=== PATIENT | female | born 1935 | race Caucasian/White ===

== ENCOUNTER 2017-02-16 06:58 | Emergency (ER) | payer MEDICARE, BC ==
--- NOTE | 2017-02-16 07:08 | EDM.PDOC ---
ED HPI GENERAL MEDICAL PROBLEM - General Chief Complaint: Lower Extremity Injury/Pain Stated Complaint: RIGHT KNEE PAIN Time Seen by Provider: 02/16/17 06:59 Source of Information: Reports: Patient - History of Present Illness INITIAL COMMENTS - FREE TEXT/NARRATIVE: History of present illness: []Patient has a knee replacement on her right knee and started having increasing pain and redness and swelling 3 days ago. She states she has chills but denies any fevers or recent trauma to the knee. Patient did have a wound infection after the knee replacement and has been going to wound care at [facility]. Review of systems: As per history of present illness and below otherwise all systems reviewed and negative. Past medical history: As per history of present illness and as reviewed below otherwise noncontributory. Surgical history: As per history of present illness and as reviewed below otherwise noncontributory. Social history: No reported history of drug or alcohol abuse. Family history: As per history of present illness and as reviewed below otherwise noncontributory. Physical exam: General: Well developed, well nourished in NAD HEENT: Atraumatic, normocephalic, pupils reactive, negative for conjunctival pallor or scleral icterus, mucous membranes moist, throat clear, neck supple, nontender, trachea midline. Lungs: Clear to auscultation, breath sounds equal bilaterally, chest nontender. Heart: S1S2, regular, negative for clicks, rubs, or JVD. Abdomen: Soft, nondistended, nontender. Negative for masses or hepatosplenomegaly. Negative for costovertebral tenderness. Pelvis: Stable nontender. Genitourinary: Deferred. Rectal: Deferred. Extremities: Atraumatic, right lateral knee with erythema, warmth and tenderness to palpation there is no wound drainage from chronic wound on the lower medial knee, no effusion, no distal edema negative for cords or calf pain. Neurovascular unremarkable. Neuro: Awake, alert, oriented. Cranial nerves II through XII unremarkable. Cerebellum unremarkable. Motor and sensory unremarkable throughout. Exam nonfocal. Diagnostics: []X-ray negative, CBC with elevated white count with a shift Therapeutics: []Pain meds and IV antibiotics started Impression: []Cellulitis over a prosthetic knee Plan: []I consulted Dr. Stallings who sent her PA for evaluation. Follow-up with orthopedics, Levaquin daily for 10 days, Toradol and Zofran for pain and nausea as needed. Definitive disposition and diagnosis as appropriate pending reevaluation and review of above. Right Knee Pain Score (Numeric/FACES): 10 - Related Data Allergies Allergy/AdvReac Type Severity Reaction Status Date / Time codeine Allergy Vomiting Verified 03/29/16 13:55 latex Allergy Rash Verified 03/31/16 11:51 morphine Allergy Difficulty Verified 03/29/16 13:55 Breathing oxycodone HCl [From Percocet] Allergy Vomiting Verified 03/29/16 13:55 Penicillins Allergy Anaphylactic Verified 03/29/16 13:55 Shock Sulfa (Sulfonamide Allergy Anaphylactic Verified 03/29/16 13:55 Antibiotics) Shock all pain meds Allergy Nausea Uncoded 02/16/17 07:03 Home Meds: Home Meds amLODIPine Besylate [Amlodipine Besylate] 10 mg PO DAILY 07/28/14 [History] Omeprazole Magnesium [Prilosec Otc] 20 mg PO ACBRK 08/01/14 [History] Promethazine [Phenergan] 25 mg PO Q6H PRN #30 tablet 08/04/14 [Rx] Denosumab [Prolia] 1 dose IM ASDIRECTED 02/28/16 [History] Levothyroxine [Synthroid] 1 tab PO DAILY 02/28/16 [History] Ketorolac [Toradol] 10 mg PO Q6H PRN #20 tablet 02/16/17 [Rx] Levofloxacin [Levaquin] 750 mg PO DAILY #9 tablet 02/16/17 [Rx] Ondansetron HCl [Zofran] 4 mg PO Q8HR PRN #16 tablet 02/16/17 [Rx] Past Medical History - Past Health History Medical/Surgical History: Denies Medical/Surgical History HEENT History: Reports: Cataract Other HEENT History: has upper denture and lower partial Cardiovascular History: Reports: None Respiratory History: Reports: None Gastrointestinal History: Reports: GERD, Irritable Bowel Syndrome, Other (See Below) Other Gastrointestinal History: IBS-Diarrhea Genitourinary History: Reports: Other (See Below) Other Genitourinary History: overactive bladder [employer]ORY [employer]ER History: Reports: Musculoskeletal History: Reports: Arthritis Neurological History: Reports: Other (See Below) Other Neuro History: hx of motion sickness Psychiatric History: Reports: None Endocrine/Metabolic History: Reports: Hypothyroidism Hematologic History: Reports: None Immunologic History: Reports: Other (See Below) Other Immunologic History: CREST syndrome Oncologic (Cancer) History: Reports: None Dermatologic History: Reports: None, Other (See Below) Other Dermatologic History: Raynaud's Syndrome - Past Surgical History HEENT Surgical History: Reports: Cataract Surgery Female Surgical History: Reports: Hysterectomy, Other (See Below) Musculoskeletal Surgical History: Reports: Knee Replacement, ORIF, Shoulder Surgery, Other (See Below) Social & Family History - Family History Family Medical History: Noncontributory HEENT: Reports: Cataract Respiratory: Reports: COPD Musculoskeletal: Reports: Arthritis Psychiatric: Reports: Depression Endocrine/Metabolic: Reports: Diabetes, type II - Tobacco Use Smoking Status *Q: Former Smoker Years of Tobacco use: 10 Used Tobacco, but Quit: No Second Hand Smoke Exposure: No - Alcohol Use Days Per Week of Alcohol Use: 0 Number of Drinks Per Day: 0 Total Drinks Per Week: 0 - Recreational Drug Use Recreational Drug Use: No Drug Use in Last 12 Months: No Review of Systems - Review of Systems Review Of Systems: See Below (See history of present illness) ED EXAM, GENERAL - Physical Exam Exam: See Below (See history of present illness) Course - Vital Signs Last Recorded V/S: Last Vital Signs Temp 37.1 C 02/16/17 07:03 Pulse 88 02/16/17 10:30 Resp 16 02/16/17 10:30 BP 122/54 L 02/16/17 10:30 Pulse Ox 90 L 02/16/17 10:30 - Orders/Labs/Meds Orders: Active Orders 24 hr Category Date Time Status CULTURE BLOOD [BC] Stat Lab 02/16/17 07:25 Received CULTURE BLOOD [BC] Stat Lab 02/16/17 07:39 Received Sodium Chloride 0.9% [Saline Flush] Med 02/16/17 07:14 Active 10 ml FLUSH ASDIRECTED PRN Sodium Chloride 0.9% [Saline Flush] Med 02/16/17 07:14 Active 2.5 ml FLUSH ASDIRECTED PRN Blood Culture x2 Reflex Set [OM.PC] Stat Oth 02/16/17 07:13 Ordered Saline Lock Insert [OM.PC] Stat Oth 02/16/17 07:14 Ordered Medication Orders Sodium Chloride (Saline Flush) 10 ml FLUSH ASDIRECTED PRN PRN Reason: Keep Vein Open Sodium Chloride (Saline Flush) 2.5 ml FLUSH ASDIRECTED PRN PRN Reason: Keep Vein Open Labs: Laboratory Tests 02/16/17 02/16/17 02/16/17 Range/Units 07:25 07:25 07:25 WBC 11.54 H (4.0-11.0) K/uL RBC 4.03 L (4.30-5.90) M/uL Hgb 11.5 L (12.0-16.0) g/dL Hct 36.6 (36.0-46.0) % MCV 90.8 (80.0-98.0) fL MCH 28.5 (27.0-32.0) pg MCHC 31.4 (31.0-37.0) g/dL RDW Std Deviation 50.3 (28.0-62.0) fl RDW Coeff of Kari 15 (11.0-15.0) % Plt Count 189 (150-400) K/uL MPV 10.80 (7.40-12.00) fL Neut % (Auto) 83.2 H (48.0-80.0) % Lymph % (Auto) 9.3 L (16.0-40.0) % [place] % (Auto) 7.0 (0.0-15.0) % Eos % (Auto) 0.3 (0.0-7.0) % Baso % (Auto) 0.2 (0.0-1.5) % Neut # (Auto) 9.6 H (1.4-5.7) K/uL Lymph # (Auto) 1.1 (0.6-2.4) K/uL [place] # (Auto) 0.8 (0.0-0.8) K/uL Eos # (Auto) 0.0 (0.0-0.7) K/uL Baso # (Auto) 0.0 (0.0-0.1) K/uL Nucleated RBC % 0.0 /100WBC Nucleated RBCs # 0 K/uL ESR 44 H (0-29) mm/hr Sodium 140 (136-146) mmol/L Potassium 3.7 (3.5-5.1) mmol/L Chloride 111 H (98-110) mmol/L Carbon Dioxide 23 (21-31) mmol/L BUN 13 (6.0-23.0) mg/dL Creatinine 0.8 (0.6-1.5) mg/dL Est Cr Clr Drug Dosing 44.36 mL/min Estimated GFR (MDRD) > 60.0 ml/min Glucose 101 (60-110) mg/dL Calcium 8.5 L (8.8-10.8) mg/dL Total Bilirubin 0.5 (0.1-1.5) mg/dL AST 13 (5-40) IU/L ALT 8 (8-54) IU/L Alkaline Phosphatase 84 (40-150) C-Reactive Protein (0.0-0.5) mg/dL Total Protein 7.1 (6.0-8.0) g/dL Albumin 3.6 (3.4-4.8) g/dL Globulin 3.5 (2.0-3.5) g/dL Albumin/Globulin Ratio 1.0 L (1.3-2.8) 02/16/17 Range/Units 07:25 WBC (4.0-11.0) K/uL RBC (4.30-5.90) M/uL Hgb (12.0-16.0) g/dL Hct (36.0-46.0) % MCV (80.0-98.0) fL MCH (27.0-32.0) pg MCHC (31.0-37.0) g/dL RDW Std Deviation (28.0-62.0) fl RDW Coeff of Kari (11.0-15.0) % Plt Count (150-400) K/uL MPV (7.40-12.00) fL Neut % (Auto) (48.0-80.0) % Lymph % (Auto) (16.0-40.0) % [place] % (Auto) (0.0-15.0) % Eos % (Auto) (0.0-7.0) % Baso % (Auto) (0.0-1.5) % Neut # (Auto) (1.4-5.7) K/uL Lymph # (Auto) (0.6-2.4) K/uL [place] # (Auto) (0.0-0.8) K/uL Eos # (Auto) (0.0-0.7) K/uL Baso # (Auto) (0.0-0.1) K/uL Nucleated RBC % /100WBC Nucleated RBCs # K/uL ESR (0-29) mm/hr Sodium (136-146) mmol/L Potassium (3.5-5.1) mmol/L Chloride (98-110) mmol/L Carbon Dioxide (21-31) mmol/L BUN (6.0-23.0) mg/dL Creatinine (0.6-1.5) mg/dL Est Cr Clr Drug Dosing mL/min Estimated GFR (MDRD) ml/min Glucose (60-110) mg/dL Calcium (8.8-10.8) mg/dL Total Bilirubin (0.1-1.5) mg/dL AST (5-40) IU/L ALT (8-54) IU/L Alkaline Phosphatase (40-150) C-Reactive Protein 18.89 H (0.0-0.5) mg/dL Total Protein (6.0-8.0) g/dL Albumin (3.4-4.8) g/dL Globulin (2.0-3.5) g/dL Albumin/Globulin Ratio (1.3-2.8) Meds: Medications Generic Name Dose Route Start Last Admin Trade Name Freq PRN Reason Stop Dose Admin Sodium Chloride 10 ml 02/16/17 07:14 Saline Flush FLUSH ASDIRECTED PRN Keep Vein Open Sodium Chloride 2.5 ml 02/16/17 07:14 Saline Flush FLUSH ASDIRECTED PRN Keep Vein Open Discontinued Medications Generic Name Dose Route Start Last Admin Trade Name Freq PRN Reason Stop Dose Admin Levofloxacin/Dextrose 750 mg/ 150 mls @ 100 mls/hr 02/16/17 10:02 02/16/17 10 :36 Premix IV 02/16/17 11:31 100 mls/hr ONETIME ONE Administration Ketorolac Tromethamine 15 mg 02/16/17 08:02 02/16/17 08:09 Toradol IVPUSH 02/16/17 08:03 15 mg ONETIME ONE Administration Ondansetron HCl 4 mg 02/16/17 08:03 02/16/17 08:09 Zofran IVPUSH 02/16/17 08:04 4 mg ONETIME ONE Administration Departure - Departure Time of Disposition: 12:10 Disposition: Home, Self-Care 01 Condition: Good Clinical Impression: Cellulitis of knee, right - Discharge Information Prescriptions: Ondansetron HCl [Zofran] 4 mg PO Q8HR PRN #16 tablet PRN Reason: Nausea Ketorolac [Toradol] 10 mg PO Q6H PRN #20 tablet PRN Reason: Pain Levofloxacin [Levaquin] 750 mg PO DAILY #9 tablet Instructions: Cellulitis, Adult, [id number] Referrals: PCP,None [Primary Care Provider] - Forms: ED Department Discharge Additional Instructions: The following information is given to patients seen in the emergency department who are being discharged to home. This information is to outline your options for follow-up care. We provide all patients seen in our emergency department with a follow-up referral. The need for follow-up, as well as the timing and circumstances, are variable depending upon the specifics of your emergency department visit. If you don't have a primary care physician on staff, we will provide you with a referral. We always advise you to contact your personal physician following an emergency department visit to inform them of the circumstance of the visit and for follow-up with them and/or the need for any referrals to a consulting specialist. The emergency department will also refer you to a specialist when appropriate. This referral assures that you have the opportunity for follow-up care with a specialist. All of these measure are taken in an effort to provide you with optimal care, which includes your follow-up. Under all circumstances we always encourage you to contact your private physician who remains a resource for coordinating your care. When calling for follow-up care, please make the office aware that this follow-up is from your recent emergency room visit. If for any reason you are refused follow-up, please contact the [facility] Emergency Department at and asked to speak to the emergency department charge nurse. Levaquin daily for 10 days, tramadol and Zofran for pain and nausea Follow-up with Dr. Haylie LIMA [facility] [address], [address] [place] [address] - My Orders Last 24 Hours: My Active Orders 02/16/17 07:13 Blood Culture x2 Reflex Set [OM.PC] Stat 02/16/17 07:14 Sodium Chloride 0.9% [Saline Flush] 10 ml FLUSH ASDIRECTED PRN Sodium Chloride 0.9% [Saline Flush] 2.5 ml FLUSH ASDIRECTED PRN Saline Lock Insert [OM.PC] Stat 02/16/17 07:25 CULTURE BLOOD [BC] Stat 02/16/17 07:39 CULTURE BLOOD [BC] Stat - Assessment/Plan Last 24 Hours: My Active Orders 02/16/17 07:13 Blood Culture x2 Reflex Set [OM.PC] Stat 02/16/17 07:14 Sodium Chloride 0.9% [Saline Flush] 10 ml FLUSH ASDIRECTED PRN Sodium Chloride 0.9% [Saline Flush] 2.5 ml FLUSH ASDIRECTED PRN Saline Lock Insert [OM.PC] Stat 02/16/17 07:25 CULTURE BLOOD [BC] Stat 02/16/17 07:39 CULTURE BLOOD [BC] Stat
[2017-02-16] MEDS ORDERED: Sodium Chloride 0.9% 10 ML Syringe FLUSH PRN (07:14)
[2017-02-16] MEDS ORDERED: Sodium Chloride 0.9% 2.5 ML Syringe FLUSH PRN (07:14)
[2017-02-16 07:58] LABS: CHLORIDE,CL 111 mmol/L (98-110); SODIUM,NA 140 mmol/L (136-146)
[2017-02-16] MEDS ORDERED: Ketorolac 30 MG/ML SDV IVPUSH ONE (08:02)
[2017-02-16] MEDS ORDERED: Ondansetron 4 MG/2 ML SDV IVPUSH ONE (08:03)
--- NOTE | 2017-02-16 08:59 | CR ---
EXAMINATION: Right knee HISTORY: Pain COMPARISON: CT dated 04/01/2016 TECHNIQUE: 3 views FINDINGS: There is no acute osseous abnormality, dislocation, or fracture identified. Right revision arthroplasty hardware noted in stable position and alignment. Postoperative soft tissue changes not ed within the right knee without evidence of a joint effusion. Bone mineralization is otherwise norm al. IMPRESSION: Right total knee hardware without an acute osseous abnormality.
--- NOTE | 2017-02-16 09:41 | PCM.CONS ---
<Apolinar Boyd - Last Filed: 02/16/17 10:08> H&P History of Present Illness - General Date of Service: 02/16/17 Source of Information: Patient, Family History Limitations: Reports: No Limitations - History of Present Illness Onset of Symptoms: Reports: Gradual Duration of Symptoms: Reports: Day(s): (4) Location: Reports: Lower Extremity, Right Quality: Reports: Sharp, Stabbing, Throbbing Improves with: Reports: Medication (Toradol) Worsens with: Reports: Movement Associated Symptoms: Reports: No Other Symptoms. Denies: Fever/Chills Right Knee Pain Score (Numeric/FACES): 10 - Related Data Allergies/Adverse Reactions: Allergies Allergy/AdvReac Type Severity Reaction Status Date / Time codeine Allergy Vomiting Verified 03/29/16 13:55 latex Allergy Rash Verified 03/31/16 11:51 morphine Allergy Difficulty Verified 03/29/16 13:55 Breathing oxycodone HCl [From Percocet] Allergy Vomiting Verified 03/29/16 13:55 Penicillins Allergy Anaphylactic Verified 03/29/16 13:55 Shock Sulfa (Sulfonamide Allergy Anaphylactic Verified 03/29/16 13:55 Antibiotics) Shock all pain meds Allergy Nausea Uncoded 02/16/17 07:03 Home Medications: Home Meds amLODIPine Besylate [Amlodipine Besylate] 10 mg PO DAILY 07/28/14 [History] Omeprazole Magnesium [Prilosec Otc] 20 mg PO ACBRK 08/01/14 [History] Promethazine [Phenergan] 25 mg PO Q6H PRN #30 tablet 08/04/14 [Rx] Denosumab [Prolia] 1 dose IM ASDIRECTED 02/28/16 [History] Levothyroxine [Synthroid] 1 tab PO DAILY 02/28/16 [History] Ketorolac [Toradol] 10 mg PO Q6H PRN #20 tablet 02/16/17 [Rx] Levofloxacin [Levaquin] 750 mg PO DAILY #9 tablet 02/16/17 [Rx] Ondansetron HCl [Zofran] 4 mg PO Q8HR PRN #16 tablet 02/16/17 [Rx] Past Medical History - Past Health History Medical/Surgical History: Denies Medical/Surgical History HEENT History: Reports: Cataract Other HEENT History: has upper denture and lower partial Cardiovascular History: Reports: None Respiratory History: Reports: None Gastrointestinal History: Reports: GERD, Irritable Bowel Syndrome, Other (See Below) Other Gastrointestinal History: IBS-Diarrhea Genitourinary History: Reports: Other (See Below) Other Genitourinary History: overactive bladder 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: Musculoskeletal History: Reports: Arthritis Neurological History: Reports: Other (See Below) Other Neuro History: hx of motion sickness Psychiatric History: Reports: None Endocrine/Metabolic History: Reports: Hypothyroidism Hematologic History: Reports: None Immunologic History: Reports: Other (See Below) Other Immunologic History: CREST syndrome Oncologic (Cancer) History: Reports: None Dermatologic History: Reports: None, Other (See Below) Other Dermatologic History: Raynaud's Syndrome - Infectious Disease History Infectious Disease History: Reports: Chicken Pox, Measles, Shingles - Past Surgical History HEENT Surgical History: Reports: Cataract Surgery Female Surgical History: Reports: Hysterectomy, Other (See Below) Musculoskeletal Surgical History: Reports: Knee Replacement, ORIF, Shoulder Surgery, Other (See Below) Social & Family History - Family History Family Medical History: Noncontributory HEENT: Reports: Cataract Respiratory: Reports: COPD Musculoskeletal: Reports: Arthritis Psychiatric: Reports: Depression Endocrine/Metabolic: Reports: Diabetes, type II - Tobacco Use Smoking Status *Q: Former Smoker Years of Tobacco use: 10 Used Tobacco, but Quit: No Second Hand Smoke Exposure: No - Caffeine Use Caffeine Use: Reports: Coffee, Soda - Alcohol Use Days Per Week of Alcohol Use: 0 Number of Drinks Per Day: 0 Total Drinks Per Week: 0 - Recreational Drug Use Recreational Drug Use: No Drug Use in Last 12 Months: No H&P Review of Systems - Review of Systems: Review Of Systems: See Below General: Denies: Fever, Chills, Malaise, Weakness, Fatigue HEENT: Reports: No Symptoms Pulmonary: Reports: No Symptoms Cardiovascular: Reports: No Symptoms Gastrointestinal: Reports: No Symptoms Genitourinary: Reports: No Symptoms Musculoskeletal: Reports: Leg Pain, Joint Pain, Joint Swelling Skin: Reports: Erythema (Medial aspect of right knee.) Psychiatric: Reports: No Symptoms Neurological: Reports: No Symptoms Hematologic/Lymphatic: Reports: No Symptoms Immunologic: Reports: No Symptoms Exam - Exam Exam: See Below - Vital Signs Vital Signs: Last Vital Signs Temp 37.1 C 02/16/17 07:03 Pulse 110 H 02/16/17 07:03 Resp 18 02/16/17 07:03 BP 158/76 H 02/16/17 07:03 Pulse Ox 97 02/16/17 07:03 Weight: 50.349 kg - Exam General: Alert, Oriented HEENT: Conjunctiva Clear, Hearing Intact, Pupils Equal, Pupils Reactive Neck: Trachea Midline Lungs: Normal Respiratory Effort Extremities: Normal Pulses, Other (Exam of right knee reveals no obvious deformities. Midline incision is clean, dry and well healed. There is an area approximately 3cm in diamater on the inferior medial aspect of the knee. This appears to be healing. It is dry, no drainage. There is erythema surrounding this. Joint is warm with palpation. Pain with palpation of lateral joint line. ROM 0-90 degrees. Stable with varus and valgus stress. EHL, gastroc, anterior tibialis strength 5/5. ). No: Calf Tenderness Skin: Warm, Dry, Intact Neuro Extensive - Mental Status: Alert, Oriented x3, Normal Mood/Affect, Memory Intact Neuro Extensive - Motor, Sensory, Reflexes: CN II-XII Intact - Patient Data Lab Results Last 24 hrs: Laboratory Results - last 24 hr 02/16/17 02/16/17 Range/Units 07:25 07:25 WBC 11.54 H (4.0-11.0) K/uL RBC 4.03 L (4.30-5.90) M/uL Hgb 11.5 L (12.0-16.0) g/dL Hct 36.6 (36.0-46.0) % MCV 90.8 (80.0-98.0) fL MCH 28.5 (27.0-32.0) pg MCHC 31.4 (31.0-37.0) g/dL RDW Std Deviation 50.3 (28.0-62.0) fl RDW Coeff of Kari 15 (11.0-15.0) % Plt Count 189 (150-400) K/uL MPV 10.80 (7.40-12.00) fL Neut % (Auto) 83.2 H (48.0-80.0) % Lymph % (Auto) 9.3 L (16.0-40.0) % [place] % (Auto) 7.0 (0.0-15.0) % Eos % (Auto) 0.3 (0.0-7.0) % Baso % (Auto) 0.2 (0.0-1.5) % Neut # (Auto) 9.6 H (1.4-5.7) K/uL Lymph # (Auto) 1.1 (0.6-2.4) K/uL [place] # (Auto) 0.8 (0.0-0.8) K/uL Eos # (Auto) 0.0 (0.0-0.7) K/uL Baso # (Auto) 0.0 (0.0-0.1) K/uL Nucleated RBC % 0.0 /100WBC Nucleated RBCs # 0 K/uL Sodium 140 (136-146) mmol/L Potassium 3.7 (3.5-5.1) mmol/L Chloride 111 H (98-110) mmol/L Carbon Dioxide 23 (21-31) mmol/L BUN 13 (6.0-23.0) mg/dL Creatinine 0.8 (0.6-1.5) mg/dL Est Cr Clr Drug Dosing 44.36 mL/min Estimated GFR (MDRD) > 60.0 ml/min Glucose 101 (60-110) mg/dL Calcium 8.5 L (8.8-10.8) mg/dL Total Bilirubin 0.5 (0.1-1.5) mg/dL AST 13 (5-40) IU/L ALT 8 (8-54) IU/L Alkaline Phosphatase 84 (40-150) Total Protein 7.1 (6.0-8.0) g/dL Albumin 3.6 (3.4-4.8) g/dL Globulin 3.5 (2.0-3.5) g/dL Albumin/Globulin Ratio 1.0 L (1.3-2.8) Result Diagrams: 02/16/17 07:25 02/16/17 07:25 Consult PN Assessment/Plan Procedures: Procedures BLOOD CULTURE FOR BACTERIA (03/29/16) BLOOD TYPING SEROLOGIC ABO (07/31/14) BLOOD TYPING SEROLOGIC RH(D) (07/31/14) C-REACTIVE PROTEIN (03/31/16) COMPATIBILITY TEST ANTIGLOB (07/31/14) COMPATIBILITY TEST INCUBATE (07/31/14) COMPATIBILITY TEST SPIN (07/31/14) COMPLETE CBC AUTOMATED (11/30/15) COMPLETE CBC W/AUTO DIFF WBC (03/31/16) COMPREHEN METABOLIC PANEL (03/29/16) CT LOWER EXTREMITY W/DYE (10/29/16) CT LOWER EXTREMITY W/O DYE (05/16/14) CULTR BACTERIA EXCEPT BLOOD (03/29/16) CULTURE OTHR SPECIMN AEROBIC (03/29/16) OMID MUSC/FASCIA 20 SQ CM/< (02/29/16) OMID SUBQ TISSUE 20 SQ CM/< (11/30/15) DECALCIFY TISSUE (07/31/14) ELECTROCARDIOGRAM TRACING (11/30/15) EMERGENCY DEPT VISIT (03/29/16) EXTREMITY STUDY (04/02/16) FLUOROSCOPE EXAMINATION (06/23/14) GAIT TRAINING THERAPY (10/27/14) HEMATOCRIT (07/31/14) HEMOGLOBIN (07/31/14) HOT OR COLD PACKS THERAPY (10/27/14) LEG SURGERY PROCEDURE (07/31/14) METABOLIC PANEL TOTAL CA (11/30/15) MRI JNT OF LWR EXTRE W/O DYE (06/24/14) OFFICE/OUTPATIENT VISIT EST (03/31/16) OFFICE/OUTPATIENT VISIT EST (10/31/14) PT EVALUATION (09/01/14) RBC ANTIBODY SCREEN (07/31/14) RBC SED RATE AUTOMATED (03/31/16) REMOVAL OF SUPPORT IMPLANT (06/23/14) ROUTINE VENIPUNCTURE (03/31/16) SMEAR GRAM STAIN (02/29/16) THER/PROPH/DIAG INJ IV PUSH (03/29/16) THER/PROPH/DIAG INJ SC/IM (03/29/16) THERAPEUTIC EXERCISES (10/27/14) TISSUE EXAM BY PATHOLOGIST (07/31/14) TOTAL KNEE ARTHROPLASTY (07/31/14) TX/PRO/DX INJ NEW DRUG ADDON (03/29/16) URINALYSIS AUTO W/SCOPE (07/31/14) URINE BACTERIA CULTURE (07/31/14) VASOPNEUMATIC DEVICE THERAPY (09/28/14) X-RAY EXAM KNEE 4 OR MORE (02/28/16) X-RAY EXAM OF ANKLE (06/22/14) X-RAY EXAM OF FOOT (11/07/13) X-RAY EXAM OF KNEE 1 OR 2 (03/31/16) X-RAY EXAM OF KNEE 3 (06/26/15) X-RAY EXAM OF LOWER LEG (03/29/16) Problem List Initiated/Reviewed/Updated: Yes Plan: ESR and CRP ordered. D/C home on Levaquin 750 mg for 10 days and Toradol 10 mg for 5 days. Activity as tolerated. May use walker if needed. Followup in the clinic on 02/19 1:30 pm with Apolinar Boyd PA-C. Questions or concerns prior to followup, call the ortho clinic [phone]. <Jessica Stallings R - Last Filed: 02/16/17 12:18> H&P History of Present Illness - History of Present Illness Initial Comments - Free Text/Narative: Pt has h/o TKA ~1.5 years ago. Postoperative course complicated by persistent wound along medial aspect of knee. She has been followed by wound nurse at [facility] for this. Denies new injury. Denies fever/chills. Noted increased pain over past few days. Pain improved with Toradol. She has h/o CREST syndrome. Exam - Vital Signs Vital Signs: Last Vital Signs Temp 98.7 F 02/16/17 07:03 Pulse 88 02/16/17 10:30 Resp 16 02/16/17 10:30 BP 122/54 L 02/16/17 10:30 Pulse Ox 90 L 02/16/17 10:30 - Patient Data Lab Results Last 24 hrs: Laboratory Results - last 24 hr 02/16/17 02/16/17 02/16/17 Range/Units 07:25 07:25 07:25 WBC 11.54 H (4.0-11.0) K/uL RBC 4.03 L (4.30-5.90) M/uL Hgb 11.5 L (12.0-16.0) g/dL Hct 36.6 (36.0-46.0) % MCV 90.8 (80.0-98.0) fL MCH 28.5 (27.0-32.0) pg MCHC 31.4 (31.0-37.0) g/dL RDW Std Deviation 50.3 (28.0-62.0) fl RDW Coeff of Kari 15 (11.0-15.0) % Plt Count 189 (150-400) K/uL MPV 10.80 (7.40-12.00) fL Neut % (Auto) 83.2 H (48.0-80.0) % Lymph % (Auto) 9.3 L (16.0-40.0) % [place] % (Auto) 7.0 (0.0-15.0) % Eos % (Auto) 0.3 (0.0-7.0) % Baso % (Auto) 0.2 (0.0-1.5) % Neut # (Auto) 9.6 H (1.4-5.7) K/uL Lymph # (Auto) 1.1 (0.6-2.4) K/uL [place] # (Auto) 0.8 (0.0-0.8) K/uL Eos # (Auto) 0.0 (0.0-0.7) K/uL Baso # (Auto) 0.0 (0.0-0.1) K/uL Nucleated RBC % 0.0 /100WBC Nucleated RBCs # 0 K/uL ESR 44 H (0-29) mm/hr Sodium 140 (136-146) mmol/L Potassium 3.7 (3.5-5.1) mmol/L Chloride 111 H (98-110) mmol/L Carbon Dioxide 23 (21-31) mmol/L BUN 13 (6.0-23.0) mg/dL Creatinine 0.8 (0.6-1.5) mg/dL Est Cr Clr Drug Dosing 44.36 mL/min Estimated GFR (MDRD) > 60.0 ml/min Glucose 101 (60-110) mg/dL Calcium 8.5 L (8.8-10.8) mg/dL Total Bilirubin 0.5 (0.1-1.5) mg/dL AST 13 (5-40) IU/L ALT 8 (8-54) IU/L Alkaline Phosphatase 84 (40-150) C-Reactive Protein (0.0-0.5) mg/dL Total Protein 7.1 (6.0-8.0) g/dL Albumin 3.6 (3.4-4.8) g/dL Globulin 3.5 (2.0-3.5) g/dL Albumin/Globulin Ratio 1.0 L (1.3-2.8) 02/16/17 Range/Units 07:25 WBC (4.0-11.0) K/uL RBC (4.30-5.90) M/uL Hgb (12.0-16.0) g/dL Hct (36.0-46.0) % MCV (80.0-98.0) fL MCH (27.0-32.0) pg MCHC (31.0-37.0) g/dL RDW Std Deviation (28.0-62.0) fl RDW Coeff of Kari (11.0-15.0) % Plt Count (150-400) K/uL MPV (7.40-12.00) fL Neut % (Auto) (48.0-80.0) % Lymph % (Auto) (16.0-40.0) % [place] % (Auto) (0.0-15.0) % Eos % (Auto) (0.0-7.0) % Baso % (Auto) (0.0-1.5) % Neut # (Auto) (1.4-5.7) K/uL Lymph # (Auto) (0.6-2.4) K/uL [place]ble # (Auto) (0.0-0.8) K/uL Eos # (Auto) (0.0-0.7) K/uL Baso # (Auto) (0.0-0.1) K/uL Nucleated RBC % /100WBC Nucleated RBCs # K/uL ESR (0-29) mm/hr Sodium (136-146) mmol/L Potassium (3.5-5.1) mmol/L Chloride (98-110) mmol/L Carbon Dioxide (21-31) mmol/L BUN (6.0-23.0) mg/dL Creatinine (0.6-1.5) mg/dL Est Cr Clr Drug Dosing mL/min Estimated GFR (MDRD) ml/min Glucose (60-110) mg/dL Calcium (8.8-10.8) mg/dL Total Bilirubin (0.1-1.5) mg/dL AST (5-40) IU/L ALT (8-54) IU/L Alkaline Phosphatase (40-150) C-Reactive Protein 18.89 H (0.0-0.5) mg/dL Total Protein (6.0-8.0) g/dL Albumin (3.4-4.8) g/dL Globulin (2.0-3.5) g/dL Albumin/Globulin Ratio (1.3-2.8) Result Diagrams: 02/16/17 07:25 02/16/17 07:25 Consult PN Assessment/Plan Procedures: Procedures BLOOD CULTURE FOR BACTERIA (03/29/16) BLOOD TYPING SEROLOGIC ABO (07/31/14) BLOOD TYPING SEROLOGIC RH(D) (07/31/14) C-REACTIVE PROTEIN (03/31/16) COMPATIBILITY TEST ANTIGLOB (07/31/14) COMPATIBILITY TEST INCUBATE (07/31/14) COMPATIBILITY TEST SPIN (07/31/14) COMPLETE CBC AUTOMATED (11/30/15) COMPLETE CBC W/AUTO DIFF WBC (03/31/16) COMPREHEN METABOLIC PANEL (03/29/16) CT LOWER EXTREMITY W/DYE (10/29/16) CT LOWER EXTREMITY W/O DYE (05/16/14) CULTR BACTERIA EXCEPT BLOOD (03/29/16) CULTURE OTHR SPECIMN AEROBIC (03/29/16) OMID MUSC/FASCIA 20 SQ CM/< (02/29/16) OMID SUBQ TISSUE 20 SQ CM/< (11/30/15) DECALCIFY TISSUE (07/31/14) ELECTROCARDIOGRAM TRACING (11/30/15) EMERGENCY DEPT VISIT (03/29/16) EXTREMITY STUDY (04/02/16) FLUOROSCOPE EXAMINATION (06/23/14) GAIT TRAINING THERAPY (10/27/14) HEMATOCRIT (07/31/14) HEMOGLOBIN (07/31/14) HOT OR COLD PACKS THERAPY (10/27/14) LEG SURGERY PROCEDURE (07/31/14) METABOLIC PANEL TOTAL CA (11/30/15) MRI JNT OF LWR EXTRE W/O DYE (06/24/14) OFFICE/OUTPATIENT VISIT EST (03/31/16) OFFICE/OUTPATIENT VISIT EST (10/31/14) PT EVALUATION (09/01/14) RBC ANTIBODY SCREEN (07/31/14) RBC SED RATE AUTOMATED (03/31/16) REMOVAL OF SUPPORT IMPLANT (06/23/14) ROUTINE VENIPUNCTURE (03/31/16) SMEAR GRAM STAIN (02/29/16) THER/PROPH/DIAG INJ IV PUSH (03/29/16) THER/PROPH/DIAG INJ SC/IM (03/29/16) THERAPEUTIC EXERCISES (10/27/14) TISSUE EXAM BY PATHOLOGIST (07/31/14) TOTAL KNEE ARTHROPLASTY (07/31/14) TX/PRO/DX INJ NEW DRUG ADDON (03/29/16) URINALYSIS AUTO W/SCOPE (07/31/14) URINE BACTERIA CULTURE (07/31/14) VASOPNEUMATIC DEVICE THERAPY (09/28/14) X-RAY EXAM KNEE 4 OR MORE (02/28/16) X-RAY EXAM OF ANKLE (06/22/14) X-RAY EXAM OF FOOT (11/07/13) X-RAY EXAM OF KNEE 1 OR 2 (03/31/16) X-RAY EXAM OF KNEE 3 (06/26/15) X-RAY EXAM OF LOWER LEG (03/29/16)
[2017-02-16] MEDS ORDERED: Levofloxacin/Dextrose 5%-Water 750 MG in Premix Bag 1 BAG IV ONE (10:02)
[2017-02-16 12:58] VITALS: BP 146/74
== END 2017-02-16 12:10 | disposition home or self-care (01) ==
LOC: MW.ED 06:58
DX: L03.115 Cellulitis of right lower limb (principal); K21.9 Gastro-esophageal reflux disease without esophagitis; E03.9 Hypothyroidism, unspecified; Z98.49 Cataract extraction status, unspecified eye; Z90.710 Acquired absence of both cervix and uterus; Z96.659 Presence of unspecified artificial knee joint; Z87.891 Personal history of nicotine dependence; Z88.5 Allergy status to narcotic agent; Z88.6 Allergy status to analgesic agent; Z88.0 Allergy status to penicillin; Z88.2 Allergy status to sulfonamides; Z91.040 Latex allergy status; Z79.899 Other long term (current) drug therapy
CPT/HCPCS: 36415; 73562; 80053; 85025; 85652; 86140; 87040; 96365; 96375; 99284; J1885; J1956; J2405

== ENCOUNTER 2017-02-19 14:22 | Observation (INO) | payer MEDICARE, BC ==
[2017-02-19] MEDS ORDERED: Promethazine 25 MG/ML SDV IM PRN (14:38)
[2017-02-19] MEDS ORDERED: Ketorolac 15 MG/ML SDV IVPUSH SCH (14:45)
[2017-02-19] MEDS ORDERED: DAPTOmycin 500 MG Vial IVPUSH SCH (15:00)
[2017-02-19] MEDS: Lactated Ringers 1,000 ML IV SCH (15:43)
[2017-02-19] MEDS: SODIUM CHLORIDE 0.9% IV SCH (16:25)
[2017-02-19] MEDS: DAPTOMYCIN IV SCH (16:25)
[2017-02-19] MEDS: Ondansetron 4 MG/2 ML SDV IV PRN (16:25)
[2017-02-19] MEDS: Ketorolac 15 MG/ML SDV IVPUSH SCH ×2 (16:25→22:32)
--- NOTE | 2017-02-19 17:21 | PCM.SN ---
- Free Text/Narrative Note: Full H&P from clinic note available in paper chart--was faxed to floor earlier. Patient is s/p R TKA in the past. She had a persistent medial wound that was treated with I&D approximately one year ago. No involvement of the knee joint was noted. The wound eventually healed. On Thursday she noted increase pain, swelling, and drainage. Presented to the ER on Thursday. Was evaluated that day and started on Levaquin. Has noticed an improvement in her pain and swelling but has noticed persistent drainage. Evaluated in clinic. Due to proximity to the knee joint, I recommended admission and IV abx. Exam of LLE shows TKA incision to be well healed. Small area of erythema and fluctuance along the medial joint line. Serous drainage expressed from wound. ROM 0-95 degrees with minimal pain. Stable to varus/valgus stressing. Patella tracks centrally. NVI. XR reviewed from ER show good position of the TKA prosthesis without evidence of loosening. Ass: L knee soft tissue infection 1. knee immobilizer 2. WBAT RLE 3. Cubicin 4. ESR/CRP elevated, WBC normal--continue to monitor 5. BC x 2 6. consider aspiration if pain/swelling persists
[2017-02-19] MEDS ORDERED: Temazepam 15 MG Cap PO PRN (22:11)
[2017-02-20] MEDS: Lactated Ringers 1,000 ML IV SCH (01:47)
[2017-02-20] MEDS: Ketorolac 15 MG/ML SDV IVPUSH SCH ×4 (05:05→23:40)
--- NOTE | 2017-02-20 08:31 | PCM.SN ---
[id number] Agree with above note. Patient states she feels better. Labs improved. BC pending. Exam of RLE shows less erythema and swelling. Minimal joint effusion. ~1cm pustule medially. TTP directly over the pustule. With palpation around the pustule, copious amounts of cloudy fluid expressed. Unable to palpate any fluctuance or induration. Unsure of site of drainage. No calf TTP. AT/EHL/ gastroc 5/5. Sensation intact. DP 2+. Recommended that we formally explore the wound. Verbal consent obtained from the patient. Area around wound cleansed with Chloroprep solution. Small sterile hemostat was used to probe wound. Move drainage noted. Sterile Qtip used to probe wound. No tunneling noted. Patient tolerated well. Wet 2x2 placed into wound and dry dressing applied over. 1. continue wet-dry dressings bid 2. continue Cubicin 3. recheck labs in am 4. await BC results 5. discontinue immobilizaer 6. possible discharge home tomorrow on Zyvox vs continued Cubicin <Gema Arreola R - Last Filed: 02/20/17 13:02> - Free Text/Narrative Note: patient resting comfortably in bed reports good nights sleep with sleeping pill minimal pain has been wearing immobilizer - difficult to ambulate with reports overall feeling better since admission vss, afeb (tmax 99.1) knee immobilizer in place gauze dressing with moderate serous drainage ROM at knee deferred WBC 10.44 (13.36 on 02/19) ESR 73 (74 on 02/19) CRP 27.31 (31.42 on 02/19) blood cultures pending s/p L TKA, L knee soft tissue infection continue Cubicin IV today activity as tolerated will consider d/ch to home today
[2017-02-20] MEDS: Acetaminophen 500 MG Tab PO PRN ×2 (09:22→21:23)
[2017-02-20] MEDS ORDERED: Sodium Chloride 0.9% 10 ML Syringe FLUSH PRN (10:51)
[2017-02-20] MEDS ORDERED: Sodium Chloride 0.9% 2.5 ML Syringe FLUSH PRN (10:51)
[2017-02-20] MEDS ORDERED: HYDROmorphone 2 MG/ML Syringe IVPUSH PRN (10:52)
[2017-02-20] MEDS ORDERED: DENOSUMAB IM SCH (11:30)
[2017-02-20] MEDS: Levothyroxine 88 MCG Tab PO SCH (12:30)
[2017-02-20] MEDS: amLODIPine 5 MG Tab PO SCH (12:30)
[2017-02-20] MEDS: Ondansetron 4 MG/2 ML SDV IV PRN (12:53)
--- NOTE | 2017-02-20 14:23 | CT ---
EXAM DATE: 02/19/17 PATIENT'S AGE: 81 Patient: PADMA LIZ Facility: [place], [place] Site . Site : [id number] Study: CT Knee Right [id number]/21/[id number] 1:12:44 PM Ordering Physician: Haylie Lopez Final Report: Indication: Draining wound. History of knee prosthesis. Comparison: [address] Technique: Noncontrast images centered on the right knee prosthesis. Axial, coronal and sagittal 2D reformats. Findings: Moderately large somewhat complex appearing knee joint effusion. Prominent artifact from the prosthesis. No periarticular fluid collection of significance appreciated. Femoral stem of the prosthesis extends above the field of view. No loosening of the femoral prosthesis or fracture of the visualized femur. Tibial implant shows no subsidence, osteolysis or fracture. The fibula is intact. Patellar resurfacing is unchanged in appearance. Impression: Slight increase from comparison small to moderate knee joint effusion. No extra- articular abscess. No CT findings for osteomyelitis although sensitivity is low. No CT evidence for complication associated with total knee arthroplasty. Please note that all CT scans at this facility use dose modulation, iterative reconstruction, and/or weight-based dosing when appropriate to reduce radiation dose to as low as reasonably achievable. Dictated by Meng Leonardo MD @ Feb 20 2017 1:40PM (Electronic Signature) Report Signed by Proxy. AFTAB
[2017-02-20] MEDS: SODIUM CHLORIDE 0.9% IV SCH (16:02)
[2017-02-20] MEDS: DAPTOMYCIN IV SCH (16:02)
[2017-02-21] MEDS: Ketorolac 15 MG/ML SDV IVPUSH SCH ×2 (04:48→11:30)
[2017-02-21] MEDS: Levothyroxine 88 MCG Tab PO SCH (06:48)
[2017-02-21 08:45] VITALS: BP 127/58
[2017-02-21] MEDS: amLODIPine 5 MG Tab PO SCH (09:34)
[2017-02-21] MEDS: Acetaminophen 500 MG Tab PO PRN (09:35)
--- NOTE | 2017-02-21 10:22 | PCM.PN ---
- General Info Date of Service: 02/21/17 Functional Status: Reports: Pain Controlled - Review of Systems General: Reports: No Symptoms HEENT: Reports: No Symptoms Pulmonary: Reports: No Symptoms Cardiovascular: Reports: No Symptoms Gastrointestinal: Reports: No Symptoms Genitourinary: Reports: No Symptoms Systems Review Comment:: Patient states she is feeling much better. No c/o pain in knee. Denies fever/ chills. CT showed no abscess formation with mild joint effusion. - Patient Data Vitals - most recent: Last Vital Signs Temp 97.5 F 02/21/17 08:00 Pulse 84 02/21/17 08:00 Resp 22 H 02/21/17 08:00 BP 127/58 L 02/21/17 09:34 Pulse Ox 95 02/21/17 08:00 Weight - most recent: 116.3 kg I&O - last 24 hours: Intake & Output 02/20/17 02/21/17 02/21/17 22:59 06:59 14:59 Intake Total 630 400 Output Total 450 800 Balance 180 -400 Lab Results last 24 hrs: Laboratory Results - last 24 hr 02/21/17 02/21/17 Range/Units 06:30 06:30 WBC 9.41 (4.0-11.0) K/uL RBC 3.40 L (4.30-5.90) M/uL Hgb 9.5 L (12.0-16.0) g/dL Hct 30.4 L (36.0-46.0) % MCV 89.4 (80.0-98.0) fL MCH 27.9 (27.0-32.0) pg MCHC 31.3 (31.0-37.0) g/dL RDW Std Deviation 49.1 (28.0-62.0) fl RDW Coeff of Kari 15 (11.0-15.0) % Plt Count 229 (150-400) K/uL MPV 10.10 (7.40-12.00) fL Neut % (Auto) 73.6 (48.0-80.0) % Lymph % (Auto) 15.8 L (16.0-40.0) % [place] % (Auto) 8.3 (0.0-15.0) % Eos % (Auto) 2.0 (0.0-7.0) % Baso % (Auto) 0.3 (0.0-1.5) % Neut # (Auto) 6.9 H (1.4-5.7) K/uL Lymph # (Auto) 1.5 (0.6-2.4) K/uL [place] # (Auto) 0.8 (0.0-0.8) K/uL Eos # (Auto) 0.2 (0.0-0.7) K/uL Baso # (Auto) 0.0 (0.0-0.1) K/uL Nucleated RBC % 0.0 /100WBC Nucleated RBCs # 0 K/uL ESR 98 H (0-29) mm/hr C-Reactive Protein 21.70 H (0.0-0.5) mg/dL Chan Results last 24 hrs: Microbiology 02/19/17 18:00 Aerobic Blood Culture - Preliminary Blood - Venous - Lab Draw NO GROWTH AFTER 1 DAY Anaerobic Blood Culture - Preliminary NO GROWTH AFTER 1 DAY 02/19/17 17:48 Aerobic Blood Culture - Preliminary Blood - Venous NO GROWTH AFTER 1 DAY Anaerobic Blood Culture - Preliminary NO GROWTH AFTER 1 DAY Med Orders - Current: Current Medications Acetaminophen (Tylenol Extra Strength) 1,000 mg PO Q6H PRN PRN Reason: Pain Last Admin: 02/21/17 09:35 Dose: 1,000 mg Amlodipine Besylate (Norvasc) 10 mg PO DAILY [facility] Last Admin: 02/21/17 09:34 Dose: 10 mg Hydromorphone HCl (Dilaudid) 0.5 - 1 mg IVPUSH Q3H PRN PRN Reason: Pain Last Admin: 02/20/17 11:01 Dose: 1 mg Daptomycin 200 mg/ Sodium (Chloride) 10 mls @ 300 mls/hr IV Q24H [facility] Last Admin: 02/20/17 16:02 Dose: 300 mls/hr Ketorolac Tromethamine (Toradol) 15 mg IVPUSH Q6H [facility] Stop: 02/24/17 14:36 Last Admin: 02/21/17 04:48 Dose: 15 mg Levothyroxine Sodium (Synthroid) 88 mcg PO DAILY@0730 [facility] Last Admin: 02/21/17 06:48 Dose: 88 mcg Non-Formulary Medication (Denosumab [Prolia]) 1 dose IM ASDIRECTED [facility] Ondansetron HCl (Zofran) 4 mg IV Q6HR PRN PRN Reason: NAUSEA/VOMITING Last Admin: 02/20/17 12:53 Dose: 4 mg Promethazine HCl (Phenergan) 12.5 mg IM Q6H PRN PRN Reason: Nausea Sodium Chloride (Saline Flush) 10 ml FLUSH ASDIRECTED PRN PRN Reason: Keep Vein Open Sodium Chloride (Saline Flush) 2.5 ml FLUSH ASDIRECTED PRN PRN Reason: Keep Vein Open Temazepam (Restoril) 15 mg PO BEDTIME PRN PRN Reason: Insomnia Last Admin: 02/19/17 22:33 Dose: 15 mg Discontinued Medications Daptomycin (Cubicin) 200 mg IVPUSH DAILY [facility] Lactated Ringer's (Ringers, Lactated) 1,000 mls @ 100 mls/hr IV ASDIRECTED ANNA Last Admin: 02/20/17 01:47 Dose: 100 mls/hr Ketorolac Tromethamine (Toradol) 15 mg IVPUSH Q6H [facility] Stop: 02/24/17 14:36 - Exam General: alert, oriented Physical Findings Comments:: Exam of RLE shows wound over medial aspect of knee. Much less drainage on dressing than previous dressing changes. No surrounding erythema, induration. ROM 0-100 degrees without pain. TTP over wound, but also improved. No calf TTP. AT/EHL/gastroc 5/5. Sensation intact. DP 2+. - Problem List Review Problem List Initiated/Reviewed/Updated: Yes - My Orders Last 24 Hours: My Active Orders 02/20/17 10:51 Sodium Chloride 0.9% [Saline Flush] 10 ml FLUSH ASDIRECTED PRN Sodium Chloride 0.9% [Saline Flush] 2.5 ml FLUSH ASDIRECTED PRN Convert IV to Saline Lock [OM.PC] Routine 02/20/17 10:52 HYDROmorphone [Dilaudid] 0.5 - 1 mg IVPUSH Q3H PRN 02/20/17 11:30 Dressing Change [Wound Care] [RC] Q12H Denosumab [Prolia] 1 dose IM ASDIRECTED Levothyroxine [Synthroid] 88 mcg PO DAILY@0730 amLODIPine [Norvasc] 10 mg PO DAILY - Plan Plan:: 1. cubicin today 2. d/c home after Cubicin 3. dressing change-wet to dry prior to discharge. Patient instructed to change dressing tomorrow. She has wound nurse visit on Thursday. 4. no immobilizer 5. ROM and WBAT RLE 6. Zyvox 600mg po bid x 10 days--prescription called to [facility] 7. Tramadol prn for pain control 8. f/u with me Thursday 11am 9. advised to call if symptoms increase prior to f/u appointment
[2017-02-21] MEDS ORDERED: traMADol 50 MG Tab PO PRN (10:27)
[2017-02-21] MEDS: SODIUM CHLORIDE 0.9% IV SCH (15:15)
[2017-02-21] MEDS: DAPTOMYCIN IV SCH (15:15)
== END 2017-02-21 14:15 | disposition home or self-care (01) ==
LOC: MW.MS 14:22
PROVIDERS: ADMIT Orthopaedic Surgery; ATTEND Orthopaedic Surgery
DX: T81.4XXA Infection following a procedure, initial encounter (principal); Z96.652 Presence of left artificial knee joint; Z79.82 Long term (current) use of aspirin; Z79.899 Other long term (current) drug therapy; Z88.5 Allergy status to narcotic agent; Z88.2 Allergy status to sulfonamides; Z88.8 Allergy status to other drugs, medicaments and biological substances; M17.11 Unilateral primary osteoarthritis, right knee; Z96.651 Presence of right artificial knee joint; M79.89 Other specified soft tissue disorders; Z98.890 Other specified postprocedural states
CPT/HCPCS: 36415; 73562; 73700; 80048; 85025; 85652; 86140; 87040; 96361; 96374; 96375; 96376; A9270; G0378; G0379; J0878; J1170; J1885; J2405; J7120

== ENCOUNTER 2017-03-30 16:51 | Inpatient (IN) | payer MEDICARE, BC ==
[2017-03-30] MEDS ORDERED: traMADol 50 MG Tab PO PRN (17:43)
[2017-03-30] MEDS ORDERED: Ondansetron 4 MG/2 ML SDV IV PRN (17:43)
[2017-03-30] MEDS ORDERED: Denosumab 60 MG/1 ML Syringe SUBCUT SCH (17:45)
--- NOTE | 2017-03-30 17:58 | PCM.HP ---
<Apolinar Boyd - Last Filed: 03/30/17 17:53> H&P History of Present Illness - General Date of Service: 03/30/17 Admit Problem/Dx: Admission Diagnosis/Problem Admission Diagnosis/Problem Wound of skin Source of Information: Patient History Limitations: Reports: No Limitations - History of Present Illness Onset of Symptoms: Reports: Gradual Duration of Symptoms: Reports: Day(s): (5 Days.), Getting Worse Location: Reports: Lower Extremity, Right Worsens with: Reports: Other (Wrose with activity.) Associated Symptoms: Reports: No Other Symptoms - Related Data Allergies/Adverse Reactions: Allergies Allergy/AdvReac Type Severity Reaction Status Date / Time codeine Allergy Vomiting Verified 03/29/16 13:55 latex Allergy Rash Verified 03/31/16 11:51 morphine Allergy Difficulty Verified 03/29/16 13:55 Breathing oxycodone HCl [From Percocet] Allergy Vomiting Verified 03/29/16 13:55 Penicillins Allergy Anaphylactic Verified 03/29/16 13:55 Shock Sulfa (Sulfonamide Allergy Anaphylactic Verified 03/29/16 13:55 Antibiotics) Shock all pain meds Allergy Nausea Uncoded 02/16/17 07:03 Home Medications: Home Meds amLODIPine Besylate [Amlodipine Besylate] 10 mg PO DAILY 07/28/14 [History] Omeprazole Magnesium [Prilosec Otc] 20 mg PO ACBRK 08/01/14 [History] Promethazine [Phenergan] 25 mg PO Q6H PRN #30 tablet 08/04/14 [Rx] Denosumab [Prolia] 60 mg IM Q180D 02/28/16 [History] Levothyroxine [Synthroid] 88 mcg PO ACBREAKFAST 02/28/16 [History] Ondansetron HCl [Zofran] 4 mg PO Q8HR PRN #16 tablet 02/16/17 [Rx] traMADol [Ultram] 100 mg PO Q6H PRN #80 tablet 02/21/17 [Rx] Past Medical History - Past Health History Medical/Surgical History: Denies Medical/Surgical History HEENT History: Reports: Cataract Other HEENT History: has upper denture and lower partial Cardiovascular History: Reports: None Respiratory History: Reports: None Gastrointestinal History: Reports: GERD, Irritable Bowel Syndrome, Other (See Below) Other Gastrointestinal History: IBS-Diarrhea Genitourinary History: Reports: Other (See Below) Other Genitourinary History: overactive bladder [employer]PER[employer] History: Reports: Musculoskeletal History: Reports: Arthritis Neurological History: Reports: Other (See Below) Other Neuro History: hx of motion sickness Psychiatric History: Reports: None Endocrine/Metabolic History: Reports: Hypothyroidism Hematologic History: Reports: None Immunologic History: Reports: Other (See Below) Other Immunologic History: CREST syndrome Oncologic (Cancer) History: Reports: None Dermatologic History: Reports: None, Other (See Below) Other Dermatologic History: Raynaud's Syndrome - Infectious Disease History Infectious Disease History: Reports: Chicken Pox, Measles, MRSA, Mumps, Rubella , Shingles - Past Surgical History Head Surgeries/Procedures: Reports: None HEENT Surgical History: Reports: Cataract Surgery Female Surgical History: Reports: Hysterectomy Musculoskeletal Surgical History: Reports: Knee Replacement, ORIF, Shoulder Surgery, Other (See Below) Social & Family History - Family History Family Medical History: Noncontributory HEENT: Reports: Cataract Respiratory: Reports: COPD Musculoskeletal: Reports: Arthritis Psychiatric: Reports: Depression Endocrine/Metabolic: Reports: Diabetes, type II - Tobacco Use Smoking Status *Q: Never Smoker Years of Tobacco use: 10 Used Tobacco, but Quit: No Second Hand Smoke Exposure: No - Caffeine Use Caffeine Use: Reports: Coffee - Alcohol Use Days Per Week of Alcohol Use: 0 Number of Drinks Per Day: 0 Total Drinks Per Week: 0 - Recreational Drug Use Recreational Drug Use: No Drug Use in Last 12 Months: No H&P Review of Systems - Review of Systems: Review Of Systems: See Below General: Reports: No Symptoms Pulmonary: Reports: No Symptoms Cardiovascular: Reports: No Symptoms Gastrointestinal: Reports: No Symptoms Genitourinary: Reports: No Symptoms Musculoskeletal: Reports: Leg Pain, Joint Pain, Joint Swelling Skin: Reports: Other (Medial wound on right knee. Draining.) Psychiatric: Reports: No Symptoms Neurological: Reports: No Symptoms Exam - Exam Exam: See Below - Vital Signs Weight: 116.3 kg - Exam General: Alert, Oriented HEENT: Conjunctiva Clear, Hearing Intact, Mucosa Moist & [place] Neck: Trachea Midline Lungs: Normal Respiratory Effort Cardiovascular: Regular Rate GI/Abdominal Exam: Soft, Non-Tender (Right knee ROM- lacking 15 degrees of full extension to 90 degrees flexion. Knee is warm with palpation. Erythema on lateral aspect of knee.) Neurological: Cranial Nerves Intact Neuro Extensive - Mental Status: Alert, Oriented x3, Normal Mood/Affect Psychiatric: Alert, Normal Affect, Normal Mood *Q Meaningful Use (ADM) - VTE *Q VTE Criteria *Q: - Stroke *Q Stroke Criteria *Q: - AMI *Q AMI Criteria *Q: Problem List Initiated/Reviewed/Updated: Yes Orders Last 24hrs: Active Orders 24 hr Category Date Time Status Patient Status [ADT] Routine ADT 03/30/17 17:35 Active Activity as Tolerated [RC] .Routine Care 03/30/17 17:41 Active Antiembolic Devices [RC] PER UNIT ROUTINE Care 03/30/17 17:42 Active Dressing Change [Wound Care] [RC] ASDIRECTED Care 03/30/17 17:41 Active Neurovascular Check [RC] Q2HR Care 03/30/17 17:42 Active RT Incentive Spirometry [RC] ASDIRECTED Care 03/30/17 17:41 Active Vital Signs [RC] Q4H Care 03/30/17 17:41 Active Regular Diet [DIET] Diet 03/30/17 Breakfast Active Acetaminophen [Tylenol Extra Strength] Med 03/30/17 17:43 Active 1,000 mg PO Q6H PRN DAPTOmycin [Cubicin] 500 mg Med 03/30/17 17:45 Active Sodium Chloride 0.9% [Normal Saline] 10 ml IVPUSH Q24H Denosumab [Prolia] Med 03/30/17 17:45 Active 60 mg SUBCUT ASDIRECTED Ketorolac [Toradol] Med 03/30/17 17:45 Active 30 mg IVPUSH Q6H Levothyroxine [Synthroid] Med 03/31/17 07:30 Active 88 mcg PO ACBREAKFAST Linezolid [Zyvox] Med 03/30/17 18:00 Active 600 mg PO Q12H Omeprazole Med 03/31/17 07:30 Active 20 mg PO ACBRK Ondansetron [Zofran] Med 03/30/17 17:43 Active 4 mg IV Q6HR PRN Promethazine [Phenergan] Med 03/30/17 17:43 Active 25 mg PO Q6H PRN amLODIPine [Norvasc] Med 03/31/17 09:00 Active 10 mg PO DAILY traMADol [Ultram] Med 03/30/17 17:43 Active 100 mg PO Q6H PRN Antiembolic Hose [OM.PC] Routine Oth 03/30/17 17:42 Ordered Ice Therapy [OM.PC] Routine Oth 03/30/17 17:41 Ordered Medication Orders Acetaminophen (Tylenol Extra Strength) 1,000 mg PO Q6H PRN PRN Reason: Pain Amlodipine Besylate (Norvasc) 10 mg PO DAILY [facility] Denosumab (Prolia) 60 mg SUBCUT ASDIRECTED [facility] Daptomycin 500 mg/ Sodium (Chloride) 10 mls @ 200 mls/hr IVPUSH Q24H [facility] Ketorolac Tromethamine (Toradol) 30 mg IVPUSH Q6H [facility] Levothyroxine Sodium (Synthroid) 88 mcg PO ACBREAKFAST [facility] Linezolid (Zyvox) 600 mg PO Q12H [facility] Omeprazole (Omeprazole) 20 mg PO ACBRK [facility] Ondansetron HCl (Zofran) 4 mg IV Q6HR PRN PRN Reason: NAUSEA/VOMITING Promethazine HCl (Phenergan) 25 mg PO Q6H PRN PRN Reason: Nausea/Vomiting Tramadol HCl (Ultram) 100 mg PO Q6H PRN PRN Reason: Pain Assessment/Plan Comment:: Admit for IV Cubicin 500mg daily. <Jessica Stallings R - Last Filed: 03/31/17 10:57> H&P History of Present Illness - General Admit Problem/Dx: Admission Diagnosis/Problem Admission Diagnosis/Problem Wound of skin Exam - Vital Signs Vital Signs: Last Vital Signs Temp 96.8 F 03/31/17 08:34 Pulse 68 03/31/17 08:34 Resp 20 03/31/17 08:34 BP 110/53 L 03/31/17 09:10 Pulse Ox 93 L 03/31/17 08:34 *Q Meaningful Use (ADM) - VTE *Q VTE Criteria *Q: - Stroke *Q Stroke Criteria *Q: - AMI *Q AMI Criteria *Q: Orders Last 24hrs: Active Orders 24 hr Category Date Time Status Patient Status [ADT] Routine ADT 03/30/17 17:35 Active Activity as Tolerated [RC] .Routine Care 03/30/17 17:41 Active Antiembolic Devices [RC] PER UNIT ROUTINE Care 03/30/17 17:42 Active Dressing Change [Wound Care] [RC] Q12H Care 03/30/17 17:41 Active Neurovascular Check [RC] Q2HR Care 03/30/17 17:42 Active RT Incentive Spirometry [RC] ASDIRECTED Care 03/30/17 17:41 Active Vital Signs [RC] Q4H Care 03/30/17 17:41 Active Acetaminophen [Tylenol Extra Strength] Med 03/30/17 17:43 Active 1,000 mg PO Q6H PRN DAPTOmycin [Cubicin] 500 mg Med 03/30/17 17:45 Active Sodium Chloride 0.9% [Normal Saline] 10 ml IVPUSH Q24H Ketorolac [Toradol] Med 03/31/17 12:00 Active 15 mg IVPUSH Q6H Levothyroxine [Synthroid] Med 03/31/17 07:30 Active 88 mcg PO ACBREAKFAST Omeprazole Med 03/31/17 07:30 Active 20 mg PO ACBRK Ondansetron [Zofran] Med 03/30/17 17:43 Active 4 mg IV Q6HR PRN Promethazine [Phenergan] Med 03/30/17 17:43 Active 25 mg PO Q6H PRN amLODIPine [Norvasc] Med 03/31/17 09:00 Active 10 mg PO DAILY traMADol [Ultram] Med 03/30/17 17:43 Active 100 mg PO Q6H PRN Antiembolic Hose [OM.PC] Routine Oth 03/30/17 17:42 Ordered Ice Therapy [OM.PC] Routine Oth 03/30/17 17:41 Ordered Medication Orders Acetaminophen (Tylenol Extra Strength) 1,000 mg PO Q6H PRN PRN Reason: Pain Last Admin: 03/31/17 07:23 Dose: 1,000 mg Admin: 03/30/17 21:15 Dose: 1,000 mg Amlodipine Besylate (Norvasc) 10 mg PO DAILY [facility] Last Admin: 03/31/17 09:10 Dose: 10 mg Daptomycin 500 mg/ Sodium (Chloride) 10 mls @ 200 mls/hr IVPUSH Q24H [facility] Last Admin: 03/30/17 18:25 Dose: 200 mls/hr Ketorolac Tromethamine (Toradol) 15 mg IVPUSH Q6H [facility] Levothyroxine Sodium (Synthroid) 88 mcg PO ACBREAKFAST ANNA Last Admin: 03/31/17 06:44 Dose: 88 mcg Omeprazole (Omeprazole) 20 mg PO ACBRK ANNA Last Admin: 03/31/17 06:44 Dose: 20 mg Ondansetron HCl (Zofran) 4 mg IV Q6HR PRN PRN Reason: NAUSEA/VOMITING Last Admin: 03/31/17 09:13 Dose: 4 mg Promethazine HCl (Phenergan) 25 mg PO Q6H PRN PRN Reason: Nausea/Vomiting Tramadol HCl (Ultram) 100 mg PO Q6H PRN PRN Reason: Pain Assessment/Plan Comment:: Late addendum: Patient was seen and examined at 1800 on March 30, 2017. The patient was resting comfortably in her bed. She was noted to have a fever of 101. Exam of the right knee shows no obvious effusion. The incision site is clean and well-healed. The medial wound is present. There is cloudy fluid that is expressed from the wound. There is surrounding erythema. Her motion is 0-90. She has no calf tenderness. AT/EHL/gastroc 5/5. Sensation grossly intact. DP/ PT pulses 2+. At this time I discussed treatment options with the patient. I am unsure why she continues to have a draining wound. She had completely healed the wound on her last visit and her inflammatory labs had returned returned to normal. There does not appear to be any sign of involvement of the left knee joint. She responded well to the Cubicin on her last visit. I would like to start her on this and see how she does. If she fails to improve, we may need to consider a formal irrigation and debridement. We will continue to follow the patient closely in the hospital. She agrees with the plan.
[2017-03-30] MEDS: Ketorolac 30 MG/ML SDV IVPUSH SCH (18:15)
[2017-03-30] MEDS: DAPTOmycin 500 MG in Sodium Chloride 0.9% 10 ML IVPUSH SCH (18:25)
[2017-03-30] MEDS: Linezolid 600 MG Tab PO SCH (18:34)
[2017-03-30] MEDS: Acetaminophen 500 MG Tab PO PRN (21:15)
[2017-03-31] MEDS: Ketorolac 30 MG/ML SDV IVPUSH SCH ×2 (00:30→05:44)
[2017-03-31] MEDS: Linezolid 600 MG Tab PO SCH (05:43)
[2017-03-31] MEDS: Levothyroxine 88 MCG Tab PO SCH (06:44)
[2017-03-31] MEDS: Omeprazole 20 MG Cap.CR PO SCH (06:44)
[2017-03-31] MEDS: Acetaminophen 500 MG Tab PO PRN ×3 (07:23→20:59)
--- NOTE | 2017-03-31 08:22 | PCM.PN ---
- General Info Date of Service: 03/31/17 Admission Dx/Problem (Free Text): Painful R total knee Functional Status: Reports: Pain Controlled, Tolerating Diet, Ambulating, Urinating - Review of Systems General: Reports: No Symptoms HEENT: Reports: No Symptoms Pulmonary: Reports: No Symptoms Cardiovascular: Reports: No Symptoms Gastrointestinal: Reports: No Symptoms Musculoskeletal: Reports: Leg Pain, Joint Pain, Joint Swelling Skin: Reports: Other (Right knee medial wound, draining.) Neurological: Reports: No Symptoms - Patient Data Vitals - Most Recent: Last Vital Signs Temp 36.4 C 03/31/17 05:00 Pulse 70 03/31/17 05:00 Resp 20 03/31/17 05:00 BP 104/46 L 03/31/17 05:00 Pulse Ox 92 L 03/31/17 05:00 Weight - Most Recent: 49.487 kg I&O - Last 24 Hours: Intake & Output 03/30/17 03/31/17 03/31/17 22:59 06:59 14:59 Intake Total 150 Output Total 650 Balance -500 Med Orders - Current: Current Medications Acetaminophen (Tylenol Extra Strength) 1,000 mg PO Q6H PRN PRN Reason: Pain Last Admin: 03/31/17 07:23 Dose: 1,000 mg Amlodipine Besylate (Norvasc) 10 mg PO DAILY [facility] Denosumab (Prolia) 60 mg SUBCUT ASDIRECTED [facility] Daptomycin 500 mg/ Sodium (Chloride) 10 mls @ 200 mls/hr IVPUSH Q24H [facility] Last Admin: 03/30/17 18:25 Dose: 200 mls/hr Ketorolac Tromethamine (Toradol) 30 mg IVPUSH Q6H [facility] Last Admin: 03/31/17 05:44 Dose: 30 mg Levothyroxine Sodium (Synthroid) 88 mcg PO ACBREAKFAST [facility] Last Admin: 03/31/17 06:44 Dose: 88 mcg Linezolid (Zyvox) 600 mg PO Q12H [facility] Last Admin: 03/31/17 05:43 Dose: 600 mg Omeprazole (Omeprazole) 20 mg PO ACBRK [facility] Last Admin: 03/31/17 06:44 Dose: 20 mg Ondansetron HCl (Zofran) 4 mg IV Q6HR PRN PRN Reason: NAUSEA/VOMITING Promethazine HCl (Phenergan) 25 mg PO Q6H PRN PRN Reason: Nausea/Vomiting Tramadol HCl (Ultram) 100 mg PO Q6H PRN PRN Reason: Pain - Exam General: Alert, Oriented HEENT: Pupils Reactive Neck: Trachea Midline Lungs: Normal Respiratory Effort Cardiovascular: Regular Rate Extremities: Other (Dressing clean, dry and in place. Right knee ROM- lacking 10 of extension, 90 flexion. Anterior tibialis, extensor hallucis longus and gastrocnemius strength +5/5 bilaterally. Sensation intact. Dorsalis pedis and posterior tibial pulses +2 bilaterally. ) Wound/Incisions: Dressing Dry and Intact Neurological: No New Focal Deficit Psy/Mental Status: Alert, Normal Affect, Normal Mood - Problem List Review Problem List Initiated/Reviewed/Updated: Yes - My Orders Last 24 Hours: My Active Orders 03/30/17 17:41 Activity as Tolerated [RC] .Routine Dressing Change [Wound Care] [RC] Q12H RT Incentive Spirometry [RC] ASDIRECTED Vital Signs [RC] Q4H Ice Therapy [OM.PC] Routine 03/30/17 17:42 Antiembolic Devices [RC] PER UNIT ROUTINE Neurovascular Check [RC] Q2HR Antiembolic Hose [OM.PC] Routine 03/30/17 17:43 Acetaminophen [Tylenol Extra Strength] 1,000 mg PO Q6H PRN Ondansetron [Zofran] 4 mg IV Q6HR PRN Promethazine [Phenergan] 25 mg PO Q6H PRN traMADol [Ultram] 100 mg PO Q6H PRN 03/30/17 17:45 DAPTOmycin [Cubicin] 500 mg Sodium Chloride 0.9% [Normal Saline] 10 ml IVPUSH Q24H Denosumab [Prolia] 60 mg SUBCUT ASDIRECTED Ketorolac [Toradol] 30 mg IVPUSH Q6H 03/30/17 18:00 Linezolid [Zyvox] 600 mg PO Q12H 03/31/17 07:30 Levothyroxine [Synthroid] 88 mcg PO ACBREAKFAST Omeprazole 20 mg PO ACBRK 03/31/17 09:00 amLODIPine [Norvasc] 10 mg PO DAILY - Assessment Assessment:: Patient up in bed this AM. States she is feeling better. Pain controlled. Tolerating diet. Ambulating. - Plan Plan:: Continue Cubicin 500mg daily. Continue pain management. Encourage ambulation.
[2017-03-31] MEDS: amLODIPine 5 MG Tab PO SCH (09:10)
[2017-03-31] MEDS ORDERED: Ketorolac 15 MG/ML SDV IVPUSH SCH (12:00)
[2017-03-31] MEDS: Promethazine 25 MG Tab PO PRN (13:27)
--- NOTE | 2017-03-31 14:42 | PCM.SN ---
- Free Text/Narrative Note: Patient seen and examined. Agree with [facility] PAC note. Patient states that her knee pain is markedly better today. She has been ambulating to the bathroom. She has no other complaints. Exam of the knee shows no significant swelling. No joint effusion is noted. Motion is 0-95 without pain. There is some cloudy serous drainage present on the dressing, however this is markedly less than yesterday. She has mild tenderness over the open wound site. There are no other areas of tenderness or swelling. AT/EHL/gastroc 5/5. Sensation grossly intact. DP/PT pulses 2+. At this time will plan on continuing IV antibiotics. We are awaiting blood cultures. Will plan on performing repeat CBC, ESR, and CRP tomorrow. Further treatment options will be discussed following that. Patient and family agree with the plan.
[2017-03-31] MEDS: DAPTOmycin 500 MG in Sodium Chloride 0.9% 10 ML IVPUSH SCH (17:18)
[2017-04-01] MEDS: Acetaminophen 500 MG Tab PO PRN ×4 (03:41→21:37)
[2017-04-01] MEDS: Omeprazole 20 MG Cap.CR PO SCH (06:30)
[2017-04-01] MEDS: Levothyroxine 88 MCG Tab PO SCH (06:30)
--- NOTE | 2017-04-01 08:06 | PCM.PN ---
- General Info Date of Service: 04/01/17 Functional Status: Reports: Pain Controlled, Tolerating Diet, Ambulating, Urinating - Review of Systems General: Reports: No Symptoms HEENT: Reports: No Symptoms Pulmonary: Reports: No Symptoms Cardiovascular: Reports: No Symptoms Gastrointestinal: Reports: No Symptoms Musculoskeletal: Reports: Leg Pain, Joint Pain, Joint Swelling Neurological: Reports: No Symptoms Psychiatric: Reports: No Symptoms - Patient Data Vitals - Most Recent: Last Vital Signs Temp 37.2 C 04/01/17 04:00 Pulse 96 04/01/17 04:00 Resp 14 04/01/17 04:00 BP 120/55 L 04/01/17 04:00 Pulse Ox 97 04/01/17 04:00 Weight - Most Recent: 49.487 kg I&O - Last 24 Hours: Intake & Output 03/31/17 04/01/17 04/01/17 22:59 06:59 14:59 Intake Total 350 700 Output Total 700 875 Balance -350 -175 Lab Results Last 24 Hours: Laboratory Results - last 24 hr 04/01/17 Range/Units 07:25 WBC 11.83 H (4.0-11.0) K/uL RBC 3.52 L (4.30-5.90) M/uL Hgb 9.8 L (12.0-16.0) g/dL Hct 31.6 L (36.0-46.0) % MCV 89.8 (80.0-98.0) fL MCH 27.8 (27.0-32.0) pg MCHC 31.0 (31.0-37.0) g/dL RDW Std Deviation 49.5 (28.0-62.0) fl RDW Coeff of Kari 15 (11.0-15.0) % Plt Count 475 H (150-400) K/uL MPV 9.70 (7.40-12.00) fL Neut % (Auto) 74.6 (48.0-80.0) % Lymph % (Auto) 14.1 L (16.0-40.0) % [place] % (Auto) 6.9 (0.0-15.0) % Eos % (Auto) 4.1 (0.0-7.0) % Baso % (Auto) 0.3 (0.0-1.5) % Neut # (Auto) 8.8 H (1.4-5.7) K/uL Lymph # (Auto) 1.7 (0.6-2.4) K/uL [place] # (Auto) 0.8 (0.0-0.8) K/uL Eos # (Auto) 0.5 (0.0-0.7) K/uL Baso # (Auto) 0.0 (0.0-0.1) K/uL Nucleated RBC % 0.0 /100WBC Nucleated RBCs # 0 K/uL ESR 83 H (0-29) mm/hr Med Orders - Current: Current Medications Acetaminophen (Tylenol Extra Strength) 1,000 mg PO Q6H PRN PRN Reason: Pain Last Admin: 04/01/17 03:41 Dose: 1,000 mg Amlodipine Besylate (Norvasc) 10 mg PO DAILY [facility] Last Admin: 03/31/17 09:10 Dose: 10 mg Daptomycin 500 mg/ Sodium (Chloride) 10 mls @ 200 mls/hr IVPUSH Q24H [facility] Last Admin: 03/31/17 17:18 Dose: 200 mls/hr Levothyroxine Sodium (Synthroid) 88 mcg PO ACBREAKFAST [facility] Last Admin: 04/01/17 06:30 Dose: 88 mcg Omeprazole (Omeprazole) 20 mg PO ACBRK [facility] Last Admin: 04/01/17 06:30 Dose: 20 mg Ondansetron HCl (Zofran) 4 mg IV Q6HR PRN PRN Reason: NAUSEA/VOMITING Last Admin: 03/31/17 09:13 Dose: 4 mg Promethazine HCl (Phenergan) 25 mg PO Q6H PRN PRN Reason: Nausea/Vomiting Last Admin: 03/31/17 13:27 Dose: 12.5 mg Tramadol HCl (Ultram) 100 mg PO Q6H PRN PRN Reason: Pain Discontinued Medications Ketorolac Tromethamine (Toradol) 30 mg IVPUSH Q6H [facility] Last Admin: 03/31/17 05:44 Dose: 30 mg Ketorolac Tromethamine (Toradol) 15 mg IVPUSH Q6H [facility] Last Admin: 03/31/17 12:08 Dose: 15 mg Linezolid (Zyvox) 600 mg PO Q12H [facility] Last Admin: 03/31/17 05:43 Dose: 600 mg - Exam General: Alert, Oriented HEENT: Pupils Equal, Pupils Reactive Neck: Trachea Midline Lungs: Normal Respiratory Effort Cardiovascular: Regular Rate Extremities: Other (Right knee: Again noted cloudy serous drainage present on the dressing. Eryhtema over lateral aspect of the knee is resolved. Warmth with palpation also resolved. Swelling improved. She is not tender with palpation. Painless ROM 0-95 degrees. AT/EHL/gastroc 5/5. Sensation intact. DP/PT pulses + 2 bilaterally.) - Problem List Review Problem List Initiated/Reviewed/Updated: Yes - My Orders Last 24 Hours: My Active Orders 03/31/17 07:30 Levothyroxine [Synthroid] 88 mcg PO ACBREAKFAST Omeprazole 20 mg PO ACBRK 03/31/17 09:00 amLODIPine [Norvasc] 10 mg PO DAILY 04/01/17 07:25 C-REACTIVE PROTEIN [CHEM] Routine - Assessment Assessment:: Patient up to chair this AM. States she is feeling better. Pain controlled. Tolerating diet. Ambulating. - Plan Plan:: Inflammatory labs repeated this AM. White count is trending down. CRP and ESR again elevated. Continue IV antibiotics and pain medication. Encourage ambulation.
[2017-04-01] MEDS: amLODIPine 5 MG Tab PO SCH (09:42)
[2017-04-01] MEDS: Promethazine 25 MG Tab PO PRN ×2 (14:36→21:33)
[2017-04-01] MEDS: DAPTOmycin 500 MG in Sodium Chloride 0.9% 10 ML IVPUSH SCH (17:13)
--- NOTE | 2017-04-01 17:54 | PCM.SN ---
- Free Text/Narrative Note: Patients inflammatory labs elevated. Patient still with some pain in knee although feels it is improving. Drainage persists. VSS, afeb Exam of R knee shows persistent medial wound. Cloudy drainage persists. ROM 0- 90 degrees. Minimal erythema, much improved. No calf TTP. AT/EHL/gastroc 5/5. Sensation intact. DP 2+. ASS: R medial knee wound Plan: 1. Due to increased inflammatory labs recommend R knee aspiration. Risks of procedure d/w patient, she agrees to proceed. Informed consent was obtained. Using sterile technique, ~7ml of purulent fluid aspirated. Patient tolerated procedure well. 2. Synovial studies show findings c/w R KNEE PERIPROSTHETIC INFECTION. Most likely chronic due to persistent medial knee wound. 3. Discussed case with Dr. Raoul Forrest at [facility] in [place]. I feel should would be better served at a higher level of care due to availability of infectious disease, rehab, etc. He will see the patient for definitive surgery. If she remains stable, we will plan to send as outpatient. 4. Discussed plan with Trish. She would like to discuss with her family. 5. Would plan to continue Cubicin in the interim to suppress infection. 6. Await final cultures--blood and synovial fluid.
[2017-04-02] MEDS: Acetaminophen 500 MG Tab PO PRN ×2 (03:43→11:47)
[2017-04-02] MEDS: Omeprazole 20 MG Cap.CR PO SCH (06:30)
[2017-04-02] MEDS: Levothyroxine 88 MCG Tab PO SCH (06:30)
[2017-04-02] MEDS: Promethazine 25 MG Tab PO PRN ×2 (06:35→14:07)
--- NOTE | 2017-04-02 08:05 | PCM.PN ---
- General Info Date of Service: 04/02/17 Functional Status: Reports: Pain Controlled, Tolerating Diet, Ambulating, Urinating - Review of Systems General: Reports: No Symptoms HEENT: Reports: No Symptoms Pulmonary: Reports: No Symptoms Cardiovascular: Reports: No Symptoms Gastrointestinal: Reports: No Symptoms Musculoskeletal: Reports: Leg Pain, Joint Pain, Joint Swelling Neurological: Reports: No Symptoms - Patient Data Vitals - Most Recent: Last Vital Signs Temp 36.8 C 04/02/17 04:00 Pulse 90 04/02/17 04:00 Resp 14 04/02/17 04:00 BP 110/52 L 04/02/17 04:00 Pulse Ox 94 L 04/02/17 04:00 Weight - Most Recent: 49.487 kg I&O - Last 24 Hours: Intake & Output 04/01/17 04/02/17 04/02/17 22:59 06:59 14:59 Intake Total 860 760 Output Total 400 1050 Balance 460 -290 Lab Results Last 24 Hours: Laboratory Results - last 24 hr 04/01/17 04/01/17 04/01/17 Range/Units 07:25 07:25 11:00 WBC (4.0-11.0) K/uL RBC (4.30-5.90) M/uL Hgb (12.0-16.0) g/dL Hct (36.0-46.0) % MCV (80.0-98.0) fL MCH (27.0-32.0) pg MCHC (31.0-37.0) g/dL RDW Std Deviation (28.0-62.0) fl RDW Coeff of Kari (11.0-15.0) % Plt Count (150-400) K/uL MPV (7.40-12.00) fL Neut % (Auto) (48.0-80.0) % Lymph % (Auto) (16.0-40.0) % Grand % (Auto) (0.0-15.0) % Eos % (Auto) (0.0-7.0) % Baso % (Auto) (0.0-1.5) % Neut # (Auto) (1.4-5.7) K/uL Lymph # (Auto) (0.6-2.4) K/uL Grand # (Auto) (0.0-0.8) K/uL Eos # (Auto) (0.0-0.7) K/uL Baso # (Auto) (0.0-0.1) K/uL Nucleated RBC % /100WBC Nucleated RBCs # K/uL ESR 83 H (0-29) mm/hr C-Reactive Protein 34.50 H (0.0-0.5) mg/dL Fluid Type SYN Fluid Color RED Fluid Appearance CLOUDY Fluid WBC 126.39 K/uL Fluid RBC 0.26 M/uL Fluid Mononuclear Cell 3.5 % Fl Polymorphonucl Cell 96.5 % Fluid Crystals NONE SEEN 04/02/17 Range/Units 06:14 WBC 9.83 (4.0-11.0) K/uL RBC 3.32 L (4.30-5.90) M/uL Hgb 9.2 L (12.0-16.0) g/dL Hct 29.4 L (36.0-46.0) % MCV 88.6 (80.0-98.0) fL MCH 27.7 (27.0-32.0) pg MCHC 31.3 (31.0-37.0) g/dL RDW Std Deviation 48.5 (28.0-62.0) fl RDW Coeff of Kari 15 (11.0-15.0) % Plt Count 452 H (150-400) K/uL MPV 9.40 (7.40-12.00) fL Neut % (Auto) 75.1 (48.0-80.0) % Lymph % (Auto) 14.1 L (16.0-40.0) % Grand % (Auto) 6.9 (0.0-15.0) % Eos % (Auto) 3.5 (0.0-7.0) % Baso % (Auto) 0.4 (0.0-1.5) % Neut # (Auto) 7.4 H (1.4-5.7) K/uL Lymph # (Auto) 1.4 (0.6-2.4) K/uL Grand # (Auto) 0.7 (0.0-0.8) K/uL Eos # (Auto) 0.3 (0.0-0.7) K/uL Baso # (Auto) 0.0 (0.0-0.1) K/uL Nucleated RBC % 0.0 /100WBC Nucleated RBCs # 0 K/uL ESR (0-29) mm/hr C-Reactive Protein (0.0-0.5) mg/dL Fluid Type Fluid Color Fluid Appearance Fluid WBC K/uL Fluid RBC M/uL Fluid Mononuclear Cell % Fl Polymorphonucl Cell % Fluid Crystals Chan Results Last 24 Hours: Microbiology 04/01/17 11:00 Gram Stain - Final Joint / Synovial Fluid - Knee, Right Med Orders - Current: Current Medications Acetaminophen (Tylenol Extra Strength) 1,000 mg PO Q6H PRN PRN Reason: Pain Last Admin: 04/02/17 03:43 Dose: 1,000 mg Amlodipine Besylate (Norvasc) 10 mg PO DAILY [facility] Last Admin: 04/01/17 09:42 Dose: 10 mg Daptomycin 500 mg/ Sodium (Chloride) 10 mls @ 200 mls/hr IVPUSH Q24H [facility] Last Admin: 04/01/17 17:13 Dose: 200 mls/hr Levothyroxine Sodium (Synthroid) 88 mcg PO ACBREAKFAST [facility] Last Admin: 04/02/17 06:30 Dose: 88 mcg Omeprazole (Omeprazole) 20 mg PO ACBRK [facility] Last Admin: 04/02/17 06:30 Dose: 20 mg Ondansetron HCl (Zofran) 4 mg IV Q6HR PRN PRN Reason: NAUSEA/VOMITING Last Admin: 03/31/17 09:13 Dose: 4 mg Promethazine HCl (Phenergan) 25 mg PO Q6H PRN PRN Reason: Nausea/Vomiting Last Admin: 04/02/17 06:35 Dose: 12.5 mg Tramadol HCl (Ultram) 100 mg PO Q6H PRN PRN Reason: Pain Discontinued Medications Ketorolac Tromethamine (Toradol) 30 mg IVPUSH Q6H [facility] Last Admin: 03/31/17 05:44 Dose: 30 mg Ketorolac Tromethamine (Toradol) 15 mg IVPUSH Q6H [facility] Last Admin: 03/31/17 12:08 Dose: 15 mg Linezolid (Zyvox) 600 mg PO Q12H [facility] Last Admin: 03/31/17 05:43 Dose: 600 mg - Exam General: Alert, Oriented HEENT: Pupils Equal, Pupils Reactive Neck: Trachea Midline Lungs: Normal Respiratory Effort Cardiovascular: Regular Rate Extremities: Other (Right knee: Again noted cloudy serous drainage present on the dressing. Painless ROM 0-95 degrees. AT/EHL/gastroc 12/05. Sensation intact. DP/PT pulses +2 bilaterally.) - Problem List Review Problem List Initiated/Reviewed/Updated: Yes - My Orders Last 24 Hours: My Active Orders 04/01/17 11:00 CULTURE BODY FLUID + SMEAR [RM] Stat - Assessment Assessment:: Patient up to chair this AM. Pain controlled. Tolerating diet. Ambulating. - Plan Plan:: WBC repeated today- 9.83. R knee synovial studies did show infection-- Dr. Stallings did discuss plan with patient yesterday. Continue Cubicin 500 mg IV daily. Continue pain management and dressing changes.
[2017-04-02] MEDS: amLODIPine 5 MG Tab PO SCH (09:24)
--- NOTE | 2017-04-02 15:32 | PCM.SN ---
- Free Text/Narrative Note: Discharge summary Dressing change prior to discharge. See discharge plan for complete list of discharge medications and instructions. Dictation #: [id number]
[2017-04-02 16:39] VITALS: BP 115/56
--- NOTE | 2017-04-02 17:14 | PCM.SN ---
- Free Text/Narrative Note: Patient is an 81-year-old female who has a long history of right knee difficulties. Her pain began in January 2014 without a specific injury. It progressed to the point where she was unable to bear weight. 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 She is followed by a rn rehab for this. X-rays taken at that time along with a CAT scan showed a depression fracture of the right lateral tibial plateau along with an insufficiency fracture through the posterior aspect of the lateral femoral condyle. We treated this initially with nonweightbearing. She subsequently underwent a right total knee arthroplasty on July 31, 2014. Due to her bony deformity, we did proceed with an LCCK implant. She progressed well with physical therapy following the procedure. On November 28, 2015 she presented to clinic with pain and induration along the medial aspect of her knee. This was not associated with the previous incision. She failed to respond to conservative treatment and on November 30, 2015 she underwent irrigation and debridement of the wound. At the time of surgery cultures were obtained which were positive for MSSA. The wound tunneled medially. There was no intrusion into the knee joint. She had a long course postoperatively that required wound therapy and VAC placement. Eventually the wound fully healed. On February 19, 2017, she developed an open area along the medial aspect of the knee again. We did treat this with a course of IV Cubicin which did decrease the pain and swelling in her knee. She also underwent a CT scan of the knee which did not show any collection of fluid or other abnormality. She continued with wound therapy. On her appointment on March 16, 2017 the wound had completely healed and there was no further drainage. Unfortunately, she noticed increased swelling and drainage from the right knee on March 29, 2017. She developed increased inflammatory laboratory studies and was hospitalized. She was started on Cubicin. An aspirate of her knee performed on April 01, 2017 showed a white count of 126,000. No crystals were noted. The Gram stain was positive for moderate gram-positive cocci in clusters. Final culture is currently pending. Blood cultures were negative 2 days. Her white count has normalized. A PICC line was placed today. Will plan on continuing the Cubicin. We did contact the orthopedic department at [facility] in [place], [place]. copies of her x-rays will be FedEx to them. Copies of her notes and final culture results will be sent as well. The family has requested that she be referred to [place] as they do have family in that area. The orthopedic department has said that they will contact the patient once they have received all of the information. I did discuss the plan with both the patient and her daughter. They are in agreement with this. If she develops increased drainage or begins having more pain over the weekend, she is advised to return to the hospital.
[2017-04-02] MEDS: DAPTOmycin 500 MG in Sodium Chloride 0.9% 10 ML IVPUSH SCH (17:33)
--- NOTE | 2017-04-03 06:49 | DISCH ---
DATE OF DISCHARGE: 04/02/2017 PRIMARY CARE PHYSICIAN: Jessica Stallings MD ADMITTING DIAGNOSES: 1. Infection of total joint prosthesis. 2. Wound infection after surgery. OTHER MEDICAL DIAGNOSES: 1. CREST syndrome. 2. Hypothyroidism. DISCHARGE DIAGNOSES: 1. Infection of total joint prosthesis. 2. Wound infection after surgery. 3. CREST syndrome. 4. Hypothyroidism. BRIEF HISTORY: Trish Reina is an 81-year-old female, who underwent a total knee arthroplasty in July of 2014. She has had persistent drainage from the medial aspect of her wound since November of 2016. She did undergo irrigation and debridement of this in November of 2015. At that time wound culture was + MSSA. Her wound eventually healed and she did well until recently. She was healing well until approximately 2 weeks ago when she experienced persistent drainage. She was examined in the clinic on March 30. She was then admitted for IV antibiotics. OPERATION: None. HOSPITAL COURSE: Pain was controlled via p.o. pain medications. She did receive 500 mg of Cubicin IV daily. Upon discharge, her vital signs were stable, she was afebrile. Her WBC was WNL. Blood cultures remained negative. Wound culture was positive for MSSA. DISCHARGE MEDICATIONS: 1. Cubicin IV 500 mg. She will receive this at [facility]. DISCHARGE INSTRUCTIONS: She will follow up in the clinic as scheduled. For a complete medication reconciliation and discharge instructions, please refer to the patient's EHR. If the patient has questions or concerns prior to followup, she has been advised to call the clinic. KALEY LOZADA /[id number] AFTAB
--- NOTE | 2017-04-03 09:18 | CR ---
EXAMINATION: Fluoro and ultrasound guided left-sided PICC line placement. HISTORY: Long-term antibiotics. TECHNIQUE/FINDINGS: After written informed consent was obtained from the patient using ultrasound an d Fluoro guidance under aseptic conditions utilizing 1% lidocaine as local anesthesia left basilic ve in was accessed and a dual lumen 5 Hungarian PICC catheter was deployed with its tip in the distal super ior vena cava. The catheter flushes and withdraws blood well. The catheter is flushed with the dilut ed heparin. The catheter secured well. IMPRESSION: Successful Fluoro and ultrasound guided PICC line placement.
== END 2017-04-02 17:55 | disposition home or self-care (01) | DRG 546 ==
LOC: MW.MS 16:51
PROVIDERS: ADMIT Orthopaedic Surgery; ATTEND Orthopaedic Surgery
PROC: 0S9C3ZX Drainage of Right Knee Joint, Percutaneous Approach, Diagnostic (ICD-10-PCS; 2017-04-01)
PROC: 02HV33Z Insertion of Infusion Device into Superior Vena Cava, Percutaneous Approach (ICD-10-PCS; principal; 2017-04-02)
DX: M34.1 CR(E)ST syndrome (principal); T81.4XXA Infection following a procedure, initial encounter; E03.9 Hypothyroidism, unspecified; Z91.040 Latex allergy status; Z88.0 Allergy status to penicillin; Z88.8 Allergy status to other drugs, medicaments and biological substances; Z79.899 Other long term (current) drug therapy
CPT/HCPCS: 36415; 36569; 76937; 76937-26; 77001; 77001-26; 85025; 85652; 86140; 87070; 87077; 87186; 87205; 89050; 89060; A9270-GY; J0878; J1885; J2405

== ENCOUNTER 2017-04-03 12:01 | Inpatient (IN) | payer MEDICARE, BC ==
[2017-04-03] MEDS ORDERED: Ketorolac 30 MG/ML SDV IVPUSH ONE (12:42)
[2017-04-03] MEDS ORDERED: Ondansetron 4 MG/2 ML SDV IVPUSH ONE (12:42)
[2017-04-03] MEDS ORDERED: Sodium Chloride 0.9% 1,000 ML IV SCH (12:45)
[2017-04-03] MEDS ORDERED: HYDROmorphone 1 MG/ML Syringe IV ONE ×2 (12:45→13:58)
--- NOTE | 2017-04-03 12:50 | EDM.PDOC ---
ED HPI GENERAL MEDICAL PROBLEM - General Chief Complaint: General Stated Complaint: INFECTED KNEE Time Seen by Provider: 04/03/17 12:42 Source of Information: Reports: Patient - History of Present Illness INITIAL COMMENTS - FREE TEXT/NARRATIVE: HISTORY AND PHYSICAL: History of present illness: Patient is an 89-year-old female that's brought to the emergency room with complaints of muscle aches and body pain. He was recently admitted to the hospital for a right septic knee and was treated with IV antibiotics and knee tap and drainage of excess fluid. Patient was discharged a day ago and kept on Cubicin through her PICC line. Since being discharged she has had increased body aches and pains. Reports that she's had thick purulent drainage from the right knee. Concerned that she is unable to move the right leg or bear weight as it causes too much pain. History of a total right knee replacement approximately 2 years ago. States she plans on following up in [place] for removal and replacement of hardware. Review of systems: As per history of present illness and below otherwise all systems reviewed and negative. Past medical history: As per history of present illness and as reviewed below otherwise noncontributory. Surgical history: As per history of present illness and as reviewed below otherwise noncontributory. Social history: No reported history of drug or alcohol abuse. Family history: As per history of present illness and as reviewed below otherwise noncontributory. Physical exam: Gen.: Nontoxic appearing 81-year-old female, able to speak in full sentences without shortness of breath, alert and oriented 3. HEENT: Atraumatic, normocephalic, pupils reactive, negative for conjunctival pallor or scleral icterus, mucous membranes moist, throat clear, neck supple, nontender, trachea midline. Lungs: Clear to auscultation, breath sounds equal bilaterally, chest nontender. Heart: S1S2, regular, negative for clicks, rubs, or JVD. Abdomen: Soft, nondistended, nontender. Negative for masses or hepatosplenomegaly. Negative for costovertebral tenderness. Pelvis: Stable nontender. Genitourinary: Deferred. Rectal: Deferred. Skin: Open drainage site to right medial knee, just draining copious amounts of green purulent drainage. Skin is warm to touch. No erythema noted Extremities: Atraumatic, negative for cords or calf pain. Neurovascular unremarkable. Neuro: Awake, alert, oriented. Cranial nerves II through XII unremarkable. Cerebellum unremarkable. Motor and sensory unremarkable throughout. Exam nonfocal. 1245- Dr. Jessica Stallings was consulted Diagnostics: CBC, CMP, lactic, ESR, CRP, chest x-ray, right knee x-ray Therapeutics: IV fluid, Toradol, Zofran, Dilaudid as needed Impression: 1. Septic arthritis Definitive disposition and diagnosis as appropriate pending reevaluation and review of above. Right Knee Pain Score (Numeric/FACES): 10 - Related Data Allergies Allergy/AdvReac Type Severity Reaction Status Date / Time codeine Allergy Vomiting Verified 04/03/17 12:10 latex Allergy Rash Verified 04/03/17 12:10 morphine Allergy Difficulty Verified 04/03/17 12:10 Breathing oxycodone HCl [From Percocet] Allergy Vomiting Verified 04/03/17 12:10 Penicillins Allergy Anaphylactic Verified 04/03/17 12:10 Shock Sulfa (Sulfonamide Allergy Anaphylactic Verified 04/03/17 12:10 Antibiotics) Shock all pain meds Allergy Nausea Uncoded 02/16/17 07:03 Home Meds: Home Meds amLODIPine Besylate [Amlodipine Besylate] 10 mg PO DAILY 07/28/14 [History] Omeprazole Magnesium [Prilosec Otc] 20 mg PO ACBRK 08/01/14 [History] Promethazine [Phenergan] 25 mg PO Q6H PRN #30 tablet 08/04/14 [Rx] Denosumab [Prolia] 60 mg IM Q180D 02/28/16 [History] Levothyroxine [Synthroid] 88 mcg PO ACBREAKFAST 02/28/16 [History] Ondansetron HCl [Zofran] 4 mg PO Q8HR PRN #16 tablet 02/16/17 [Rx] traMADol [Ultram] 100 mg PO Q6H PRN #80 tablet 02/21/17 [Rx] Acetaminophen [Tylenol Extra Strength] 1,000 mg PO Q6H PRN tablet 04/02/17 [Rx] Past Medical History - Past Health History Medical/Surgical History: Denies Medical/Surgical History HEENT History: Reports: Cataract Other HEENT History: has upper denture and lower partial Cardiovascular History: Reports: None Respiratory History: Reports: None Gastrointestinal History: Reports: GERD, Irritable Bowel Syndrome, Other (See Below) Other Gastrointestinal History: IBS-Diarrhea Genitourinary History: Reports: Other (See Below) Other Genitourinary History: overactive bladder 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: Musculoskeletal History: Reports: Arthritis Neurological History: Reports: Other (See Below) Other Neuro History: hx of motion sickness Psychiatric History: Reports: None Endocrine/Metabolic History: Reports: Hypothyroidism Hematologic History: Reports: None Immunologic History: Reports: Other (See Below) Other Immunologic History: CREST syndrome Oncologic (Cancer) History: Reports: None Dermatologic History: Reports: None, Other (See Below) Other Dermatologic History: Raynaud's Syndrome - Infectious Disease History Infectious Disease History: Reports: Chicken Pox, Measles, Mumps, Shingles - Past Surgical History Head Surgeries/Procedures: Reports: None HEENT Surgical History: Reports: Cataract Surgery Female Surgical History: Reports: Hysterectomy Musculoskeletal Surgical History: Reports: Knee Replacement, ORIF, Shoulder Surgery Social & Family History - Family History Family Medical History: Noncontributory HEENT: Reports: Cataract Respiratory: Reports: COPD Musculoskeletal: Reports: Arthritis Psychiatric: Reports: Depression Endocrine/Metabolic: Reports: Diabetes, type II - Tobacco Use Smoking Status *Q: Never Smoker Years of Tobacco use: 10 Used Tobacco, but Quit: No Second Hand Smoke Exposure: No - Caffeine Use Caffeine Use: Reports: Coffee - Alcohol Use Days Per Week of Alcohol Use: 0 Number of Drinks Per Day: 0 Total Drinks Per Week: 0 - Recreational Drug Use Recreational Drug Use: No Drug Use in Last 12 Months: No ED ROS GENERAL - Review of Systems Review Of Systems: ROS reveals no pertinent complaints other than HPI. ED EXAM, GENERAL - Physical Exam Exam: See Below (See dictation) Course - Vital Signs Last Recorded V/S: Last Vital Signs Temp 37.2 C 04/03/17 20:00 Pulse 99 04/03/17 20:00 Resp 18 04/03/17 20:00 BP 128/86 04/03/17 20:00 Pulse Ox 91 L 04/03/17 20:00 - Orders/Labs/Meds Orders: Active Orders 24 hr Category Date Time Status Admission Status [Patient Status] [ADT] Stat ADT 04/03/17 14:44 Active Activity as Tolerated [RC] .Routine Care 04/03/17 15:11 Active Dressing Change [Wound Care] [RC] BID Care 04/03/17 15:11 Active Intake and Output [RC] ASDIRECTED Care 04/03/17 15:10 Active May Shower [RC] ASDIRECTED Care 04/03/17 15:11 Active Neurovascular Check [RC] Q8HR Care 04/03/17 15:10 Active Notify Provider Vital Signs [RC] ASDIRECTED Care 04/03/17 15:11 Active Vital Signs [RC] Q4H Care 04/03/17 15:10 Active Consult to Physician [CONS] Routine Cons 04/03/17 15:10 Active Regular Diet [DIET] Diet 04/03/17 Dinner Active COMPREHENSIVE METABOLIC PN,CMP [CHEM] AM Lab 04/04/17 05:11 Ordered COMPREHENSIVE METABOLIC PN,CMP [CHEM] AM Lab 04/05/17 05:11 Ordered COMPREHENSIVE METABOLIC PN,CMP [CHEM] AM Lab 04/06/17 05:11 Ordered CULTURE BLOOD [BC] Stat Lab 04/03/17 13:00 Received CULTURE BLOOD [BC] Stat Lab 04/03/17 13:36 Results HEPATITIS PANEL, ACUTE [REF] Stat Lab 04/03/17 14:48 Ordered HYDROmorphone [Dilaudid] Med 04/03/17 15:14 Active 0.5 - 1 mg IVPUSH Q3H PRN Ketorolac [Toradol] Med 04/03/17 15:14 Active 15 mg IVPUSH Q6H PRN Lactated Ringers [Ringers, Lactated] 1,000 ml Med 04/03/17 15:15 Active IV ASDIRECTED Ondansetron [Zofran] Med 04/03/17 15:14 Active 4 mg IV Q8HR PRN Scopolamine [Transderm-Scop] Med 04/03/17 15:15 Active 1.5 mg TRDERM Q72H Sodium Chloride 0.9% [Normal Saline] 1,000 ml Med 04/03/17 12:45 Active IV ASDIRECTED Blood Culture x2 Reflex Set [OM.PC] Stat Oth 04/03/17 12:45 Ordered Sequential Compression Device [OM.PC] Routine Oth 04/03/17 15:10 Ordered Medication Orders Amlodipine Besylate (Norvasc) 10 mg PO DAILY ANNA Enoxaparin Sodium (Lovenox) 30 mg SUBCUT Q24H ANNA Last Admin: 04/03/17 15:58 Dose: 30 mg Hydromorphone HCl (Dilaudid) 0.5 - 1 mg IVPUSH Q3H PRN PRN Reason: Pain Last Admin: 04/03/17 18:47 Dose: 1 mg Sodium Chloride (Normal Saline) 1,000 mls @ 999 mls/hr IV ASDIRECTED [facility] Last Admin: 04/03/17 13:03 Dose: 999 mls/hr Lactated Ringer's (Ringers, Lactated) 1,000 mls @ 125 mls/hr IV ASDIRECTED [facility] Last Admin: 04/03/17 15:59 Dose: 125 mls/hr Daptomycin 500 mg/ Sodium (Chloride) 10 mls @ 300 mls/hr IV Q24H [facility] Last Admin: 04/03/17 16:14 Dose: 300 mls/hr Ketorolac Tromethamine (Toradol) 15 mg IVPUSH Q6H PRN PRN Reason: Pain Last Admin: 04/03/17 17:14 Dose: 15 mg Levothyroxine Sodium (Synthroid) 88 mcg PO ACBREAKFAST ANNA Omeprazole (Omeprazole) 20 mg PO ACBRK ANNA Ondansetron HCl (Zofran) 4 mg IV Q8HR PRN PRN Reason: NAUSEA/VOMITING Promethazine HCl (Phenergan) 25 mg PO Q6H PRN PRN Reason: Nausea/Vomiting Last Admin: 04/03/17 20:28 Dose: 25 mg Scopolamine (Transderm-Scop) 1.5 mg TRDERM Q72H [facility] Stop: 04/06/17 15:16 Last Admin: 04/03/17 15:58 Dose: 1.5 mg Tramadol HCl (Ultram) 100 mg PO Q6H PRN PRN Reason: Breakthrough Pain Last Admin: 04/03/17 16:13 Dose: 100 mg Labs: Laboratory Tests 04/03/17 04/03/17 04/03/17 Range/Units 13:00 13:00 13:00 WBC 12.20 H (4.0-11.0) K/uL RBC 3.52 L (4.30-5.90) M/uL Hgb 9.8 L (12.0-16.0) g/dL Hct 30.9 L (36.0-46.0) % MCV 87.8 (80.0-98.0) fL MCH 27.8 (27.0-32.0) pg MCHC 31.7 (31.0-37.0) g/dL RDW Std Deviation 47.7 (28.0-62.0) fl RDW Coeff of Kari 15 (11.0-15.0) % Plt Count 492 H (150-400) K/uL MPV 9.70 (7.40-12.00) fL Neut % (Auto) 84.7 H (48.0-80.0) % Lymph % (Auto) 9.3 L (16.0-40.0) % [place] % (Auto) 5.3 (0.0-15.0) % Eos % (Auto) 0.5 (0.0-7.0) % Baso % (Auto) 0.2 (0.0-1.5) % Neut # (Auto) 10.3 H (1.4-5.7) K/uL Lymph # (Auto) 1.1 (0.6-2.4) K/uL [place] # (Auto) 0.7 (0.0-0.8) K/uL Eos # (Auto) 0.1 (0.0-0.7) K/uL Baso # (Auto) 0.0 (0.0-0.1) K/uL Nucleated RBC % 0.0 /100WBC Nucleated RBCs # 0 K/uL ESR 78 H (0-29) mm/hr INR (0.86-1.11) Lactate 1.0 (0.20-2.00) mmol/L Sodium 138 (136-146) mmol/L Potassium 3.9 (3.5-5.1) mmol/L Chloride 102 (98-110) mmol/L Carbon Dioxide 23 (21-31) mmol/L BUN 15 (6.0-23.0) mg/dL Creatinine 0.7 (0.6-1.5) mg/dL Est Cr Clr Drug Dosing 43.81 mL/min Estimated GFR (MDRD) > 60.0 ml/min Glucose 95 (60-110) mg/dL Calcium 9.1 (8.8-10.8) mg/dL Iron (50-170) ug/dL Total Bilirubin 0.2 (0.1-1.5) mg/dL AST 312 H (5-40) IU/L ALT 115 H (8-54) IU/L Alkaline Phosphatase 115 (40-150) C-Reactive Protein 22.05 H (0.0-0.5) mg/dL Total Protein 6.7 (6.0-8.0) g/dL Albumin 3.1 L (3.4-4.8) g/dL Globulin 3.6 H (2.0-3.5) g/dL Albumin/Globulin Ratio 0.9 L (1.3-2.8) Amylase (10-90) U/L Lipase (7-80) U/L Acetaminophen ug/mL 04/03/17 04/03/17 04/03/17 Range/Units 13:00 13:00 13:00 WBC (4.0-11.0) K/uL RBC (4.30-5.90) M/uL Hgb (12.0-16.0) g/dL Hct (36.0-46.0) % MCV (80.0-98.0) fL MCH (27.0-32.0) pg MCHC (31.0-37.0) g/dL RDW Std Deviation (28.0-62.0) fl RDW Coeff of Kari (11.0-15.0) % Plt Count (150-400) K/uL MPV (7.40-12.00) fL Neut % (Auto) (48.0-80.0) % Lymph % (Auto) (16.0-40.0) % [place] % (Auto) (0.0-15.0) % Eos % (Auto) (0.0-7.0) % Baso % (Auto) (0.0-1.5) % Neut # (Auto) (1.4-5.7) K/uL Lymph # (Auto) (0.6-2.4) K/uL [place] # (Auto) (0.0-0.8) K/uL Eos # (Auto) (0.0-0.7) K/uL Baso # (Auto) (0.0-0.1) K/uL Nucleated RBC % /100WBC Nucleated RBCs # K/uL ESR (0-29) mm/hr INR 1.08 (0.86-1.11) Lactate (0.20-2.00) mmol/L Sodium (136-146) mmol/L Potassium (3.5-5.1) mmol/L Chloride (98-110) mmol/L Carbon Dioxide (21-31) mmol/L BUN (6.0-23.0) mg/dL Creatinine (0.6-1.5) mg/dL Est Cr Clr Drug Dosing mL/min Estimated GFR (MDRD) ml/min Glucose (60-110) mg/dL Calcium (8.8-10.8) mg/dL Iron 18 L (50-170) ug/dL Total Bilirubin (0.1-1.5) mg/dL AST (5-40) IU/L ALT (8-54) IU/L Alkaline Phosphatase (40-150) C-Reactive Protein (0.0-0.5) mg/dL Total Protein (6.0-8.0) g/dL Albumin (3.4-4.8) g/dL Globulin (2.0-3.5) g/dL Albumin/Globulin Ratio (1.3-2.8) Amylase (10-90) U/L Lipase (7-80) U/L Acetaminophen 3.6 ug/mL 04/03/17 Range/Units 13:00 WBC (4.0-11.0) K/uL RBC (4.30-5.90) M/uL Hgb (12.0-16.0) g/dL Hct (36.0-46.0) % MCV (80.0-98.0) fL MCH (27.0-32.0) pg MCHC (31.0-37.0) g/dL RDW Std Deviation (28.0-62.0) fl RDW Coeff of Kari (11.0-15.0) % Plt Count (150-400) K/uL MPV (7.40-12.00) fL Neut % (Auto) (48.0-80.0) % Lymph % (Auto) (16.0-40.0) % [place] % (Auto) (0.0-15.0) % Eos % (Auto) (0.0-7.0) % Baso % (Auto) (0.0-1.5) % Neut # (Auto) (1.4-5.7) K/uL Lymph # (Auto) (0.6-2.4) K/uL [place] # (Auto) (0.0-0.8) K/uL Eos # (Auto) (0.0-0.7) K/uL Baso # (Auto) (0.0-0.1) K/uL Nucleated RBC % /100WBC Nucleated RBCs # K/uL ESR (0-29) mm/hr INR (0.86-1.11) Lactate (0.20-2.00) mmol/L Sodium (136-146) mmol/L Potassium (3.5-5.1) mmol/L Chloride (98-110) mmol/L Carbon Dioxide (21-31) mmol/L BUN (6.0-23.0) mg/dL Creatinine (0.6-1.5) mg/dL Est Cr Clr Drug Dosing mL/min Estimated GFR (MDRD) ml/min Glucose (60-110) mg/dL Calcium (8.8-10.8) mg/dL Iron (50-170) ug/dL Total Bilirubin (0.1-1.5) mg/dL AST (5-40) IU/L ALT (8-54) IU/L Alkaline Phosphatase (40-150) C-Reactive Protein (0.0-0.5) mg/dL Total Protein (6.0-8.0) g/dL Albumin (3.4-4.8) g/dL Globulin (2.0-3.5) g/dL Albumin/Globulin Ratio (1.3-2.8) Amylase 26 (10-90) U/L Lipase 22 (7-80) U/L Acetaminophen ug/mL Meds: Medications Generic Name Dose Route Start Last Admin Trade Name Freq PRN Reason Stop Dose Admin Amlodipine Besylate 10 mg 04/04/17 09:00 Norvasc PO DAILY ANNA Enoxaparin Sodium 30 mg 04/03/17 15:30 04/03/17 15:58 Lovenox SUBCUT 30 mg Q24H ANNA Administration Hydromorphone HCl 0.5 - 1 mg 04/03/17 15:14 04/03/17 18:47 Dilaudid IVPUSH 1 mg Q3H PRN Administration Pain Sodium Chloride 1,000 mls @ 999 mls/hr 04/03/17 12:45 04/03/17 13:03 Normal Saline IV 999 mls/hr ASDIRECTED ANNA Administration Lactated Ringer's 1,000 mls @ 125 mls/hr 04/03/17 15:15 04/03/17 15:59 Ringers, Lactated IV 125 mls/hr ASDIRECTED ANNA Administration Daptomycin 500 mg/ Sodium 10 mls @ 300 mls/hr 04/03/17 17:00 04/03/17 16:14 Chloride IV 300 mls/hr Q24H ANNA Administration Ketorolac Tromethamine 15 mg 04/03/17 15:14 04/03/17 17:14 Toradol IVPUSH 15 mg Q6H PRN Administration Pain Levothyroxine Sodium 88 mcg 04/04/17 07:30 Synthroid PO ACBREAKFAST ANNA Omeprazole 20 mg 04/04/17 07:30 Omeprazole PO ACBRK ANNA Ondansetron HCl 4 mg 04/03/17 15:14 Zofran IV Q8HR PRN NAUSEA/VOMITING Promethazine HCl 25 mg 04/03/17 15:16 04/03/17 20:28 Phenergan PO 25 mg Q6H PRN Administration Nausea/Vomiting Scopolamine 1.5 mg 04/03/17 15:15 04/03/17 15:58 Transderm-Scop TRDERM 04/06/17 15:16 1.5 mg Q72H ANNA Administration Tramadol HCl 100 mg 04/03/17 15:23 04/03/17 16:13 Ultram PO 100 mg Q6H PRN Administration Breakthrough Pain Discontinued Medications Generic Name Dose Route Start Last Admin Trade Name Freq PRN Reason Stop Dose Admin Daptomycin 500 mg 04/03/17 17:00 Cubicin IVPUSH Q24H ANNA Hydromorphone HCl 0.5 mg 04/03/17 12:45 04/03/17 13:27 Dilaudid IV 04/03/17 12:46 0.5 mg ONETIME ONE Administration Hydromorphone HCl 0.5 mg 04/03/17 13:58 04/03/17 14:07 Dilaudid IV 04/03/17 13:59 0.5 mg ONETIME ONE Administration Ketorolac Tromethamine 30 mg 04/03/17 12:42 04/03/17 13:03 Toradol IVPUSH 04/03/17 12:43 30 mg ONETIME ONE Administration Ondansetron HCl 4 mg 04/03/17 12:42 04/03/17 13:03 Zofran IVPUSH 04/03/17 12:43 4 mg ONETIME ONE Administration Departure - Departure Time of Disposition: 22:01 Disposition: Admitted As Inpatient 67 Condition: Good Clinical Impression: Septic arthritis - Discharge Information - My Orders Last 24 Hours: My Active Orders 04/03/17 12:45 Sodium Chloride 0.9% [Normal Saline] 1,000 ml IV ASDIRECTED Blood Culture x2 Reflex Set [OM.PC] Stat 04/03/17 13:00 CULTURE BLOOD [BC] Stat 04/03/17 13:36 CULTURE BLOOD [BC] Stat - Assessment/Plan Last 24 Hours: My Active Orders 04/03/17 12:45 Sodium Chloride 0.9% [Normal Saline] 1,000 ml IV ASDIRECTED Blood Culture x2 Reflex Set [OM.PC] Stat 04/03/17 13:00 CULTURE BLOOD [BC] Stat 04/03/17 13:36 CULTURE BLOOD [BC] Stat
[2017-04-03 14:02] LABS: CHLORIDE,CL 102 mmol/L (98-110); SODIUM,NA 138 mmol/L (136-146)
--- NOTE | 2017-04-03 14:25 | CR ---
EXAMINATION: Portable chest radiograph. HISTORY: Septic knee. FINDINGS: The trachea is midline. The cardiomediastinal silhouette is within normal limits. No pulmonary infilt rates, effusions or pneumothorax. There is a left-sided PICC line with tip in good position in the SV C. Degenerative changes noted within the right shoulder. IMPRESSION: No acute cardiopulmonary process.
--- NOTE | 2017-04-03 14:29 | CR ---
EXAMINATION: Right knee HISTORY: Septic knee COMPARISON: 03/30/2017 TECHNIQUE: 2 views FINDINGS: Total knee revision hardware changes are demonstrated. There is likely a trace suprapatella r joint effusion with induration of Hoffa's fat pad. No fracture or acute osseous abnormality demonst rated. Bone mineralization otherwise appears normal. IMPRESSION: 1. Small suprapatellar joint effusion and total knee replacement hardware without acute osseous findi ng.
--- NOTE | 2017-04-03 14:46 | PCM.HP ---
H&P History of Present Illness - General Date of Service: 04/03/17 Source of Information: Patient, Family, Old Records History Limitations: Reports: No Limitations - History of Present Illness Initial Comments - Free Text/Narative: Patient is an 81-year-old female who has a long history of right knee difficulties. Her pain began in January 2014 without a specific injury. It progressed to the point where she was unable to bear weight. 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 She is followed by a document examiner for this. X-rays taken at that time along with a CAT scan showed a depression fracture of the right lateral tibial plateau along with an insufficiency fracture through the posterior aspect of the lateral femoral condyle. We treated this initially with nonweightbearing. She subsequently underwent a right total knee arthroplasty on July 31, 2014. Due to her bony deformity, we did proceed with an LCCK implant. She progressed well with physical therapy following the procedure. On November 28, 2015 she presented to clinic with pain and induration along the medial aspect of her knee. This was not associated with the previous incision. She failed to respond to conservative treatment and on November 30, 2015 she underwent irrigation and debridement of the wound. At the time of surgery cultures were obtained which were positive for MSSA. The wound tunneled medially. There was no intrusion into the knee joint. She had a long course postoperatively that required wound therapy and VAC placement. Eventually the wound fully healed. On February 19, 2017, she developed an open area along the medial aspect of the knee again. We did treat this with a course of IV Cubicin which did decrease the pain and swelling in her knee. She also underwent a CT scan of the knee which did not show any collection of fluid or other abnormality. She continued with wound therapy. On her appointment on March 16, 2017 the wound had completely healed and there was no further drainage. Unfortunately, she noticed increased swelling and drainage from the right knee on March 29, 2017. She developed increased inflammatory laboratory studies and was hospitalized. She was started on Cubicin. An aspirate of her knee performed on April 01, 2017 showed a white count of 126,000. No crystals were noted. The Gram stain was positive for moderate gram-positive cocci in clusters. Final culture +MSSA. Blood cultures were negative 2 days. Her white count had normalized. A PICC line was placed. We did contact the orthopedic department at [facility] in [place], [place]. copies of her x-rays will be FedEx to them. Copies of her notes and final culture results will be sent as well. The family has requested that she be referred to [place] for definitive treatment of the knee as they do have family in that area. The orthopedic department has said that they will contact the patient once they have received all of the information. Patient was discharged home yesterday after placement of a PICC line. Received Cubicin last evening. She was feeling quite good yesterday and wBC count had normalized. Over night and this am she began aching all over. [place] tired and was having trouble ambulating. I spoke with patient via telephone and recommended she go to the ER. In the ER, she had an extensive work up including labs, XR, and blood cultures. Vitals were stable. WBC elevated at 12. ESR and CRP elevated but trending down. she has been taking Tylenol scheduled for pain. She has an intolerance to most medications and takes phenergan regularly. Has not been able to drink much or eat since she was discharged last evening. Quality: Reports: Dull Severity: Moderate Improves with: Reports: Rest Worsens with: Reports: Movement Associated Symptoms: Reports: Loss of Appetite, Nausea/Vomiting, Weakness. Denies: Chest Pain, Cough, Fever/Chills, Headaches, Shortness of Breath, Syncope Right Knee Pain Score (Numeric/FACES): 10 - Related Data Allergies/Adverse Reactions: Allergies Allergy/AdvReac Type Severity Reaction Status Date / Time codeine Allergy Vomiting Verified 04/03/17 12:10 latex Allergy Rash Verified 04/03/17 12:10 morphine Allergy Difficulty Verified 04/03/17 12:10 Breathing oxycodone HCl [From Percocet] Allergy Vomiting Verified 04/03/17 12:10 Penicillins Allergy Anaphylactic Verified 04/03/17 12:10 Shock Sulfa (Sulfonamide Allergy Anaphylactic Verified 04/03/17 12:10 Antibiotics) Shock all pain meds Allergy Nausea Uncoded 02/16/17 07:03 Home Medications: Home Meds amLODIPine Besylate [Amlodipine Besylate] 10 mg PO DAILY 07/28/14 [History] Omeprazole Magnesium [Prilosec Otc] 20 mg PO ACBRK 08/01/14 [History] Promethazine [Phenergan] 25 mg PO Q6H PRN #30 tablet 08/04/14 [Rx] Denosumab [Prolia] 60 mg IM Q180D 02/28/16 [History] Levothyroxine [Synthroid] 88 mcg PO ACBREAKFAST 02/28/16 [History] Ondansetron HCl [Zofran] 4 mg PO Q8HR PRN #16 tablet 02/16/17 [Rx] traMADol [Ultram] 100 mg PO Q6H PRN #80 tablet 02/21/17 [Rx] Acetaminophen [Tylenol Extra Strength] 1,000 mg PO Q6H PRN tablet 04/02/17 [Rx] Past Medical History - Past Health History Medical/Surgical History: Denies Medical/Surgical History HEENT History: Reports: Cataract Other HEENT History: has upper denture and lower partial Cardiovascular History: Reports: None Respiratory History: Reports: None Gastrointestinal History: Reports: GERD, Irritable Bowel Syndrome, Other (See Below) Other Gastrointestinal History: IBS-Diarrhea Genitourinary History: Reports: Other (See Below) Other Genitourinary History: overactive bladder MEDICATION TECH History: Reports: Musculoskeletal History: Reports: Arthritis Neurological History: Reports: Other (See Below) Other Neuro History: hx of motion sickness Psychiatric History: Reports: None Endocrine/Metabolic History: Reports: Hypothyroidism Hematologic History: Reports: None Immunologic History: Reports: Other (See Below) Other Immunologic History: CREST syndrome Oncologic (Cancer) History: Reports: None Dermatologic History: Reports: None, Other (See Below) Other Dermatologic History: Raynaud's Syndrome - Infectious Disease History Infectious Disease History: Reports: Chicken Pox, Measles, Mumps, Shingles - Past Surgical History Head Surgeries/Procedures: Reports: None HEENT Surgical History: Reports: Cataract Surgery Female Surgical History: Reports: Hysterectomy Musculoskeletal Surgical History: Reports: Knee Replacement, ORIF, Shoulder Surgery Social & Family History - Family History Family Medical History: Noncontributory HEENT: Reports: Cataract Respiratory: Reports: COPD Musculoskeletal: Reports: Arthritis Psychiatric: Reports: Depression Endocrine/Metabolic: Reports: Diabetes, type II - Tobacco Use Smoking Status *Q: Never Smoker Years of Tobacco use: 10 Used Tobacco, but Quit: No Second Hand Smoke Exposure: No - Caffeine Use Caffeine Use: Reports: Coffee - Alcohol Use Days Per Week of Alcohol Use: 0 Number of Drinks Per Day: 0 Total Drinks Per Week: 0 - Recreational Drug Use Recreational Drug Use: No Drug Use in Last 12 Months: No H&P Review of Systems - Review of Systems: Review Of Systems: See Below General: Reports: Fatigue, Decreased Appetite. Denies: Fever, Chills HEENT: Reports: No Symptoms Pulmonary: Reports: No Symptoms. Denies: Shortness of Breath, Cough Cardiovascular: Reports: No Symptoms. Denies: Chest Pain, Palpitations Gastrointestinal: Reports: No Symptoms. Denies: Abdominal Pain Genitourinary: Reports: No Symptoms Musculoskeletal: Reports: Joint Pain Skin: Reports: Wound Psychiatric: Reports: No Symptoms Neurological: Reports: Weakness. Denies: Confusion, Headache Hematologic/Lymphatic: Reports: No Symptoms Immunologic: Reports: No Symptoms Exam - Exam Exam: See Below - Vital Signs Vital Signs: Last Vital Signs Temp 97.5 F 04/03/17 12:05 Pulse 97 04/03/17 12:50 Resp 16 04/03/17 12:50 BP 152/85 H 04/03/17 12:50 Pulse Ox 94 L 04/03/17 12:50 Weight: 43.3 kg - Exam General: Alert, Oriented, 4 HEENT: Conjunctiva Clear, Hearing Intact, Nares Patent Neck: Supple, Trachea Midline, 2 Lungs: Normal Respiratory Effort Cardiovascular: Regular Rhythm GI/Abdominal Exam: Soft, Non-Tender (Female) Exam: Deferred Rectal (Female) Exam: Deferred Psychiatric: Alert, Normal Affect, Normal Mood Physical Exam Comments:: exam of RLE shows well healed anterior incision. Medial wound persists with cloudy drainage. No surrounding erythema or induration. ROM 0-90 degrees. No calf TTP. AT/EHL/gastroc 5/5. Sensation intact. DP 2+. - Patient Data Lab Results Last 24 hrs: Laboratory Results - last 24 hr 04/03/17 04/03/17 04/03/17 Range/Units 13:00 13:00 13:00 WBC 12.20 H (4.0-11.0) K/uL RBC 3.52 L (4.30-5.90) M/uL Hgb 9.8 L (12.0-16.0) g/dL Hct 30.9 L (36.0-46.0) % MCV 87.8 (80.0-98.0) fL MCH 27.8 (27.0-32.0) pg MCHC 31.7 (31.0-37.0) g/dL RDW Std Deviation 47.7 (28.0-62.0) fl RDW Coeff of Kari 15 (11.0-15.0) % Plt Count 492 H (150-400) K/uL MPV 9.70 (7.40-12.00) fL Neut % (Auto) 84.7 H (48.0-80.0) % Lymph % (Auto) 9.3 L (16.0-40.0) % [place] % (Auto) 5.3 (0.0-15.0) % Eos % (Auto) 0.5 (0.0-7.0) % Baso % (Auto) 0.2 (0.0-1.5) % Neut # (Auto) 10.3 H (1.4-5.7) K/uL Lymph # (Auto) 1.1 (0.6-2.4) K/uL [place] # (Auto) 0.7 (0.0-0.8) K/uL Eos # (Auto) 0.1 (0.0-0.7) K/uL Baso # (Auto) 0.0 (0.0-0.1) K/uL Nucleated RBC % 0.0 /100WBC Nucleated RBCs # 0 K/uL ESR 78 H (0-29) mm/hr Lactate 1.0 (0.20-2.00) mmol/L Sodium 138 (136-146) mmol/L Potassium 3.9 (3.5-5.1) mmol/L Chloride 102 (98-110) mmol/L Carbon Dioxide 23 (21-31) mmol/L BUN 15 (6.0-23.0) mg/dL Creatinine 0.7 (0.6-1.5) mg/dL Est Cr Clr Drug Dosing 43.81 mL/min Estimated GFR (MDRD) > 60.0 ml/min Glucose 95 (60-110) mg/dL Calcium 9.1 (8.8-10.8) mg/dL Total Bilirubin 0.2 (0.1-1.5) mg/dL AST 312 H (5-40) IU/L ALT 115 H (8-54) IU/L Alkaline Phosphatase 115 (40-150) C-Reactive Protein 22.05 H (0.0-0.5) mg/dL Total Protein 6.7 (6.0-8.0) g/dL Albumin 3.1 L (3.4-4.8) g/dL Globulin 3.6 H (2.0-3.5) g/dL Albumin/Globulin Ratio 0.9 L (1.3-2.8) Result Diagrams: 04/03/17 13:00 04/03/17 13:00 Chan Results Last 24 hrs: XR R knee shows prosthesis in good position. No acute abnormality. Microbiology 04/03/17 13:36 Anaerobic Blood Culture - Final Blood - Venous - Lab Draw *Q Meaningful Use (ADM) - VTE *Q VTE Criteria *Q: - Stroke *Q Stroke Criteria *Q: - AMI *Q AMI Criteria *Q: - Problem List (1) Infection of total joint prosthesis SNOMED Code(s): 004923209 ICD Code: T84.50XA - INFECT/INFLM REACTION DUE TO UNSP INT JOINT PROSTH, INIT Status: Acute Current Visit: No Qualifiers: Encounter type: subsequent encounter Qualified Code(s): T84.50XD - Infection and inflammatory reaction due to unspecified internal joint prosthesis , subsequent encounter Problem List Initiated/Reviewed/Updated: Yes Orders Last 24hrs: Active Orders 24 hr Category Date Time Status Echo 2D wo Cont [US] Stat Exams 04/03/17 14:36 Ordered ACETAMINOPHEN [CHEM] Stat Lab 04/03/17 14:32 Ordered CULTURE BLOOD [BC] Stat Lab 04/03/17 13:00 Received CULTURE BLOOD [BC] Stat Lab 04/03/17 13:36 Results INR,PT,PROTHROMBIN TIME [COAG] Stat Lab 04/03/17 14:35 Ordered Sodium Chloride 0.9% [Normal Saline] 1,000 ml Med 04/03/17 12:45 Active IV ASDIRECTED Blood Culture x2 Reflex Set [OM.PC] Stat Oth 04/03/17 12:45 Ordered Medication Orders Sodium Chloride (Normal Saline) 1,000 mls @ 999 mls/hr IV ASDIRECTED ANNA Last Admin: 04/03/17 13:03 Dose: 999 mls/hr Assessment/Plan Comment:: 1. Admit for continued observation and IV abx 2. BC ordered in ER--await results 3. watch labs--WBC, ALT/AST 4. hospitalist consult for assistance with medical management 5. dressing change R knee twice daily and prn
[2017-04-03] MEDS ORDERED: Ondansetron 4 MG/2 ML SDV IV PRN (15:14)
[2017-04-03] MEDS ORDERED: Scopolamine 1.5 MG Transdermal Patch TRDERM SCH (15:15)
--- NOTE | 2017-04-03 15:38 | US ---
EXAMINATION: Right upper quadrant ultrasound HISTORY: Elevated liver function tests COMPARISON: None TECHNIQUE: Grayscale, color Doppler, and spectral Doppler images obtained. FINDINGS: The visualized pancreas appears grossly normal. The liver is normal in contour and echotext ure without a focal hepatic mass. The gallbladder wall thickness is normal. No pericholecystic fluid or shadowing gallstone. Common audelia e duct measures 9 mm without a definite filling defect. Right kidney measures 10.1 cm [id number] wi thout evidence of hydronephrosis. Small renal cortical cysts noted. Sonographic Cervantes sign is negati ve. IMPRESSION: Grossly unremarkable right upper quadrant ultrasound.
[2017-04-03] MEDS: Enoxaparin 30 MG/0.3 ML Syringe SUBCUT SCH (15:58)
[2017-04-03] MEDS: Lactated Ringers 1,000 ML IV SCH (15:59)
--- NOTE | 2017-04-03 16:12 | PCM.HP ---
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 She is being treated with daptomycin. She takes 6 grams ot tylenol a day for pain. She reports unable to tolerated narcotics or NSAIDs due to nausea. She presents to the ED today with complaint of nausea, vomiting and generalized weakness. She denies any fevers or chills. She denies any blood in her stool. Right Knee Pain Score (Numeric/FACES): 10 - Related Data Allergies/Adverse Reactions: Allergies Allergy/AdvReac Type Severity Reaction Status Date / Time codeine Allergy Vomiting Verified 04/03/17 12:10 latex Allergy Rash Verified 04/03/17 12:10 morphine Allergy Difficulty Verified 04/03/17 12:10 Breathing oxycodone HCl [From Percocet] Allergy Vomiting Verified 04/03/17 12:10 Penicillins Allergy Anaphylactic Verified 04/03/17 12:10 Shock Sulfa (Sulfonamide Allergy Anaphylactic Verified 04/03/17 12:10 Antibiotics) Shock all pain meds Allergy Nausea Uncoded 02/16/17 07:03 Home Medications: Home Meds amLODIPine Besylate [Amlodipine Besylate] 10 mg PO DAILY 07/28/14 [History] Omeprazole Magnesium [Prilosec Otc] 20 mg PO ACBRK 08/01/14 [History] Promethazine [Phenergan] 25 mg PO Q6H PRN #30 tablet 08/04/14 [Rx] Denosumab [Prolia] 60 mg IM Q180D 02/28/16 [History] Levothyroxine [Synthroid] 88 mcg PO ACBREAKFAST 02/28/16 [History] Ondansetron HCl [Zofran] 4 mg PO Q8HR PRN #16 tablet 02/16/17 [Rx] traMADol [Ultram] 100 mg PO Q6H PRN #80 tablet 02/21/17 [Rx] Acetaminophen [Tylenol Extra Strength] 1,000 mg PO Q6H PRN tablet 04/02/17 [Rx] traMADol [Ultram] 100 mg PO Q6H PRN #80 tablet 04/05/17 [Rx] Past Medical History - Past Health History Medical/Surgical History: Denies Medical/Surgical History HEENT History: Reports: Cataract Other HEENT History: has upper denture and lower partial Cardiovascular History: Reports: None Respiratory History: Reports: None Gastrointestinal History: Reports: GERD, Irritable Bowel Syndrome, Other (See Below) Other Gastrointestinal History: IBS-Diarrhea Genitourinary History: Reports: Other (See Below) Other Genitourinary History: overactive bladder 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: Musculoskeletal History: Reports: Arthritis Neurological History: Reports: Other (See Below) Other Neuro History: hx of motion sickness Psychiatric History: Reports: None Endocrine/Metabolic History: Reports: Hypothyroidism Hematologic History: Reports: None Immunologic History: Reports: Other (See Below) Other Immunologic History: CREST syndrome Oncologic (Cancer) History: Reports: None Dermatologic History: Reports: None, Other (See Below) Other Dermatologic History: Raynaud's Syndrome - Infectious Disease History Infectious Disease History: Reports: Chicken Pox, Measles, Mumps, Shingles - Past Surgical History Head Surgeries/Procedures: Reports: None HEENT Surgical History: Reports: Cataract Surgery Female Surgical History: Reports: Hysterectomy Musculoskeletal Surgical History: Reports: Knee Replacement, ORIF, Shoulder Surgery Social & Family History - Family History Family Medical History: Noncontributory HEENT: Reports: Cataract Respiratory: Reports: COPD Musculoskeletal: Reports: Arthritis Psychiatric: Reports: Depression Endocrine/Metabolic: Reports: Diabetes, type II - Tobacco Use Smoking Status *Q: Never Smoker Years of Tobacco use: 10 Used Tobacco, but Quit: No Second Hand Smoke Exposure: No - Caffeine Use Caffeine Use: Reports: Coffee - Alcohol Use Days Per Week of Alcohol Use: 0 Number of Drinks Per Day: 0 Total Drinks Per Week: 0 - Recreational Drug Use Recreational Drug Use: No Drug Use in Last 12 Months: No H&P Review of Systems - Review of Systems: Review Of Systems: ROS reveals no pertinent complaints other than HPI. Exam - Exam Exam: See Below - Vital Signs Vital Signs: Last Vital Signs Temp 36.4 C 04/03/17 12:05 Pulse 100 04/03/17 14:57 Resp 16 04/03/17 14:57 BP 132/72 04/03/17 14:57 Pulse Ox 93 L 04/03/17 14:57 Weight: 43.3 kg - Exam General: Alert, Oriented, 4 Neck: Supple, Trachea Midline, 2 Lungs: Clear to Auscultation, Normal Respiratory Effort Cardiovascular: Regular Rate, Regular Rhythm Extremities: Normal Inspection, Non-Tender, No Pedal Edema Skin: Warm, Dry, Intact Neuro Extensive - Mental Status: Normal Cognition - Patient Data Lab Results Last 24 hrs: Laboratory Results - last 24 hr 04/03/17 04/03/17 04/03/17 Range/Units 13:00 13:00 13:00 WBC 12.20 H (4.0-11.0) K/uL RBC 3.52 L (4.30-5.90) M/uL Hgb 9.8 L (12.0-16.0) g/dL Hct 30.9 L (36.0-46.0) % MCV 87.8 (80.0-98.0) fL MCH 27.8 (27.0-32.0) pg MCHC 31.7 (31.0-37.0) g/dL RDW Std Deviation 47.7 (28.0-62.0) fl RDW Coeff of Kari 15 (11.0-15.0) % Plt Count 492 H (150-400) K/uL MPV 9.70 (7.40-12.00) fL Neut % (Auto) 84.7 H (48.0-80.0) % Lymph % (Auto) 9.3 L (16.0-40.0) % [place] % (Auto) 5.3 (0.0-15.0) % Eos % (Auto) 0.5 (0.0-7.0) % Baso % (Auto) 0.2 (0.0-1.5) % Neut # (Auto) 10.3 H (1.4-5.7) K/uL Lymph # (Auto) 1.1 (0.6-2.4) K/uL [place] # (Auto) 0.7 (0.0-0.8) K/uL Eos # (Auto) 0.1 (0.0-0.7) K/uL Baso # (Auto) 0.0 (0.0-0.1) K/uL Nucleated RBC % 0.0 /100WBC Nucleated RBCs # 0 K/uL ESR 78 H (0-29) mm/hr INR (0.86-1.11) Lactate 1.0 (0.20-2.00) mmol/L Sodium 138 (136-146) mmol/L Potassium 3.9 (3.5-5.1) mmol/L Chloride 102 (98-110) mmol/L Carbon Dioxide 23 (21-31) mmol/L BUN 15 (6.0-23.0) mg/dL Creatinine 0.7 (0.6-1.5) mg/dL Est Cr Clr Drug Dosing 43.81 mL/min Estimated GFR (MDRD) > 60.0 ml/min Glucose 95 (60-110) mg/dL Calcium 9.1 (8.8-10.8) mg/dL Iron (50-170) ug/dL Total Bilirubin 0.2 (0.1-1.5) mg/dL AST 312 H (5-40) IU/L ALT 115 H (8-54) IU/L Alkaline Phosphatase 115 (40-150) C-Reactive Protein 22.05 H (0.0-0.5) mg/dL Total Protein 6.7 (6.0-8.0) g/dL Albumin 3.1 L (3.4-4.8) g/dL Globulin 3.6 H (2.0-3.5) g/dL Albumin/Globulin Ratio 0.9 L (1.3-2.8) Amylase (10-90) U/L Lipase (7-80) U/L Acetaminophen ug/mL 04/03/17 04/03/17 04/03/17 Range/Units 13:00 13:00 13:00 WBC (4.0-11.0) K/uL RBC (4.30-5.90) M/uL Hgb (12.0-16.0) g/dL Hct (36.0-46.0) % MCV (80.0-98.0) fL MCH (27.0-32.0) pg MCHC (31.0-37.0) g/dL RDW Std Deviation (28.0-62.0) fl RDW Coeff of Kari (11.0-15.0) % Plt Count (150-400) K/uL MPV (7.40-12.00) fL Neut % (Auto) (48.0-80.0) % Lymph % (Auto) (16.0-40.0) % [place] % (Auto) (0.0-15.0) % Eos % (Auto) (0.0-7.0) % Baso % (Auto) (0.0-1.5) % Neut # (Auto) (1.4-5.7) K/uL Lymph # (Auto) (0.6-2.4) K/uL [place] # (Auto) (0.0-0.8) K/uL Eos # (Auto) (0.0-0.7) K/uL Baso # (Auto) (0.0-0.1) K/uL Nucleated RBC % /100WBC Nucleated RBCs # K/uL ESR (0-29) mm/hr INR 1.08 (0.86-1.11) Lactate (0.20-2.00) mmol/L Sodium (136-146) mmol/L Potassium (3.5-5.1) mmol/L Chloride (98-110) mmol/L Carbon Dioxide (21-31) mmol/L BUN (6.0-23.0) mg/dL Creatinine (0.6-1.5) mg/dL Est Cr Clr Drug Dosing mL/min Estimated GFR (MDRD) ml/min Glucose (60-110) mg/dL Calcium (8.8-10.8) mg/dL Iron 18 L (50-170) ug/dL Total Bilirubin (0.1-1.5) mg/dL AST (5-40) IU/L ALT (8-54) IU/L Alkaline Phosphatase (40-150) C-Reactive Protein (0.0-0.5) mg/dL Total Protein (6.0-8.0) g/dL Albumin (3.4-4.8) g/dL Globulin (2.0-3.5) g/dL Albumin/Globulin Ratio (1.3-2.8) Amylase (10-90) U/L Lipase (7-80) U/L Acetaminophen 3.6 ug/mL 04/03/17 Range/Units 13:00 WBC (4.0-11.0) K/uL RBC (4.30-5.90) M/uL Hgb (12.0-16.0) g/dL Hct (36.0-46.0) % MCV (80.0-98.0) fL MCH (27.0-32.0) pg MCHC (31.0-37.0) g/dL RDW Std Deviation (28.0-62.0) fl RDW Coeff of Kari (11.0-15.0) % Plt Count (150-400) K/uL MPV (7.40-12.00) fL Neut % (Auto) (48.0-80.0) % Lymph % (Auto) (16.0-40.0) % [place] % (Auto) (0.0-15.0) % Eos % (Auto) (0.0-7.0) % Baso % (Auto) (0.0-1.5) % Neut # (Auto) (1.4-5.7) K/uL Lymph # (Auto) (0.6-2.4) K/uL [place] # (Auto) (0.0-0.8) K/uL Eos # (Auto) (0.0-0.7) K/uL Baso # (Auto) (0.0-0.1) K/uL Nucleated RBC % /100WBC Nucleated RBCs # K/uL ESR (0-29) mm/hr INR (0.86-1.11) Lactate (0.20-2.00) mmol/L Sodium (136-146) mmol/L Potassium (3.5-5.1) mmol/L Chloride (98-110) mmol/L Carbon Dioxide (21-31) mmol/L BUN (6.0-23.0) mg/dL Creatinine (0.6-1.5) mg/dL Est Cr Clr Drug Dosing mL/min Estimated GFR (MDRD) ml/min Glucose (60-110) mg/dL Calcium (8.8-10.8) mg/dL Iron (50-170) ug/dL Total Bilirubin (0.1-1.5) mg/dL AST (5-40) IU/L ALT (8-54) IU/L Alkaline Phosphatase (40-150) C-Reactive Protein (0.0-0.5) mg/dL Total Protein (6.0-8.0) g/dL Albumin (3.4-4.8) g/dL Globulin (2.0-3.5) g/dL Albumin/Globulin Ratio (1.3-2.8) Amylase 26 (10-90) U/L Lipase 22 (7-80) U/L Acetaminophen ug/mL Result Diagrams: 04/05/17 05:24 04/05/17 05:24 Chan Results Last 24 hrs: Microbiology 04/03/17 13:36 Anaerobic Blood Culture - Final Blood - Venous - Lab Draw *Q Meaningful Use (ADM) - VTE *Q VTE Criteria *Q: - Stroke *Q Stroke Criteria *Q: - AMI *Q AMI Criteria *Q: Problem List Initiated/Reviewed/Updated: Yes Orders Last 24hrs: Active Orders 24 hr Category Date Time Status Admission Status [Patient Status] [ADT] Stat ADT 04/03/17 14:44 Active Activity as Tolerated [RC] .Routine Care 04/03/17 15:11 Active Antiembolic Devices [RC] PER UNIT ROUTINE Care 04/03/17 15:15 Active Dressing Change [Wound Care] [RC] ASDIRECTED Care 04/03/17 15:11 Active Intake and Output [RC] ASDIRECTED Care 04/03/17 15:10 Active May Shower [RC] ASDIRECTED Care 04/03/17 15:11 Active Neurovascular Check [RC] Q8HR Care 04/03/17 15:10 Active Notify Provider Consults [RC] ASDIRECTED Care 04/03/17 15:15 Active Notify Provider Vital Signs [RC] ASDIRECTED Care 04/03/17 15:11 Active Vital Signs [RC] Q8HR Care 04/03/17 15:10 Active Consult to Physician [CONS] Routine Cons 04/03/17 15:10 Active Regular Diet [DIET] Diet 04/03/17 Dinner Active COMPREHENSIVE METABOLIC PN,CMP [CHEM] AM Lab 04/04/17 05:11 Ordered COMPREHENSIVE METABOLIC PN,CMP [CHEM] AM Lab 04/05/17 05:11 Ordered COMPREHENSIVE METABOLIC PN,CMP [CHEM] AM Lab 04/06/17 05:11 Ordered CULTURE BLOOD [BC] Stat Lab 04/03/17 13:00 Received CULTURE BLOOD [BC] Stat Lab 04/03/17 13:36 Results HEPATITIS PANEL, ACUTE [REF] Stat Lab 04/03/17 14:48 Ordered DAPTOmycin [Cubicin] 500 mg Med 04/03/17 17:00 Active Sodium Chloride 0.9% [Normal Saline] 10 ml IV Q24H Enoxaparin [Lovenox] Med 04/03/17 15:30 Active 30 mg SUBCUT Q24H HYDROmorphone [Dilaudid] Med 04/03/17 15:14 Active 0.5 - 1 mg IVPUSH Q3H PRN Ketorolac [Toradol] Med 04/03/17 15:14 Active 15 mg IVPUSH Q6H PRN Lactated Ringers [Ringers, Lactated] 1,000 ml Med 04/03/17 15:15 Active IV ASDIRECTED Levothyroxine [Synthroid] Med 04/04/17 07:30 Active 88 mcg PO ACBREAKFAST Omeprazole Med 04/04/17 07:30 Active 20 mg PO ACBRK Ondansetron [Zofran] Med 04/03/17 15:14 Active 4 mg IV Q8HR PRN Promethazine [Phenergan] Med 04/03/17 15:16 Active 25 mg PO Q6H PRN Scopolamine [Transderm-Scop] Med 04/03/17 15:15 Active 1.5 mg TRDERM Q72H Sodium Chloride 0.9% [Normal Saline] 1,000 ml Med 04/03/17 12:45 Active IV ASDIRECTED amLODIPine [Norvasc] Med 04/04/17 09:00 Active 10 mg PO DAILY traMADol [Ultram] Med 04/03/17 15:23 Active 100 mg PO Q6H PRN Blood Culture x2 Reflex Set [OM.PC] Stat Oth 04/03/17 12:45 Ordered Sequential Compression Device [OM.PC] Routine Oth 04/03/17 15:10 Ordered Medication Orders Amlodipine Besylate (Norvasc) 10 mg PO DAILY [facility] Enoxaparin Sodium (Lovenox) 30 mg SUBCUT Q24H [facility] Last Admin: 04/03/17 15:58 Dose: 30 mg Hydromorphone HCl (Dilaudid) 0.5 - 1 mg IVPUSH Q3H PRN PRN Reason: Pain Sodium Chloride (Normal Saline) 1,000 mls @ 999 mls/hr IV ASDIRECTED ANAN Last Admin: 04/03/17 13:03 Dose: 999 mls/hr Lactated Ringer's (Ringers, Lactated) 1,000 mls @ 125 mls/hr IV ASDIRECTED [facility] Last Admin: 04/03/17 15:59 Dose: 125 mls/hr Daptomycin 500 mg/ Sodium (Chloride) 10 mls @ 300 mls/hr IV Q24H ANNA Ketorolac Tromethamine (Toradol) 15 mg IVPUSH Q6H PRN PRN Reason: Pain Levothyroxine Sodium (Synthroid) 88 mcg PO ACBREAKFAST ANNA Omeprazole (Omeprazole) 20 mg PO ACBRK ANNA Ondansetron HCl (Zofran) 4 mg IV Q8HR PRN PRN Reason: NAUSEA/VOMITING Promethazine HCl (Phenergan) 25 mg PO Q6H PRN PRN Reason: Nausea/Vomiting Scopolamine (Transderm-Scop) 1.5 mg TRDERM Q72H [facility] Stop: 04/06/17 15:16 Last Admin: 04/03/17 15:58 Dose: 1.5 mg Tramadol HCl (Ultram) 100 mg PO Q6H PRN PRN Reason: Breakthrough Pain Assessment/Plan Comment:: 81 yo female with joint prosthesis infection. Patient is being treat with daptomycin Elevated LFTs: would stop Tylenol. no evidence of acute Tylenol poisoning. INR normal, no encephalopathy. Acute viral hepatitis panel ordered, liver ultrasound pending, will continue to trend hepatic enzymes.
[2017-04-03] MEDS: traMADol 50 MG Tab PO PRN ×2 (16:13→23:36)
[2017-04-03] MEDS ORDERED: DAPTOmycin 500 MG in Sodium Chloride 0.9% 10 ML IV SCH (17:00)
[2017-04-03] MEDS ORDERED: DAPTOmycin 500 MG Vial IVPUSH SCH (17:00)
[2017-04-03] MEDS: Ketorolac 15 MG/ML SDV IVPUSH PRN (17:14)
[2017-04-03] MEDS: HYDROmorphone 2 MG/ML Syringe IVPUSH PRN ×2 (18:47→22:27)
[2017-04-03] MEDS: Promethazine 25 MG Tab PO PRN (20:28)
[2017-04-04] MEDS: Lactated Ringers 1,000 ML IV SCH (00:16)
[2017-04-04] MEDS: HYDROmorphone 2 MG/ML Syringe IVPUSH PRN ×4 (01:45→19:21)
[2017-04-04] MEDS: Ketorolac 15 MG/ML SDV IVPUSH PRN ×3 (04:10→17:09)
[2017-04-04 05:24] LABS: CHLORIDE,CL 101 mmol/L (98-110); SODIUM,NA 136 mmol/L (136-146)
[2017-04-04] MEDS: Promethazine 25 MG Tab PO PRN ×2 (05:57→22:32)
[2017-04-04] MEDS: Levothyroxine 88 MCG Tab PO SCH (06:50)
[2017-04-04] MEDS: Omeprazole 20 MG Cap.CR PO SCH (06:50)
[2017-04-04] MEDS: amLODIPine 5 MG Tab PO SCH (08:17)
[2017-04-04] MEDS: traMADol 50 MG Tab PO PRN ×3 (08:32→22:29)
--- NOTE | 2017-04-04 09:30 | PCM.PN ---
- General Info Date of Service: 04/04/17 Functional Status: Reports: Pain Controlled - Review of Systems General: Reports: No Symptoms HEENT: Reports: No Symptoms Pulmonary: Reports: No Symptoms Cardiovascular: Reports: No Symptoms Gastrointestinal: Reports: No Symptoms Genitourinary: Reports: No Symptoms Musculoskeletal: Reports: Other (c/o achiness in all muscles in body) Skin: Reports: No Symptoms Neurological: Reports: No Symptoms Psychiatric: Reports: No Symptoms Systems Review Comment:: Patient states she is feeling a little better today. She noted that her symptoms began again last night after receiving Cubicin. She is somewhat sleepy now, but recently received Phenergan. Feels the scopalomine patch is not helping. Has been OOB. Eating and drinking appropriately. - Patient Data Vitals - Most Recent: Last Vital Signs Temp 97.6 F 04/04/17 08:00 Pulse 99 04/04/17 08:00 Resp 16 04/04/17 08:00 BP 127/84 04/04/17 08:17 Pulse Ox 92 L 04/04/17 08:00 Weight - Most Recent: 50.5 kg I&O - Last 24 Hours: Intake & Output 04/03/17 04/04/17 04/04/17 22:59 06:59 14:59 Intake Total 1550 Output Total 1333 Balance 217 Lab Results Last 24 Hours: Laboratory Results - last 24 hr 04/04/17 Range/Units 04:45 Sodium 136 (136-146) mmol/L Potassium 3.9 (3.5-5.1) mmol/L Chloride 101 (98-110) mmol/L Carbon Dioxide 25 (21-31) mmol/L BUN 9 (6.0-23.0) mg/dL Creatinine 0.6 (0.6-1.5) mg/dL Est Cr Clr Drug Dosing 59.15 mL/min Estimated GFR (MDRD) > 60.0 ml/min Glucose 94 (60-110) mg/dL Calcium 8.6 L (8.8-10.8) mg/dL Total Bilirubin 0.2 (0.1-1.5) mg/dL AST 443 H (5-40) IU/L ALT 175 H (8-54) IU/L Alkaline Phosphatase 107 (40-150) Total Protein 6.1 (6.0-8.0) g/dL Albumin 2.8 L (3.4-4.8) g/dL Globulin 3.3 (2.0-3.5) g/dL Albumin/Globulin Ratio 0.9 L (1.3-2.8) Med Orders - Current: Current Medications Amlodipine Besylate (Norvasc) 10 mg PO DAILY [facility] Last Admin: 04/04/17 08:17 Dose: 10 mg Enoxaparin Sodium (Lovenox) 30 mg SUBCUT Q24H [facility] Last Admin: 04/03/17 15:58 Dose: 30 mg Hydromorphone HCl (Dilaudid) 0.5 - 1 mg IVPUSH Q3H PRN PRN Reason: Pain Last Admin: 04/04/17 05:53 Dose: 1 mg Sodium Chloride (Normal Saline) 1,000 mls @ 999 mls/hr IV ASDIRECTED [facility] Last Admin: 04/03/17 13:03 Dose: 999 mls/hr Lactated Ringer's (Ringers, Lactated) 1,000 mls @ 125 mls/hr IV ASDIRECTED [facility] Last Admin: 04/04/17 00:16 Dose: 125 mls/hr Daptomycin 500 mg/ Sodium (Chloride) 10 mls @ 300 mls/hr IV Q24H [facility] Last Admin: 04/03/17 16:14 Dose: 300 mls/hr Ketorolac Tromethamine (Toradol) 15 mg IVPUSH Q6H PRN PRN Reason: Pain Last Admin: 04/04/17 04:10 Dose: 15 mg Levothyroxine Sodium (Synthroid) 88 mcg PO ACBREAKFAST [facility] Last Admin: 04/04/17 06:50 Dose: 88 mcg Omeprazole (Omeprazole) 20 mg PO ACBRK [facility] Last Admin: 04/04/17 06:50 Dose: 20 mg Ondansetron HCl (Zofran) 4 mg IV Q8HR PRN PRN Reason: NAUSEA/VOMITING Promethazine HCl (Phenergan) 25 mg PO Q6H PRN PRN Reason: Nausea/Vomiting Last Admin: 04/04/17 05:57 Dose: 25 mg Scopolamine (Transderm-Scop) 1.5 mg TRDERM Q72H [facility] Stop: 04/06/17 15:16 Last Admin: 04/03/17 15:58 Dose: 1.5 mg Tramadol HCl (Ultram) 100 mg PO Q6H PRN PRN Reason: Breakthrough Pain Last Admin: 04/04/17 08:32 Dose: 100 mg Discontinued Medications Daptomycin (Cubicin) 500 mg IVPUSH Q24H ANNA Hydromorphone HCl (Dilaudid) 0.5 mg IV ONETIME ONE Stop: 04/03/17 12:46 Last Admin: 04/03/17 13:27 Dose: 0.5 mg Hydromorphone HCl (Dilaudid) 0.5 mg IV ONETIME ONE Stop: 04/03/17 13:59 Last Admin: 04/03/17 14:07 Dose: 0.5 mg Ketorolac Tromethamine (Toradol) 30 mg IVPUSH ONETIME ONE Stop: 04/03/17 12:43 Last Admin: 04/03/17 13:03 Dose: 30 mg Ondansetron HCl (Zofran) 4 mg IVPUSH ONETIME ONE Stop: 04/03/17 12:43 Last Admin: 04/03/17 13:03 Dose: 4 mg - Exam General: Alert, Oriented Neurological: No New Focal Deficit Psy/Mental Status: Alert, Normal Affect, Normal Mood Physical Findings Comments:: Exam of RLE show no significant joint effusion. Medial wound persists. No surrounding erythema/induration. ROM 0-90 degrees without pain. No calf TTP. AT/ EHL/gastroc 5/5. Sensation intact. DP 2+. - Problem List & Annotations (1) Infection of total joint prosthesis SNOMED Code(s): 915778566 Code(s): T84.50XA - INFECT/INFLM REACTION DUE TO UNSP INT JOINT PROSTH, INIT Status: Acute Current Visit: No Qualifiers: Encounter type: subsequent encounter Qualified Code(s): T84.50XD - Infection and inflammatory reaction due to unspecified internal joint prosthesis , subsequent encounter - Problem List Review Problem List Initiated/Reviewed/Updated: Yes - My Orders Last 24 Hours: My Active Orders 04/03/17 15:16 Promethazine [Phenergan] 25 mg PO Q6H PRN 04/03/17 15:23 traMADol [Ultram] 100 mg PO Q6H PRN 04/03/17 15:30 Enoxaparin [Lovenox] 30 mg SUBCUT Q24H 04/03/17 17:00 DAPTOmycin [Cubicin] 500 mg Sodium Chloride 0.9% [Normal Saline] 10 ml IV Q24H 04/04/17 05:04 CBC WITH AUTO DIFF [HEME] Routine 04/04/17 07:30 Levothyroxine [Synthroid] 88 mcg PO ACBREAKFAST Omeprazole 20 mg PO ACBRK 04/04/17 09:00 amLODIPine [Norvasc] 10 mg PO DAILY - Assessment Assessment:: Ass: R periprosthetic TKA infection - Plan Plan:: 1. Elevated LFT's--increased today, hospitalist following 2. wound culture +MSSA--will try different antibiotic as patient is not tolerating Cubicin well 3. await CBC results 4. will need definitive procedure at outlying facility. Have not heard back from [place], may not hear until Thursday. No urgency to procedure as patient is currently stable. 5. pain controlled with Tramadol 6. OOB as tolerated 7. d/c IVF as patient is eating/drinking
--- NOTE | 2017-04-04 12:31 | PCM.PN ---
- Review of Systems Systems Review Comment:: patient reports myalgias - Patient Data Vitals - Most Recent: Last Vital Signs Temp 36.4 C 04/04/17 08:00 Pulse 99 04/04/17 08:00 Resp 16 04/04/17 08:00 BP 127/84 04/04/17 08:17 Pulse Ox 92 L 04/04/17 08:00 Weight - Most Recent: 50.5 kg I&O - Last 24 Hours: Intake & Output 04/03/17 04/04/17 04/04/17 22:59 06:59 14:59 Intake Total 1550 Output Total 1333 Balance 217 Lab Results Last 24 Hours: Laboratory Results - last 24 hr 04/04/17 04/04/17 Range/Units 04:45 05:04 WBC 15.46 H (4.0-11.0) K/uL RBC 3.64 L (4.30-5.90) M/uL Hgb 10.1 L (12.0-16.0) g/dL Hct 32.4 L (36.0-46.0) % MCV 89.0 (80.0-98.0) fL MCH 27.7 (27.0-32.0) pg MCHC 31.2 (31.0-37.0) g/dL RDW Std Deviation 48.2 (28.0-62.0) fl RDW Coeff of Kari 15 (11.0-15.0) % Plt Count 472 H (150-400) K/uL MPV 9.80 (7.40-12.00) fL Neut % (Auto) 84.8 H (48.0-80.0) % Lymph % (Auto) 9.3 L (16.0-40.0) % [place] % (Auto) 3.7 (0.0-15.0) % Eos % (Auto) 2.0 (0.0-7.0) % Baso % (Auto) 0.2 (0.0-1.5) % Neut # (Auto) 13.1 H (1.4-5.7) K/uL Lymph # (Auto) 1.4 (0.6-2.4) K/uL [place] # (Auto) 0.6 (0.0-0.8) K/uL Eos # (Auto) 0.3 (0.0-0.7) K/uL Baso # (Auto) 0.0 (0.0-0.1) K/uL Nucleated RBC % 0.0 /100WBC Nucleated RBCs # 0 K/uL Sodium 136 (136-146) mmol/L Potassium 3.9 (3.5-5.1) mmol/L Chloride 101 (98-110) mmol/L Carbon Dioxide 25 (21-31) mmol/L BUN 9 (6.0-23.0) mg/dL Creatinine 0.6 (0.6-1.5) mg/dL Est Cr Clr Drug Dosing 59.15 mL/min Estimated GFR (MDRD) > 60.0 ml/min Glucose 94 (60-110) mg/dL Calcium 8.6 L (8.8-10.8) mg/dL Total Bilirubin 0.2 (0.1-1.5) mg/dL AST 443 H (5-40) IU/L ALT 175 H (8-54) IU/L Alkaline Phosphatase 107 (40-150) Total Protein 6.1 (6.0-8.0) g/dL Albumin 2.8 L (3.4-4.8) g/dL Globulin 3.3 (2.0-3.5) g/dL Albumin/Globulin Ratio 0.9 L (1.3-2.8) Med Orders - Current: Current Medications Amlodipine Besylate (Norvasc) 10 mg PO DAILY [facility] Last Admin: 04/04/17 08:17 Dose: 10 mg Enoxaparin Sodium (Lovenox) 30 mg SUBCUT Q24H [facility] Last Admin: 04/03/17 15:58 Dose: 30 mg Hydromorphone HCl (Dilaudid) 0.5 - 1 mg IVPUSH Q3H PRN PRN Reason: Pain Last Admin: 04/04/17 05:53 Dose: 1 mg Sodium Chloride (Normal Saline) 1,000 mls @ 999 mls/hr IV ASDIRECTED [facility] Last Admin: 04/03/17 13:03 Dose: 999 mls/hr Clindamycin Phosphate 600 mg/ (Premix) 50 mls @ 100 mls/hr IV Q6H [facility] Ketorolac Tromethamine (Toradol) 15 mg IVPUSH Q6H PRN PRN Reason: Pain Last Admin: 04/04/17 10:20 Dose: 15 mg Levothyroxine Sodium (Synthroid) 88 mcg PO ACBREAKFAST [facility] Last Admin: 04/04/17 06:50 Dose: 88 mcg Omeprazole (Omeprazole) 20 mg PO ACBRK [facility] Last Admin: 04/04/17 06:50 Dose: 20 mg Ondansetron HCl (Zofran) 4 mg IV Q8HR PRN PRN Reason: NAUSEA/VOMITING Promethazine HCl (Phenergan) 25 mg PO Q6H PRN PRN Reason: Nausea/Vomiting Last Admin: 04/04/17 05:57 Dose: 25 mg Tramadol HCl (Ultram) 100 mg PO Q6H PRN PRN Reason: Breakthrough Pain Last Admin: 04/04/17 08:32 Dose: 100 mg Discontinued Medications Daptomycin (Cubicin) 500 mg IVPUSH Q24H [facility] Hydromorphone HCl (Dilaudid) 0.5 mg IV ONETIME ONE Stop: 04/03/17 12:46 Last Admin: 04/03/17 13:27 Dose: 0.5 mg Hydromorphone HCl (Dilaudid) 0.5 mg IV ONETIME ONE Stop: 04/03/17 13:59 Last Admin: 04/03/17 14:07 Dose: 0.5 mg Lactated Ringer's (Ringers, Lactated) 1,000 mls @ 125 mls/hr IV ASDIRECTED [facility] Last Admin: 04/04/17 00:16 Dose: 125 mls/hr Daptomycin 500 mg/ Sodium (Chloride) 10 mls @ 300 mls/hr IV Q24H [facility] Last Admin: 04/03/17 16:14 Dose: 300 mls/hr Ketorolac Tromethamine (Toradol) 30 mg IVPUSH ONETIME ONE Stop: 04/03/17 12:43 Last Admin: 04/03/17 13:03 Dose: 30 mg Ondansetron HCl (Zofran) 4 mg IVPUSH ONETIME ONE Stop: 04/03/17 12:43 Last Admin: 04/03/17 13:03 Dose: 4 mg Scopolamine (Transderm-Scop) 1.5 mg TRDERM Q72H [facility] Stop: 04/06/17 15:16 Last Admin: 04/03/17 15:58 Dose: 1.5 mg - Exam General: Alert, Oriented Lungs: Clear to Auscultation, Normal Respiratory Effort Cardiovascular: Regular Rate, Regular Rhythm GI/Abdominal Exam: Normal Bowel Sounds, Soft, Non-Tender, No Distention Skin: Warm, Dry, Intact - Problem List Review Problem List Initiated/Reviewed/Updated: Yes - Plan Plan:: 81 yo female admitted with right periprosthetic MSSA knee infection. Knee infection:switched to clindamycin, awating repeat cultures Elevated LFTs: may be due to acute illness, acute viral hepatitis panel pending , ultrasound of liver was unremarkable
[2017-04-04] MEDS: Sodium Chloride 0.9% 1,000 ML IV SCH ×2 (13:14→22:33)
[2017-04-04] MEDS: Enoxaparin 30 MG/0.3 ML Syringe SUBCUT SCH (14:45)
[2017-04-04] MEDS: Clindamycin Phosphate in D5W 600 MG in Premix Bag 50 BAG IV SCH ×4 (14:45→20:14)
--- NOTE | 2017-04-04 17:01 | PCM.SN ---
- Free Text/Narrative Note: discussed plan with patient and daughter. They prefer patient go to [place] for definitive care. With her elevated LFT's and WBC, I discussed the option of transfer to a higher level of care. I spoke with Dr. Charles at 1530 via telephone. He is the microelectronics engineer ortho surgeon in [place]. He stated that he is a hand surgeon and is not sure if Dr. Mena who does this type of surgery is available next week. He is also unsure if he does this type of surgery. He stated he would reach out to Dr. Mena and let me know if transfer was possible. At this time, I have not heard back from them. I discussed options with the patient and her daughter. She is currently stable. She is feeling good and has no concerns at this time. I recommended that we see what her labs are in the morning and make some decisions based on those. She seems to be tolerating the clindamycin better as well. They are in agreement with the plan.
[2017-04-05] MEDS: HYDROmorphone 2 MG/ML Syringe IVPUSH PRN ×2 (01:53→10:02)
[2017-04-05] MEDS: Clindamycin Phosphate in D5W 600 MG in Premix Bag 50 BAG IV SCH ×4 (02:13→08:01)
[2017-04-05] MEDS: traMADol 50 MG Tab PO PRN (05:30)
[2017-04-05 05:50] LABS: CHLORIDE,CL 102 mmol/L (98-110); SODIUM,NA 135 mmol/L (136-146)
[2017-04-05] MEDS: Levothyroxine 88 MCG Tab PO SCH (06:34)
[2017-04-05] MEDS: Promethazine 25 MG Tab PO PRN (06:34)
[2017-04-05] MEDS: Omeprazole 20 MG Cap.CR PO SCH (06:35)
[2017-04-05] MEDS: Ketorolac 15 MG/ML SDV IVPUSH PRN ×2 (06:36→11:29)
[2017-04-05] MEDS: Sodium Chloride 0.9% 1,000 ML IV SCH (06:39)
[2017-04-05] MEDS: amLODIPine 5 MG Tab PO SCH (08:01)
[2017-04-05] MEDS ORDERED: DAPTOmycin 500 MG Vial IVPUSH SCH (09:15)
--- NOTE | 2017-04-05 09:23 | PCM.PN ---
- General Info Date of Service: 04/05/17 - Review of Systems General: Reports: Weakness, Appetite. Denies: Fever, Chills, Night Sweats HEENT: Reports: No Symptoms Pulmonary: Reports: No Symptoms Cardiovascular: Reports: No Symptoms Gastrointestinal: Reports: No Symptoms Genitourinary: Reports: No Symptoms Musculoskeletal: Reports: Joint Pain Skin: Reports: No Symptoms Neurological: Reports: No Symptoms Psychiatric: Reports: No Symptoms Systems Review Comment:: Patient states that she still has muscle aches, despite the different antibiotic. Feels good. Minimal pain in knee. Has been OOB to the bathroom. No other complaints. - Patient Data Vitals - Most Recent: Last Vital Signs Temp 98.8 F 04/05/17 07:00 Pulse 100 04/05/17 03:43 Resp 18 04/05/17 07:00 BP 111/61 04/05/17 08:01 Pulse Ox 92 L 04/05/17 07:00 Weight - Most Recent: 50.5 kg I&O - Last 24 Hours: Intake & Output 04/04/17 04/05/17 04/05/17 22:59 06:59 14:59 Intake Total 1770 1220 Output Total 355 1154 Balance 1415 66 Lab Results Last 24 Hours: Laboratory Results - last 24 hr 04/04/17 04/05/17 04/05/17 Range/Units 05:04 05:24 05:24 WBC 15.46 H 26.88 H (4.0-11.0) K/uL RBC 3.64 L 3.38 L (4.30-5.90) M/uL Hgb 10.1 L 9.3 L (12.0-16.0) g/dL Hct 32.4 L 29.7 L (36.0-46.0) % MCV 89.0 87.9 (80.0-98.0) fL MCH 27.7 27.5 (27.0-32.0) pg MCHC 31.2 31.3 (31.0-37.0) g/dL RDW Std Deviation 48.2 47.1 (28.0-62.0) fl RDW Coeff of Kari 15 15 (11.0-15.0) % Plt Count 472 H 448 H (150-400) K/uL MPV 9.80 9.00 (7.40-12.00) fL Neut % (Auto) 84.8 H 93.9 H (48.0-80.0) % Lymph % (Auto) 9.3 L 3.9 L (16.0-40.0) % Perkins % (Auto) 3.7 1.7 (0.0-15.0) % Eos % (Auto) 2.0 0.4 (0.0-7.0) % Baso % (Auto) 0.2 0.1 (0.0-1.5) % Neut # (Auto) 13.1 H 25.2 H (1.4-5.7) K/uL Lymph # (Auto) 1.4 1.0 (0.6-2.4) K/uL Perkins # (Auto) 0.6 0.5 (0.0-0.8) K/uL Eos # (Auto) 0.3 0.1 (0.0-0.7) K/uL Baso # (Auto) 0.0 0.0 (0.0-0.1) K/uL Nucleated RBC % 0.0 0.0 /100WBC Nucleated RBCs # 0 0 K/uL ESR (0-29) mm/hr Sodium 135 L (136-146) mmol/L Potassium 4.0 (3.5-5.1) mmol/L Chloride 102 (98-110) mmol/L Carbon Dioxide 23 (21-31) mmol/L BUN 8 (6.0-23.0) mg/dL Creatinine 0.6 (0.6-1.5) mg/dL Est Cr Clr Drug Dosing 59.15 mL/min Estimated GFR (MDRD) > 60.0 ml/min Glucose 97 (60-110) mg/dL Calcium 7.9 L (8.8-10.8) mg/dL Total Bilirubin 0.3 (0.1-1.5) mg/dL AST 548 H (5-40) IU/L ALT 277 H (8-54) IU/L Alkaline Phosphatase 96 (40-150) C-Reactive Protein (0.0-0.5) mg/dL Total Protein 5.3 L (6.0-8.0) g/dL Albumin 2.5 L (3.4-4.8) g/dL Globulin 2.8 (2.0-3.5) g/dL Albumin/Globulin Ratio 0.9 L (1.3-2.8) 04/05/17 04/05/17 Range/Units 05:24 05:24 WBC (4.0-11.0) K/uL RBC (4.30-5.90) M/uL Hgb (12.0-16.0) g/dL Hct (36.0-46.0) % MCV (80.0-98.0) fL MCH (27.0-32.0) pg MCHC (31.0-37.0) g/dL RDW Std Deviation (28.0-62.0) fl RDW Coeff of Kari (11.0-15.0) % Plt Count (150-400) K/uL MPV (7.40-12.00) fL Neut % (Auto) (48.0-80.0) % Lymph % (Auto) (16.0-40.0) % Perkins % (Auto) (0.0-15.0) % Eos % (Auto) (0.0-7.0) % Baso % (Auto) (0.0-1.5) % Neut # (Auto) (1.4-5.7) K/uL Lymph # (Auto) (0.6-2.4) K/uL Perkins # (Auto) (0.0-0.8) K/uL Eos # (Auto) (0.0-0.7) K/uL Baso # (Auto) (0.0-0.1) K/uL Nucleated RBC % /100WBC Nucleated RBCs # K/uL ESR 45 H (0-29) mm/hr Sodium (136-146) mmol/L Potassium (3.5-5.1) mmol/L Chloride (98-110) mmol/L Carbon Dioxide (21-31) mmol/L BUN (6.0-23.0) mg/dL Creatinine (0.6-1.5) mg/dL Est Cr Clr Drug Dosing mL/min Estimated GFR (MDRD) ml/min Glucose (60-110) mg/dL Calcium (8.8-10.8) mg/dL Total Bilirubin (0.1-1.5) mg/dL AST (5-40) IU/L ALT (8-54) IU/L Alkaline Phosphatase (40-150) C-Reactive Protein 25.13 H (0.0-0.5) mg/dL Total Protein (6.0-8.0) g/dL Albumin (3.4-4.8) g/dL Globulin (2.0-3.5) g/dL Albumin/Globulin Ratio (1.3-2.8) Med Orders - Current: Current Medications Amlodipine Besylate (Norvasc) 10 mg PO DAILY [facility] Last Admin: 04/05/17 08:01 Dose: 10 mg Daptomycin (Cubicin) 500 mg IVPUSH Q24H [facility] Enoxaparin Sodium (Lovenox) 30 mg SUBCUT Q24H [facility] Last Admin: 04/04/17 14:45 Dose: 30 mg Hydromorphone HCl (Dilaudid) 0.5 - 1 mg IVPUSH Q3H PRN PRN Reason: Pain Last Admin: 04/05/17 01:53 Dose: 1 mg Sodium Chloride (Normal Saline) 1,000 mls @ 125 mls/hr IV ASDIRECTED [facility] Last Admin: 04/05/17 06:39 Dose: 125 mls/hr Ketorolac Tromethamine (Toradol) 15 mg IVPUSH Q6H PRN PRN Reason: Pain Last Admin: 04/05/17 06:36 Dose: 15 mg Levothyroxine Sodium (Synthroid) 88 mcg PO ACBREAKFAST [facility] Last Admin: 04/05/17 06:34 Dose: 88 mcg Omeprazole (Omeprazole) 20 mg PO ACBRK [facility] Last Admin: 04/05/17 06:35 Dose: 20 mg Ondansetron HCl (Zofran) 4 mg IV Q8HR PRN PRN Reason: NAUSEA/VOMITING Promethazine HCl (Phenergan) 25 mg PO Q6H PRN PRN Reason: Nausea/Vomiting Last Admin: 04/05/17 06:34 Dose: 12.5 mg Tramadol HCl (Ultram) 100 mg PO Q6H PRN PRN Reason: Breakthrough Pain Last Admin: 04/05/17 05:30 Dose: 100 mg Discontinued Medications Daptomycin (Cubicin) 500 mg IVPUSH Q24H [facility] Hydromorphone HCl (Dilaudid) 0.5 mg IV ONETIME ONE Stop: 04/03/17 12:46 Last Admin: 04/03/17 13:27 Dose: 0.5 mg Hydromorphone HCl (Dilaudid) 0.5 mg IV ONETIME ONE Stop: 04/03/17 13:59 Last Admin: 04/03/17 14:07 Dose: 0.5 mg Sodium Chloride (Normal Saline) 1,000 mls @ 999 mls/hr IV ASDIRECTED [facility] Last Admin: 04/03/17 13:03 Dose: 999 mls/hr Lactated Ringer's (Ringers, Lactated) 1,000 mls @ 125 mls/hr IV ASDIRECTED [facility] Last Admin: 04/04/17 00:16 Dose: 125 mls/hr Daptomycin 500 mg/ Sodium (Chloride) 10 mls @ 300 mls/hr IV Q24H [facility] Last Admin: 04/03/17 16:14 Dose: 300 mls/hr Clindamycin Phosphate 600 mg/ (Premix) 50 mls @ 100 mls/hr IV Q6H [facility] Last Admin: 04/05/17 08:01 Dose: 100 mls/hr Ketorolac Tromethamine (Toradol) 30 mg IVPUSH ONETIME ONE Stop: 04/03/17 12:43 Last Admin: 04/03/17 13:03 Dose: 30 mg Ondansetron HCl (Zofran) 4 mg IVPUSH ONETIME ONE Stop: 04/03/17 12:43 Last Admin: 04/03/17 13:03 Dose: 4 mg Scopolamine (Transderm-Scop) 1.5 mg TRDERM Q72H [facility] Stop: 04/06/17 15:16 Last Admin: 04/03/17 15:58 Dose: 1.5 mg - Exam General: Alert, Oriented Lungs: Normal Respiratory Effort Cardiovascular: Regular Rate GI/Abdominal Exam: Soft Neurological: No New Focal Deficit Physical Findings Comments:: Exam of R knee shows no effusion. Medial wound persists, unchanged without erythema, induration. Minimal amount of drainage on dressing. ROM 0-90. No calf TTP. AT/EHL/gastroc 5/5. Sensation intact. DP 2+. - Problem List & Annotations (1) Infection of total joint prosthesis SNOMED Code(s): 321916867 Code(s): T84.50XA - INFECT/INFLM REACTION DUE TO UNSP INT JOINT PROSTH, INIT Status: Acute Current Visit: No Qualifiers: Encounter type: subsequent encounter Qualified Code(s): T84.50XD - Infection and inflammatory reaction due to unspecified internal joint prosthesis , subsequent encounter - Problem List Review Problem List Initiated/Reviewed/Updated: Yes - My Orders Last 24 Hours: My Active Orders 04/04/17 09:00 amLODIPine [Norvasc] 10 mg PO DAILY 04/04/17 17:03 Code Status [Resuscitation Status] Routine 04/05/17 09:15 DAPTOmycin [Cubicin] 500 mg IVPUSH Q24H - Assessment Assessment:: Ass: R periprosthetic TKA infection - Plan Plan:: 1. changed to clindamycin yesterday due to patient's complaint of muscle aches from the cubicin. Muscle aches persist and WBC and inflammatory labs now elevated. Will d/c clindamycin and place back on cubicin. 2. elevated LFT's continue to rise--unknown reason 3. discussed plan with patient and family. They would like patient to go to [facility] for [facility]. I did speak with Dr. Mena last night. He is currently out of town. He states that the soonest he could do definitive surgery would be ~10-14 days. I feel that with her current labs, something more definitive needs to be done sooner rather than later. I am recommending transfer to [facility]. I have discussed the patient with Dr. Raoul Forrest in the past. He has agreed to see the patient this week. I will discuss with ortho surgeon meat products demonstrator and transfer if appropriate. I did discuss the plan with both the patient and daughter. 4. VSS, afeb. BC negative. Lactic acid on admission normal.
[2017-04-05] MEDS ORDERED: DAPTOmycin 500 MG in Sodium Chloride 0.9% 10 ML IV SCH (09:30)
--- NOTE | 2017-04-05 10:54 | PCM.SN ---
- Free Text/Narrative Note: Discharge Summary Dressing was changed prior to discharge. See discharge plan for complete list of discharge medications and instructions. Dictation #: [id number]
--- NOTE | 2017-04-05 11:02 | PCM.DCSUM1 ---
<Apolinar Boyd - Last Filed: 04/05/17 11:14> Discharge Summary - Hospital Course Brief History: Patient is an 81-year-old female who has a long history of right knee difficulties. Her pain began in January 2014 without a specific injury. It progressed to the point where she was unable to bear weight. 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 She is followed by a tomography technologist for this. X-rays taken at that time along with a CAT scan showed a depression fracture of the right lateral tibial plateau along with an insufficiency fracture through the posterior aspect of the lateral femoral condyle. We treated this initially with nonweightbearing. She subsequently underwent a right total knee arthroplasty on July 31, 2014. Due to her bony deformity, we did proceed with an LCCK implant. She progressed well with physical therapy following the procedure. On November 28, 2015 she presented to clinic with pain and induration along the medial aspect of her knee. This was not associated with the previous incision. She failed to respond to conservative treatment and on November 30, 2015 she underwent irrigation and debridement of the wound. At the time of surgery cultures were obtained which were positive for MSSA. The wound tunneled medially. There was no intrusion into the knee joint. She had a long course postoperatively that required wound therapy and VAC placement. Eventually the wound fully healed. On February 19, 2017, she developed an open area along the medial aspect of the knee again. We did treat this with a course of IV Cubicin which did decrease the pain and swelling in her knee. She also underwent a CT scan of the knee which did not show any collection of fluid or other abnormality. She continued with wound therapy. On her appointment on March 16, 2017 the wound had completely healed and there was no further drainage. Unfortunately, she noticed increased swelling and drainage from the right knee on March 29, 2017. She developed increased inflammatory laboratory studies and was hospitalized. She was started on Cubicin. An aspirate of her knee performed on April 01, 2017 showed a white count of 126,000. No crystals were noted. The Gram stain was positive for moderate gram-positive cocci in clusters. Final culture +MSSA. Blood cultures were negative 2 days. Her white count had normalized. A PICC line was placed. We did contact the orthopedic department at [facility] in [place], [place]. copies of her x-rays will be FedEx to them. Copies of her notes and final culture results will be sent as well. The family has requested that she be referred to [facility] for definitive treatment of the knee as they do have family in that area. The orthopedic department has said that they will contact the patient once they have received all of the information. Patient was discharged home 04/02 after placement of a PICC line. Received Cubicin evening of 04/02. She was feeling quite good and wBC count had normalized. Over night and morning of 04/03 she began aching all over. [place] tired and was having trouble ambulating. I spoke with patient via telephone and recommended she go to the ER. In the ER, she had an extensive work up including labs, XR, and blood cultures. Vitals were stable. WBC elevated at 12. ESR and CRP elevated but trending down. she has been taking Tylenol scheduled for pain. She has an intolerance to most medications and takes phenergan regularly. Has not been able to drink much or eat since she was discharged 04/02. She was admitted 04/03 and restarted on Cubicin. Labs were drawin and showed elevated LFTs , hospitalist was consulted. ESR, CRP and WBC again elevated. Pain controlled with Tramadol and Dialudid. Continued Cubicin daily. She is afebrile and VSS. Patient is ready for transfer. - Discharge Data Discharge Date: 04/05/17 ([facility]) Discharge Disposition: DC/Tfer to Acute Hospital 02 Condition: Fair - Patient Instructions Diet: Usual Diet as Tolerated Activity: Apply Ice, As Tolerated, Elevate Extremity, Full Weight Bearing Activity, Other: Use walker as needed. Driving: Do Not Drive Wound/Incision Care: Keep Operative Site/Wound Site Clean and Dry Notify Provider of: Fever, Increased Pain, Swelling and Redness, Drainage, Nausea and/or Vomiting - Discharge Plan Prescriptions/Med Rec: traMADol [Ultram] 100 mg PO Q6H PRN #80 tablet PRN Reason: Pain Home Medications: Home Meds amLODIPine Besylate [Amlodipine Besylate] 10 mg PO DAILY 07/28/14 [History] Omeprazole Magnesium [Prilosec Otc] 20 mg PO ACBRK 08/01/14 [History] Promethazine [Phenergan] 25 mg PO Q6H PRN #30 tablet 01/02/15 [Rx] Denosumab [Prolia] 60 mg IM Q180D 02/28/16 [History] Levothyroxine [Synthroid] 88 mcg PO ACBREAKFAST 02/28/16 [History] Ondansetron HCl [Zofran] 4 mg PO Q8HR PRN #16 tablet 02/16/17 [Rx] traMADol [Ultram] 100 mg PO Q6H PRN #80 tablet 02/21/17 [Rx] Acetaminophen [Tylenol Extra Strength] 1,000 mg PO Q6H PRN tablet 04/02/17 [Rx] traMADol [Ultram] 100 mg PO Q6H PRN #80 tablet 04/05/17 [Rx] Forms: ED Department Discharge Referrals: Eduardo Stallings MD [Physician] - - General Info Functional Status: Reports: Pain Controlled, Tolerating Diet, Ambulating, Urinating - Review of Systems General: Reports: No Symptoms (Patient states that she feels good. Minimal pain in knee. Has been OOB to the bathroom. No other complaints.) Pulmonary: Reports: No Symptoms Cardiovascular: Reports: No Symptoms Gastrointestinal: Reports: No Symptoms Genitourinary: Reports: No Symptoms Musculoskeletal: Reports: Leg Pain, Joint Pain, Joint Swelling Neurological: Reports: No Symptoms Psychiatric: Reports: No Symptoms - Patient Data Vitals - Most Recent: Last Vital Signs Temp 37.1 C 04/05/17 07:00 Pulse 100 04/05/17 03:43 Resp 18 04/05/17 07:00 BP 111/61 04/05/17 08:01 Pulse Ox 92 L 04/05/17 07:00 Weight - Most Recent: 50.5 kg I&O - Last 24 hours: Intake & Output 04/04/17 04/05/17 04/05/17 22:59 06:59 14:59 Intake Total 1770 1220 Output Total 355 1154 Balance 1415 66 Lab Results - Last 24 hrs: Laboratory Results - last 24 hr 04/05/17 04/05/17 04/05/17 Range/Units 05:24 05:24 05:24 WBC 26.88 H (4.0-11.0) K/uL RBC 3.38 L (4.30-5.90) M/uL Hgb 9.3 L (12.0-16.0) g/dL Hct 29.7 L (36.0-46.0) % MCV 87.9 (80.0-98.0) fL MCH 27.5 (27.0-32.0) pg MCHC 31.3 (31.0-37.0) g/dL RDW Std Deviation 47.1 (28.0-62.0) fl RDW Coeff of Kari 15 (11.0-15.0) % Plt Count 448 H (150-400) K/uL MPV 9.00 (7.40-12.00) fL Neut % (Auto) 93.9 H (48.0-80.0) % Lymph % (Auto) 3.9 L (16.0-40.0) % [place] % (Auto) 1.7 (0.0-15.0) % Eos % (Auto) 0.4 (0.0-7.0) % Baso % (Auto) 0.1 (0.0-1.5) % Neut # (Auto) 25.2 H (1.4-5.7) K/uL Lymph # (Auto) 1.0 (0.6-2.4) K/uL [place] # (Auto) 0.5 (0.0-0.8) K/uL Eos # (Auto) 0.1 (0.0-0.7) K/uL Baso # (Auto) 0.0 (0.0-0.1) K/uL Nucleated RBC % 0.0 /100WBC Nucleated RBCs # 0 K/uL ESR 45 H (0-29) mm/hr Sodium 135 L (136-146) mmol/L Potassium 4.0 (3.5-5.1) mmol/L Chloride 102 (98-110) mmol/L Carbon Dioxide 23 (21-31) mmol/L BUN 8 (6.0-23.0) mg/dL Creatinine 0.6 (0.6-1.5) mg/dL Est Cr Clr Drug Dosing 59.15 mL/min Estimated GFR (MDRD) > 60.0 ml/min Glucose 97 (60-110) mg/dL Calcium 7.9 L (8.8-10.8) mg/dL Total Bilirubin 0.3 (0.1-1.5) mg/dL AST 548 H (5-40) IU/L ALT 277 H (8-54) IU/L Alkaline Phosphatase 96 (40-150) C-Reactive Protein (0.0-0.5) mg/dL Total Protein 5.3 L (6.0-8.0) g/dL Albumin 2.5 L (3.4-4.8) g/dL Globulin 2.8 (2.0-3.5) g/dL Albumin/Globulin Ratio 0.9 L (1.3-2.8) 04/05/17 Range/Units 05:24 WBC (4.0-11.0) K/uL RBC (4.30-5.90) M/uL Hgb (12.0-16.0) g/dL Hct (36.0-46.0) % MCV (80.0-98.0) fL MCH (27.0-32.0) pg MCHC (31.0-37.0) g/dL RDW Std Deviation (28.0-62.0) fl RDW Coeff of Kari (11.0-15.0) % Plt Count (150-400) K/uL MPV (7.40-12.00) fL Neut % (Auto) (48.0-80.0) % Lymph % (Auto) (16.0-40.0) % [place] % (Auto) (0.0-15.0) % Eos % (Auto) (0.0-7.0) % Baso % (Auto) (0.0-1.5) % Neut # (Auto) (1.4-5.7) K/uL Lymph # (Auto) (0.6-2.4) K/uL [place] # (Auto) (0.0-0.8) K/uL Eos # (Auto) (0.0-0.7) K/uL Baso # (Auto) (0.0-0.1) K/uL Nucleated RBC % /100WBC Nucleated RBCs # K/uL ESR (0-29) mm/hr Sodium (136-146) mmol/L Potassium (3.5-5.1) mmol/L Chloride (98-110) mmol/L Carbon Dioxide (21-31) mmol/L BUN (6.0-23.0) mg/dL Creatinine (0.6-1.5) mg/dL Est Cr Clr Drug Dosing mL/min Estimated GFR (MDRD) ml/min Glucose (60-110) mg/dL Calcium (8.8-10.8) mg/dL Total Bilirubin (0.1-1.5) mg/dL AST (5-40) IU/L ALT (8-54) IU/L Alkaline Phosphatase (40-150) C-Reactive Protein 25.13 H (0.0-0.5) mg/dL Total Protein (6.0-8.0) g/dL Albumin (3.4-4.8) g/dL Globulin (2.0-3.5) g/dL Albumin/Globulin Ratio (1.3-2.8) Med Orders - Current: Current Medications Amlodipine Besylate (Norvasc) 10 mg PO DAILY [facility] Last Admin: 04/05/17 08:01 Dose: 10 mg Enoxaparin Sodium (Lovenox) 30 mg SUBCUT Q24H [facility] Last Admin: 04/04/17 14:45 Dose: 30 mg Hydromorphone HCl (Dilaudid) 0.5 - 1 mg IVPUSH Q3H PRN PRN Reason: Pain Last Admin: 04/05/17 10:02 Dose: 1 mg Sodium Chloride (Normal Saline) 1,000 mls @ 125 mls/hr IV ASDIRECTED [facility] Last Admin: 04/05/17 06:39 Dose: 125 mls/hr Daptomycin 500 mg/ Sodium (Chloride) 10 mls @ 300 mls/hr IV Q24H [facility] Last Admin: 04/05/17 10:03 Dose: 300 mls/hr Ketorolac Tromethamine (Toradol) 15 mg IVPUSH Q6H PRN PRN Reason: Pain Last Admin: 04/05/17 06:36 Dose: 15 mg Levothyroxine Sodium (Synthroid) 88 mcg PO ACBREAKFAST [facility] Last Admin: 04/05/17 06:34 Dose: 88 mcg Omeprazole (Omeprazole) 20 mg PO ACBRK [facility] Last Admin: 04/05/17 06:35 Dose: 20 mg Ondansetron HCl (Zofran) 4 mg IV Q8HR PRN PRN Reason: NAUSEA/VOMITING Promethazine HCl (Phenergan) 25 mg PO Q6H PRN PRN Reason: Nausea/Vomiting Last Admin: 04/05/17 06:34 Dose: 12.5 mg Tramadol HCl (Ultram) 100 mg PO Q6H PRN PRN Reason: Breakthrough Pain Last Admin: 04/05/17 05:30 Dose: 100 mg Discontinued Medications Daptomycin (Cubicin) 500 mg IVPUSH Q24H [facility] Daptomycin (Cubicin) 500 mg IVPUSH Q24H [facility] Hydromorphone HCl (Dilaudid) 0.5 mg IV ONETIME ONE Stop: 04/03/17 12:46 Last Admin: 04/03/17 13:27 Dose: 0.5 mg Hydromorphone HCl (Dilaudid) 0.5 mg IV ONETIME ONE Stop: 04/03/17 13:59 Last Admin: 04/03/17 14:07 Dose: 0.5 mg Sodium Chloride (Normal Saline) 1,000 mls @ 999 mls/hr IV ASDIRECTED [facility] Last Admin: 04/03/17 13:03 Dose: 999 mls/hr Lactated Ringer's (Ringers, Lactated) 1,000 mls @ 125 mls/hr IV ASDIRECTED [facility] Last Admin: 04/04/17 00:16 Dose: 125 mls/hr Daptomycin 500 mg/ Sodium (Chloride) 10 mls @ 300 mls/hr IV Q24H [facility] Last Admin: 04/03/17 16:14 Dose: 300 mls/hr Clindamycin Phosphate 600 mg/ (Premix) 50 mls @ 100 mls/hr IV Q6H [facility] Last Admin: 04/05/17 08:01 Dose: 100 mls/hr Ketorolac Tromethamine (Toradol) 30 mg IVPUSH ONETIME ONE Stop: 04/03/17 12:43 Last Admin: 04/03/17 13:03 Dose: 30 mg Ondansetron HCl (Zofran) 4 mg IVPUSH ONETIME ONE Stop: 04/03/17 12:43 Last Admin: 04/03/17 13:03 Dose: 4 mg Scopolamine (Transderm-Scop) 1.5 mg TRDERM Q72H [facility] Stop: 04/06/17 15:16 Last Admin: 04/03/17 15:58 Dose: 1.5 mg - Exam General: Reports: Alert, Oriented HEENT: Reports: Pupils Equal, Pupils Reactive Neck: Reports: Trachea Midline Lungs: Reports: Normal Respiratory Effort Cardiovascular: Reports: Regular Rate Extremities: Other (Exam of R knee shows no effusion. Medial wound persists, unchanged without erythema, induration. Minimal amount of drainage on dressing. ROM 0-90. No calf TTP. AT/EHL/gastroc 5/5. Sensation intact. DP 2+.) Wound/Incisions: Reports: Dressing Dry and Intact Neurological: Reports: No New Focal Deficit Psy/Mental Status: Reports: Alert, Normal Affect, Normal Mood *Q Meaningful Use (DIS) - VTE *Q VTE Criteria *Q: - Stroke *Q Stroke Criteria *Q: - AMI *Q AMI Criteria *Q: <Jessica Stallings R - Last Filed: 04/08/17 08:52> Discharge Summary - Hospital Course Brief History: Initially the patient wanted to go to [facility] for definitive care. I did speak with the surgeon there and he stated that it would be 10-14 days before he could do the surgery. Due to her increasing labs, I felt she would be better served by more urgent surgery and a higher level of care. I did speak with Dr. Patino/Dr. Forrest at [facility] in [place]. They felt she was appropriate for transfer there. I also spoke with Dr. Del Cid, hospitalist, who agreed to accept the patient due to her multiple medical comorbidities. - Discharge Diagnosis/Problem(s) (1) Infection of total joint prosthesis SNOMED Code(s): 831608977 ICD Code: T84.50XA - INFECT/INFLM REACTION DUE TO UNSP INT JOINT PROSTH, INIT Status: Acute Qualifiers: Encounter type: subsequent encounter Qualified Code(s): T84.50XD - Infection and inflammatory reaction due to unspecified internal joint prosthesis , subsequent encounter - Patient Data Vitals - Most Recent: Last Vital Signs Temp 98.2 F 04/05/17 11:00 Pulse 107 H 04/05/17 11:00 Resp 20 04/05/17 11:00 BP 120/62 04/05/17 11:00 Pulse Ox 92 L 04/05/17 11:00 Med Orders - Current: Current Medications Discontinued Medications Amlodipine Besylate (Norvasc) 10 mg PO DAILY [facility] Last Admin: 04/05/17 08:01 Dose: 10 mg Daptomycin (Cubicin) 500 mg IVPUSH Q24H [facility] Daptomycin (Cubicin) 500 mg IVPUSH Q24H [facility] Enoxaparin Sodium (Lovenox) 30 mg SUBCUT Q24H [facility] Last Admin: 04/04/17 14:45 Dose: 30 mg Hydromorphone HCl (Dilaudid) 0.5 mg IV ONETIME ONE Stop: 04/03/17 12:46 Last Admin: 04/03/17 13:27 Dose: 0.5 mg Hydromorphone HCl (Dilaudid) 0.5 mg IV ONETIME ONE Stop: 04/03/17 13:59 Last Admin: 04/03/17 14:07 Dose: 0.5 mg Hydromorphone HCl (Dilaudid) 0.5 - 1 mg IVPUSH Q3H PRN PRN Reason: Pain Last Admin: 04/05/17 10:02 Dose: 1 mg Sodium Chloride (Normal Saline) 1,000 mls @ [facility] Last Admin: 04/03/17 13:03 Dose: 999 mls/hr Lactated Ringer's (Ringers, Lactated) 1,000 mls @ 125 [facility]ls[facility] Last Admin: 04/04/17 00:16 Dose: 125 mls/hr Daptomycin 500 mg/ Sodium (Chloride) 10 mls @ 300 mls/hr IV Q24H [facility] Last Admin: 04/03/17 16:14 Dose: 300 mls/hr Clindamycin Phosphate 600 mg/ (Premix) 50 mls @ 100 mls/hr IV Q6H [facility] Last Admin: 04/05/17 08:01 Dose: 100 mls/hr Sodium Chloride (Normal Saline) 1,000 mls @ 125 mls/hr IV ASDIRECTED [facility] Last Admin: 04/05/17 06:39 Dose: 125 mls/hr Daptomycin 500 mg/ Sodium (Chloride) 10 mls @ 300 mls/hr IV Q24H [facility] Last Admin: 04/05/17 10:03 Dose: 300 mls/hr Ketorolac Tromethamine (Toradol) 30 mg IVPUSH ONETIME ONE Stop: 04/03/17 12:43 Last Admin: 04/03/17 13:03 Dose: 30 mg Ketorolac Tromethamine (Toradol) 15 mg IVPUSH Q6H PRN PRN Reason: Pain Last Admin: 04/05/17 11:29 Dose: 15 mg Levothyroxine Sodium (Synthroid) 88 mcg PO ACBREAKFAST [facility] Last Admin: 04/05/17 06:34 Dose: 88 mcg Omeprazole (Omeprazole) 20 mg PO ACBRK [facility] Last Admin: 04/05/17 06:35 Dose: 20 mg Ondansetron HCl (Zofran) 4 mg IVPUSH ONETIME ONE Stop: 04/03/17 12:43 Last Admin: 04/03/17 13:03 Dose: 4 mg Ondansetron HCl (Zofran) 4 mg IV Q8HR PRN PRN Reason: NAUSEA/VOMITING Promethazine HCl (Phenergan) 25 mg PO Q6H PRN PRN Reason: Nausea/Vomiting Last Admin: 04/05/17 06:34 Dose: 12.5 mg Scopolamine (Transderm-Scop) 1.5 mg TRDERM Q72H [facility] Stop: 04/06/17 15:16 Last Admin: 04/03/17 15:58 Dose: 1.5 mg Tramadol HCl (Ultram) 100 mg PO Q6H PRN PRN Reason: Breakthrough Pain Last Admin: 04/05/17 05:30 Dose: 100 mg *Q Meaningful Use (DIS) - VTE *Q VTE Criteria *Q: - Stroke *Q Stroke Criteria *Q: - AMI *Q AMI Criteria *Q:
[2017-04-05 12:17] VITALS: BP 120/62
--- NOTE | 2017-04-06 01:40 | DISCH ---
DATE OF DISCHARGE: 04/05/2017 PRIMARY CARE PHYSICIAN: Cheryl PCP ADMITTING DIAGNOSES: 1. Antibiotic-induced nausea and vomiting. 2. Infection of prosthetic knee, right. OTHER MEDICAL DIAGNOSES: Include: 1. Crest syndrome. 2. Hypothyroidism. DISCHARGE DIAGNOSES: 1. 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 3. Hypothyroidism. BRIEF HISTORY: Trish is an 81-year-old female who has a long history of right knee difficulties. Her pain began on January 2014 without specific injury. She then underwent a right total knee arthroplasty in July 2014. She did have persistent draining along her right knee noticed November 2015. She did undergo an irrigation and debridement at that time. On February 19, 2017, she again noticed an open area on the medial aspect of the knee. She was treated with IV Cubicin, which decreased the pain and swelling of her knee. This did resolve. Again on March 29, 2017, swelling and drainage returned. She was admitted to the hospital. An aspirate was performed, showed a white count of 1026. No crystals were noted. Gram stain was positive for MSSA. She did have negative blood cultures. She was then discharged. One day after discharge, she was to return to the emergency department with complaint of nausea and vomiting after receiving antibiotics. She again had an elevated white count, ESR, and CRP. At this time, she will be transferred to [facility] in [place]. Dr. Raoul Forrest did accept this patient. She will undergo a right total knee revision. OPERATION: None. HOSPITAL COURSE: Pain was controlled via p.o. and IV pain medications. She did receive a clindamycin daily. She was followed by hospitalist during her hospital stay. Upon discharge, vital signs are stable and she is afebrile. DISCHARGE MEDICATIONS: Tramadol 50 mg. DISCHARGE INSTRUCTIONS: She will be transferred to [facility] and treated there for right infected total knee. For complete medication reconciliation and discharge instructions, please refer to the patient's EHR. KALEY LOZADA /[id number]
== END 2017-04-05 11:40 | DRG 561 ==
LOC: MW.ED 12:01 → MW.MS 14:44 → UNDOADMIN 15:15 → MW.MS 15:15 → UNDODISIN 04-05 11:40
PROVIDERS: ADMIT Orthopaedic Surgery; ATTEND Orthopaedic Surgery
DX: M00.9 Pyogenic arthritis, unspecified (principal); T84.53XA Infection and inflammatory reaction due to internal right knee prosthesis, initial encounter; B95.61 Methicillin susceptible Staphylococcus aureus infection as the cause of diseases classified elsewhere; Z96.651 Presence of right artificial knee joint; R11.2 Nausea with vomiting, unspecified; T40.695A Adverse effect of other narcotics, initial encounter; T39.395A Adverse effect of other nonsteroidal anti-inflammatory drugs [NSAID], initial encounter; Y92.019 Unspecified place in single-family (private) house as the place of occurrence of the external cause; M34.1 CR(E)ST syndrome; E03.9 Hypothyroidism, unspecified; Z91.040 Latex allergy status; Z88.0 Allergy status to penicillin; Z88.8 Allergy status to other drugs, medicaments and biological substances; Z79.899 Other long term (current) drug therapy; I73.00 Raynaud's syndrome without gangrene
CPT/HCPCS: 71010; 73560; 76705; 96361; 99285; 96374; 96375; 96376; 85025; 85652; 85610; 36415; 80053; 82150; 83690; 83540; 83605; 86140; 87040 ×2; 80074; J1170 ×2; J1885; J7040; J2405; G0480; 99284; A9270-GY; J0878; J1650; J7120

== ENCOUNTER 2019-06-03 15:24 | Inpatient (IN) | payer MEDICARE, BC, MEDICAID ==
--- NOTE | 2019-06-03 15:56 | EDM.PDOC ---
ED HPI GENERAL MEDICAL PROBLEM - General Chief Complaint: Skin Complaint Stated Complaint: FOOT INJURY Time Seen by Provider: 06/03/19 15:25 Source of Information: Reports: Patient History Limitations: Reports: No Limitations - History of Present Illness INITIAL COMMENTS - FREE TEXT/NARRATIVE: History of present illness: []Patient was wearing a new pair of shoes two weeks ago and developed a sore on her foot that has rapidly spread. She also has an ulcer on her buttock and right small finger. She denies any fevers, chills, nausea or vomiting. Review of systems: As per history of present illness and below otherwise all systems reviewed and negative. Past medical history: As per history of present illness and as reviewed below otherwise noncontributory. Surgical history: As per history of present illness and as reviewed below otherwise noncontributory. Social history: No reported history of drug or alcohol abuse. Family history: As per history of present illness and as reviewed below otherwise noncontributory. Physical exam: General: Well developed, well nourished in NAD HEENT: Atraumatic, normocephalic, pupils reactive, negative for conjunctival pallor or scleral icterus, mucous membranes moist, throat clear, neck supple, nontender, trachea midline. Lungs: Clear to auscultation, breath sounds equal bilaterally, chest nontender. Heart: S1S2, regular, negative for clicks, rubs, or JVD. Abdomen: NABS, Soft, nondistended, nontender. Negative for masses or hepatosplenomegaly. Negative for costovertebral tenderness. Pelvis: Stable nontender. Genitourinary: Patient has grade 1 decubitus ulcer on her left buttock cheek. Rectal: Deferred. Extremities: Left foot with erythema, edema, areas of dried scabbed ulcerations on fourth toe, heel and base of great toe, she has a similar appearing erythema with a scabbed ulceration on her right small finger, negative for cords or calf pain. Neurovascular unremarkable. Neuro: Awake, alert, oriented. Cranial nerves II through XII unremarkable. Cerebellum unremarkable. Motor and sensory unremarkable throughout. Exam nonfocal. Skin:warm and dry Diagnostics: CBC, cultures, chemistry, lactic acid, x-ray left foot, right hand Therapeutics: IV hydration, vancomycin Toradol, morphine ED Course: Stable Impression: Cellulitis with possible osteomyelitis of left foot and right hand Prescriptions: None Plan: Admit to hospitalist for IV antibiotics for pain control and further workup. Definitive disposition and diagnosis as appropriate pending reevaluation and review of above. Left Feet Pain Score (Numeric/FACES): 9 - Related Data Allergies Allergy/AdvReac Type Severity Reaction Status Date / Time codeine Allergy Vomiting Verified 06/03/19 15:30 latex Allergy Rash Verified 06/03/19 15:30 morphine Allergy Difficulty Verified 06/03/19 15:30 Breathing oxycodone HCl [From Percocet] Allergy Vomiting Verified 06/03/19 15:30 Penicillins Allergy Anaphylactic Verified 06/03/19 15:30 Shock Sulfa (Sulfonamide Allergy Anaphylactic Verified 06/03/19 15:30 Antibiotics) Shock all pain meds Allergy Nausea Uncoded 06/03/19 15:30 Home Meds: Home Meds Omeprazole Magnesium [Prilosec Otc] 20 mg PO ACBRK 08/01/14 [History] Promethazine [Phenergan] 25 mg PO Q6H PRN #30 tablet 08/04/14 [Rx] Denosumab [Prolia] 60 mg IM Q180D 02/28/16 [History] Levothyroxine [Synthroid] 88 mcg PO ACBREAKFAST 02/28/16 [History] Ondansetron HCl [Zofran] 4 mg PO Q8HR PRN #16 tablet 02/16/17 [Rx] traMADol [Ultram] 100 mg PO Q6H PRN #80 tablet 02/21/17 [Rx] Acetaminophen [Tylenol Extra Strength] 1,000 mg PO Q6H PRN tablet 04/02/17 [Rx] traMADol [Ultram] 100 mg PO Q6H PRN #80 tablet 04/05/17 [Rx] Bisacodyl 10 mg RC DAILY PRN 06/03/19 [History] Cetirizine HCl 10 mg PO BEDTIME 06/03/19 [History] Loperamide HCl [Imodium A-D] 4 mg PO Q6H PRN 06/03/19 [History] Oxybutynin Chloride 5 mg PO BID 06/03/19 [History] Pedi Mv No.79/Ferrous Fumarate [Flintstones with Iron Tab Chew] 1 tab PO DAILY 06/03/19 [History] amLODIPine Besylate [Norvasc] 2.5 mg PO DAILY 06/03/19 [History] Past Medical History - Past Health History Medical/Surgical History: Denies Medical/Surgical History HEENT History: Reports: Cataract Other HEENT History: has upper denture and lower partial Cardiovascular History: Reports: None Respiratory History: Reports: None Gastrointestinal History: Reports: GERD, Irritable Bowel Syndrome, Other (See Below) Other Gastrointestinal History: IBS-Diarrhea Genitourinary History: Reports: Other (See Below) Other Genitourinary History: overactive bladder [employer] History: Reports: Musculoskeletal History: Reports: Arthritis Neurological History: Reports: Other (See Below) Other Neuro History: hx of motion sickness Psychiatric History: Reports: None Endocrine/Metabolic History: Reports: Hypothyroidism Hematologic History: Reports: None Immunologic History: Reports: Other (See Below) Other Immunologic History: CREST syndrome Oncologic (Cancer) History: Reports: None Dermatologic History: Reports: None, Other (See Below) Other Dermatologic History: Raynaud's Syndrome - Infectious Disease History Infectious Disease History: Reports: Chicken Pox, Measles, Mumps - Past Surgical History Head Surgeries/Procedures: Reports: None HEENT Surgical History: Reports: Cataract Surgery Female Surgical History: Reports: Hysterectomy Musculoskeletal Surgical History: Reports: Knee Replacement, ORIF, Shoulder Surgery Social & Family History - Family History Family Medical History: Noncontributory HEENT: Reports: Cataract Respiratory: Reports: COPD Musculoskeletal: Reports: Arthritis Psychiatric: Reports: Depression Endocrine/Metabolic: Reports: Diabetes, type II - Tobacco Use Smoking Status *Q: Never Smoker Second Hand Smoke Exposure: No - Caffeine Use Caffeine Use: Reports: None - Recreational Drug Use Recreational Drug Use: No ED ROS GENERAL - Review of Systems Review Of Systems: See Below ED EXAM, SKIN/RASH Exam: See Below Course - Vital Signs Last Recorded V/S: Last Vital Signs Temp 99.1 F 06/04/19 04:00 Pulse 102 H 06/04/19 04:00 Resp 17 06/04/19 04:00 BP 149/73 H 06/04/19 04:00 Pulse Ox 94 L 06/04/19 04:00 - Orders/Labs/Meds Orders: Active Orders 24 hr Category Date Time Status Patient Status [ADT] Stat ADT 06/03/19 17:14 Active Bedrest Bathroom Privileges [RC] ASDIRECTED Care 06/03/19 17:20 Active Intake and Output [RC] QSHIFT Care 06/03/19 17:20 Active Oxygen Therapy [RC] PRN Care 06/03/19 17:20 Active VTE/DVT Education [RC] PER UNIT ROUTINE Care 06/03/19 17:20 Active Vital Signs [RC] Q4H Care 06/03/19 17:20 Active Consult to Wound Care Services [CONS] Stat Cons 06/03/19 17:33 Active Regular Diet [DIET] Diet 06/03/19 Dinner Active CULTURE BLOOD [BC] Stat Lab 06/03/19 16:05 Results CULTURE BLOOD [BC] Stat Lab 06/03/19 16:16 Results CULTURE WOUND [RM] Stat Lab 06/03/19 17:33 Ordered Acetaminophen [Tylenol] Med 06/03/19 17:20 Active 650 mg PO Q4H PRN Ketorolac [Toradol] Med 06/03/19 17:27 Active 15 mg IVPUSH Q6H PRN Pharmacy to Dose - Vancomycin Med 06/03/19 17:30 Pending 1 dose .XX ASDIRECTED Sodium Chloride 0.9% [Normal Saline] 1,000 ml Med 06/03/19 17:15 Active IV ASDIRECTED Sodium Chloride 0.9% [Saline Flush] Med 06/03/19 16:46 Active 10 ml FLUSH ASDIRECTED PRN Sodium Chloride 0.9% [Saline Flush] Med 06/03/19 16:46 Active 2.5 ml FLUSH ASDIRECTED PRN Blood Culture x2 Reflex Set [OM.PC] Stat Oth 06/03/19 15:40 Ordered Saline Lock Insert [OM.PC] Stat Oth 06/03/19 16:46 Ordered Resuscitation Status Routine Resus Stat 06/03/19 17:20 Ordered Medication Orders Acetaminophen (Tylenol) 650 mg PO Q4H PRN PRN Reason: Pain (Mild 1-3)/fever Last Admin: 06/04/19 04:09 Dose: 650 mg Admin: 06/03/19 22:25 Dose: 650 mg Amlodipine Besylate (Norvasc) 10 mg PO DAILY ANNA Enoxaparin Sodium (Lovenox) 40 mg SUBCUT Q24H ANNA Last Admin: 06/03/19 19:33 Dose: 40 mg Sodium Chloride (Normal Saline) 1,000 mls @ 125 mls/hr IV ASDIRECTED ANNA Last Admin: 06/04/19 03:58 Dose: 125 mls/hr Infusion: 06/04/19 03:25 Dose: 125 mls/hr Admin: 06/03/19 19:25 Dose: 125 mls/hr Infusion: 06/03/19 19:25 Dose: 125 mls/hr Admin: 06/03/19 17:25 Dose: 125 mls/hr Meropenem 1 gm/ Sodium (Chloride) 100 mls @ 200 mls/hr IV Q8H [facility] Last Admin: 06/04/19 04:03 Dose: 200 mls/hr Infusion: 06/03/19 21:02 Dose: 200 mls/hr Admin: 06/03/19 20:32 Dose: 200 mls/hr Vancomycin HCl 0.75 gm/ Sodium (Chloride) 250 mls @ 166.667 mls/hr IV Q24H [facility] Ketorolac Tromethamine (Toradol) 15 mg IVPUSH Q6H PRN PRN Reason: Pain Last Admin: 06/04/19 01:34 Dose: 15 mg Admin: 06/03/19 19:34 Dose: 15 mg Levothyroxine Sodium (Synthroid) 88 mcg PO ACBREAKFAST [facility] Last Admin: 06/04/19 06:32 Dose: 88 mcg Promethazine HCl (Phenergan) 25 mg PO Q6H PRN PRN Reason: Nausea/Vomiting Last Admin: 06/04/19 07:00 Dose: 25 mg Sodium Chloride (Saline Flush) 10 ml FLUSH ASDIRECTED PRN PRN Reason: Keep Vein Open Last Admin: 06/03/19 17:26 Dose: 10 ml Sodium Chloride (Saline Flush) 2.5 ml FLUSH ASDIRECTED PRN PRN Reason: Keep Vein Open Last Admin: 06/03/19 17:25 Dose: 2.5 ml Tramadol HCl (Ultram) 100 mg PO Q8H PRN PRN Reason: Pain Last Admin: 06/04/19 07:00 Dose: 100 mg Vancomycin HCl (Pharmacy To Dose - Vancomycin) 1 dose .XX ASDIRECTED [facility] Labs: Laboratory Tests 06/03/19 06/03/19 06/03/19 Range/Units 16:05 16:05 16:05 WBC 19.73 H (4.0-11.0) K/uL RBC 4.07 L (4.30-5.90) M/uL Hgb 12.2 (12.0-16.0) g/dL Hct 36.6 (36.0-46.0) % MCV 89.9 (80.0-98.0) fL MCH 30.0 (27.0-32.0) pg MCHC 33.3 (31.0-37.0) g/dL RDW Std Deviation 43.3 (28.0-62.0) fl RDW Coeff of Kari 13 (11.0-15.0) % Plt Count 409 H (150-400) K/uL MPV 9.30 (7.40-12.00) fL Neut % (Auto) 81.8 H (48.0-80.0) % Lymph % (Auto) 11.0 L (16.0-40.0) % [place] % (Auto) 5.1 (0.0-15.0) % Eos % (Auto) 1.9 (0.0-7.0) % Baso % (Auto) 0.2 (0.0-1.5) % Neut # (Auto) 16.2 H (1.4-5.7) K/uL Lymph # (Auto) 2.2 (0.6-2.4) K/uL [place] # (Auto) 1.0 H (0.0-0.8) K/uL Eos # (Auto) 0.4 (0.0-0.7) K/uL Baso # (Auto) 0.0 (0.0-0.1) K/uL Nucleated RBC % 0.0 /100WBC Nucleated RBCs # 0 K/uL ESR (0-29) mm/hr Lactate (0.20-2.00) mmol/L Sodium 128 L (136-145) mmol/L Potassium 4.6 (3.5-5.1) mmol/L Chloride 96 L (98-107) mmol/L Carbon Dioxide 16.7 L (21.0-32.0) mmol/L BUN 16 (7.0-18.0) mg/dL Creatinine 0.8 (0.6-1.0) mg/dL Est Cr Clr Drug Dosing 40.21 mL/min Estimated GFR (MDRD) > 60.0 ml/min Glucose 82 (74-106) mg/dL Hemoglobin A1c 5.5 (4.5-6.2) % Calcium 8.8 (8.5-10.1) mg/dL Total Bilirubin 0.6 (0.2-1.0) mg/dL AST 27 (15-37) IU/L ALT 15 (14-63) IU/L Alkaline Phosphatase 158 H (46-116) U/L C-Reactive Protein (0.00-0.90) mg/dL Total Protein 6.8 (6.4-8.2) g/dL Albumin 2.8 L (3.4-5.0) g/dL Globulin 4.0 (2.6-4.0) g/dL Albumin/Globulin Ratio 0.7 L (0.9-1.6) 06/03/19 06/03/19 06/03/19 Range/Units 16:16 16:16 16:16 WBC (4.0-11.0) K/uL RBC (4.30-5.90) M/uL Hgb (12.0-16.0) g/dL Hct (36.0-46.0) % MCV (80.0-98.0) fL MCH (27.0-32.0) pg MCHC (31.0-37.0) g/dL RDW Std Deviation (28.0-62.0) fl RDW Coeff of Kari (11.0-15.0) % Plt Count (150-400) K/uL MPV (7.40-12.00) fL Neut % (Auto) (48.0-80.0) % Lymph % (Auto) (16.0-40.0) % [place] % (Auto) (0.0-15.0) % Eos % (Auto) (0.0-7.0) % Baso % (Auto) (0.0-1.5) % Neut # (Auto) (1.4-5.7) K/uL Lymph # (Auto) (0.6-2.4) K/uL [place] # (Auto) (0.0-0.8) K/uL Eos # (Auto) (0.0-0.7) K/uL Baso # (Auto) (0.0-0.1) K/uL Nucleated RBC % /100WBC Nucleated RBCs # K/uL ESR 44 H (0-29) mm/hr Lactate 0.9 (0.20-2.00) mmol/L Sodium (136-145) mmol/L Potassium (3.5-5.1) mmol/L Chloride (98-107) mmol/L Carbon Dioxide (21.0-32.0) mmol/L BUN (7.0-18.0) mg/dL Creatinine (0.6-1.0) mg/dL Est Cr Clr Drug Dosing mL/min Estimated GFR (MDRD) ml/min Glucose (74-106) mg/dL Hemoglobin A1c (4.5-6.2) % Calcium (8.5-10.1) mg/dL Total Bilirubin (0.2-1.0) mg/dL AST (15-37) IU/L ALT (14-63) IU/L Alkaline Phosphatase (46-116) U/L C-Reactive Protein 10.80 H (0.00-0.90) mg/dL Total Protein (6.4-8.2) g/dL Albumin (3.4-5.0) g/dL Globulin (2.6-4.0) g/dL Albumin/Globulin Ratio (0.9-1.6) Meds: Medications Generic Name Dose Route Start Last Admin Trade Name Freq PRN Reason Stop Dose Admin Acetaminophen 650 mg 06/03/19 17:20 06/04/19 04:09 Tylenol PO 650 mg Q4H PRN Administration Pain (Mild 1-3)/fever Amlodipine Besylate 10 mg 06/04/19 09:00 Norvasc PO DAILY ANNA Enoxaparin Sodium 40 mg 06/03/19 19:15 06/03/19 19:33 Lovenox SUBCUT 40 mg Q24H ANNA Administration Sodium Chloride 1,000 mls @ 125 mls/hr 06/03/19 17:15 06/04/19 03:58 Normal Saline IV 125 mls/hr ASDIRECTED ANNA Administration Meropenem 1 gm/ Sodium 100 mls @ 200 mls/hr 06/03/19 20:00 06/04/19 04:03 Chloride IV 200 mls/hr Q8H ANNA Administration Vancomycin HCl 0.75 gm/ Sodium 250 mls @ 166.667 mls/hr 06/04/19 17:00 Chloride IV Q24H [facility] Ketorolac Tromethamine 15 mg 06/03/19 17:27 06/04/19 01:34 Toradol IVPUSH 15 mg Q6H PRN Administration Pain Levothyroxine Sodium 88 mcg 06/04/19 07:30 06/04/19 06:32 Synthroid PO 88 mcg ACBREAKFAST ANNA Administration Promethazine HCl 25 mg 06/03/19 19:08 06/04/19 07:00 Phenergan PO 25 mg Q6H PRN Administration Nausea/Vomiting Sodium Chloride 10 ml 06/03/19 16:46 06/03/19 17:26 Saline Flush FLUSH 10 ml ASDIRECTED PRN Administration Keep Vein Open Sodium Chloride 2.5 ml 06/03/19 16:46 06/03/19 17:25 Saline Flush FLUSH 2.5 ml ASDIRECTED PRN Administration Keep Vein Open Tramadol HCl 100 mg 06/04/19 06:47 06/04/19 07:00 Ultram PO 100 mg Q8H PRN Administration Pain Vancomycin HCl 1 dose 06/03/19 17:30 Pharmacy To Dose - Vancomycin .XX ASDIRECTED [facility] Discontinued Medications Generic Name Dose Route Start Last Admin Trade Name Freq PRN Reason Stop Dose Admin Heparin Sodium (Porcine) 5,000 units 06/03/19 17:30 06/03/19 19:58 Heparin Sodium SUBCUT Not Given Q8H [facility] Hydromorphone HCl 0.5 mg 06/03/19 17:22 06/03/19 17:28 Dilaudid IVPUSH 06/03/19 17:23 0.5 mg ONETIME ONE Administration Vancomycin HCl 1 gm/ Sodium 250 mls @ 166 mls/hr 06/03/19 16:43 06/03/19 17: 25 Chloride IV 06/03/19 18:13 166 mls/hr ONETIME ONE Administration Meropenem 1 gm/ Sodium 100 mls @ 200 mls/hr 06/03/19 17:30 06/03/19 19:59 Chloride IV Not Given Q8H [facility] Ketorolac Tromethamine 15 mg 06/03/19 17:20 06/03/19 17:28 Toradol IVPUSH 06/03/19 17:21 15 mg ONETIME ONE Administration Ondansetron HCl 4 mg 06/03/19 17:22 06/03/19 17:28 Zofran IVPUSH 06/03/19 17:23 4 mg ONETIME ONE Administration Ondansetron HCl 4 mg 06/03/19 17:24 06/03/19 17:35 Zofran IVPUSH 06/03/19 17:25 Not Given ONETIME ONE Departure - Departure Time of Disposition: 18:50 Disposition: Admitted As Inpatient 67 Condition: Good Clinical Impression: Cellulitis Qualifiers: Site of cellulitis: unspecified site Qualified Code(s): L03.90 - Cellulitis, unspecified - Discharge Information *PRESCRIPTION DRUG MONITORING PROGRAM REVIEWED*: No *COPY OF PRESCRIPTION DRUG MONITORING REPORT IN PATIENT GIRISH: No - My Orders Last 24 Hours: My Active Orders 06/03/19 15:40 Blood Culture x2 Reflex Set [OM.PC] Stat 06/03/19 16:05 CULTURE BLOOD [BC] Stat 06/03/19 16:16 CULTURE BLOOD [BC] Stat 06/03/19 16:46 Sodium Chloride 0.9% [Saline Flush] 10 ml FLUSH ASDIRECTED PRN Sodium Chloride 0.9% [Saline Flush] 2.5 ml FLUSH ASDIRECTED PRN Saline Lock Insert [OM.PC] Stat 06/03/19 17:14 Patient Status [ADT] Stat 06/03/19 17:15 Sodium Chloride 0.9% [Normal Saline] 1,000 ml IV ASDIRECTED - Assessment/Plan Last 24 Hours: My Active Orders 06/03/19 15:40 Blood Culture x2 Reflex Set [OM.PC] Stat 06/03/19 16:05 CULTURE BLOOD [BC] Stat 06/03/19 16:16 CULTURE BLOOD [BC] Stat 06/03/19 16:46 Sodium Chloride 0.9% [Saline Flush] 10 ml FLUSH ASDIRECTED PRN Sodium Chloride 0.9% [Saline Flush] 2.5 ml FLUSH ASDIRECTED PRN Saline Lock Insert [OM.PC] Stat 06/03/19 17:14 Patient Status [ADT] Stat 06/03/19 17:15 Sodium Chloride 0.9% [Normal Saline] 1,000 ml IV ASDIRECTED
--- NOTE | 2019-06-03 16:32 | CR ---
Indication: Redness. Swelling. Sore. Technique: Three views of the right 5th finger were obtained. Comparison: None Findings: Marked irregularity is identified at the distal interphalangeal joint space of the 5th finger. This is believed to be chronic. However, there is questionably air within the soft tissues and thus a questionable associated soft tissue at the level of the large osteophyte extending from the medial aspect of the base of the distal phalanx. Impression: Cannot exclude osteomyelitis of the distal phalanx. Marked degenerative change of the 5th distal interphalangeal joint space. Dictated by Verito De La Torre MD @ Jun 03 2019 4:30PM Signed by Dr. Verito De La Torre @ Jun 03 2019 4:31PM
--- NOTE | 2019-06-03 16:32 | CR ---
Indication: Source. Rule out infectious/calf. Technique: Three views of the left foot were obtained. Comparison: None Findings: Degenerative changes are identified at the 1st metatarsophalangeal joint space. Shortening of the proximal phalanx of the left great toe is identified. No fracture or subluxation is identified. Impression: Degenerative change at the 1st metatarsophalangeal joint space. There is slight irregularity of the distal 1st metatarsal. Osteomyelitis cannot be completely excluded. However, there is no air within the soft tissues. Dictated by Verito De La Torre MD @ Jun 03 2019 4:29PM Signed by Dr. Verito De La Torre @ Jun 03 2019 4:30PM
[2019-06-03] MEDS ORDERED: Sodium Chloride 0.9% 10 ML Syringe FLUSH PRN (16:46)
[2019-06-03] MEDS ORDERED: Ketorolac 30 MG/ML SDV IVPUSH ONE (17:20)
[2019-06-03] MEDS ORDERED: Ondansetron 4 MG/2 ML SDV IVPUSH ONE ×2 (17:22→17:24)
[2019-06-03] MEDS ORDERED: HYDROmorphone 1 MG/ML Syringe IVPUSH ONE (17:22)
[2019-06-03] MEDS: Sodium Chloride 0.9% 2.5 ML Syringe FLUSH PRN (17:25)
[2019-06-03] MEDS: Sodium Chloride 0.9% 1,000 ML IV SCH ×2 (17:25→19:25)
[2019-06-03] MEDS ORDERED: Heparin Sodium 5,000 Units/ML Vial SUBCUT SCH (17:30)
[2019-06-03] MEDS ORDERED: Meropenem 1 GM in Sodium Chloride 0.9% 100 ML IV SCH (17:30)
--- NOTE | 2019-06-03 17:56 | PCM.HP.2 ---
H&P History of Present Illness - General Date of Service: 06/03/19 Admit Problem/Dx: Admission Diagnosis/Problem Admission Diagnosis/Problem Cellulitis - History of Present Illness Initial Comments - Free Text/Narative: 84 y/o female with history of Raynaud's syndrome who presented from [facility] for worsening left foot pain. History obtained from patient and daughter who was in the room. Daughter states that superficial ulcers started appearing on patient's left foot mostly on the sole about 1 month ago. Patient had gone to her PCP for these sores and recommended to use Betadine on sores. However, it did not improve. She continued to get worsening sores. Endorses pain specially with palpation or movement 05/12. Tolerable with pain medication. No discharge. Some erythema and swelling on her left foot. In addition, she is complaining of a small right 5th digit sore that started a few days ago. In the ER, xrays of her left foot and right hand did not show air within the tissue. Osteomyelitis could not be excluded. In addition, she has a decubitus pressure ulcer. Left Feet Pain Score (Numeric/FACES): 9 - Related Data Allergies/Adverse Reactions: Allergies Allergy/AdvReac Type Severity Reaction Status Date / Time codeine Allergy Vomiting Verified 06/03/19 15:30 latex Allergy Rash Verified 06/03/19 15:30 morphine Allergy Difficulty Verified 06/03/19 15:30 Breathing oxycodone HCl [From Percocet] Allergy Vomiting Verified 06/03/19 15:30 Penicillins Allergy Anaphylactic Verified 06/03/19 15:30 Shock Sulfa (Sulfonamide Allergy Anaphylactic Verified 06/03/19 15:30 Antibiotics) Shock all pain meds Allergy Nausea Uncoded 06/03/19 15:30 Home Medications: Home Meds amLODIPine Besylate [Amlodipine Besylate] 10 mg PO DAILY 07/28/14 [History] Omeprazole Magnesium [Prilosec Otc] 20 mg PO ACBRK 08/01/14 [History] Promethazine [Phenergan] 25 mg PO Q6H PRN #30 tablet 08/04/14 [Rx] Denosumab [Prolia] 60 mg IM Q180D 02/28/16 [History] Levothyroxine [Synthroid] 88 mcg PO ACBREAKFAST 02/28/16 [History] Ondansetron HCl [Zofran] 4 mg PO Q8HR PRN #16 tablet 02/16/17 [Rx] traMADol [Ultram] 100 mg PO Q6H PRN #80 tablet 02/21/17 [Rx] Acetaminophen [Tylenol Extra Strength] 1,000 mg PO Q6H PRN tablet 04/02/17 [Rx] traMADol [Ultram] 100 mg PO Q6H PRN #80 tablet 04/05/17 [Rx] Past Medical History - Past Health History Medical/Surgical History: Denies Medical/Surgical History HEENT History: Reports: Cataract Other HEENT History: has upper denture and lower partial Cardiovascular History: Reports: None Respiratory History: Reports: None Gastrointestinal History: Reports: GERD, Irritable Bowel Syndrome, Other (See Below) Other Gastrointestinal History: IBS-Diarrhea Genitourinary History: Reports: Other (See Below) Other Genitourinary History: overactive bladder [employer] History: Reports: Musculoskeletal History: Reports: Arthritis Neurological History: Reports: Other (See Below) Other Neuro History: hx of motion sickness Psychiatric History: Reports: None Endocrine/Metabolic History: Reports: Hypothyroidism Hematologic History: Reports: None Immunologic History: Reports: Other (See Below) Other Immunologic History: CREST syndrome Oncologic (Cancer) History: Reports: None Dermatologic History: Reports: None, Other (See Below) Other Dermatologic History: Raynaud's Syndrome - Infectious Disease History Infectious Disease History: Reports: Chicken Pox, Measles, Mumps - Past Surgical History Head Surgeries/Procedures: Reports: None HEENT Surgical History: Reports: Cataract Surgery Female Surgical History: Reports: Hysterectomy Musculoskeletal Surgical History: Reports: Knee Replacement, ORIF, Shoulder Surgery Social & Family History - Family History Family Medical History: Noncontributory HEENT: Reports: Cataract Respiratory: Reports: COPD Musculoskeletal: Reports: Arthritis Psychiatric: Reports: Depression Endocrine/Metabolic: Reports: Diabetes, type II - Tobacco Use Smoking Status *Q: Never Smoker Second Hand Smoke Exposure: No - Caffeine Use Caffeine Use: Reports: None - Recreational Drug Use Recreational Drug Use: No H&P Review of Systems - Review of Systems: Review Of Systems: ROS reveals no pertinent complaints other than HPI. Exam - Exam Exam: See Below - Vital Signs Vital Signs: Last Vital Signs Temp 36.6 C 06/03/19 15:32 Pulse 89 06/03/19 15:32 Resp 18 06/03/19 15:32 BP 124/72 06/03/19 15:32 Pulse Ox 96 06/03/19 15:32 Weight: 48.988 kg - Patient Data Lab Results Last 24 hrs: Laboratory Results - last 24 hr 06/03/19 06/03/19 Range/Units 16:05 16:16 WBC 19.73 H (4.0-11.0) K/uL RBC 4.07 L (4.30-5.90) M/uL Hgb 12.2 (12.0-16.0) g/dL Hct 36.6 (36.0-46.0) % MCV 89.9 (80.0-98.0) fL MCH 30.0 (27.0-32.0) pg MCHC 33.3 (31.0-37.0) g/dL RDW Std Deviation 43.3 (28.0-62.0) fl RDW Coeff of Kari 13 (11.0-15.0) % Plt Count 409 H (150-400) K/uL MPV 9.30 (7.40-12.00) fL Neut % (Auto) 81.8 H (48.0-80.0) % Lymph % (Auto) 11.0 L (16.0-40.0) % [place] % (Auto) 5.1 (0.0-15.0) % Eos % (Auto) 1.9 (0.0-7.0) % Baso % (Auto) 0.2 (0.0-1.5) % Neut # (Auto) 16.2 H (1.4-5.7) K/uL Lymph # (Auto) 2.2 (0.6-2.4) K/uL [place] # (Auto) 1.0 H (0.0-0.8) K/uL Eos # (Auto) 0.4 (0.0-0.7) K/uL Baso # (Auto) 0.0 (0.0-0.1) K/uL Nucleated RBC % 0.0 /100WBC Nucleated RBCs # 0 K/uL Lactate 0.9 (0.20-2.00) mmol/L Result Diagrams: 06/03/19 16:05 06/03/19 16:05 Chan Results Last 24 hrs: Microbiology 11/01/19 16:16 Anaerobic Blood Culture - Final Blood - Venous - Lab Draw 06/03/19 16:05 Anaerobic Blood Culture - Final Blood - Venous Problem List Initiated/Reviewed/Updated: Yes Orders Last 24hrs: Active Orders 24 hr Category Date Time Status Patient Status [ADT] Stat ADT 06/03/19 17:14 Active Bedrest Bathroom Privileges [RC] ASDIRECTED Care 06/03/19 17:20 Active Intake and Output [RC] QSHIFT Care 06/03/19 17:20 Active Oxygen Therapy [RC] PRN Care 06/03/19 17:20 Active VTE/DVT Education [RC] PER UNIT ROUTINE Care 06/03/19 17:20 Active Vital Signs [RC] Q4H Care 06/03/19 17:20 Active Consult to Wound Care Services [CONS] Stat Cons 06/03/19 17:33 Active Regular Diet [DIET] Diet 06/03/19 Dinner Active Foot wo Cont Lt [MR] Stat Exams 06/03/19 17:29 Ordered Hand wo Cont Rt [MR] Stat Exams 06/03/19 17:31 Ordered COMPREHENSIVE METABOLIC PN,CMP [CHEM] Stat Lab 06/03/19 16:05 Received CULTURE BLOOD [BC] Stat Lab 06/03/19 16:05 Results CULTURE BLOOD [BC] Stat Lab 06/03/19 16:16 Results CULTURE WOUND [RM] Stat Lab 06/03/19 17:33 Ordered Acetaminophen [Tylenol] Med 06/03/19 17:20 Active 650 mg PO Q4H PRN Heparin Sodium Med 06/03/19 17:30 Active 5,000 units SUBCUT Q8H Ketorolac [Toradol] Med 06/03/19 17:27 Active 15 mg IVPUSH Q6H PRN Meropenem [Merrem] 1 gm Med 06/03/19 17:30 Active Sodium Chloride 0.9% [Normal Saline] 100 ml IV Q8H Pharmacy to Dose - Vancomycin Med 06/03/19 17:30 Pending 1 dose .XX ASDIRECTED Sodium Chloride 0.9% [Normal Saline] 1,000 ml Med 06/03/19 17:15 Active IV ASDIRECTED Sodium Chloride 0.9% [Saline Flush] Med 06/03/19 16:46 Active 10 ml FLUSH ASDIRECTED PRN Sodium Chloride 0.9% [Saline Flush] Med 06/03/19 16:46 Active 2.5 ml FLUSH ASDIRECTED PRN Vancomycin 1 gm Med 06/03/19 16:43 Active Sodium Chloride 0.9% [Normal Saline (AdvBag)] 250 ml IV ONETIME Blood Culture x2 Reflex Set [OM.PC] Stat Oth 06/03/19 15:40 Ordered Saline Lock Insert [OM.PC] Stat Oth 06/03/19 16:46 Ordered Resuscitation Status Routine Resus Stat 06/03/19 17:20 Ordered Medication Orders Acetaminophen (Tylenol) 650 mg PO Q4H PRN PRN Reason: Pain (Mild 1-3)/fever Heparin Sodium (Porcine) (Heparin Sodium) 5,000 units SUBCUT Q8H ANNA Vancomycin HCl 1 gm/ Sodium (Chloride) 250 mls @ 166 mls/hr IV ONETIME ONE Stop: 06/03/19 18:13 Last Admin: 06/03/19 17:25 Dose: 166 mls/hr Sodium Chloride (Normal Saline) 1,000 mls @ 125 mls/hr IV ASDIRECTED [facility] Last Admin: 06/03/19 17:25 Dose: 125 mls/hr Meropenem 1 gm/ Sodium (Chloride) 100 mls @ 200 mls/hr IV Q8H ANNA Ketorolac Tromethamine (Toradol) 15 mg IVPUSH Q6H PRN PRN Reason: Pain Sodium Chloride (Saline Flush) 10 ml FLUSH ASDIRECTED PRN PRN Reason: Keep Vein Open Last Admin: 06/03/19 17:26 Dose: 10 ml Sodium Chloride (Saline Flush) 2.5 ml FLUSH ASDIRECTED PRN PRN Reason: Keep Vein Open Last Admin: 06/03/19 17:25 Dose: 2.5 ml Vancomycin HCl (Pharmacy To Dose - Vancomycin) 1 dose .XX ASDIRECTED [facility] Assessment/Plan Comment:: A: 1. Suspected osteomyelitis 2. Decubitus ulcer 3. Hyponatremia 4. Leukocytosis 5. PMH Raynaud's syndrome, hypothyroidism P: 1. Will treat with vancomycin and Meropenem since patient has allergy to penicillins. In addition, will get MRI left foot and right hand to further assess for osteomyelitis. Pain management and wound care consult. Pending on imaging results, will make consult to ortho or surgery. Maintenance fluids at 100 ml/hr. Will continue home meds for raynaud's and hypothyroidism. dispo: 2-3 days
[2019-06-03 18:39] LABS: BLOOD UREA NITROGEN,BUN 16 mg/dL (7.0-18.0); CARBON DIOXIDE,CO2 16.7 mmol/L (21.0-32.0); CHLORIDE,CL 96 mmol/L (98-107); GLUCOSE RANDOM 82 mg/dL (74-106); POTASSIUM,K 4.6 mmol/L (3.5-5.1); SODIUM,NA 128 mmol/L (136-145)
[2019-06-03] MEDS ORDERED: Promethazine 25 MG Tab PO PRN (19:08)
[2019-06-03 19:25] LABS: HEMOGLOBIN A1C 5.5 % (4.5-6.2)
[2019-06-03] MEDS: Enoxaparin 40 MG/0.4 ML Syringe SUBCUT SCH (19:33)
[2019-06-03] MEDS: Ketorolac 30 MG/ML SDV IVPUSH PRN (19:34)
[2019-06-03] MEDS: Meropenem 1 GM in Sodium Chloride 0.9% 100 ML IV SCH (20:32)
[2019-06-03] MEDS: Acetaminophen 325 MG Tab PO PRN (22:25)
[2019-06-04] MEDS: Ketorolac 30 MG/ML SDV IVPUSH PRN ×4 (01:34→21:52)
[2019-06-04] MEDS: Sodium Chloride 0.9% 1,000 ML IV SCH ×2 (03:58→13:49)
[2019-06-04] MEDS: Meropenem 1 GM in Sodium Chloride 0.9% 100 ML IV SCH (04:03)
[2019-06-04] MEDS: Acetaminophen 325 MG Tab PO PRN ×3 (04:09→22:20)
[2019-06-04] MEDS: Levothyroxine 88 MCG Tab PO SCH (06:32)
[2019-06-04] MEDS: traMADol 50 MG Tab PO PRN (07:00)
[2019-06-04 07:01] LABS: BLOOD UREA NITROGEN,BUN 12 mg/dL (7.0-18.0); CARBON DIOXIDE,CO2 22.6 mmol/L (21.0-32.0); CHLORIDE,CL 105 mmol/L (98-107); GLUCOSE RANDOM 78 mg/dL (74-106); SODIUM,NA 139 mmol/L (136-145)
[2019-06-04] MEDS ORDERED: amLODIPine 5 MG Tab PO SCH (09:00)
--- NOTE | 2019-06-04 09:43 | PCM.CONS ---
H&P History of Present Illness - General Date of Service: 06/04/19 Admit Problem/Dx: Admission Diagnosis/Problem Admission Diagnosis/Problem Cellulitis Left heel, ball of foot and left fourth toe ulcers Source of Information: Patient History Limitations: Reports: No Limitations - History of Present Illness Duration of Symptoms: Reports: Week(s): Location: Reports: Lower Extremity, Left Quality: Reports: Pressure, Throbbing Severity: Moderate Improves with: Reports: Rest Worsens with: Reports: Movement Associated Symptoms: Denies: Fever/Chills Left Feet Pain Score (Numeric/FACES): 9 - Related Data Allergies/Adverse Reactions: Allergies Allergy/AdvReac Type Severity Reaction Status Date / Time codeine Allergy Vomiting Verified 06/03/19 15:30 latex Allergy Rash Verified 06/03/19 15:30 morphine Allergy Difficulty Verified 06/03/19 15:30 Breathing oxycodone HCl [From Percocet] Allergy Vomiting Verified 06/03/19 15:30 Penicillins Allergy Anaphylactic Verified 06/03/19 15:30 Shock Sulfa (Sulfonamide Allergy Anaphylactic Verified 06/03/19 15:30 Antibiotics) Shock all pain meds Allergy Nausea Uncoded 06/03/19 15:30 Home Medications: Home Meds Omeprazole Magnesium [Prilosec Otc] 20 mg PO ACBRK 08/01/14 [History] Promethazine [Phenergan] 25 mg PO Q6H PRN #30 tablet 08/04/14 [Rx] Denosumab [Prolia] 60 mg IM Q180D 02/28/16 [History] Levothyroxine [Synthroid] 88 mcg PO ACBREAKFAST 02/28/16 [History] Ondansetron HCl [Zofran] 4 mg PO Q8HR PRN #16 tablet 02/16/17 [Rx] traMADol [Ultram] 100 mg PO Q6H PRN #80 tablet 02/21/17 [Rx] Acetaminophen [Tylenol Extra Strength] 1,000 mg PO Q6H PRN tablet 04/02/17 [Rx] Bisacodyl 10 mg RC DAILY PRN 06/03/19 [History] Cetirizine HCl 10 mg PO BEDTIME 06/03/19 [History] Loperamide HCl [Imodium A-D] 4 mg PO Q6H PRN 06/03/19 [History] Oxybutynin Chloride 5 mg PO BID 06/03/19 [History] Pedi Mv No.79/Ferrous Fumarate [Flintstones with Iron Tab Chew] 1 tab PO DAILY 06/03/19 [History] amLODIPine Besylate [Norvasc] 2.5 mg PO DAILY 06/03/19 [History] Past Medical History - Past Health History Medical/Surgical History: Denies Medical/Surgical History HEENT History: Reports: Cataract Other HEENT History: has upper denture and lower partial Cardiovascular History: Reports: None Respiratory History: Reports: None Gastrointestinal History: Reports: GERD, Irritable Bowel Syndrome, Other (See Below) Other Gastrointestinal History: IBS-Diarrhea Genitourinary History: Reports: Other (See Below) Other Genitourinary History: overactive bladder [employer] History: Reports: Musculoskeletal History: Reports: Arthritis Neurological History: Reports: Other (See Below) Other Neuro History: hx of motion sickness Psychiatric History: Reports: None Endocrine/Metabolic History: Reports: Hypothyroidism Hematologic History: Reports: None Immunologic History: Reports: Other (See Below) Other Immunologic History: CREST syndrome Oncologic (Cancer) History: Reports: None Dermatologic History: Reports: None, Other (See Below) Other Dermatologic History: Raynaud's Syndrome - Infectious Disease History Infectious Disease History: Reports: Chicken Pox, Measles, Mumps - Past Surgical History Head Surgeries/Procedures: Reports: None HEENT Surgical History: Reports: Cataract Surgery Female Surgical History: Reports: Hysterectomy Musculoskeletal Surgical History: Reports: Knee Replacement, ORIF, Shoulder Surgery Social & Family History - Family History Family Medical History: Noncontributory HEENT: Reports: Cataract Respiratory: Reports: COPD Musculoskeletal: Reports: Arthritis Psychiatric: Reports: Depression Endocrine/Metabolic: Reports: Diabetes, type II - Tobacco Use Smoking Status *Q: Never Smoker Years of Tobacco use: 40 Used Tobacco, but Quit: Yes Month/Year Tobacco Last Used: 45 years ago Second Hand Smoke Exposure: No - Caffeine Use Caffeine Use: Reports: None - Recreational Drug Use Recreational Drug Use: No H&P Review of Systems - Review of Systems: Review Of Systems: See Below General: Reports: Weakness. Denies: Fever, Chills, Malaise, Fatigue HEENT: Reports: No Symptoms Pulmonary: Denies: Shortness of Breath, Wheezing Cardiovascular: Denies: Chest Pain, Palpitations Gastrointestinal: Denies: Abdominal Pain, Anorexia, Black Stool, Bloody Stool Genitourinary: Denies: Dysuria, Frequency, Burning, Pain Musculoskeletal: Reports: Other (Left heel, ball of foot and fourth toe ulcerations with infection.) Skin: Reports: Pallor, Erythema, Wound. Denies: Cyanosis, Jaundice, Diaphoresis , Dryness, Bruising Psychiatric: Denies: Confusion, Depression, Mood Lability, Anxiety Neurological: Denies: Confusion, Dizziness, Headache, Numbness Hematologic/Lymphatic: Reports: No Symptoms Immunologic: Reports: No Symptoms Exam - Exam Exam: See Below - Vital Signs Vital Signs: Last Vital Signs Temp 99.1 F 06/04/19 07:31 Pulse 100 06/04/19 07:31 Resp 18 06/04/19 07:31 BP 140/70 06/04/19 08:44 Pulse Ox 94 L 06/04/19 07:31 Weight: 108 lb - Exam Quality Assessment: No: Supplemental Oxygen, Central Line/PICC, Urinary Catheter General: Alert, Oriented, Cooperative, Mild Distress HEENT: Conjunctiva Clear, EACs Clear, EOMI, Nares Patent, Pupils Equal, Pupils Reactive Neck: Supple, Trachea Midline Lungs: Clear to Auscultation, Normal Respiratory Effort Cardiovascular: Regular Rate, Regular Rhythm, Normal S1, Normal S2 GI/Abdominal Exam: Normal Bowel Sounds, Soft, Non-Tender, No Organomegaly, No Distention, No Abnormal Bruit, No Mass, Pelvis Stable (Female) Exam: Deferred Rectal (Female) Exam: Deferred Back Exam: Normal Inspection Extremities: Other (Left foot is mildly edematous. She has a large left heel ulcer, 3 ulcers on the bottom of her foot and a left fourth toe ulceration.) Peripheral Pulses: 3+: Posterior Tibial (L), Posterior Tibial (R), Dorsalis Pedis (L), Dorsalis Pedis (R) Skin: Warm, Dry, Decubitis (left heel, ball of left foot) Neuro Extensive - Mental Status: Alert, Oriented x3, Normal Mood/Affect, Normal Cognition Psychiatric: Alert, Normal Affect, Normal Mood - Patient Data Lab Results Last 24 hrs: Laboratory Results - last 24 hr 06/03/19 06/03/19 06/03/19 Range/Units 16:05 16:05 16:05 WBC 19.73 H (4.0-11.0) K/uL RBC 4.07 L (4.30-5.90) M/uL Hgb 12.2 (12.0-16.0) g/dL Hct 36.6 (36.0-46.0) % MCV 89.9 (80.0-98.0) fL MCH 30.0 (27.0-32.0) pg MCHC 33.3 (31.0-37.0) g/dL RDW Std Deviation 43.3 (28.0-62.0) fl RDW Coeff of Kari 13 (11.0-15.0) % Plt Count 409 H (150-400) K/uL MPV 9.30 (7.40-12.00) fL Neut % (Auto) 81.8 H (48.0-80.0) % Lymph % (Auto) 11.0 L (16.0-40.0) % [place] % (Auto) 5.1 (0.0-15.0) % Eos % (Auto) 1.9 (0.0-7.0) % Baso % (Auto) 0.2 (0.0-1.5) % Neut # (Auto) 16.2 H (1.4-5.7) K/uL Lymph # (Auto) 2.2 (0.6-2.4) K/uL [place] # (Auto) 1.0 H (0.0-0.8) K/uL Eos # (Auto) 0.4 (0.0-0.7) K/uL Baso # (Auto) 0.0 (0.0-0.1) K/uL Nucleated RBC % 0.0 /100WBC Nucleated RBCs # 0 K/uL ESR (0-29) mm/hr Lactate (0.20-2.00) mmol/L Sodium 128 L (136-145) mmol/L Potassium 4.6 (3.5-5.1) mmol/L Chloride 96 L (98-107) mmol/L Carbon Dioxide 16.7 L (21.0-32.0) mmol/L BUN 16 (7.0-18.0) mg/dL Creatinine 0.8 (0.6-1.0) mg/dL Est Cr Clr Drug Dosing 40.21 mL/min Estimated GFR (MDRD) > 60.0 ml/min Glucose 82 (74-106) mg/dL Hemoglobin A1c 5.5 (4.5-6.2) % Calcium 8.8 (8.5-10.1) mg/dL Total Bilirubin 0.6 (0.2-1.0) mg/dL AST 27 (15-37) IU/L ALT 15 (14-63) IU/L Alkaline Phosphatase 158 H (46-116) U/L C-Reactive Protein (0.00-0.90) mg/dL Total Protein 6.8 (6.4-8.2) g/dL Albumin 2.8 L (3.4-5.0) g/dL Globulin 4.0 (2.6-4.0) g/dL Albumin/Globulin Ratio 0.7 L (0.9-1.6) Urine Color Urine Appearance Urine pH (5.0-8.0) Ur Specific Cook (1.001-1.035) Urine Protein (NEGATIVE) mg/dL Urine Glucose (UA) (NEGATIVE) mg/dL Urine Ketones (NEGATIVE) mg/dL Urine Occult Blood (NEGATIVE) Urine Nitrite (NEGATIVE) Urine Bilirubin (NEGATIVE) Urine Urobilinogen (<2.0) EU/dL Ur Leukocyte Esterase (NEGATIVE) Urine RBC (0-2/HPF) Urine WBC (0-5/HPF) Ur Epithelial Cells (NONE-FEW) Urine Bacteria (NEGATIVE) 06/03/19 06/03/19 06/03/19 Range/Units 16:16 16:16 16:16 WBC (4.0-11.0) K/uL RBC (4.30-5.90) M/uL Hgb (12.0-16.0) g/dL Hct (36.0-46.0) % MCV (80.0-98.0) fL MCH (27.0-32.0) pg MCHC (31.0-37.0) g/dL RDW Std Deviation (28.0-62.0) fl RDW Coeff of Kari (11.0-15.0) % Plt Count (150-400) K/uL MPV (7.40-12.00) fL Neut % (Auto) (48.0-80.0) % Lymph % (Auto) (16.0-40.0) % [place] % (Auto) (0.0-15.0) % Eos % (Auto) (0.0-7.0) % Baso % (Auto) (0.0-1.5) % Neut # (Auto) (1.4-5.7) K/uL Lymph # (Auto) (0.6-2.4) K/uL [place] # (Auto) (0.0-0.8) K/uL Eos # (Auto) (0.0-0.7) K/uL Baso # (Auto) (0.0-0.1) K/uL Nucleated RBC % /100WBC Nucleated RBCs # K/uL ESR 44 H (0-29) mm/hr Lactate 0.9 (0.20-2.00) mmol/L Sodium (136-145) mmol/L Potassium (3.5-5.1) mmol/L Chloride (98-107) mmol/L Carbon Dioxide (21.0-32.0) mmol/L BUN (7.0-18.0) mg/dL Creatinine (0.6-1.0) mg/dL Est Cr Clr Drug Dosing mL/min Estimated GFR (MDRD) ml/min Glucose (74-106) mg/dL Hemoglobin A1c (4.5-6.2) % Calcium (8.5-10.1) mg/dL Total Bilirubin (0.2-1.0) mg/dL AST (15-37) IU/L ALT (14-63) IU/L Alkaline Phosphatase (46-116) U/L C-Reactive Protein 10.80 H (0.00-0.90) mg/dL Total Protein (6.4-8.2) g/dL Albumin (3.4-5.0) g/dL Globulin (2.6-4.0) g/dL Albumin/Globulin Ratio (0.9-1.6) Urine Color Urine Appearance Urine pH (5.0-8.0) Ur Specific Cook (1.001-1.035) Urine Protein (NEGATIVE) mg/dL Urine Glucose (UA) (NEGATIVE) mg/dL Urine Ketones (NEGATIVE) mg/dL Urine Occult Blood (NEGATIVE) Urine Nitrite (NEGATIVE) Urine Bilirubin (NEGATIVE) Urine Urobilinogen (<2.0) EU/dL Ur Leukocyte Esterase (NEGATIVE) Urine RBC (0-2/HPF) Urine WBC (0-5/HPF) Ur Epithelial Cells (NONE-FEW) Urine Bacteria (NEGATIVE) 06/03/19 06/04/19 06/04/19 Range/Units 22:15 06:20 06:20 WBC 14.92 H (4.0-11.0) K/uL RBC 3.75 L (4.30-5.90) M/uL Hgb 11.1 L (12.0-16.0) g/dL Hct 33.9 L (36.0-46.0) % MCV 90.4 (80.0-98.0) fL MCH 29.6 (27.0-32.0) pg MCHC 32.7 (31.0-37.0) g/dL RDW Std Deviation 43.4 (28.0-62.0) fl RDW Coeff of Kari 13 (11.0-15.0) % Plt Count 367 (150-400) K/uL MPV 9.10 (7.40-12.00) fL Neut % (Auto) 80.6 H (48.0-80.0) % Lymph % (Auto) 9.9 L (16.0-40.0) % [place] % (Auto) 6.9 (0.0-15.0) % Eos % (Auto) 2.4 (0.0-7.0) % Baso % (Auto) 0.2 (0.0-1.5) % Neut # (Auto) 12.0 H (1.4-5.7) K/uL Lymph # (Auto) 1.5 (0.6-2.4) K/uL [place] # (Auto) 1.0 H (0.0-0.8) K/uL Eos # (Auto) 0.4 (0.0-0.7) K/uL Baso # (Auto) 0.0 (0.0-0.1) K/uL Nucleated RBC % 0.0 /100WBC Nucleated RBCs # 0 K/uL ESR 26 (0-29) mm/hr Lactate (0.20-2.00) mmol/L Sodium 139 (136-145) mmol/L Potassium 4.0 (3.5-5.1) mmol/L Chloride 105 (98-107) mmol/L Carbon Dioxide 22.6 (21.0-32.0) mmol/L BUN 12 (7.0-18.0) mg/dL Creatinine 0.8 (0.6-1.0) mg/dL Est Cr Clr Drug Dosing 40.21 mL/min Estimated GFR (MDRD) > 60.0 ml/min Glucose 78 (74-106) mg/dL Hemoglobin A1c (4.5-6.2) % Calcium 8.1 L (8.5-10.1) mg/dL Total Bilirubin 0.3 (0.2-1.0) mg/dL AST 16 (15-37) IU/L ALT 13 L (14-63) IU/L Alkaline Phosphatase 134 H (46-116) U/L C-Reactive Protein 9.60 H (0.00-0.90) mg/dL Total Protein 5.6 L (6.4-8.2) g/dL Albumin 2.3 L (3.4-5.0) g/dL Globulin 3.3 (2.6-4.0) g/dL Albumin/Globulin Ratio 0.7 L (0.9-1.6) Urine Color YELLOW Urine Appearance CLOUDY Urine pH 6.0 (5.0-8.0) Ur Specific Cook <= 1.005 (1.001-1.035) Urine Protein NEGATIVE (NEGATIVE) mg/dL Urine Glucose (UA) NEGATIVE (NEGATIVE) mg/dL Urine Ketones NEGATIVE (NEGATIVE) mg/dL Urine Occult Blood TRACE-INTACT H (NEGATIVE) Urine Nitrite POSITIVE H (NEGATIVE) Urine Bilirubin NEGATIVE (NEGATIVE) Urine Urobilinogen 0.2 (<2.0) EU/dL Ur Leukocyte Esterase MODERATE H (NEGATIVE) Urine RBC 0-3 (0-2/HPF) Urine WBC 42-51 (0-5/HPF) Ur Epithelial Cells RARE (NONE-FEW) Urine Bacteria 1+ H (NEGATIVE) Result Diagrams: 06/04/19 06:20 06/04/19 06:20 Chan Results Last 24 hrs: Microbiology 06/03/19 16:16 Anaerobic Blood Culture - Final Blood - Venous - Lab Draw 06/03/19 16:05 Anaerobic Blood Culture - Final Blood - Venous Consult PN Assessment/Plan Procedures: Procedures ACUTE HEPATITIS PANEL (04/03/17) ASSAY OF AMYLASE (04/03/17) ASSAY OF IRON (04/03/17) ASSAY OF LACTIC ACID (04/03/17) ASSAY OF LIPASE (04/03/17) BLOOD CULTURE FOR BACTERIA (04/03/17) BLOOD TYPING SEROLOGIC ABO (07/31/14) BLOOD TYPING SEROLOGIC RH(D) (07/31/14) BODY FLUID CELL COUNT (08/28/17) C-REACTIVE PROTEIN (04/03/17) CHEST X-RAY 1 VIEW FRONTAL (04/03/17) COMPATIBILITY TEST ANTIGLOB (07/31/14) COMPATIBILITY TEST INCUBATE (07/31/14) COMPATIBILITY TEST SPIN (07/31/14) COMPLETE CBC AUTOMATED (11/30/15) COMPLETE CBC W/AUTO DIFF WBC (04/03/17) COMPREHEN METABOLIC PANEL (04/03/17) CT LOWER EXTREMITY W/DYE (10/29/16) CT LOWER EXTREMITY W/O DYE (02/19/17) CULTR BACTERIA EXCEPT BLOOD (03/29/16) CULTURE OTHR SPECIMN AEROBIC (08/28/17) CYTOPATH FL NONGYN SMEARS (08/28/17) OMID MUSC/FASCIA 20 SQ CM/< (02/29/16) OMID SUBQ TISSUE 20 SQ CM/< (11/30/15) DECALCIFY TISSUE (07/31/14) ECHO EXAM OF ABDOMEN (04/03/17) ECHO GUIDE FOR BIOPSY (08/28/17) ELECTROCARDIOGRAM TRACING (11/30/15) EMERGENCY DEPT VISIT (04/03/17) EMERGENCY DEPT VISIT (02/16/17) EXAM SYNOVIAL FLUID CRYSTALS (08/28/17) EXTREMITY STUDY (04/02/16) FLUOROSCOPY <1 HR PHYS/QHP (06/23/14) FUNGUS ISOLATION CULTURE (08/28/17) GAIT TRAINING THERAPY (10/27/14) HEMATOCRIT (07/31/14) HEMOGLOBIN (07/31/14) HOT OR COLD PACKS THERAPY (10/27/14) HYDRATE IV INFUSION ADD-ON (04/03/17) INSJ PICC 5 YR+ W/O IMAGING (03/30/17) LEG SURGERY PROCEDURE (07/31/14) METABOLIC PANEL TOTAL CA (03/30/17) MRI JNT OF LWR EXTRE W/O DYE (06/24/14) OFFICE/OUTPATIENT VISIT EST (03/31/16) OFFICE/OUTPATIENT VISIT EST (10/31/14) PROTHROMBIN TIME (04/03/17) PT EVALUATION (09/01/14) PUNCTURE DRAINAGE OF LESION (08/28/17) RBC ANTIBODY SCREEN (07/31/14) RBC SED RATE AUTOMATED (04/03/17) REMOVAL OF SUPPORT IMPLANT (06/23/14) ROUTINE VENIPUNCTURE (04/03/17) SMEAR GRAM STAIN (08/28/17) THER/PROPH/DIAG INJ IV PUSH (04/03/17) THER/PROPH/DIAG INJ SC/IM (03/29/16) THER/PROPH/DIAG IV INF INIT (02/16/17) THERAPEUTIC EXERCISES (10/27/14) TISSUE EXAM BY PATHOLOGIST (07/31/14) TOTAL KNEE ARTHROPLASTY (07/31/14) TX/PRO/DX INJ NEW DRUG ADDON (04/03/17) TX/PRO/DX INJ SAME DRUG GREEN COFFEE BLENDER (04/03/17) URINALYSIS AUTO W/SCOPE (07/31/14) URINE BACTERIA CULTURE (07/31/14) US GUIDE VASCULAR ACCESS (03/30/17) VASOPNEUMATIC DEVICE THERAPY (09/28/14) X-RAY EXAM KNEE 4 OR MORE (02/28/16) X-RAY EXAM OF ANKLE (06/22/14) X-RAY EXAM OF FOOT (11/07/13) X-RAY EXAM OF KNEE 1 OR 2 (04/03/17) X-RAY EXAM OF KNEE 3 (03/30/17) X-RAY EXAM OF LOWER LEG (03/29/16) (1) Decubitus ulcer of heel, left, unstageable SNOMED Code(s): 102879547 Code(s): L89.620 - PRESSURE ULCER OF LEFT HEEL, UNSTAGEABLE Priority: High Current Visit: Yes (2) Decubitus ulcer of left foot, unstageable SNOMED Code(s): 97228605, 134863143, [id number] Code(s): L89.890 - PRESSURE ULCER OF OTHER SITE, UNSTAGEABLE Priority: High Current Visit: Yes (3) Cellulitis SNOMED Code(s): 979861849 Code(s): L03.90 - CELLULITIS, UNSPECIFIED Priority: Medium Current Visit : Yes Qualifiers: Site of cellulitis: other site Qualified Code(s): L03.818 - Cellulitis of other sites Problem List Initiated/Reviewed/Updated: Yes Plan: Triple phase bone scan. Ankle brachial indices bilaterally. CT or MRI of left foot to look for deep infection/osteomyelitis. Podiatry consult.
[2019-06-04] MEDS ORDERED: Meropenem Premix 1 GM in Premix Bag 1 BAG IV SCH (09:56)
--- NOTE | 2019-06-04 10:10 | PCM.PN ---
- General Info Date of Service: 06/04/19 Subjective Update: no acute events overnight. doing well. States she has some moderate left foot pain. Denies any chest pain, dyspnea, abdominal pain. - Patient Data Vitals - Most Recent: Last Vital Signs Temp 37.3 C 06/04/19 07:31 Pulse 100 06/04/19 07:31 Resp 18 06/04/19 07:31 BP 140/70 06/04/19 08:44 Pulse Ox 94 L 06/04/19 07:31 Weight - Most Recent: 48.988 kg I&O - Last 24 Hours: Intake & Output 06/03/19 06/04/19 06/04/19 22:59 06:59 14:59 Intake Total 500 Output Total 500 Balance 0 Lab Results Last 24 Hours: Laboratory Results - last 24 hr 06/03/19 06/03/19 06/03/19 Range/Units 16:05 16:05 16:05 WBC 19.73 H (4.0-11.0) K/uL RBC 4.07 L (4.30-5.90) M/uL Hgb 12.2 (12.0-16.0) g/dL Hct 36.6 (36.0-46.0) % MCV 89.9 (80.0-98.0) fL MCH 30.0 (27.0-32.0) pg MCHC 33.3 (31.0-37.0) g/dL RDW Std Deviation 43.3 (28.0-62.0) fl RDW Coeff of Kari 13 (11.0-15.0) % Plt Count 409 H (150-400) K/uL MPV 9.30 (7.40-12.00) fL Neut % (Auto) 81.8 H (48.0-80.0) % Lymph % (Auto) 11.0 L (16.0-40.0) % Waller % (Auto) 5.1 (0.0-15.0) % Eos % (Auto) 1.9 (0.0-7.0) % Baso % (Auto) 0.2 (0.0-1.5) % Neut # (Auto) 16.2 H (1.4-5.7) K/uL Lymph # (Auto) 2.2 (0.6-2.4) K/uL Waller # (Auto) 1.0 H (0.0-0.8) K/uL Eos # (Auto) 0.4 (0.0-0.7) K/uL Baso # (Auto) 0.0 (0.0-0.1) K/uL Nucleated RBC % 0.0 /100WBC Nucleated RBCs # 0 K/uL ESR (0-29) mm/hr Lactate (0.20-2.00) mmol/L Sodium 128 L (136-145) mmol/L Potassium 4.6 (3.5-5.1) mmol/L Chloride 96 L (98-107) mmol/L Carbon Dioxide 16.7 L (21.0-32.0) mmol/L BUN 16 (7.0-18.0) mg/dL Creatinine 0.8 (0.6-1.0) mg/dL Est Cr Clr Drug Dosing 40.21 mL/min Estimated GFR (MDRD) > 60.0 ml/min Glucose 82 (74-106) mg/dL Hemoglobin A1c 5.5 (4.5-6.2) % Calcium 8.8 (8.5-10.1) mg/dL Total Bilirubin 0.6 (0.2-1.0) mg/dL AST 27 (15-37) IU/L ALT 15 (14-63) IU/L Alkaline Phosphatase 158 H (46-116) U/L C-Reactive Protein (0.00-0.90) mg/dL Total Protein 6.8 (6.4-8.2) g/dL Albumin 2.8 L (3.4-5.0) g/dL Globulin 4.0 (2.6-4.0) g/dL Albumin/Globulin Ratio 0.7 L (0.9-1.6) Urine Color Urine Appearance Urine pH (5.0-8.0) Ur Specific Occidental (1.001-1.035) Urine Protein (NEGATIVE) mg/dL Urine Glucose (UA) (NEGATIVE) mg/dL Urine Ketones (NEGATIVE) mg/dL Urine Occult Blood (NEGATIVE) Urine Nitrite (NEGATIVE) Urine Bilirubin (NEGATIVE) Urine Urobilinogen (<2.0) EU/dL Ur Leukocyte Esterase (NEGATIVE) Urine RBC (0-2/HPF) Urine WBC (0-5/HPF) Ur Epithelial Cells (NONE-FEW) Urine Bacteria (NEGATIVE) 06/03/19 06/03/19 06/03/19 Range/Units 16:16 16:16 16:16 WBC (4.0-11.0) K/uL RBC (4.30-5.90) M/uL Hgb (12.0-16.0) g/dL Hct (36.0-46.0) % MCV (80.0-98.0) fL MCH (27.0-32.0) pg MCHC (31.0-37.0) g/dL RDW Std Deviation (28.0-62.0) fl RDW Coeff of Kari (11.0-15.0) % Plt Count (150-400) K/uL MPV (7.40-12.00) fL Neut % (Auto) (48.0-80.0) % Lymph % (Auto) (16.0-40.0) % Waller % (Auto) (0.0-15.0) % Eos % (Auto) (0.0-7.0) % Baso % (Auto) (0.0-1.5) % Neut # (Auto) (1.4-5.7) K/uL Lymph # (Auto) (0.6-2.4) K/uL Waller # (Auto) (0.0-0.8) K/uL Eos # (Auto) (0.0-0.7) K/uL Baso # (Auto) (0.0-0.1) K/uL Nucleated RBC % /100WBC Nucleated RBCs # K/uL ESR 44 H (0-29) mm/hr Lactate 0.9 (0.20-2.00) mmol/L Sodium (136-145) mmol/L Potassium (3.5-5.1) mmol/L Chloride (98-107) mmol/L Carbon Dioxide (21.0-32.0) mmol/L BUN (7.0-18.0) mg/dL Creatinine (0.6-1.0) mg/dL Est Cr Clr Drug Dosing mL/min Estimated GFR (MDRD) ml/min Glucose (74-106) mg/dL Hemoglobin A1c (4.5-6.2) % Calcium (8.5-10.1) mg/dL Total Bilirubin (0.2-1.0) mg/dL AST (15-37) IU/L ALT (14-63) IU/L Alkaline Phosphatase (46-116) U/L C-Reactive Protein 10.80 H (0.00-0.90) mg/dL Total Protein (6.4-8.2) g/dL Albumin (3.4-5.0) g/dL Globulin (2.6-4.0) g/dL Albumin/Globulin Ratio (0.9-1.6) Urine Color Urine Appearance Urine pH (5.0-8.0) Ur Specific Occidental (1.001-1.035) Urine Protein (NEGATIVE) mg/dL Urine Glucose (UA) (NEGATIVE) mg/dL Urine Ketones (NEGATIVE) mg/dL Urine Occult Blood (NEGATIVE) Urine Nitrite (NEGATIVE) Urine Bilirubin (NEGATIVE) Urine Urobilinogen (<2.0) EU/dL Ur Leukocyte Esterase (NEGATIVE) Urine RBC (0-2/HPF) Urine WBC (0-5/HPF) Ur Epithelial Cells (NONE-FEW) Urine Bacteria (NEGATIVE) 06/03/19 06/04/19 06/04/19 Range/Units 22:15 06:20 06:20 WBC 14.92 H (4.0-11.0) K/uL RBC 3.75 L (4.30-5.90) M/uL Hgb 11.1 L (12.0-16.0) g/dL Hct 33.9 L (36.0-46.0) % MCV 90.4 (80.0-98.0) fL MCH 29.6 (27.0-32.0) pg MCHC 32.7 (31.0-37.0) g/dL RDW Std Deviation 43.4 (28.0-62.0) fl RDW Coeff of Kari 13 (11.0-15.0) % Plt Count 367 (150-400) K/uL MPV 9.10 (7.40-12.00) fL Neut % (Auto) 80.6 H (48.0-80.0) % Lymph % (Auto) 9.9 L (16.0-40.0) % Waller % (Auto) 6.9 (0.0-15.0) % Eos % (Auto) 2.4 (0.0-7.0) % Baso % (Auto) 0.2 (0.0-1.5) % Neut # (Auto) 12.0 H (1.4-5.7) K/uL Lymph # (Auto) 1.5 (0.6-2.4) K/uL Waller # (Auto) 1.0 H (0.0-0.8) K/uL Eos # (Auto) 0.4 (0.0-0.7) K/uL Baso # (Auto) 0.0 (0.0-0.1) K/uL Nucleated RBC % 0.0 /100WBC Nucleated RBCs # 0 K/uL ESR 26 (0-29) mm/hr Lactate (0.20-2.00) mmol/L Sodium 139 (136-145) mmol/L Potassium 4.0 (3.5-5.1) mmol/L Chloride 105 (98-107) mmol/L Carbon Dioxide 22.6 (21.0-32.0) mmol/L BUN 12 (7.0-18.0) mg/dL Creatinine 0.8 (0.6-1.0) mg/dL Est Cr Clr Drug Dosing 40.21 mL/min Estimated GFR (MDRD) > 60.0 ml/min Glucose 78 (74-106) mg/dL Hemoglobin A1c (4.5-6.2) % Calcium 8.1 L (8.5-10.1) mg/dL Total Bilirubin 0.3 (0.2-1.0) mg/dL AST 16 (15-37) IU/L ALT 13 L (14-63) IU/L Alkaline Phosphatase 134 H (46-116) U/L C-Reactive Protein 9.60 H (0.00-0.90) mg/dL Total Protein 5.6 L (6.4-8.2) g/dL Albumin 2.3 L (3.4-5.0) g/dL Globulin 3.3 (2.6-4.0) g/dL Albumin/Globulin Ratio 0.7 L (0.9-1.6) Urine Color YELLOW Urine Appearance CLOUDY Urine pH 6.0 (5.0-8.0) Ur Specific Occidental <= 1.005 (1.001-1.035) Urine Protein NEGATIVE (NEGATIVE) mg/dL Urine Glucose (UA) NEGATIVE (NEGATIVE) mg/dL Urine Ketones NEGATIVE (NEGATIVE) mg/dL Urine Occult Blood TRACE-INTACT H (NEGATIVE) Urine Nitrite POSITIVE H (NEGATIVE) Urine Bilirubin NEGATIVE (NEGATIVE) Urine Urobilinogen 0.2 (<2.0) EU/dL Ur Leukocyte Esterase MODERATE H (NEGATIVE) Urine RBC 0-3 (0-2/HPF) Urine WBC 42-51 (0-5/HPF) Ur Epithelial Cells RARE (NONE-FEW) Urine Bacteria 1+ H (NEGATIVE) Chan Results Last 24 Hours: Microbiology 06/03/19 16:16 Anaerobic Blood Culture - Final Blood - Venous - Lab Draw 06/03/19 16:05 Anaerobic Blood Culture - Final Blood - Venous Med Orders - Current: Current Medications Acetaminophen (Tylenol) 650 mg PO Q4H PRN PRN Reason: Pain (Mild 1-3)/fever Last Admin: 06/04/19 04:09 Dose: 650 mg Amlodipine Besylate (Norvasc) 10 mg PO DAILY COUNTS INCLUDE 234 BEDS AT THE [facility] Last Admin: 06/04/19 08:44 Dose: Not Given Enoxaparin Sodium (Lovenox) 40 mg SUBCUT Q24H COUNTS INCLUDE 234 BEDS AT THE [facility] Last Admin: 06/03/19 19:33 Dose: 40 mg Sodium Chloride (Normal Saline) 1,000 mls @ 75 mls/hr IV ASDIRECTED COUNTS INCLUDE 234 BEDS AT THE [facility] Last Admin: 06/04/19 03:58 Dose: 125 mls/hr Vancomycin HCl 0.75 gm/ Sodium (Chloride) 250 mls @ 166.667 mls/hr IV Q24H COUNTS INCLUDE 234 BEDS AT THE [facility] Meropenem/Sodium Chloride 1 gm (/ Premix) 50 mls @ 100 mls/hr IV Q8H COUNTS INCLUDE 234 BEDS AT THE [facility] Ketorolac Tromethamine (Toradol) 15 mg IVPUSH Q6H PRN PRN Reason: Pain Last Admin: 06/04/19 08:45 Dose: 15 mg Levothyroxine Sodium (Synthroid) 88 mcg PO ACBREAKFAST COUNTS INCLUDE 234 BEDS AT THE [facility] Last Admin: 06/04/19 06:32 Dose: 88 mcg Promethazine HCl (Phenergan) 25 mg PO Q6H PRN PRN Reason: Nausea/Vomiting Last Admin: 06/04/19 07:00 Dose: 25 mg Sodium Chloride (Saline Flush) 10 ml FLUSH ASDIRECTED PRN PRN Reason: Keep Vein Open Last Admin: 06/03/19 17:26 Dose: 10 ml Sodium Chloride (Saline Flush) 2.5 ml FLUSH ASDIRECTED PRN PRN Reason: Keep Vein Open Last Admin: 06/03/19 17:25 Dose: 2.5 ml Tramadol HCl (Ultram) 100 mg PO Q8H PRN PRN Reason: Pain Last Admin: 06/04/19 07:00 Dose: 100 mg Vancomycin HCl (Pharmacy To Dose - Vancomycin) 1 dose .XX ASDIRECTED ANNA Discontinued Medications Heparin Sodium (Porcine) (Heparin Sodium) 5,000 units SUBCUT Q8H COUNTS INCLUDE 234 BEDS AT THE [facility] Last Admin: 06/03/19 19:58 Dose: Not Given Hydromorphone HCl (Dilaudid) 0.5 mg IVPUSH ONETIME ONE Stop: 06/03/19 17:23 Last Admin: 06/03/19 17:28 Dose: 0.5 mg Vancomycin HCl 1 gm/ Sodium (Chloride) 250 mls @ 166 mls/hr IV ONETIME ONE Stop: 06/03/19 18:13 Last Admin: 06/03/19 17:25 Dose: 166 mls/hr Meropenem 1 gm/ Sodium (Chloride) 100 mls @ 200 mls/hr IV Q8H COUNTS INCLUDE 234 BEDS AT THE [facility] Last Admin: 06/03/19 19:59 Dose: Not Given Meropenem 1 gm/ Sodium (Chloride) 100 mls @ 200 mls/hr IV Q8H COUNTS INCLUDE 234 BEDS AT THE [facility] Last Admin: 06/04/19 04:03 Dose: 200 mls/hr Meropenem/Sodium Chloride 1 gm (/ Premix) 50 mls @ 100 mls/hr IV Q8H COUNTS INCLUDE 234 BEDS AT THE [facility] Ketorolac Tromethamine (Toradol) 15 mg IVPUSH ONETIME ONE Stop: 06/03/19 17:21 Last Admin: 06/03/19 17:28 Dose: 15 mg Ondansetron HCl (Zofran) 4 mg IVPUSH ONETIME ONE Stop: 06/03/19 17:23 Last Admin: 06/03/19 17:28 Dose: 4 mg Ondansetron HCl (Zofran) 4 mg IVPUSH ONETIME ONE Stop: 06/03/19 17:25 Last Admin: 06/03/19 17:35 Dose: Not Given - Exam General: Alert, Oriented, Cooperative, No Acute Distress Lungs: Clear to Auscultation, Normal Respiratory Effort. No: Rhonchi, Wheezing Cardiovascular: Regular Rate, Regular Rhythm GI/Abdominal Exam: Normal Bowel Sounds, Soft, Non-Tender Extremities: Other (left foot- several decubitus ulcers on plantar foot area.) Psy/Mental Status: Alert - Problem List Review Problem List Initiated/Reviewed/Updated: Yes - My Orders Last 24 Hours: My Active Orders 06/03/19 17:20 Bedrest Bathroom Privileges [RC] ASDIRECTED Intake and Output [RC] QSHIFT Oxygen Therapy [RC] PRN VTE/DVT Education [RC] PER UNIT ROUTINE Vital Signs [RC] Q4H Acetaminophen [Tylenol] 650 mg PO Q4H PRN Resuscitation Status Routine 06/03/19 17:27 Ketorolac [Toradol] 15 mg IVPUSH Q6H PRN 06/03/19 17:30 Pharmacy to Dose - Vancomycin 1 dose .XX ASDIRECTED 06/03/19 17:33 Consult to Wound Care Services [CONS] Stat CULTURE WOUND [RM] Stat 06/03/19 19:08 Promethazine [Phenergan] 25 mg PO Q6H PRN 06/03/19 19:15 Enoxaparin [Lovenox] 40 mg SUBCUT Q24H 06/03/19 22:15 CULTURE URINE [RM] Routine 06/03/19 Dinner Regular Diet [DIET] 06/04/19 07:30 Levothyroxine [Synthroid] 88 mcg PO ACBREAKFAST 06/04/19 09:00 amLODIPine [Norvasc] 10 mg PO DAILY 06/04/19 09:30 CV Ankle Brachial Index (YUE) [US] Routine 06/04/19 10:00 Dressing Change [Wound Care] [RC] DAILY 06/04/19 12:00 Meropenem Premix [Meropenem] 1 gm Premix Bag 1 bag IV Q8H 06/05/19 05:11 CBC WITH AUTO DIFF [HEME] AM COMPREHENSIVE METABOLIC PN,CMP [CHEM] AM CRP [C-REACTIVE PROTEIN] [CHEM] AM SEDIMENTATION RATE AUTO [HEME] AM 06/06/19 05:11 CBC WITH AUTO DIFF [HEME] AM COMPREHENSIVE METABOLIC PN,CMP [CHEM] AM CRP [C-REACTIVE PROTEIN] [CHEM] AM SEDIMENTATION RATE AUTO [HEME] AM - Plan Plan:: A: 1. Suspected osteomyelitis 2. Urinary tract infection 3. Decubitus ulcers 4. Leukocytosis 5. PMH Raynaud's syndrome, hypothyroidism P: 1. suspected osteomyelitis- Consulted with Dr. Santo, General Surgery. Appreciate recs. Will continue with IV antibiotics: Meropenem and vancomycin. Will order MRI of left foot. Daily wound dressing changes. 2. UTI-pending urine culture. She is covered with current antibiotics. 3. Raynaud's syndrome- will continue home medication. dispo: pending imaging
[2019-06-04] MEDS: Meropenem Premix 1 GM in Premix Bag 1 BAG IV SCH ×2 (11:23→20:21)
[2019-06-04] MEDS ORDERED: Morphine 2 MG/ML Syringe IVPUSH PRN (11:38)
[2019-06-04] MEDS: Promethazine 25 MG Tab PO PRN (12:37)
[2019-06-04] MEDS: amLODIPine 5 MG Tab PO SCH (12:38)
[2019-06-04] MEDS: HYDROmorphone 2 MG/ML Syringe IVPUSH PRN ×2 (13:50→19:31)
[2019-06-04] MEDS: Enoxaparin 40 MG/0.4 ML Syringe SUBCUT SCH (19:10)
[2019-06-05] MEDS: HYDROmorphone 2 MG/ML Syringe IVPUSH PRN ×5 (00:44→19:17)
[2019-06-05] MEDS: Sodium Chloride 0.9% 1,000 ML IV SCH (04:08)
[2019-06-05] MEDS: Meropenem Premix 1 GM in Premix Bag 1 BAG IV SCH ×3 (04:10→19:20)
[2019-06-05] MEDS: traMADol 50 MG Tab PO PRN ×3 (04:17→19:52)
[2019-06-05 06:18] LABS: BLOOD UREA NITROGEN,BUN 10 mg/dL (7.0-18.0); CARBON DIOXIDE,CO2 23.5 mmol/L (21.0-32.0); CHLORIDE,CL 106 mmol/L (98-107); GLUCOSE RANDOM 81 mg/dL (74-106); POTASSIUM,K 3.8 mmol/L (3.5-5.1); SODIUM,NA 140 mmol/L (136-145)
[2019-06-05] MEDS: Levothyroxine 88 MCG Tab PO SCH (07:11)
[2019-06-05] MEDS: Promethazine 25 MG Tab PO PRN ×2 (07:23→12:19)
[2019-06-05] MEDS: amLODIPine 5 MG Tab PO SCH (08:45)
[2019-06-05] MEDS: Ketorolac 30 MG/ML SDV IVPUSH PRN ×2 (08:45→22:59)
--- NOTE | 2019-06-05 09:01 | PCM.PN ---
- General Info Date of Service: 06/05/19 - Review of Systems Systems Review Comment:: reports foot pain, denies any fevers, erythema improving - Patient Data Vitals - Most Recent: Last Vital Signs Temp 36.8 C 06/05/19 07:58 Pulse 95 06/05/19 07:58 Resp 18 06/05/19 07:58 BP 125/62 06/05/19 08:45 Pulse Ox 96 06/05/19 07:58 Weight - Most Recent: 48.988 kg I&O - Last 24 Hours: Intake & Output 06/04/19 06/05/19 06/05/19 23:59 06:59 14:59 Intake Total Output Total Balance Lab Results Last 24 Hours: Laboratory Results - last 24 hr 06/05/19 06/05/19 Range/Units 05:40 05:40 WBC 14.11 H (4.0-11.0) K/uL RBC 3.83 L (4.30-5.90) M/uL Hgb 11.3 L (12.0-16.0) g/dL Hct 34.4 L (36.0-46.0) % MCV 89.8 (80.0-98.0) fL MCH 29.5 (27.0-32.0) pg MCHC 32.8 (31.0-37.0) g/dL RDW Std Deviation 43.3 (28.0-62.0) fl RDW Coeff of Kari 13 (11.0-15.0) % Plt Count 338 (150-400) K/uL MPV 9.10 (7.40-12.00) fL Neut % (Auto) 76.2 (48.0-80.0) % Lymph % (Auto) 10.1 L (16.0-40.0) % Charles % (Auto) 5.9 (0.0-15.0) % Eos % (Auto) 7.4 H (0.0-7.0) % Baso % (Auto) 0.4 (0.0-1.5) % Neut # (Auto) 10.8 H (1.4-5.7) K/uL Lymph # (Auto) 1.4 (0.6-2.4) K/uL Charles # (Auto) 0.8 (0.0-0.8) K/uL Eos # (Auto) 1.0 H (0.0-0.7) K/uL Baso # (Auto) 0.1 (0.0-0.1) K/uL Nucleated RBC % 0.0 /100WBC Nucleated RBCs # 0 K/uL ESR 29 (0-29) mm/hr Sodium 140 (136-145) mmol/L Potassium 3.8 (3.5-5.1) mmol/L Chloride 106 (98-107) mmol/L Carbon Dioxide 23.5 (21.0-32.0) mmol/L BUN 10 (7.0-18.0) mg/dL Creatinine 0.8 (0.6-1.0) mg/dL Est Cr Clr Drug Dosing 40.21 mL/min Estimated GFR (MDRD) > 60.0 ml/min Glucose 81 (74-106) mg/dL Calcium 7.9 L (8.5-10.1) mg/dL Total Bilirubin 0.3 (0.2-1.0) mg/dL AST 15 (15-37) IU/L ALT 15 (14-63) IU/L Alkaline Phosphatase 130 H (46-116) U/L C-Reactive Protein 6.80 H (0.00-0.90) mg/dL Total Protein 5.7 L (6.4-8.2) g/dL Albumin 2.2 L (3.4-5.0) g/dL Globulin 3.5 (2.6-4.0) g/dL Albumin/Globulin Ratio 0.6 L (0.9-1.6) Chan Results Last 24 Hours: Microbiology 06/03/19 16:16 Aerobic Blood Culture - Preliminary Blood - Venous - Lab Draw NO GROWTH AFTER 1 DAY Anaerobic Blood Culture - Final 06/03/19 16:05 Aerobic Blood Culture - Preliminary Blood - Venous NO GROWTH AFTER 1 DAY Anaerobic Blood Culture - Final Med Orders - Current: Current Medications Acetaminophen (Tylenol) 650 mg PO Q4H PRN PRN Reason: Pain (Mild 1-3)/fever Last Admin: 06/04/19 22:20 Dose: 650 mg Amlodipine Besylate (Norvasc) 2.5 mg PO DAILY [facility] Last Admin: 06/05/19 08:45 Dose: 2.5 mg Enoxaparin Sodium (Lovenox) 40 mg SUBCUT Q24H [facility] Last Admin: 06/04/19 19:10 Dose: 40 mg Hydromorphone HCl (Dilaudid) 0.5 mg IVPUSH Q3H PRN PRN Reason: Pain Last Admin: 06/05/19 07:11 Dose: 0.5 mg Sodium Chloride (Normal Saline) 1,000 mls @ 75 mls/hr IV ASDIRECTED [facility] Last Admin: 06/05/19 04:08 Dose: 75 mls/hr Vancomycin HCl 0.75 gm/ Sodium (Chloride) 250 mls @ 166.667 mls/hr IV Q24H [facility] Last Admin: 06/04/19 16:33 Dose: 166.667 mls/hr Meropenem/Sodium Chloride 1 gm (/ Premix) 50 mls @ 100 mls/hr IV Q8H [facility] Last Admin: 06/05/19 04:10 Dose: 100 mls/hr Ketorolac Tromethamine (Toradol) 15 mg IVPUSH Q6H PRN PRN Reason: Pain Last Admin: 06/05/19 08:45 Dose: 15 mg Levothyroxine Sodium (Synthroid) 88 mcg PO ACBREAKFAST [facility] Last Admin: 06/05/19 07:11 Dose: 88 mcg Omeprazole (Omeprazole) 20 mg PO BEDTIME [facility] Promethazine HCl (Phenergan) 12.5 - 25 mg PO Q6H PRN PRN Reason: Nausea/Vomiting Sodium Chloride (Saline Flush) 10 ml FLUSH ASDIRECTED PRN PRN Reason: Keep Vein Open Last Admin: 06/03/19 17:26 Dose: 10 ml Sodium Chloride (Saline Flush) 2.5 ml FLUSH ASDIRECTED PRN PRN Reason: Keep Vein Open Last Admin: 06/03/19 17:25 Dose: 2.5 ml Tramadol HCl (Ultram) 100 mg PO Q8H PRN PRN Reason: Pain Last Admin: 06/05/19 04:17 Dose: 100 mg Vancomycin HCl (Pharmacy To Dose - Vancomycin) 1 dose .XX ASDIRECTED [facility] Discontinued Medications Amlodipine Besylate (Norvasc) 10 mg PO DAILY [facility] Last Admin: 06/04/19 08:44 Dose: Not Given Heparin Sodium (Porcine) (Heparin Sodium) 5,000 units SUBCUT Q8H [facility] Last Admin: 06/03/19 19:58 Dose: Not Given Hydromorphone HCl (Dilaudid) 0.5 mg IVPUSH ONETIME ONE Stop: 06/03/19 17:23 Last Admin: 06/03/19 17:28 Dose: 0.5 mg Vancomycin HCl 1 gm/ Sodium (Chloride) 250 mls @ 166 mls/hr IV ONETIME ONE Stop: 06/03/19 18:13 Last Admin: 06/03/19 17:25 Dose: 166 mls/hr Meropenem 1 gm/ Sodium (Chloride) 100 mls @ 200 mls/hr IV Q8H [facility] Last Admin: 06/03/19 19:59 Dose: Not Given Meropenem 1 gm/ Sodium (Chloride) 100 mls @ 200 mls/hr IV Q8H [facility] Last Admin: 06/04/19 04:03 Dose: 200 mls/hr Meropenem/Sodium Chloride 1 gm (/ Premix) 50 mls @ 100 mls/hr IV Q8H [facility] Last Admin: 06/04/19 11:06 Dose: Not Given Ketorolac Tromethamine (Toradol) 15 mg IVPUSH ONETIME ONE Stop: 06/03/19 17:21 Last Admin: 06/03/19 17:28 Dose: 15 mg Morphine Sulfate (Morphine) 1 mg IVPUSH Q2H PRN PRN Reason: Pain Ondansetron HCl (Zofran) 4 mg IVPUSH ONETIME ONE Stop: 06/03/19 17:23 Last Admin: 06/03/19 17:28 Dose: 4 mg Ondansetron HCl (Zofran) 4 mg IVPUSH ONETIME ONE Stop: 06/03/19 17:25 Last Admin: 06/03/19 17:35 Dose: Not Given Promethazine HCl (Phenergan) 25 mg PO Q6H PRN PRN Reason: Nausea/Vomiting Last Admin: 06/04/19 07:00 Dose: 25 mg Promethazine HCl (Phenergan) 12.5 mg PO Q6H PRN PRN Reason: Nausea/Vomiting Last Admin: 06/05/19 07:23 Dose: 12.5 mg - Exam General: Alert, Oriented Neck: Supple Lungs: Clear to Auscultation, Normal Respiratory Effort Cardiovascular: Regular Rate, Regular Rhythm GI/Abdominal Exam: Soft, Non-Tender Extremities: No Pedal Edema, Other (no change in heel and ankle ulcer ) - Problem List Review Problem List Initiated/Reviewed/Updated: Yes - My Orders Last 24 Hours: My Active Orders 06/05/19 08:54 Promethazine [Phenergan] 12.5 - 25 mg PO Q6H PRN 06/05/19 21:00 Omeprazole 20 mg PO BEDTIME - Plan Plan:: 84 yo female admitted for cellulitis and ulcers of left foot. Cellulitis: We will continue meropenem and vancomycin. MRI of foot ordered UTI: antibiotics as above
[2019-06-05] MEDS: Acetaminophen 325 MG Tab PO PRN ×2 (12:18→19:53)
--- NOTE | 2019-06-05 13:13 | PCM.SN ---
- Free Text/Narrative Note: Called for difficult iv placement on pt needing IV access. 20 suzy to left bicept. 12:$0 13:40
[2019-06-05] MEDS: Enoxaparin 40 MG/0.4 ML Syringe SUBCUT SCH (18:20)
[2019-06-05] MEDS: Omeprazole 20 MG Cap.CR PO SCH (20:42)
[2019-06-06] MEDS ORDERED: LORazepam 0.5 MG Tab PO PRN (00:01)
[2019-06-06] MEDS: HYDROmorphone 2 MG/ML Syringe IVPUSH PRN ×2 (01:53→08:06)
[2019-06-06] MEDS: traMADol 50 MG Tab PO PRN ×2 (04:40→12:58)
[2019-06-06] MEDS: Meropenem Premix 1 GM in Premix Bag 1 BAG IV SCH ×2 (04:40→17:06)
[2019-06-06] MEDS: Acetaminophen 325 MG Tab PO PRN ×3 (04:40→17:05)
[2019-06-06] MEDS: Promethazine 25 MG Tab PO PRN ×2 (05:19→12:57)
[2019-06-06 06:46] LABS: BLOOD UREA NITROGEN,BUN 9 mg/dL (7.0-18.0); CARBON DIOXIDE,CO2 26.2 mmol/L (21.0-32.0); CHLORIDE,CL 103 mmol/L (98-107); GLUCOSE RANDOM 75 mg/dL (74-106); POTASSIUM,K 3.9 mmol/L (3.5-5.1); SODIUM,NA 139 mmol/L (136-145)
[2019-06-06] MEDS ORDERED: Bisacodyl 5 MG Tab PO PRN (07:23)
[2019-06-06] MEDS ORDERED: Polyethylene Glycol 3350 Powder 17 GM Packet PO PRN (07:24)
[2019-06-06] MEDS: Levothyroxine 88 MCG Tab PO SCH (07:41)
--- NOTE | 2019-06-06 08:55 | PCM.PN ---
- General Info Date of Service: 06/06/19 Subjective Update: Afebrile. No acute events overnight. states her foot feels better today. Erythema, swelling, and pain going down. - Patient Data Vitals - Most Recent: Last Vital Signs Temp 36.6 C 06/06/19 08:00 Pulse 96 06/06/19 08:00 Resp 17 06/06/19 08:00 BP 137/98 H 06/06/19 08:00 Pulse Ox 94 L 06/06/19 08:00 Weight - Most Recent: 48.988 kg I&O - Last 24 Hours: Intake & Output 06/05/19 06/06/19 06/06/19 22:59 06:59 14:59 Intake Total 900 850 Output Total 1300 Balance 900 -450 Lab Results Last 24 Hours: Laboratory Results - last 24 hr 06/05/19 06/06/19 06/06/19 Range/Units 16:38 06:09 06:09 WBC 12.69 H (4.0-11.0) K/uL RBC 3.72 L (4.30-5.90) M/uL Hgb 11.0 L (12.0-16.0) g/dL Hct 33.8 L (36.0-46.0) % MCV 90.9 (80.0-98.0) fL MCH 29.6 (27.0-32.0) pg MCHC 32.5 (31.0-37.0) g/dL RDW Std Deviation 43.7 (28.0-62.0) fl RDW Coeff of Kari 13 (11.0-15.0) % Plt Count 307 (150-400) K/uL MPV 9.10 (7.40-12.00) fL Neut % (Auto) 72.6 (48.0-80.0) % Lymph % (Auto) 12.1 L (16.0-40.0) % [place] % (Auto) 6.5 (0.0-15.0) % Eos % (Auto) 8.6 H (0.0-7.0) % Baso % (Auto) 0.2 (0.0-1.5) % Neut # (Auto) 9.2 H (1.4-5.7) K/uL Lymph # (Auto) 1.5 (0.6-2.4) K/uL [place] # (Auto) 0.8 (0.0-0.8) K/uL Eos # (Auto) 1.1 H (0.0-0.7) K/uL Baso # (Auto) 0.0 (0.0-0.1) K/uL Nucleated RBC % 0.0 /100WBC Nucleated RBCs # 0 K/uL ESR 28 (0-29) mm/hr Sodium 139 (136-145) mmol/L Potassium 3.9 (3.5-5.1) mmol/L Chloride 103 (98-107) mmol/L Carbon Dioxide 26.2 (21.0-32.0) mmol/L BUN 9 (7.0-18.0) mg/dL Creatinine 0.7 (0.6-1.0) mg/dL Est Cr Clr Drug Dosing 45.95 mL/min Estimated GFR (MDRD) > 60.0 ml/min Glucose 75 (74-106) mg/dL Calcium 8.6 (8.5-10.1) mg/dL Total Bilirubin 0.3 (0.2-1.0) mg/dL AST 19 (15-37) IU/L ALT 16 (14-63) IU/L Alkaline Phosphatase 124 H (46-116) U/L C-Reactive Protein 6.10 H (0.00-0.90) mg/dL Total Protein 5.7 L (6.4-8.2) g/dL Albumin 2.2 L (3.4-5.0) g/dL Globulin 3.5 (2.6-4.0) g/dL Albumin/Globulin Ratio 0.6 L (0.9-1.6) Vancomycin Trough 6.8 (5.0-10.0) ug/mL Chan Results Last 24 Hours: Microbiology 06/03/19 16:16 Aerobic Blood Culture - Preliminary Blood - Venous - Lab Draw NO GROWTH AFTER 2 DAYS Anaerobic Blood Culture - Final 06/03/19 16:05 Aerobic Blood Culture - Preliminary Blood - Venous NO GROWTH AFTER 2 DAYS Anaerobic Blood Culture - Final 06/03/19 22:15 Urine Culture - Final Urine, Clean Catch MIXED JOE <1000 CFU/ML Med Orders - Current: Current Medications Acetaminophen (Tylenol) 650 mg PO Q4H PRN PRN Reason: Pain (Mild 1-3)/fever Last Admin: 06/06/19 04:40 Dose: 650 mg Amlodipine Besylate (Norvasc) 2.5 mg PO DAILY [facility] Last Admin: 06/05/19 08:45 Dose: 2.5 mg Bisacodyl (Dulcolax) 10 mg PO DAILY PRN PRN Reason: Constipation Enoxaparin Sodium (Lovenox) 40 mg SUBCUT Q24H [facility] Last Admin: 06/05/19 18:20 Dose: 40 mg Hydromorphone HCl (Dilaudid) 0.5 mg IVPUSH Q3H PRN PRN Reason: Pain Last Admin: 06/06/19 08:06 Dose: 0.5 mg Vancomycin HCl 1.25 gm/ Sodium (Chloride) 250 mls @ 166.667 mls/hr IV Q24H [facility] Last Admin: 06/05/19 17:28 Dose: 166.667 mls/hr Meropenem/Sodium Chloride 1 gm (/ Premix) 50 mls @ 100 mls/hr IV Q12H [facility] Ketorolac Tromethamine (Toradol) 15 mg IVPUSH Q6H PRN PRN Reason: Pain Last Admin: 06/05/19 22:59 Dose: 15 mg Levothyroxine Sodium (Synthroid) 88 mcg PO ACBREAKFAST [facility] Last Admin: 06/06/19 07:41 Dose: 88 mcg Lorazepam (Ativan) 1 mg PO ONETIME PRN PRN Reason: Anxiety Last Admin: 06/06/19 07:41 Dose: 1 mg Omeprazole (Omeprazole) 20 mg PO BEDTIME [facility] Last Admin: 06/05/19 20:42 Dose: 20 mg Polyethylene Glycol (Miralax) 17 gm PO BID PRN PRN Reason: Constipation Promethazine HCl (Phenergan) 12.5 - 25 mg PO Q6H PRN PRN Reason: Nausea/Vomiting Last Admin: 06/06/19 05:19 Dose: 12.5 mg Sodium Chloride (Saline Flush) 10 ml FLUSH ASDIRECTED PRN PRN Reason: Keep Vein Open Last Admin: 06/03/19 17:26 Dose: 10 ml Sodium Chloride (Saline Flush) 2.5 ml FLUSH ASDIRECTED PRN PRN Reason: Keep Vein Open Last Admin: 06/03/19 17:25 Dose: 2.5 ml Tramadol HCl (Ultram) 100 mg PO Q8H PRN PRN Reason: Pain Last Admin: 06/06/19 04:40 Dose: 100 mg Vancomycin HCl (Pharmacy To Dose - Vancomycin) 1 dose .XX ASDIRECTED [facility] Discontinued Medications Amlodipine Besylate (Norvasc) 10 mg PO DAILY [facility] Last Admin: 06/04/19 08:44 Dose: Not Given Heparin Sodium (Porcine) (Heparin Sodium) 5,000 units SUBCUT Q8H [facility] Last Admin: 06/03/19 19:58 Dose: Not Given Hydromorphone HCl (Dilaudid) 0.5 mg IVPUSH ONETIME ONE Stop: 06/03/19 17:23 Last Admin: 06/03/19 17:28 Dose: 0.5 mg Vancomycin HCl 1 gm/ Sodium (Chloride) 250 mls @ 166 mls/hr IV ONETIME ONE Stop: 06/03/19 18:13 Last Admin: 06/03/19 17:25 Dose: 166 mls/hr Sodium Chloride (Normal Saline) 1,000 mls @ 75 mls/hr IV ASDIRECTED [facility] Last Admin: 06/05/19 04:08 Dose: 75 mls/hr Meropenem 1 gm/ Sodium (Chloride) 100 mls @ 200 mls/hr IV Q8H [facility] Last Admin: 06/03/19 19:59 Dose: Not Given Meropenem 1 gm/ Sodium (Chloride) 100 mls @ 200 mls/hr IV Q8H [facility] Last Admin: 06/04/19 04:03 Dose: 200 mls/hr Vancomycin HCl 0.75 gm/ Sodium (Chloride) 250 mls @ 166.667 mls/hr IV Q24H [facility] Last Admin: 06/05/19 17:21 Dose: Not Given Meropenem/Sodium Chloride 1 gm (/ Premix) 50 mls @ 100 mls/hr IV Q8H [facility] Last Admin: 06/04/19 11:06 Dose: Not Given Meropenem/Sodium Chloride 1 gm (/ Premix) 50 mls @ 100 mls/hr IV Q8H [facility] Last Admin: 06/06/19 04:40 Dose: 100 mls/hr Ketorolac Tromethamine (Toradol) 15 mg IVPUSH ONETIME ONE Stop: 06/03/19 17:21 Last Admin: 06/03/19 17:28 Dose: 15 mg Morphine Sulfate (Morphine) 1 mg IVPUSH Q2H PRN PRN Reason: Pain Ondansetron HCl (Zofran) 4 mg IVPUSH ONETIME ONE Stop: 06/03/19 17:23 Last Admin: 06/03/19 17:28 Dose: 4 mg Ondansetron HCl (Zofran) 4 mg IVPUSH ONETIME ONE Stop: 06/03/19 17:25 Last Admin: 06/03/19 17:35 Dose: Not Given Promethazine HCl (Phenergan) 25 mg PO Q6H PRN PRN Reason: Nausea/Vomiting Last Admin: 06/04/19 07:00 Dose: 25 mg Promethazine HCl (Phenergan) 12.5 mg PO Q6H PRN PRN Reason: Nausea/Vomiting Last Admin: 06/05/19 07:23 Dose: 12.5 mg - Exam General: Alert, Oriented, Cooperative, No Acute Distress Lungs: Clear to Auscultation, Normal Respiratory Effort Cardiovascular: Regular Rate, Regular Rhythm GI/Abdominal Exam: Soft, Non-Tender, No Distention Extremities: Other (Left foot- decreased swelling and erythema. Sores still present.) Skin: Warm, Dry - Problem List Review Problem List Initiated/Reviewed/Updated: Yes - My Orders Last 24 Hours: My Active Orders 06/06/19 07:23 Bisacodyl [Dulcolax] 10 mg PO DAILY PRN 06/06/19 07:24 Polyethylene Glycol 3350 [MiraLAX] 17 gm PO BID PRN 06/06/19 08:00 Foot wo Cont Lt [MR] Routine 06/06/19 09:30 CV Ankle Brachial Index (YUE) [US] Routine 06/06/19 17:00 Meropenem Premix [Meropenem] 1 gm Premix Bag 1 bag IV Q12H - Plan Plan:: A: 1. suspected osteomyelitis of left foot 2. UTI 3. PMH hypothyroidism, Raynaud's P: 1. Suspected osteomyelitis, improving. Will continue with Meropenem and vancomycin. Will get MRI of left foot today. Continue with daily dressing changes. Pain control. Dispo: pending MRI results
[2019-06-06] MEDS: Ketorolac 30 MG/ML SDV IVPUSH PRN ×3 (09:12→21:08)
[2019-06-06] MEDS: amLODIPine 5 MG Tab PO SCH (09:56)
--- NOTE | 2019-06-06 12:43 | US ---
Ankle brachial index YUE within the right lower extremity is 0.9 and YUE within the left lower extremity is 0.7 Impression: 1. Borderline YUE value within the right lower extremity. 2. Abnormal YUE value within the left lower extremity indicating moderate peripheral vascular disease. Diagnostic code #3 MTDD
[2019-06-06] MEDS: Sodium Chloride 0.9% 2.5 ML Syringe FLUSH PRN (17:07)
[2019-06-06] MEDS: Enoxaparin 40 MG/0.4 ML Syringe SUBCUT SCH (18:45)
--- NOTE | 2019-06-06 20:46 | PCM.CONS ---
H&P History of Present Illness - General Date of Service: 06/06/19 Admit Problem/Dx: Admission Diagnosis/Problem Admission Diagnosis/Problem Cellulitis Left medial malleolus, left heel, ball of foot and left fourth toe ulcers History Limitations: Reports: No Limitations - History of Present Illness Onset of Symptoms: Reports: Unknown/Unsure Duration of Symptoms: Reports: Chronic Location: Reports: Lower Extremity, Left Quality: Reports: Dull Severity: Moderate Left Feet Pain Score (Numeric/FACES): 6 - Related Data Allergies/Adverse Reactions: Allergies Allergy/AdvReac Type Severity Reaction Status Date / Time codeine Allergy Vomiting Verified 06/03/19 15:30 latex Allergy Rash Verified 06/03/19 15:30 morphine Allergy Difficulty Verified 06/03/19 15:30 Breathing oxycodone HCl [From Percocet] Allergy Vomiting Verified 06/03/19 15:30 Penicillins Allergy Anaphylactic Verified 06/03/19 15:30 Shock Sulfa (Sulfonamide Allergy Anaphylactic Verified 06/03/19 15:30 Antibiotics) Shock all pain meds Allergy Nausea Uncoded 06/03/19 15:30 Home Medications: Home Meds Omeprazole Magnesium [Prilosec Otc] 20 mg PO ACBRK 08/01/14 [History] Levothyroxine [Synthroid] 88 mcg PO ACBREAKFAST 02/28/16 [History] Bisacodyl 10 mg RC DAILY PRN 06/03/19 [History] Cetirizine HCl 10 mg PO BEDTIME 06/03/19 [History] Loperamide HCl [Imodium A-D] 4 mg PO Q6H PRN 06/03/19 [History] Oxybutynin Chloride 5 mg PO BID 06/03/19 [History] Pedi Mv No.79/Ferrous Fumarate [Flintstones with Iron Tab Chew] 1 tab PO DAILY 06/03/19 [History] amLODIPine Besylate [Norvasc] 2.5 mg PO DAILY 06/03/19 [History] Acetaminophen [Tylenol] 650 mg PO TID PRN 06/04/19 [History] Acetaminophen with Codeine [Tylenol with Codeine #3 Tablet] 1 tab PO Q8H PRN 09/21 [History] Docusate Sodium 100 mg PO Q12H 06/04/19 [History] Patient's Own Medication [Ptom] 1 each PO BID 06/04/19 [History] traMADol [Ultram] 100 mg PO Q8H PRN 06/04/19 [History] Past Medical History - Past Health History Medical/Surgical History: Denies Medical/Surgical History HEENT History: Reports: Cataract Other HEENT History: has upper denture and lower partial Cardiovascular History: Reports: None Respiratory History: Reports: None Gastrointestinal History: Reports: GERD, Irritable Bowel Syndrome, Other (See Below) Other Gastrointestinal History: IBS-Diarrhea Genitourinary History: Reports: Other (See Below) Other Genitourinary History: overactive bladder 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: Musculoskeletal History: Reports: Arthritis Neurological History: Reports: Other (See Below) Other Neuro History: hx of motion sickness Psychiatric History: Reports: None Endocrine/Metabolic History: Reports: Hypothyroidism Hematologic History: Reports: None Immunologic History: Reports: Other (See Below) Other Immunologic History: CREST syndrome Oncologic (Cancer) History: Reports: None Dermatologic History: Reports: None, Other (See Below) Other Dermatologic History: Raynaud's Syndrome - Infectious Disease History Infectious Disease History: Reports: Chicken Pox, Measles, Mumps - Past Surgical History Head Surgeries/Procedures: Reports: None HEENT Surgical History: Reports: Cataract Surgery Female Surgical History: Reports: Hysterectomy Musculoskeletal Surgical History: Reports: Knee Replacement, ORIF, Shoulder Surgery Social & Family History - Family History Family Medical History: Noncontributory HEENT: Reports: Cataract Respiratory: Reports: COPD Musculoskeletal: Reports: Arthritis Psychiatric: Reports: Depression Endocrine/Metabolic: Reports: Diabetes, type II - Tobacco Use Smoking Status *Q: Never Smoker Years of Tobacco use: 40 Used Tobacco, but Quit: Yes Month/Year Tobacco Last Used: 45 years ago Second Hand Smoke Exposure: No - Caffeine Use Caffeine Use: Reports: None - Recreational Drug Use Recreational Drug Use: No H&P Review of Systems - Review of Systems: Review Of Systems: ROS reveals no pertinent complaints other than HPI. Exam - Exam Exam: See Below - Vital Signs Vital Signs: Last Vital Signs Temp 36.4 C 06/06/19 12:00 Pulse 107 H 06/06/19 12:00 Resp 16 06/06/19 12:00 BP 140/63 06/06/19 12:00 Pulse Ox 94 L 06/06/19 08:00 Weight: 48.988 kg - Exam Extremities: Pedal Edema (moderate pitting bilateral), Slow Capillary Refill ( bilateral) Peripheral Pulses: 0: Posterior Tibial (L) (not palpable, complicated by edema) , Posterior Tibial (R) (not palpable, complicated by edema), Dorsalis Pedis (L) , Dorsalis Pedis (R) Skin: Decubitis (subcutaneous fibrotic ulcers left heel, left medial malleolus, ball of left foot, left fourth toe) - Patient Data Lab Results Last 24 hrs: Laboratory Results - last 24 hr 06/06/19 06/06/19 Range/Units 06:09 06:09 WBC 12.69 H (4.0-11.0) K/uL RBC 3.72 L (4.30-5.90) M/uL Hgb 11.0 L (12.0-16.0) g/dL Hct 33.8 L (36.0-46.0) % MCV 90.9 (80.0-98.0) fL MCH 29.6 (27.0-32.0) pg MCHC 32.5 (31.0-37.0) g/dL RDW Std Deviation 43.7 (28.0-62.0) fl RDW Coeff of Kari 13 (11.0-15.0) % Plt Count 307 (150-400) K/uL MPV 9.10 (7.40-12.00) fL Neut % (Auto) 72.6 (48.0-80.0) % Lymph % (Auto) 12.1 L (16.0-40.0) % [place] % (Auto) 6.5 (0.0-15.0) % Eos % (Auto) 8.6 H (0.0-7.0) % Baso % (Auto) 0.2 (0.0-1.5) % Neut # (Auto) 9.2 H (1.4-5.7) K/uL Lymph # (Auto) 1.5 (0.6-2.4) K/uL [place] # (Auto) 0.8 (0.0-0.8) K/uL Eos # (Auto) 1.1 H (0.0-0.7) K/uL Baso # (Auto) 0.0 (0.0-0.1) K/uL Nucleated RBC % 0.0 /100WBC Nucleated RBCs # 0 K/uL ESR 28 (0-29) mm/hr Sodium 139 (136-145) mmol/L Potassium 3.9 (3.5-5.1) mmol/L Chloride 103 (98-107) mmol/L Carbon Dioxide 26.2 (21.0-32.0) mmol/L BUN 9 (7.0-18.0) mg/dL Creatinine 0.7 (0.6-1.0) mg/dL Est Cr Clr Drug Dosing 45.95 mL/min Estimated GFR (MDRD) > 60.0 ml/min Glucose 75 (74-106) mg/dL Calcium 8.6 (8.5-10.1) mg/dL Total Bilirubin 0.3 (0.2-1.0) mg/dL AST 19 (15-37) IU/L ALT 16 (14-63) IU/L Alkaline Phosphatase 124 H (46-116) U/L C-Reactive Protein 6.10 H (0.00-0.90) mg/dL Total Protein 5.7 L (6.4-8.2) g/dL Albumin 2.2 L (3.4-5.0) g/dL Globulin 3.5 (2.6-4.0) g/dL Albumin/Globulin Ratio 0.6 L (0.9-1.6) Result Diagrams: 06/06/19 06:09 06/06/19 06:09 Chan Results Last 24 hrs: Microbiology 06/03/19 16:16 Aerobic Blood Culture - Preliminary Blood - Venous - Lab Draw NO GROWTH AFTER 3 DAYS Anaerobic Blood Culture - Final 06/03/19 16:05 Aerobic Blood Culture - Preliminary Blood - Venous NO GROWTH AFTER 3 DAYS Anaerobic Blood Culture - Final Consult PN Assessment/Plan Procedures: Procedures ACUTE HEPATITIS PANEL (04/03/17) ASSAY OF AMYLASE (04/03/17) ASSAY OF IRON (04/03/17) ASSAY OF LACTIC ACID (04/03/17) ASSAY OF LIPASE (04/03/17) BLOOD CULTURE FOR BACTERIA (04/03/17) BLOOD TYPING SEROLOGIC ABO (07/31/14) BLOOD TYPING SEROLOGIC RH(D) (07/31/14) BODY FLUID CELL COUNT (08/28/17) C-REACTIVE PROTEIN (04/03/17) CHEST X-RAY 1 VIEW FRONTAL (04/03/17) COMPATIBILITY TEST ANTIGLOB (07/31/14) COMPATIBILITY TEST INCUBATE (07/31/14) COMPATIBILITY TEST SPIN (07/31/14) COMPLETE CBC AUTOMATED (11/30/15) COMPLETE CBC W/AUTO DIFF WBC (04/03/17) COMPREHEN METABOLIC PANEL (04/03/17) CT LOWER EXTREMITY W/DYE (10/29/16) CT LOWER EXTREMITY W/O DYE (02/19/17) CULTR BACTERIA EXCEPT BLOOD (03/29/16) CULTURE OTHR SPECIMN AEROBIC (08/28/17) CYTOPATH FL NONGYN SMEARS (08/28/17) OMID MUSC/FASCIA 20 SQ CM/< (02/29/16) MOID SUBQ TISSUE 20 SQ CM/< (11/30/15) DECALCIFY TISSUE (07/31/14) ECHO EXAM OF ABDOMEN (04/03/17) ECHO GUIDE FOR BIOPSY (08/28/17) ELECTROCARDIOGRAM TRACING (11/30/15) EMERGENCY DEPT VISIT (04/03/17) EMERGENCY DEPT VISIT (02/16/17) EXAM SYNOVIAL FLUID CRYSTALS (08/28/17) EXTREMITY STUDY (04/02/16) FLUOROSCOPY <1 HR PHYS/QHP (06/23/14) FUNGUS ISOLATION CULTURE (08/28/17) GAIT TRAINING THERAPY (10/27/14) HEMATOCRIT (07/31/14) HEMOGLOBIN (07/31/14) HOT OR COLD PACKS THERAPY (10/27/14) HYDRATE IV INFUSION ADD-ON (04/03/17) INSJ PICC 5 YR+ W/O IMAGING (03/30/17) LEG SURGERY PROCEDURE (07/31/14) METABOLIC PANEL TOTAL CA (03/30/17) MRI JNT OF LWR EXTRE W/O DYE (06/24/14) OFFICE/OUTPATIENT VISIT EST (03/31/16) OFFICE/OUTPATIENT VISIT EST (10/31/14) PROTHROMBIN TIME (04/03/17) PT EVALUATION (09/01/14) PUNCTURE DRAINAGE OF LESION (08/28/17) RBC ANTIBODY SCREEN (07/31/14) RBC SED RATE AUTOMATED (04/03/17) REMOVAL OF SUPPORT IMPLANT (06/23/14) ROUTINE VENIPUNCTURE (04/03/17) SMEAR GRAM STAIN (01/26/18) THER/PROPH/DIAG INJ IV PUSH (04/03/17) THER/PROPH/DIAG INJ SC/IM (03/29/16) THER/PROPH/DIAG IV INF INIT (02/16/17) THERAPEUTIC EXERCISES (10/27/14) TISSUE EXAM BY PATHOLOGIST (07/31/14) TOTAL KNEE ARTHROPLASTY (07/31/14) TX/PRO/DX INJ NEW DRUG ADDON (04/03/17) TX/PRO/DX INJ SAME DRUG ASSOCIATE PROFESSOR OF ENGLISH (04/03/17) URINALYSIS AUTO W/SCOPE (07/31/14) URINE BACTERIA CULTURE (07/31/14) US GUIDE VASCULAR ACCESS (03/30/17) VASOPNEUMATIC DEVICE THERAPY (09/28/14) X-RAY EXAM KNEE 4 OR MORE (02/28/16) X-RAY EXAM OF ANKLE (06/22/14) X-RAY EXAM OF FOOT (11/07/13) X-RAY EXAM OF KNEE 1 OR 2 (04/03/17) X-RAY EXAM OF KNEE 3 (03/30/17) X-RAY EXAM OF LOWER LEG (03/29/16) (1) Decubitus ulcer of heel, left, unstageable SNOMED Code(s): 575269824 Code(s): L89.620 - PRESSURE ULCER OF LEFT HEEL, UNSTAGEABLE Priority: High Current Visit: Yes Assessment:: most likely this ulcer is limited to deep subcutaneous level as are the ulcers on the medial malleolus and ball of foot as well as the fourth toe left foot. Problem List Initiated/Reviewed/Updated: Yes Plan: I discussed with Dr. Haskins that patient can be treated on outpatient basis for her left foot and ankle ulcers. I urged ordering of arterial ultrasound for bilateral lower extremities. This can also be done after discharge if not done before. Patient is instructed to minimize weight bearing to left lower extremity and specifically instructed that the heels of her left foot should be offloaded and not be allowed to rest on the bed. I will see this patient after discharge if she is referred and presents for an appointment in my office.
[2019-06-06] MEDS: Omeprazole 20 MG Cap.CR PO SCH (21:01)
[2019-06-07] MEDS: traMADol 50 MG Tab PO PRN ×2 (00:15→08:20)
[2019-06-07] MEDS: Acetaminophen 325 MG Tab PO PRN ×3 (00:15→13:08)
[2019-06-07] MEDS: Promethazine 25 MG Tab PO PRN ×2 (00:18→13:54)
[2019-06-07] MEDS: Ketorolac 30 MG/ML SDV IVPUSH PRN (04:15)
[2019-06-07] MEDS: Meropenem Premix 1 GM in Premix Bag 1 BAG IV SCH (05:00)
[2019-06-07 05:37] LABS: BLOOD UREA NITROGEN,BUN 10 mg/dL (7.0-18.0); CARBON DIOXIDE,CO2 24.1 mmol/L (21.0-32.0); CHLORIDE,CL 103 mmol/L (98-107); GLUCOSE RANDOM 81 mg/dL (74-106); SODIUM,NA 138 mmol/L (136-145)
[2019-06-07] MEDS: amLODIPine 5 MG Tab PO SCH (08:19)
[2019-06-07] MEDS: Levothyroxine 88 MCG Tab PO SCH (08:19)
--- NOTE | 2019-06-07 10:52 | PCM.DCSUM1 ---
Addendum entered and electronically signed by Ernie Avitia MD 06/07 11:40: Discharge Summary - Hospital Course Free Text/Narrative:: Patient will need Physical therapy for further rehab due to her left foot ulcers and non weight bearing on her left foot. - Discharge Data Discharge Date: 06/07/19 Discharge Disposition: DC/Tfer to SNF 03 Condition: Stable - Referral to Home Health Primary Care Physician: PCP Unobtainable - Patient Summary/Data Consults: Consultations 06/03/19 17:33 Consult to Wound Care Services [CONS] Stat 06/03/19 19:20 Consult to Physician [CONS] Routine 06/06/19 12:00 Consult to Physician [CONS] Routine - Patient Instructions Diet: Regular Diet as Tolerated Activity: Non Weight Bearing Activity, Other: No weightbearing on left foot until evaluated by podiatry outpatient. Wound/Incision Care: Change Dressing Daily Notify Provider of: Fever, Increased Pain, Swelling and Redness, Drainage, Nausea and/or Vomiting - Discharge Plan *PRESCRIPTION DRUG MONITORING PROGRAM REVIEWED*: No *COPY OF PRESCRIPTION DRUG MONITORING REPORT IN PATIENT GIRISH: No Prescriptions/Med Rec: Clindamycin HCl 300 mg PO TID 7 Days #21 capsule Home Medications: Home Meds Omeprazole Magnesium [Prilosec Otc] 20 mg PO ACBRK 08/01/14 [History] Levothyroxine [Synthroid] 88 mcg PO ACBREAKFAST 02/28/16 [History] Bisacodyl 10 mg RC DAILY PRN 06/03/19 [History] Cetirizine HCl 10 mg PO BEDTIME 06/03/19 [History] Loperamide HCl [Imodium A-D] 4 mg PO Q6H PRN 06/03/19 [History] Oxybutynin Chloride 5 mg PO BID 06/03/19 [History] Pedi Mv No.79/Ferrous Fumarate [Flintstones with Iron Tab Chew] 1 tab PO DAILY 06/03/19 [History] amLODIPine Besylate [Norvasc] 2.5 mg PO DAILY 06/03/19 [History] Acetaminophen [Tylenol] 650 mg PO TID PRN 06/04/19 [History] Acetaminophen with Codeine [Tylenol with Codeine #3 Tablet] 1 tab PO Q8H PRN 09/21 [History] Docusate Sodium 100 mg PO Q12H 06/04/19 [History] Patient's Own Medication [Ptom] 1 each PO BID 06/04/19 [History] traMADol [Ultram] 100 mg PO Q8H PRN 06/04/19 [History] Clindamycin HCl 300 mg PO TID 7 Days #21 capsule 06/07/19 [Rx] Referrals: [facility] [Outside] Scott Amador MD [Physician] - (next [place] rounds ) Eric Smalls DPM [Physician] - 06/08/19 9:00 am - Discharge Summary/Plan Comment DC Time >30 min.: No - Patient Data Vitals - Most Recent: Last Vital Signs Temp 36.7 C 06/07/19 07:30 Pulse 101 H 06/07/19 07:30 Resp 18 06/07/19 07:30 BP 148/65 H 06/07/19 08:19 Pulse Ox 95 06/07/19 07:30 Weight - Most Recent: 48.988 kg I&O - Last 24 hours: Intake & Output 06/06/19 06/07/19 06/07/19 22:59 06:59 14:59 Intake Total 550 900 Output Total 300 1600 Balance 250 -700 Lab Results - Last 24 hrs: Laboratory Results - last 24 hr 06/07/19 06/07/19 Range/Units 05:05 05:05 WBC 12.54 H (4.0-11.0) K/uL RBC 3.80 L (4.30-5.90) M/uL Hgb 11.2 L (12.0-16.0) g/dL Hct 34.0 L (36.0-46.0) % MCV 89.5 (80.0-98.0) fL MCH 29.5 (27.0-32.0) pg MCHC 32.9 (31.0-37.0) g/dL RDW Std Deviation 43.6 (28.0-62.0) fl RDW Coeff of Kari 13 (11.0-15.0) % Plt Count 286 (150-400) K/uL MPV 9.30 (7.40-12.00) fL Neut % (Auto) 72.0 (48.0-80.0) % Lymph % (Auto) 11.6 L (16.0-40.0) % Gaines % (Auto) 7.7 (0.0-15.0) % Eos % (Auto) 8.5 H (0.0-7.0) % Baso % (Auto) 0.2 (0.0-1.5) % Neut # (Auto) 9.0 H (1.4-5.7) K/uL Lymph # (Auto) 1.5 (0.6-2.4) K/uL Gaines # (Auto) 1.0 H (0.0-0.8) K/uL Eos # (Auto) 1.1 H (0.0-0.7) K/uL Baso # (Auto) 0.0 (0.0-0.1) K/uL Nucleated RBC % 0.0 /100WBC Nucleated RBCs # 0 K/uL Sodium 138 (136-145) mmol/L Potassium 4.0 (3.5-5.1) mmol/L Chloride 103 (98-107) mmol/L Carbon Dioxide 24.1 (21.0-32.0) mmol/L BUN 10 (7.0-18.0) mg/dL Creatinine 0.7 (0.6-1.0) mg/dL Est Cr Clr Drug Dosing 45.95 mL/min Estimated GFR (MDRD) > 60.0 ml/min Glucose 81 (74-106) mg/dL Calcium 8.5 (8.5-10.1) mg/dL Total Bilirubin 0.3 (0.2-1.0) mg/dL AST 17 (15-37) IU/L ALT 17 (14-63) IU/L Alkaline Phosphatase 127 H (46-116) U/L Total Protein 5.9 L (6.4-8.2) g/dL Albumin 2.3 L (3.4-5.0) g/dL Globulin 3.6 (2.6-4.0) g/dL Albumin/Globulin Ratio 0.6 L (0.9-1.6) MOY Results - Last 24 hrs: Microbiology 06/07/19 08:15 Clostridium difficile Toxin A & B - Final Stool / Feces Negative for C.Diff Toxin/AG REFERENCE RANGE: NEGATIVE 06/03/19 16:16 Aerobic Blood Culture - Preliminary Blood - Venous - Lab Draw NO GROWTH AFTER 3 DAYS Anaerobic Blood Culture - Final 06/03/19 16:05 Aerobic Blood Culture - Preliminary Blood - Venous NO GROWTH AFTER 3 DAYS Anaerobic Blood Culture - Final Med Orders - Current: Current Medications Acetaminophen (Tylenol) 650 mg PO Q4H PRN PRN Reason: Pain (Mild 1-3)/fever Last Admin: 06/07/19 08:20 Dose: 650 mg Amlodipine Besylate (Norvasc) 2.5 mg PO DAILY [facility] Last Admin: 06/07/19 08:19 Dose: 2.5 mg Bisacodyl (Dulcolax) 10 mg PO DAILY PRN PRN Reason: Constipation Enoxaparin Sodium (Lovenox) 40 mg SUBCUT Q24H [facility] Last Admin: 06/06/19 18:45 Dose: 40 mg Vancomycin HCl 1.25 gm/ Sodium (Chloride) 250 mls @ 166.667 mls/hr IV Q24H [facility] Last Infusion: 06/06/19 18:57 Dose: 100 mls/hr Meropenem/Sodium Chloride 1 gm (/ Premix) 50 mls @ 100 mls/hr IV Q12H [facility] Last Admin: 06/07/19 05:00 Dose: 100 mls/hr Ketorolac Tromethamine (Toradol) 15 mg IVPUSH Q6H PRN PRN Reason: Pain Last Admin: 06/07/19 04:15 Dose: 15 mg Levothyroxine Sodium (Synthroid) 88 mcg PO ACBREAKFAST [facility] Last Admin: 06/07/19 08:19 Dose: 88 mcg Lorazepam (Ativan) 1 mg PO ONETIME PRN PRN Reason: Anxiety Last Admin: 06/06/19 07:41 Dose: 1 mg Omeprazole (Omeprazole) 20 mg PO BEDTIME [facility] Last Admin: 06/06/19 21:01 Dose: 20 mg Polyethylene Glycol (Miralax) 17 gm PO BID PRN PRN Reason: Constipation Promethazine HCl (Phenergan) 12.5 - 25 mg PO Q6H PRN PRN Reason: Nausea/Vomiting Last Admin: 06/07/19 00:18 Dose: 12.5 mg Sodium Chloride (Saline Flush) 10 ml FLUSH ASDIRECTED PRN PRN Reason: Keep Vein Open Last Admin: 06/03/19 17:26 Dose: 10 ml Sodium Chloride (Saline Flush) 2.5 ml FLUSH ASDIRECTED PRN PRN Reason: Keep Vein Open Last Admin: 06/06/19 17:07 Dose: 2.5 ml Tramadol HCl (Ultram) 100 mg PO Q8H PRN PRN Reason: Pain Last Admin: 06/07/19 08:20 Dose: 100 mg Vancomycin HCl (Pharmacy To Dose - Vancomycin) 1 dose .XX ASDIRECTED [facility] Discontinued Medications Amlodipine Besylate (Norvasc) 10 mg PO DAILY [facility] Last Admin: 06/04/19 08:44 Dose: Not Given Heparin Sodium (Porcine) (Heparin Sodium) 5,000 units SUBCUT Q8H [facility] Last Admin: 06/03/19 19:58 Dose: Not Given Hydromorphone HCl (Dilaudid) 0.5 mg IVPUSH ONETIME ONE Stop: 06/03/19 17:23 Last Admin: 06/03/19 17:28 Dose: 0.5 mg Hydromorphone HCl (Dilaudid) 0.5 mg IVPUSH Q3H PRN PRN Reason: Pain Last Admin: 06/06/19 08:06 Dose: 0.5 mg Vancomycin HCl 1 gm/ Sodium (Chloride) 250 mls @ 166 mls/hr IV ONETIME ONE Stop: 06/03/19 18:13 Last Admin: 06/03/19 17:25 Dose: 166 mls/hr Sodium Chloride (Normal Saline) 1,000 mls @ 75 mls/hr IV ASDIRECTED [facility] Last Admin: 06/05/19 04:08 Dose: 75 mls/hr Meropenem 1 gm/ Sodium (Chloride) 100 mls @ 200 mls/hr IV Q8H [facility] Last Admin: 06/03/19 19:59 Dose: Not Given Meropenem 1 gm/ Sodium (Chloride) 100 mls @ 200 mls/hr IV Q8H [facility] Last Admin: 06/04/19 04:03 Dose: 200 mls/hr Vancomycin HCl 0.75 gm/ Sodium (Chloride) 250 mls @ 166.667 mls/hr IV Q24H [facility] Last Admin: 06/05/19 17:21 Dose: Not Given Meropenem/Sodium Chloride 1 gm (/ Premix) 50 mls @ 100 mls/hr IV Q8H [facility] Last Admin: 06/04/19 11:06 Dose: Not Given Meropenem/Sodium Chloride 1 gm (/ Premix) 50 mls @ 100 mls/hr IV Q8H [facility] Last Admin: 06/06/19 04:40 Dose: 100 mls/hr Ketorolac Tromethamine (Toradol) 15 mg IVPUSH ONETIME ONE Stop: 06/03/19 17:21 Last Admin: 06/03/19 17:28 Dose: 15 mg Morphine Sulfate (Morphine) 1 mg IVPUSH Q2H PRN PRN Reason: Pain Ondansetron HCl (Zofran) 4 mg IVPUSH ONETIME ONE Stop: 06/03/19 17:23 Last Admin: 06/03/19 17:28 Dose: 4 mg Ondansetron HCl (Zofran) 4 mg IVPUSH ONETIME ONE Stop: 06/03/19 17:25 Last Admin: 06/03/19 17:35 Dose: Not Given Promethazine HCl (Phenergan) 25 mg PO Q6H PRN PRN Reason: Nausea/Vomiting Last Admin: 06/04/19 07:00 Dose: 25 mg Promethazine HCl (Phenergan) 12.5 mg PO Q6H PRN PRN Reason: Nausea/Vomiting Last Admin: 06/05/19 07:23 Dose: 12.5 mg Original Note: <Ernie Avitia - Last Filed: 06/07/19 11:39> Discharge Summary - Hospital Course Free Text/Narrative:: Trish Reina is an 84 y/o female with history of Raynaud's syndrome who presented to the ER complaining of worsening left foot fait, ulcers. Patient was admitted for suspected osteomyelitis of the left foot. She was started on Meropenem and Vancomycin. Her initial WBC was 19K and was down to WBC 12K at time of discharge. ESR was 44 and CRP 10, which both came down to 28 and 6, respectively. She remained afebrile and pain was controlled. 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 Dr. Smalls, Podiatry was consulted who evaluated the patient and recommended outpatient follow-up. In addition, YUE showed poor perfusion on her left leg with 0.7 and 0.9 in her right leg. She will need an arterial duplex of her lower extremities or CT angiogram of lower extremities as outpatient. She was discharged to [facility] for rehab and continued care. She will need to take Clindamycin 300 mg PO TID for 7 days. In addition, non-weight bearing on left foot. Follow-up with Dr. Smalls and PCP as outpatient. - Discharge Data Discharge Date: 06/07/19 Discharge Disposition: DC/Tfer to [facility] 03 Condition: Stable - Referral to Home Health Primary Care Physician: PCP Unobtainable - Patient Summary/Data Consults: Consultations 06/03/19 17:33 Consult to Wound Care Services [CONS] Stat 06/03/19 19:20 Consult to Physician [CONS] Routine 06/06/19 12:00 Consult to Physician [CONS] Routine - Patient Instructions Diet: Regular Diet as Tolerated Activity: Non Weight Bearing Activity, Other: No weightbearing on left foot until evaluated by podiatry outpatient. Wound/Incision Care: Change Dressing Daily Notify Provider of: Fever, Increased Pain, Swelling and Redness, Drainage, Nausea and/or Vomiting - Discharge Plan *PRESCRIPTION DRUG MONITORING PROGRAM REVIEWED*: No *COPY OF PRESCRIPTION DRUG MONITORING REPORT IN PATIENT GIRISH: No Prescriptions/Med Rec: Clindamycin HCl 300 mg PO TID 7 Days #21 capsule Home Medications: Home Meds Omeprazole Magnesium [Prilosec Otc] 20 mg PO ACBRK 08/01/14 [History] Levothyroxine [Synthroid] 88 mcg PO ACBREAKFAST 02/28/16 [History] Bisacodyl 10 mg RC DAILY PRN 06/03/19 [History] Cetirizine HCl 10 mg PO BEDTIME 06/03/19 [History] Loperamide HCl [Imodium A-D] 4 mg PO Q6H PRN 06/03/19 [History] Oxybutynin Chloride 5 mg PO BID 06/03/19 [History] Pedi Mv No.79/Ferrous Fumarate [Flintstones with Iron Tab Chew] 1 tab PO DAILY 06/03/19 [History] amLODIPine Besylate [Norvasc] 2.5 mg PO DAILY 06/03/19 [History] Acetaminophen [Tylenol] 650 mg PO TID PRN 06/04/19 [History] Acetaminophen with Codeine [Tylenol with Codeine #3 Tablet] 1 tab PO Q8H PRN 09/21 [History] Docusate Sodium 100 mg PO Q12H 06/04/19 [History] Patient's Own Medication [Ptom] 1 each PO BID 06/04/19 [History] traMADol [Ultram] 100 mg PO Q8H PRN 06/04/19 [History] Clindamycin HCl 300 mg PO TID 7 Days #21 capsule 06/07/19 [Rx] Referrals: [facility] [Outside] Scott Amador MD [Physician] - (next [place] rounds ) Eric Smalls DPM [Physician] - 06/08/19 9:00 am - Discharge Summary/Plan Comment DC Time >30 min.: No - Patient Data Vitals - Most Recent: Last Vital Signs Temp 36.7 C 06/07/19 07:30 Pulse 101 H 06/07/19 07:30 Resp 18 06/07/19 07:30 BP 148/65 H 06/07/19 08:19 Pulse Ox 95 06/07/19 07:30 Weight - Most Recent: 48.988 kg I&O - Last 24 hours: Intake & Output 06/06/19 06/07/19 06/07/19 22:59 06:59 14:59 Intake Total 550 900 Output Total 300 1600 Balance 250 -700 Lab Results - Last 24 hrs: Laboratory Results - last 24 hr 06/07/19 06/07/19 Range/Units 05:05 05:05 WBC 12.54 H (4.0-11.0) K/uL RBC 3.80 L (4.30-5.90) M/uL Hgb 11.2 L (12.0-16.0) g/dL Hct 34.0 L (36.0-46.0) % MCV 89.5 (80.0-98.0) fL MCH 29.5 (27.0-32.0) pg MCHC 32.9 (31.0-37.0) g/dL RDW Std Deviation 43.6 (28.0-62.0) fl RDW Coeff of Kari 13 (11.0-15.0) % Plt Count 286 (150-400) K/uL MPV 9.30 (7.40-12.00) fL Neut % (Auto) 72.0 (48.0-80.0) % Lymph % (Auto) 11.6 L (16.0-40.0) % Gaines % (Auto) 7.7 (0.0-15.0) % Eos % (Auto) 8.5 H (0.0-7.0) % Baso % (Auto) 0.2 (0.0-1.5) % Neut # (Auto) 9.0 H (1.4-5.7) K/uL Lymph # (Auto) 1.5 (0.6-2.4) K/uL Gaines # (Auto) 1.0 H (0.0-0.8) K/uL Eos # (Auto) 1.1 H (0.0-0.7) K/uL Baso # (Auto) 0.0 (0.0-0.1) K/uL Nucleated RBC % 0.0 /100WBC Nucleated RBCs # 0 K/uL Sodium 138 (136-145) mmol/L Potassium 4.0 (3.5-5.1) mmol/L Chloride 103 (98-107) mmol/L Carbon Dioxide 24.1 (21.0-32.0) mmol/L BUN 10 (7.0-18.0) mg/dL Creatinine 0.7 (0.6-1.0) mg/dL Est Cr Clr Drug Dosing 45.95 mL/min Estimated GFR (MDRD) > 60.0 ml/min Glucose 81 (74-106) mg/dL Calcium 8.5 (8.5-10.1) mg/dL Total Bilirubin 0.3 (0.2-1.0) mg/dL AST 17 (15-37) IU/L ALT 17 (14-63) IU/L Alkaline Phosphatase 127 H (46-116) U/L Total Protein 5.9 L (6.4-8.2) g/dL Albumin 2.3 L (3.4-5.0) g/dL Globulin 3.6 (2.6-4.0) g/dL Albumin/Globulin Ratio 0.6 L (0.9-1.6) MOY Results - Last 24 hrs: Microbiology 06/03/19 16:16 Aerobic Blood Culture - Preliminary Blood - Venous - Lab Draw NO GROWTH AFTER 3 DAYS Anaerobic Blood Culture - Final 06/03/19 16:05 Aerobic Blood Culture - Preliminary Blood - Venous NO GROWTH AFTER 3 DAYS Anaerobic Blood Culture - Final Med Orders - Current: Current Medications Acetaminophen (Tylenol) 650 mg PO Q4H PRN PRN Reason: Pain (Mild 1-3)/fever Last Admin: 06/07/19 08:20 Dose: 650 mg Amlodipine Besylate (Norvasc) 2.5 mg PO DAILY [facility] Last Admin: 06/07/19 08:19 Dose: 2.5 mg Bisacodyl (Dulcolax) 10 mg PO DAILY PRN PRN Reason: Constipation Enoxaparin Sodium (Lovenox) 40 mg SUBCUT Q24H [facility] Last Admin: 06/06/19 18:45 Dose: 40 mg Vancomycin HCl 1.25 gm/ Sodium (Chloride) 250 mls @ 166.667 mls/hr IV Q24H [facility] Last Infusion: 06/06/19 18:57 Dose: 100 mls/hr Meropenem/Sodium Chloride 1 gm (/ Premix) 50 mls @ 100 mls/hr IV Q12H [facility] Last Admin: 06/07/19 05:00 Dose: 100 mls/hr Ketorolac Tromethamine (Toradol) 15 mg IVPUSH Q6H PRN PRN Reason: Pain Last Admin: 06/07/19 04:15 Dose: 15 mg Levothyroxine Sodium (Synthroid) 88 mcg PO ACBREAKFAST [facility] Last Admin: 06/07/19 08:19 Dose: 88 mcg Lorazepam (Ativan) 1 mg PO ONETIME PRN PRN Reason: Anxiety Last Admin: 06/06/19 07:41 Dose: 1 mg Omeprazole (Omeprazole) 20 mg PO BEDTIME [facility] Last Admin: 06/06/19 21:01 Dose: 20 mg Polyethylene Glycol (Miralax) 17 gm PO BID PRN PRN Reason: Constipation Promethazine HCl (Phenergan) 12.5 - 25 mg PO Q6H PRN PRN Reason: Nausea/Vomiting Last Admin: 06/07/19 00:18 Dose: 12.5 mg Sodium Chloride (Saline Flush) 10 ml FLUSH ASDIRECTED PRN PRN Reason: Keep Vein Open Last Admin: 06/03/19 17:26 Dose: 10 ml Sodium Chloride (Saline Flush) 2.5 ml FLUSH ASDIRECTED PRN PRN Reason: Keep Vein Open Last Admin: 06/06/19 17:07 Dose: 2.5 ml Tramadol HCl (Ultram) 100 mg PO Q8H PRN PRN Reason: Pain Last Admin: 06/07/19 08:20 Dose: 100 mg Vancomycin HCl (Pharmacy To Dose - Vancomycin) 1 dose .XX ASDIRECTED [facility] Discontinued Medications Amlodipine Besylate (Norvasc) 10 mg PO DAILY [facility] Last Admin: 06/04/19 08:44 Dose: Not Given Heparin Sodium (Porcine) (Heparin Sodium) 5,000 units SUBCUT Q8H [facility] Last Admin: 06/03/19 19:58 Dose: Not Given Hydromorphone HCl (Dilaudid) 0.5 mg IVPUSH ONETIME ONE Stop: 06/03/19 17:23 Last Admin: 06/03/19 17:28 Dose: 0.5 mg Hydromorphone HCl (Dilaudid) 0.5 mg IVPUSH Q3H PRN PRN Reason: Pain Last Admin: 06/06/19 08:06 Dose: 0.5 mg Vancomycin HCl 1 gm/ Sodium (Chloride) 250 mls @ 166 mls/hr IV ONETIME ONE Stop: 06/03/19 18:13 Last Admin: 06/03/19 17:25 Dose: 166 mls/hr Sodium Chloride (Normal Saline) 1,000 mls @ 75 mls/hr IV ASDIRECTED [facility] Last Admin: 06/05/19 04:08 Dose: 75 mls/hr Meropenem 1 gm/ Sodium (Chloride) 100 mls @ 200 mls/hr IV Q8H [facility] Last Admin: 06/03/19 19:59 Dose: Not Given Meropenem 1 gm/ Sodium (Chloride) 100 mls @ 200 mls/hr IV Q8H [facility] Last Admin: 06/04/19 04:03 Dose: 200 mls/hr Vancomycin HCl 0.75 gm/ Sodium (Chloride) 250 mls @ 166.667 mls/hr IV Q24H [facility] Last Admin: 06/05/19 17:21 Dose: Not Given Meropenem/Sodium Chloride 1 gm (/ Premix) 50 mls @ 100 mls/hr IV Q8H [facility] Last Admin: 06/04/19 11:06 Dose: Not Given Meropenem/Sodium Chloride 1 gm (/ Premix) 50 mls @ 100 mls/hr IV Q8H [facility] Last Admin: 06/06/19 04:40 Dose: 100 mls/hr Ketorolac Tromethamine (Toradol) 15 mg IVPUSH ONETIME ONE Stop: 06/03/19 17:21 Last Admin: 06/03/19 17:28 Dose: 15 mg Morphine Sulfate (Morphine) 1 mg IVPUSH Q2H PRN PRN Reason: Pain Ondansetron HCl (Zofran) 4 mg IVPUSH ONETIME ONE Stop: 06/03/19 17:23 Last Admin: 06/03/19 17:28 Dose: 4 mg Ondansetron HCl (Zofran) 4 mg IVPUSH ONETIME ONE Stop: 06/03/19 17:25 Last Admin: 06/03/19 17:35 Dose: Not Given Promethazine HCl (Phenergan) 25 mg PO Q6H PRN PRN Reason: Nausea/Vomiting Last Admin: 06/04/19 07:00 Dose: 25 mg Promethazine HCl (Phenergan) 12.5 mg PO Q6H PRN PRN Reason: Nausea/Vomiting Last Admin: 06/05/19 07:23 Dose: 12.5 mg <Dima Covington J - Last Filed: 06/09/19 15:47> Discharge Summary - Referral to Home Health Primary Care Physician: PCP Unobtainable - Patient Summary/Data Consults: Consultations 06/03/19 17:33 Consult to Wound Care Services [CONS] Stat 06/03/19 19:20 Consult to Physician [CONS] Routine 06/06/19 12:00 Consult to Physician [CONS] Routine - Patient Data Vitals - Most Recent: Last Vital Signs Temp 36.8 C 06/07/19 13:00 Pulse 98 06/07/19 13:00 Resp 16 06/07/19 13:00 BP 138/75 06/07/19 13:00 Pulse Ox 96 06/07/19 13:00 MOY Results - Last 24 hrs: Microbiology 06/03/19 16:16 Aerobic Blood Culture - Final Blood - Venous - Lab Draw NO GROWTH AFTER 5 DAYS Anaerobic Blood Culture - Final 06/03/19 16:05 Aerobic Blood Culture - Final Blood - Venous NO GROWTH AFTER 5 DAYS Anaerobic Blood Culture - Final Med Orders - Current: Current Medications Discontinued Medications Acetaminophen (Tylenol) 650 mg PO Q4H PRN PRN Reason: Pain (Mild 1-3)/fever Last Admin: 06/07/19 13:08 Dose: 650 mg Amlodipine Besylate (Norvasc) 10 mg PO DAILY [facility] Last Admin: 06/04/19 08:44 Dose: Not Given Amlodipine Besylate (Norvasc) 2.5 mg PO DAILY [facility] Last Admin: 06/07/19 08:19 Dose: 2.5 mg Bisacodyl (Dulcolax) 10 mg PO DAILY PRN PRN Reason: Constipation Enoxaparin Sodium (Lovenox) 40 mg SUBCUT Q24H [facility] Last Admin: 06/06/19 18:45 Dose: 40 mg Heparin Sodium (Porcine) (Heparin Sodium) 5,000 units SUBCUT Q8H [facility] Last Admin: 06/03/19 19:58 Dose: Not Given Hydromorphone HCl (Dilaudid) 0.5 mg IVPUSH ONETIME ONE Stop: 06/03/19 17:23 Last Admin: 06/03/19 17:28 Dose: 0.5 mg Hydromorphone HCl (Dilaudid) 0.5 mg IVPUSH Q3H PRN PRN Reason: Pain Last Admin: 06/06/19 08:06 Dose: 0.5 mg Vancomycin HCl 1 gm/ Sodium (Chloride) 250 mls @ 166 mls/hr IV ONETIME ONE Stop: 06/03/19 18:13 Last Admin: 06/03/19 17:25 Dose: 166 mls/hr Sodium Chloride (Normal Saline) 1,000 mls @ 75 mls/hr IV ASDIRECTED [facility] Last Admin: 06/05/19 04:08 Dose: 75 mls/hr Meropenem 1 gm/ Sodium (Chloride) 100 mls @ 200 mls/hr IV Q8H [facility] Last Admin: 06/03/19 19:59 Dose: Not Given Meropenem 1 gm/ Sodium (Chloride) 100 mls @ 200 mls/hr IV Q8H [facility] Last Admin: 06/04/19 04:03 Dose: 200 mls/hr Vancomycin HCl 0.75 gm/ Sodium (Chloride) 250 mls @ 166.667 mls/hr IV Q24H [facility] Last Admin: 06/05/19 17:21 Dose: Not Given Meropenem/Sodium Chloride 1 gm (/ Premix) 50 mls @ 100 mls/hr IV Q8H [facility] Last Admin: 06/04/19 11:06 Dose: Not Given Meropenem/Sodium Chloride 1 gm (/ Premix) 50 mls @ 100 mls/hr IV Q8H [facility] Last Admin: 06/06/19 04:40 Dose: 100 mls/hr Vancomycin HCl 1.25 gm/ Sodium (Chloride) 250 mls @ 166.667 mls/hr IV Q24H [facility] Last Infusion: 06/06/19 18:57 Dose: 100 mls/hr Meropenem/Sodium Chloride 1 gm (/ Premix) 50 mls @ 100 mls/hr IV Q12H [facility] Last Admin: 06/07/19 05:00 Dose: 100 mls/hr Ketorolac Tromethamine (Toradol) 15 mg IVPUSH ONETIME ONE Stop: 06/03/19 17:21 Last Admin: 06/03/19 17:28 Dose: 15 mg Ketorolac Tromethamine (Toradol) 15 mg IVPUSH Q6H PRN PRN Reason: Pain Last Admin: 06/07/19 04:15 Dose: 15 mg Levothyroxine Sodium (Synthroid) 88 mcg PO ACBREAKFAST [facility] Last Admin: 06/07/19 08:19 Dose: 88 mcg Loperamide HCl (Imodium) 2 mg PO Q6H PRN PRN Reason: Diarrhea Last Admin: 06/07/19 13:28 Dose: 2 mg Lorazepam (Ativan) 1 mg PO ONETIME PRN PRN Reason: Anxiety Last Admin: 06/06/19 07:41 Dose: 1 mg Morphine Sulfate (Morphine) 1 mg IVPUSH Q2H PRN PRN Reason: Pain Omeprazole (Omeprazole) 20 mg PO BEDTIME [facility] Last Admin: 06/06/19 21:01 Dose: 20 mg Ondansetron HCl (Zofran) 4 mg IVPUSH ONETIME ONE Stop: 06/03/19 17:23 Last Admin: 06/03/19 17:28 Dose: 4 mg Ondansetron HCl (Zofran) 4 mg IVPUSH ONETIME ONE Stop: 06/03/19 17:25 Last Admin: 06/03/19 17:35 Dose: Not Given Polyethylene Glycol (Miralax) 17 gm PO BID PRN PRN Reason: Constipation Promethazine HCl (Phenergan) 25 mg PO Q6H PRN PRN Reason: Nausea/Vomiting Last Admin: 06/04/19 07:00 Dose: 25 mg Promethazine HCl (Phenergan) 12.5 mg PO Q6H PRN PRN Reason: Nausea/Vomiting Last Admin: 06/05/19 07:23 Dose: 12.5 mg Promethazine HCl (Phenergan) 12.5 - 25 mg PO Q6H PRN PRN Reason: Nausea/Vomiting Last Admin: 06/07/19 13:54 Dose: 12.5 mg Sodium Chloride (Saline Flush) 10 ml FLUSH ASDIRECTED PRN PRN Reason: Keep Vein Open Last Admin: 06/03/19 17:26 Dose: 10 ml Sodium Chloride (Saline Flush) 2.5 ml FLUSH ASDIRECTED PRN PRN Reason: Keep Vein Open Last Admin: 06/06/19 17:07 Dose: 2.5 ml Tramadol HCl (Ultram) 100 mg PO Q8H PRN PRN Reason: Pain Last Admin: 06/07/19 08:20 Dose: 100 mg Vancomycin HCl (Pharmacy To Dose - Vancomycin) 1 dose .XX ASDIRECTED ANNA - Free Text/Narrative Note: I have seen and evaluated the patient with the resident. I have discussed findings and treatment plan with the resident. I agree with the assessment and plan outlined in the following note.
--- NOTE | 2019-06-07 12:18 | PCM.SN ---
- Free Text/Narrative Note: Patient has superficial decubitus ulcers on her left foot mostly located on the medial malleolus, heel and sole. In addition, she has a necrotic cuneiform bone. No osteomyelitis. She will need to follow-up with Dr. Smalls, Podiatry as outpatient. In addition, she will need to be weight non-bearing on her left foot until evaluated by podiatry as outpatient. She will need daily dressing changes. In addition to PT/OT since patient has some limitations due to her left foot ulcers.
[2019-06-07] MEDS ORDERED: Loperamide 2 MG Cap PO PRN (13:01)
[2019-06-07 13:21] VITALS: BP 138/75; PULSE 98
== END 2019-06-07 14:15 | DRG 603 ==
LOC: MW.ED 15:24 → MW.MS 17:34 → MW.OB 06-07 10:43 → MW.MS 06-07 10:47
PROVIDERS: ADMIT Student in an Organized Health Care Education/Training Program; ATTEND Student in an Organized Health Care Education/Training Program
DX: L03.116 Cellulitis of left lower limb (principal); L03.113 Cellulitis of right upper limb; L89.321 Pressure ulcer of left buttock, stage 1; L97.429 Non-pressure chronic ulcer of left heel and midfoot with unspecified severity; L97.529 Non-pressure chronic ulcer of other part of left foot with unspecified severity; L98.499 Non-pressure chronic ulcer of skin of other sites with unspecified severity; M87.9 Osteonecrosis, unspecified; K58.0 Irritable bowel syndrome with diarrhea; N32.81 Overactive bladder; N39.0 Urinary tract infection, site not specified; E87.1 Hypo-osmolality and hyponatremia; L89.620 Pressure ulcer of left heel, unstageable; M34.1 CR(E)ST syndrome; L53.9 Erythematous condition, unspecified; R60.9 Edema, unspecified; L89.890 Pressure ulcer of other site, unstageable; I73.00 Raynaud's syndrome without gangrene; Z88.2 Allergy status to sulfonamides; Z88.8 Allergy status to other drugs, medicaments and biological substances; Z88.6 Allergy status to analgesic agent; K21.9 Gastro-esophageal reflux disease without esophagitis; E03.9 Hypothyroidism, unspecified; M19.90 Unspecified osteoarthritis, unspecified site; Z90.710 Acquired absence of both cervix and uterus; Z96.659 Presence of unspecified artificial knee joint; Z88.5 Allergy status to narcotic agent; Z91.040 Latex allergy status; Z88.0 Allergy status to penicillin; Z79.890 Hormone replacement therapy; Z79.899 Other long term (current) drug therapy; Z90.49 Acquired absence of other specified parts of digestive tract
CPT/HCPCS: 36415; 73140; 73620; 80053; 83036; 83605; 85025; 85652; 86140; 87040 ×2; 99284; J1170; J1885; J2405; J3370; J7040; J7050; 36410; 73718-LT; 80202; 81001; 87086; 87324; 93922; 93922-26; A9270-GY; J1650; J2185; J7030

== ENCOUNTER 2019-07-15 20:00 | Inpatient (IN) | payer MEDICARE, BC, MEDICAID ==
--- NOTE | 2019-07-15 20:09 | EDM.PDOC ---
ED HPI GENERAL MEDICAL PROBLEM - General Stated Complaint: PAT CAME FROM [facility] Time Seen by Provider: 07/15/19 20:03 - History of Present Illness INITIAL COMMENTS - FREE TEXT/NARRATIVE: HISTORY AND PHYSICAL: History of present illness: The patient is an 84-year-old female who resides at [facility] and [facility] and who presents today with 6-7 days of nausea and vomiting mostly with food and also with liquids according to the daughter at bedside. The nursing staff were aware of this but as they did not feel like he was consistent and she was not vomiting everything and was taking some fluids they did not notify the on-call doctor. The daughter says she was made aware of this today and wanted evaluation and had her sent here. The patient does state that mostly she vomits up food and it is usually large amounts and she has not had diarrhea and has been having normal bowel movements without black or bloody stools and they are formed not loose. SHe says that her stools look like her normal stools there has been no change in character or color She vomits she says it is a large amount and it is usually dark in color but it is not bloody or black. The patient said that she did take a lot of marlo dwaine today and has not vomited it but she does feel very dry and her mouth is very dry. She does have an abdominal surgical history of a total hysterectomy appendectomy and bladder suspension but no bowel issues in the past. According to the history the patient has had vomiting with UTIs in the past and has had frequent UTIs. She currently denies any urinary complaints or flank pain. She has no chest pain shortness of breath fevers or upper respiratory symptoms. She says that she only feels abdominal discomfort because she has been vomiting so much and did not have abdominal pain or bloating prior to the vomiting. The patient was admitted last month for issues with her foot with decubital ulcers and was treated as an inpatient and has followed up with the supervisor microfilm duplicating unit Dr. Smalls. According to the daughter the patient has a follow-up appointment with the vascular surgeon in [place], Dr. Rivera, to discuss possible revascularization of her left leg. The patient has had persistent pain at her left foot and is currently wearing a specialized boot to reduce pressure. According to the patient nursing has been doing dressing changes and infected a dressing change tonight and it looks at its baseline. Daughter says she has had issues in the past with pain management due to nausea vomiting and other complications and she is currently taking tramadol which the patient says does work for her pain management. Daughter also says that Toradol IV works as well. Daughter and patient are not as concerned about the foot at this time. The patient has a history of hypertension hypothyroidism and decubital ulcers with cellulitis in the past according to the computer. Patient is awake alert and very interactive here in the ED and is able to offer her history and interact. The patient has not had any fevers and has no other GI history that she is aware of or the daughter is aware of. The patient does tell me that she is very thirsty and hungry at this time and has not had a loss of appetite. Review of systems: As per history of present illness and below otherwise all systems reviewed and negative. Past medical history: As per history of present illness and as reviewed below otherwise noncontributory. Surgical history: As per history of present illness and as reviewed below otherwise noncontributory. Social history: No reported history of drug or alcohol abuse. Family history: As per history of present illness and as reviewed below otherwise noncontributory. Physical exam: General: Developed well-nourished thin female who is nontoxic and speaking clearly and easily in the ED. Vital signs are noted by me HEENT: Atraumatic, normocephalic, pupils reactive, negative for conjunctival pallor or scleral icterus, mucous membranes tacky, throat clear, neck supple, nontender, trachea midline. Lungs: Clear to auscultation, breath sounds equal bilaterally, chest nontender.No work of breathing wheezing or stridor Heart: S1S2, regular and rhythm with occasional ectopic beats no overt murmur Abdomen: Soft, nondistended, nontender. Bowel sounds are slightly hypoactive and there is no gradient tympany on percussion. There is no rebound or guarding and no specific area of tenderness on deep palpation. Negative for masses or hepatosplenomegaly. Negative for costovertebral tenderness. Pelvis: Stable nontender. Genitourinary: Deferred. Rectal: Deferred. Extremities: Atraumatic, negative for cords or calf pain. Neurovascular unremarkable. At the left foot a dressing is in place and there is chronic discoloration and skin changes of the left fourth toe and a decubital ulcer can be seen at the base of the left foot but I did not take down the full dressing to appreciate the heel injury as this dressing change was just performed today and patient and daughter feel it is at its baseline. There is no proximal ankle or left lower extremity redness swelling streaking or skin changes. There is discomfort with palpation of all the toes of the left foot and the remainder of the toes on the left foot have good color and sensation. Neuro: Awake, alert, oriented. Cranial nerves II through XII unremarkable. Cerebellum unremarkable. Motor and sensory unremarkable throughout. Exam nonfocal. Diagnostics: EKG CBC CMP amylase lipase lactic acid UA with reflex abdominal x-rays with chest x-ray troponin x 2, blood cultures 2 CT scan of the chest, abdomen and pelvis Therapeutics: Gentle IV fluids Protonix Zofran low-dose Toradol, tramadol vancomycin meropenem Dilaudid Despite the positive troponin the patient is not having any chest pain or shortness of breath. The patient and the daughter at bedside are aware of the positive troponin the kidney function tests and the WBC count that is elevated. They are aware that we need to proceed to do a CAT scan of the chest abdomen and pelvis to see if there is anything triggering the WBC count and we still await a urine sample. Patient and daughter are aware that we do not have a stockroom clerk present but as she is not having symptoms they seem to be more concerned, as I am, about the vomiting and the elevated white cell count. We will continue to monitor her symptoms and her testing results and they are aware that she will at a minimum needed admission here and depending on the hospitalist input and her concerns if any about the troponin, she may need transfer. Please note that the lactic acid was ordered but the lab is having difficulty running the sample due to machine issues and they will not know when they could run the sample and obtain a result. We will not have this piece of information for our evaluation. 2300: Case was discussed with our hospitalist Dr. Child; she would like a repeat troponin to be performed and if it is holding steady or dropping she will accept the patient here otherwise she is requesting transfer. She would like me to give a dose of vancomycin and meropenem and is aware of the patient' s allergies. I will discuss his conversation with the patient and daughter at bedside and ending that repeat troponin plan for admission here or transfer. We' ll also give her more IV fluids to help with her tachycardia and dehydration. The patient is asking something more for pain for her foot. Daughter says she can take Dilaudid with Zofran so I will give her a small dose. 2315: We have been told by the lab that the lactic acid can now be run and we will obtain that test results and I will communicate that to the hospitalist 0012: Dr Child is aware of the second troponin and accepts the patient here for admission. The family has also been notified and we will plan on transfer to a bed. At this point lab is saying that they are trying to run the lactic acid but are unsure of those results but I will inform the hospitalist that they are attempting to do the test. 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 - Related Data Allergies Allergy/AdvReac Type Severity Reaction Status Date / Time codeine Allergy Vomiting Verified 07/15/19 20:23 latex Allergy Rash Verified 07/15/19 20:23 morphine Allergy Difficulty Verified 07/15/19 20:23 Breathing oxycodone HCl [From Percocet] Allergy Vomiting Verified 07/15/19 20:23 Penicillins Allergy Anaphylactic Verified 07/15/19 20:23 Shock Sulfa (Sulfonamide Allergy Anaphylactic Verified 07/15/19 20:23 Antibiotics) Shock all pain meds Allergy Nausea Uncoded 06/03/19 15:30 Home Meds: Home Meds Omeprazole Magnesium [Prilosec Otc] 20 mg PO ACBRK 08/01/14 [History] Levothyroxine [Synthroid] 88 mcg PO ACBREAKFAST 02/28/16 [History] Bisacodyl 10 mg RC DAILY PRN 06/03/19 [History] Cetirizine HCl 10 mg PO BEDTIME 06/03/19 [History] Loperamide HCl [Imodium A-D] 4 mg PO Q6H PRN 06/03/19 [History] Oxybutynin Chloride 5 mg PO BID 06/03/19 [History] Pedi Mv No.79/Ferrous Fumarate [Flintstones with Iron Tab Chew] 1 tab PO DAILY 06/03/19 [History] amLODIPine Besylate [Norvasc] 2.5 mg PO DAILY 06/03/19 [History] Acetaminophen [Tylenol] 650 mg PO TID PRN 06/04/19 [History] Acetaminophen with Codeine [Tylenol with Codeine #3 Tablet] 1 tab PO Q8H PRN 09/21 [History] Docusate Sodium 100 mg PO Q12H 06/04/19 [History] Patient's Own Medication [Ptom] 1 each PO BID 06/04/19 [History] traMADol [Ultram] 100 mg PO Q8H PRN 06/04/19 [History] Calcium Carbonate 200 mg PO DAILY PRN 07/15/19 [History] Nabumetone [Relafen Ds] 500 mg PO BID 07/15/19 [History] Promethazine HCl 12.5 mg PO BID 07/15/19 [History] Past Medical History - Past Health History Medical/Surgical History: Denies Medical/Surgical History HEENT History: Reports: Cataract Other HEENT History: has upper denture and lower partial Cardiovascular History: Reports: None Respiratory History: Reports: None Gastrointestinal History: Reports: GERD, Irritable Bowel Syndrome, Other (See Below) Other Gastrointestinal History: IBS-Diarrhea Genitourinary History: Reports: Other (See Below) Other Genitourinary History: overactive bladder [employer] History: Reports: Musculoskeletal History: Reports: Arthritis Neurological History: Reports: Other (See Below) Other Neuro History: hx of motion sickness Psychiatric History: Reports: None Endocrine/Metabolic History: Reports: Hypothyroidism Hematologic History: Reports: None Immunologic History: Reports: Other (See Below) Other Immunologic History: CREST syndrome Oncologic (Cancer) History: Reports: None Dermatologic History: Reports: None, Other (See Below) Other Dermatologic History: Raynaud's Syndrome - Infectious Disease History Infectious Disease History: Reports: Chicken Pox, Measles, Mumps - Past Surgical History Head Surgeries/Procedures: Reports: None HEENT Surgical History: Reports: Cataract Surgery Female Surgical History: Reports: Hysterectomy Musculoskeletal Surgical History: Reports: Knee Replacement, ORIF, Shoulder Surgery Social & Family History - Family History Family Medical History: Noncontributory HEENT: Reports: Cataract Respiratory: Reports: COPD Musculoskeletal: Reports: Arthritis Psychiatric: Reports: Depression Endocrine/Metabolic: Reports: Diabetes, type II - Caffeine Use Caffeine Use: Reports: None ED ROS GENERAL - Review of Systems Review Of Systems: Comprehensive ROS is negative, except as noted in HPI. ED EXAM, GENERAL - Physical Exam Exam: See Below (see dictation) Course - Vital Signs Last Recorded V/S: Last Vital Signs Temp 36.4 C 07/15/19 23:23 Pulse 102 H 07/15/19 23:23 Resp 20 07/15/19 23:23 BP 116/43 L 07/15/19 23:23 Pulse Ox 97 07/15/19 23:23 - Orders/Labs/Meds Orders: Active Orders 24 hr Category Date Time Status Patient Status [ADT] Stat ADT 07/16/19 00:18 Ordered Blood Glucose Check, Bedside [RC] ONETIME Care 07/15/19 20:21 Active EKG Documentation Completion [RC] STAT Care 07/15/19 20:21 Active Oxygen Therapy, ED [RC] ASDIRECTED Care 07/15/19 20:21 Active Pulse Oximetry [RC] ASDIRECTED Care 07/15/19 20:21 Active CULTURE BLOOD [BC] Stat Lab 07/15/19 21:15 Results CULTURE BLOOD [BC] Stat Lab 07/15/19 21:30 Received CULTURE URINE [RM] Stat Lab 07/15/19 21:38 Received Sodium Chloride 0.9% [Normal Saline] 1,000 ml Med 07/15/19 20:30 Active IV ASDIRECTED Sodium Chloride 0.9% [Saline Flush] Med 07/15/19 20:22 Active 10 ml FLUSH ASDIRECTED PRN Sodium Chloride 0.9% [Saline Flush] Med 07/15/19 20:22 Active 2.5 ml FLUSH ASDIRECTED PRN Vancomycin 1 gm Med 07/15/19 23:09 Active Sodium Chloride 0.9% [Normal Saline (AdvBag)] 250 ml IV ONETIME Blood Culture x2 Reflex Set [OM.PC] Stat Oth 07/15/19 20:59 Ordered Saline Lock Insert [OM.PC] Stat Oth 07/15/19 20:21 Ordered Medication Orders Sodium Chloride (Normal Saline) 1,000 mls @ 83 mls/hr IV ASDIRECTED [facility] Last Admin: 07/15/19 20:39 Dose: 83 mls/hr Vancomycin HCl 1 gm/ Sodium (Chloride) 250 mls @ 166 mls/hr IV ONETIME ONE Stop: 07/16/19 00:39 Last Admin: 07/15/19 23:17 Dose: 166 mls/hr Sodium Chloride (Saline Flush) 10 ml FLUSH ASDIRECTED PRN PRN Reason: Keep Vein Open Sodium Chloride (Saline Flush) 2.5 ml FLUSH ASDIRECTED PRN PRN Reason: Keep Vein Open Labs: Laboratory Tests 07/15/19 07/15/19 07/15/19 Range/Units 20:36 20:36 20:40 WBC 33.84 H (4.0-11.0) K/uL RBC 3.89 L (4.30-5.90) M/uL Hgb 11.8 L (12.0-16.0) g/dL Hct 35.5 L (36.0-46.0) % MCV 91.3 (80.0-98.0) fL MCH 30.3 (27.0-32.0) pg MCHC 33.2 (31.0-37.0) g/dL RDW Std Deviation 51.8 (28.0-62.0) fl RDW Coeff of Kari 15 (11.0-15.0) % Plt Count 375 (150-400) K/uL MPV 9.50 (7.40-12.00) fL Add Manual Diff YES Neutrophils % (Manual) 87 H (48.0-80.0) % Band Neutrophils % 7 % Lymphocytes % (Manual) 3 L (16.0-40.0) % Monocytes % (Manual) 2 (0.0-15.0) % Metamyelocytes % 1 % Nucleated RBC % 0.0 /100WBC Absolute Seg Neuts 29.4 H (1.4-5.7) Band Neutrophils # 2.4 Lymphocytes # (Manual) 1.0 (0.6-2.4) Monocytes # (Manual) 0.7 (0.0-0.8) Absolute Metamyelocyte 0.3 Nucleated RBCs # 0 K/uL Lactate (0.20-2.00) mmol/L Sodium 137 (136-145) mmol/L Potassium 4.7 (3.5-5.1) mmol/L Chloride 100 (98-107) mmol/L Carbon Dioxide 20.1 L (21.0-32.0) mmol/L BUN 21 H (7.0-18.0) mg/dL Creatinine 1.0 (0.6-1.0) mg/dL Est Cr Clr Drug Dosing 31.74 mL/min Estimated GFR (MDRD) 53.0 ml/min Glucose 98 (74-106) mg/dL Calcium 9.6 (8.5-10.1) mg/dL Total Bilirubin 0.6 (0.2-1.0) mg/dL AST 18 (15-37) IU/L ALT 13 L (14-63) IU/L Alkaline Phosphatase 113 (46-116) U/L Troponin I 0.131 H* (0.000-0.056) ng/mL Total Protein 6.4 (6.4-8.2) g/dL Albumin 2.8 L (3.4-5.0) g/dL Globulin 3.6 (2.6-4.0) g/dL Albumin/Globulin Ratio 0.8 L (0.9-1.6) Amylase 16 L (25-115) U/L Lipase 67 L (73-393) U/L Urine Color Urine Appearance Urine pH (5.0-8.0) Ur Specific [place] (1.001-1.035) Urine Protein (NEGATIVE) mg/dL Urine Glucose (UA) (NEGATIVE) mg/dL Urine Ketones (NEGATIVE) mg/dL Urine Occult Blood (NEGATIVE) Urine Nitrite (NEGATIVE) Urine Bilirubin (NEGATIVE) Urine Urobilinogen (<2.0) EU/dL Ur Leukocyte Esterase (NEGATIVE) Urine RBC (0-2/HPF) Urine WBC (0-5/HPF) Ur Epithelial Cells (NONE-FEW) Urine Bacteria (NEGATIVE) 07/15/19 07/15/19 07/15/19 Range/Units 21:38 23:13 23:13 WBC (4.0-11.0) K/uL RBC (4.30-5.90) M/uL Hgb (12.0-16.0) g/dL Hct (36.0-46.0) % MCV (80.0-98.0) fL MCH (27.0-32.0) pg MCHC (31.0-37.0) g/dL RDW Std Deviation (28.0-62.0) fl RDW Coeff of Kari (11.0-15.0) % Plt Count (150-400) K/uL MPV (7.40-12.00) fL Add Manual Diff Neutrophils % (Manual) (48.0-80.0) % Band Neutrophils % % Lymphocytes % (Manual) (16.0-40.0) % Monocytes % (Manual) (0.0-15.0) % Metamyelocytes % % Nucleated RBC % /100WBC Absolute Seg Neuts (1.4-5.7) Band Neutrophils # Lymphocytes # (Manual) (0.6-2.4) Monocytes # (Manual) (0.0-0.8) Absolute Metamyelocyte Nucleated RBCs # K/uL Lactate 1.1 (0.20-2.00) mmol/L Sodium (136-145) mmol/L Potassium (3.5-5.1) mmol/L Chloride (98-107) mmol/L Carbon Dioxide (21.0-32.0) mmol/L BUN (7.0-18.0) mg/dL Creatinine (0.6-1.0) mg/dL Est Cr Clr Drug Dosing mL/min Estimated GFR (MDRD) ml/min Glucose (74-106) mg/dL Calcium (8.5-10.1) mg/dL Total Bilirubin (0.2-1.0) mg/dL AST (15-37) IU/L ALT (14-63) IU/L Alkaline Phosphatase (46-116) U/L Troponin I 0.155 H* (0.000-0.056) ng/mL Total Protein (6.4-8.2) g/dL Albumin (3.4-5.0) g/dL Globulin (2.6-4.0) g/dL Albumin/Globulin Ratio (0.9-1.6) Amylase (25-115) U/L Lipase (73-393) U/L Urine Color YELLOW Urine Appearance SLT CLOUDY Urine pH 6.0 (5.0-8.0) Ur Specific [place] 1.015 (1.001-1.035) Urine Protein NEGATIVE (NEGATIVE) mg/dL Urine Glucose (UA) NEGATIVE (NEGATIVE) mg/dL Urine Ketones 15 H (NEGATIVE) mg/dL Urine Occult Blood SMALL H (NEGATIVE) Urine Nitrite POSITIVE H (NEGATIVE) Urine Bilirubin NEGATIVE (NEGATIVE) Urine Urobilinogen 0.2 (<2.0) EU/dL Ur Leukocyte Esterase MODERATE H (NEGATIVE) Urine RBC 2-4 (0-2/HPF) Urine WBC 45-53 (0-5/HPF) Ur Epithelial Cells RARE (NONE-FEW) Urine Bacteria 3+ H (NEGATIVE) Meds: Medications Generic Name Dose Route Start Last Admin Trade Name Walterq PRN Reason Stop Dose Admin Sodium Chloride 1,000 mls @ 83 mls/hr 07/15/19 20:30 07/15/19 20:39 Normal Saline IV 83 mls/hr ASDIRECTED ANNA Administration Vancomycin HCl 1 gm/ Sodium 250 mls @ 166 mls/hr 07/15/19 23:09 07/15/19 23: 17 Chloride IV 07/16/19 00:39 166 mls/hr ONETIME ONE Administration Sodium Chloride 10 ml 07/15/19 20:22 Saline Flush FLUSH ASDIRECTED PRN Keep Vein Open Sodium Chloride 2.5 ml 07/15/19 20:22 Saline Flush FLUSH ASDIRECTED PRN Keep Vein Open Discontinued Medications Generic Name Dose Route Start Last Admin Trade Name Dev PRN Reason Stop Dose Admin Hydromorphone HCl 0.5 mg 07/15/19 23:16 07/15/19 23:22 Dilaudid IVPUSH 07/15/19 23:17 0.5 mg ONETIME ONE Administration Pantoprazole Sodium 80 mg/ 20 mls @ 420 mls/hr 07/15/19 20:23 07/15/19 20:50 Sodium Chloride IVPUSH 07/15/19 20:25 Not Given ONETIME ONE Pantoprazole Sodium 80 mg/ 20 mls @ 420 mls/hr 07/15/19 20:47 07/15/19 20:50 Sodium Chloride IVPUSH 07/15/19 20:49 420 mls/hr ONETIME ONE Administration Meropenem 1 gm/ Sodium 100 mls @ 200 mls/hr 07/15/19 23:08 Chloride IV 07/15/19 23:37 ONETIME ONE Iopamidol 100 ml 07/15/19 21:31 07/15/19 22:05 Isovue-370 (76%) IVPUSH 07/15/19 21:32 100 ml ONETIME ONE Administration Ketorolac Tromethamine 15 mg 07/15/19 20:23 07/15/19 20:44 Toradol IVPUSH 07/15/19 20:24 15 mg ONETIME ONE Administration Ondansetron HCl 4 mg 07/15/19 20:23 07/15/19 20:43 Zofran IVPUSH 07/15/19 20:24 4 mg ONETIME ONE Administration Ondansetron HCl 4 mg 07/15/19 23:16 07/15/19 23:22 Zofran IVPUSH 07/15/19 23:17 4 mg ONETIME ONE Administration Tramadol HCl 50 mg 07/15/19 21:45 07/15/19 21:49 Ultram PO 07/15/19 21:46 50 mg ONETIME ONE Administration Departure - Departure Time of Disposition: 00:20 Disposition: Admitted As Inpatient 67 Condition: Good Clinical Impression: Vomiting, Small bowel obstruction, Elevated troponin, Dehydration UTI (urinary tract infection) Qualifiers: Urinary tract infection type: site unspecified Hematuria presence: without hematuria Qualified Code(s): N39.0 - Urinary tract infection, site not specified Pneumonia Qualifiers: Pneumonia type: due to unspecified organism Laterality: unspecified laterality Lung location: unspecified part of lung Qualified Code(s): J18.9 - Pneumonia, unspecified organism - Discharge Information Referrals: Vesna Hernandez DO [Primary Care Provider] - Sepsis Event Note - Focused Exam Vital Signs: Vital Signs Temp Pulse Resp BP Pulse Ox 07/15/19 23:23 36.4 C 102 H 20 116/43 L 97 07/15/19 22:16 36.6 C 109 H 20 106/46 L 94 L 07/15/19 20:16 36.4 C 98 20 119/50 L Date Exam was Performed: 07/16/19 Time Exam was Performed: 00:19 - My Orders Last 24 Hours: My Active Orders 07/15/19 20:21 Blood Glucose Check, Bedside [RC] ONETIME EKG Documentation Completion [RC] STAT Oxygen Therapy, ED [RC] ASDIRECTED Pulse Oximetry [RC] ASDIRECTED Saline Lock Insert [OM.PC] Stat 07/15/19 20:22 Sodium Chloride 0.9% [Saline Flush] 10 ml FLUSH ASDIRECTED PRN Sodium Chloride 0.9% [Saline Flush] 2.5 ml FLUSH ASDIRECTED PRN 07/15/19 20:30 Sodium Chloride 0.9% [Normal Saline] 1,000 ml IV ASDIRECTED 07/15/19 20:59 Blood Culture x2 Reflex Set [OM.PC] Stat 07/15/19 21:15 CULTURE BLOOD [BC] Stat 07/15/19 21:30 CULTURE BLOOD [BC] Stat 07/15/19 21:38 CULTURE URINE [RM] Stat 07/15/19 23:09 Vancomycin 1 gm Sodium Chloride 0.9% [Normal Saline (AdvBag)] 250 ml IV ONETIME 07/16/19 00:18 Patient Status [ADT] Stat - Assessment/Plan Last 24 Hours: My Active Orders 07/15/19 20:21 Blood Glucose Check, Bedside [RC] ONETIME EKG Documentation Completion [RC] STAT Oxygen Therapy, ED [RC] ASDIRECTED Pulse Oximetry [RC] ASDIRECTED Saline Lock Insert [OM.PC] Stat 07/15/19 20:22 Sodium Chloride 0.9% [Saline Flush] 10 ml FLUSH ASDIRECTED PRN Sodium Chloride 0.9% [Saline Flush] 2.5 ml FLUSH ASDIRECTED PRN 07/15/19 20:30 Sodium Chloride 0.9% [Normal Saline] 1,000 ml IV ASDIRECTED 07/15/19 20:59 Blood Culture x2 Reflex Set [OM.PC] Stat 07/15/19 21:15 CULTURE BLOOD [BC] Stat 07/15/19 21:30 CULTURE BLOOD [BC] Stat 07/15/19 21:38 CULTURE URINE [RM] Stat 07/15/19 23:09 Vancomycin 1 gm Sodium Chloride 0.9% [Normal Saline (AdvBag)] 250 ml IV ONETIME 07/16/19 00:18 Patient Status [ADT] Stat
[2019-07-15] MEDS ORDERED: Sodium Chloride 0.9% 2.5 ML Syringe FLUSH PRN (20:22)
[2019-07-15] MEDS ORDERED: Sodium Chloride 0.9% 10 ML Syringe FLUSH PRN (20:22)
[2019-07-15] MEDS ORDERED: Ketorolac 30 MG/ML SDV IVPUSH ONE (20:23)
[2019-07-15] MEDS ORDERED: Pantoprazole 80 MG in Sodium Chloride 0.9% 20 ML IVPUSH ONE ×2 (20:23→20:47)
[2019-07-15] MEDS ORDERED: Ondansetron 4 MG/2 ML SDV IVPUSH ONE ×2 (20:23→23:16)
[2019-07-15] MEDS ORDERED: Sodium Chloride 0.9% 1,000 ML IV SCH (20:30)
[2019-07-15 21:08] LABS: CARBON DIOXIDE,CO2 20.1 mmol/L (21.0-32.0); POTASSIUM,K 4.7 mmol/L (3.5-5.1)
--- NOTE | 2019-07-15 21:22 | CR ---
INDICATION: : Abdominal pain COMPARISON: Chest single view from 04/03/2017. FINDINGS: Erect and supine films of the abdomen were combined with an erect film of the chest. In the abdomen, there is no sign of distention of the small bowel or colon to suggest obstruction or ileus. There is no sign of free air or distinct mass. There is mild scoliosis of the thoracolumbar spine convex towards the left. In the chest, there are new mild patchy bilateral lower lobe infiltrates, suggesting bilateral lower lobe pneumonia or possibly atelectasis. There is no definite pleural effusion. The heart and mediastinum remain normal in appearance. The previously seen left PICC line is no longer present. Again seen is prominent superior subluxation of the right humeral head consistent with rotator cuff degeneration. IMPRESSION: No sign of obstruction or ileus. New mild patchy bilateral lower lobe infiltrates, suggestive of bilateral lower lobe pneumonia. Dictated by Ermias Browne MD @ Jul 15 2019 9:16PM Signed by Dr. Ermias Browne @ Jul 15 2019 9:19PM
[2019-07-15] MEDS ORDERED: Iopamidol 755 Mg/ML 100 ML Bottle IVPUSH ONE (21:31)
[2019-07-15] MEDS ORDERED: traMADol 50 MG Tab PO ONE (21:45)
--- NOTE | 2019-07-15 22:29 | CT ---
INDICATION: Abdominal pain, leukocytosis TECHNIQUE: CT abdomen and pelvis acquired with 75 cc Isovue 370 IV contrast. COMPARISON: KUB from same day FINDINGS: Lower chest: Patchy infiltrates in the right middle and left lower lobes. Liver: Unremarkable. Spleen: Unremarkable. Pancreas: Unremarkable. Gallbladder and bile ducts: Unremarkable. Adrenal glands: Unremarkable. Kidneys: Simple cyst right kidney. GI tract: Fluid-filled loops of small bowel in the pelvis measuring up to 4.3 cm in diameter. No definite transition point identified. The colon is decompressed. Vascular structures: Moderate atherosclerotic disease. Lymph nodes: Unremarkable. Miscellaneous: Unremarkable. No free air or significant free fluid. Pelvic Organs: Status post hysterectomy. Bones: Old L4 fracture. IMPRESSION: Infiltrates in the right middle and left lower lobes likely represent pneumonia. Small bowel obstruction. No transition point identified. The colon is decompressed. Status post hysterectomy. Please note that all CT scans at this facility use dose modulation, iterative reconstruction, and/or weight-based dosing when appropriate to reduce radiation dose to as low as reasonably achievable. Dictated by Katerina Payne MD @ Jul 15 2019 10:27PM Signed by Dr. Katerina Payne @ Jul 15 2019 10:27PM
--- NOTE | 2019-07-15 22:51 | CT ---
INDICATION: Chest pain and leukocytosis TECHNIQUE: CT chest was acquired with 75 cc Isovue 370 intravenous contrast. COMPARISON: None. FINDINGS: Lungs and pleural: No pleural effusion or pneumothorax. Mild ground-glass opacities in the lungs bilaterally with more dense consolidation in the right middle lobe and left lower lobe. Mediastinum: Thoracic aorta is normal in caliber with mild atherosclerotic calcification. No pericardial effusion small amount of fluid noted within the esophagus. Subcentimeter mediastinal lymph nodes. Chest wall: No masses. Bones: Advanced right glenohumeral osteoarthritis. IMPRESSION: 1. Bilateral ground-glass opacities with more dense consolidation right middle lobe and left lower lobe suggestive of pneumonia. 2. Fluid within the esophagus which can be seen in gastroesophageal reflux. Please note that all CT scans at this facility use dose modulation, iterative reconstruction, and/or weight-based dosing when appropriate to reduce radiation dose to as low as reasonably achievable. Dictated by Home Castillo MD @ Jul 15 2019 10:31PM Signed by Dr. Home Castillo @ Jul 15 2019 10:50PM
[2019-07-15] MEDS ORDERED: Meropenem 1 GM in Sodium Chloride 0.9% 100 ML IV ONE (23:08)
[2019-07-15] MEDS ORDERED: HYDROmorphone 2 MG/ML Syringe IVPUSH ONE (23:16)
[2019-07-16] MEDS ORDERED: Ertapenem 1 GM in Sodium Chloride 0.9% 50 ML IV ONE (01:30)
[2019-07-16] MEDS ORDERED: Sodium Chloride 0.9% 500 ML IV SCH (01:30)
[2019-07-16] MEDS ORDERED: Meropenem Premix 1 GM in Premix Bag 1 BAG IV ONE (01:45)
[2019-07-16] MEDS ORDERED: Ondansetron 4 MG/2 ML SDV IVPUSH PRN (01:49)
[2019-07-16] MEDS: Sodium Chloride 0.9% 1,000 ML IV SCH ×2 (02:37→16:21)
[2019-07-16] MEDS: Acetaminophen 325 MG Tab PO PRN ×3 (04:01→21:24)
[2019-07-16] MEDS: traMADol 50 MG Tab PO PRN ×2 (06:25→14:39)
[2019-07-16] MEDS: Omeprazole 20 MG Cap.CR PO SCH (06:30)
[2019-07-16] MEDS: Levothyroxine 88 MCG Tab PO SCH (06:30)
[2019-07-16 06:41] LABS: CARBON DIOXIDE,CO2 23.7 mmol/L (21.0-32.0); POTASSIUM,K 3.9 mmol/L (3.5-5.1)
[2019-07-16] MEDS ORDERED: Magnesium Sulfate/Water 2 GM in Premix Bag 1 BAG IV ONE (07:32)
--- NOTE | 2019-07-16 08:31 | PCM.HP.2 ---
<Regulo Obregon M - Last Filed: 07/16/19 11:33> H&P History of Present Illness - General Date of Service: 07/16/19 Admit Problem/Dx: Admission Diagnosis/Problem Admission Diagnosis/Problem Pneumonia Source of Information: Patient History Limitations: Reports: No Limitations - History of Present Illness Initial Comments - Free Text/Narative: 84-year-old female presented to ER with complaints of nausea and vomiting for approximately 1 week. She has a PMH of HTN, hypothyroidism, CREST syndrome and left foot ulcer. Patient reports that she had been vomiting for the past week and it initially started when she took her norco pain medication for her left foot ulcer. She reports that every time she took her norco, she would start vomiting. She stopped taking the medication 1 week ago. However, since then she has been vomiting every time she tried to eat something. She has been unable to keep solid and liquids down. The vomit is non-bloody. She also reported having abdominal pain over the past few days because of all the vomiting. She reports having normal bowel movements. She las vomited 24 hours ago and has been able to keep liquids down over the past 1 day. Furthermore, patient reports being diagnosed with left foot ulcer approximately 1 month ago and is following up with a generation technologist for it and has an appointment with vascular surgeon in [place], [place] this coming Thursday. Patient denies any fevers, chills, blurry vision, sore throat, cough, shortness of breath, chest pain, diarrhea, blood in urine, pain on urination, blood in stool, numbness or tingling in extremities. In the ER, patient to have WBC count of 33, 000, CMP unremarkable, lactate normal and elevated troponin 0.155. Repeat troponin was 0.133 and patient denied ever having any chest pain or SOB. CXR showed bilateral LL infiltrates. CT abdomen showed small bowel obstruction. CT chest showed bilateral pneumonia. UA was nitrite and esterase positive with 3+ bacteria. Patient given IV NS bolus , started on vancomycin and meropenem. Patient admitted for further evaluation. Left Feet Pain Score (Numeric/FACES): 3 - Related Data Allergies/Adverse Reactions: Allergies Allergy/AdvReac Type Severity Reaction Status Date / Time codeine Allergy Vomiting Verified 07/16/19 01:28 latex Allergy Rash Verified 07/16/19 01:28 morphine Allergy Difficulty Verified 07/16/19 01:28 Breathing oxycodone HCl [From Percocet] Allergy Vomiting Verified 07/16/19 01:28 Penicillins Allergy Anaphylactic Verified 07/16/19 01:28 Shock Sulfa (Sulfonamide Allergy Anaphylactic Verified 07/16/19 01:28 Antibiotics) Shock all pain meds Allergy Nausea Uncoded 07/16/19 01:28 Home Medications: Home Meds Omeprazole Magnesium [Prilosec Otc] 20 mg PO ACBRK 08/01/14 [History] Levothyroxine [Synthroid] 88 mcg PO ACBREAKFAST 02/28/16 [History] Bisacodyl 10 mg RC DAILY PRN 06/03/19 [History] Cetirizine HCl 10 mg PO BEDTIME 06/03/19 [History] Loperamide HCl [Imodium A-D] 4 mg PO Q6H PRN 06/03/19 [History] Oxybutynin Chloride 5 mg PO BID 06/03/19 [History] Pedi Mv No.79/Ferrous Fumarate [Flintstones with Iron Tab Chew] 1 tab PO DAILY 06/03/19 [History] amLODIPine Besylate [Norvasc] 2.5 mg PO DAILY 06/03/19 [History] Acetaminophen [Tylenol] 650 mg PO TID PRN 06/04/19 [History] Acetaminophen with Codeine [Tylenol with Codeine #3 Tablet] 1 tab PO Q8H PRN 09/21 [History] Docusate Sodium 100 mg PO Q12H 06/04/19 [History] Patient's Own Medication [Ptom] 1 each PO BID 06/04/19 [History] traMADol [Ultram] 100 mg PO Q8H PRN 06/04/19 [History] Calcium Carbonate 200 mg PO DAILY PRN 07/15/19 [History] Nabumetone [Relafen Ds] 500 mg PO BID 07/15/19 [History] Promethazine HCl 12.5 mg PO BID 07/15/19 [History] Past Medical History - Past Health History Medical/Surgical History: Denies Medical/Surgical History HEENT History: Reports: Cataract Other HEENT History: has upper denture and lower partial Cardiovascular History: Reports: None Respiratory History: Reports: None Gastrointestinal History: Reports: GERD, Irritable Bowel Syndrome, Other (See Below) Other Gastrointestinal History: IBS-Diarrhea Genitourinary History: Reports: Other (See Below) Other Genitourinary History: overactive bladder ASTRO TECHNICIAN History: Reports: Musculoskeletal History: Reports: Arthritis Neurological History: Reports: Other (See Below) Other Neuro History: hx of motion sickness Psychiatric History: Reports: None Endocrine/Metabolic History: Reports: Hypothyroidism Hematologic History: Reports: None Immunologic History: Reports: Other (See Below) Other Immunologic History: CREST syndrome Oncologic (Cancer) History: Reports: None Dermatologic History: Reports: None, Other (See Below) Other Dermatologic History: Raynaud's Syndrome - Infectious Disease History Infectious Disease History: Reports: Chicken Pox, Measles, Mumps - Past Surgical History Head Surgeries/Procedures: Reports: None HEENT Surgical History: Reports: Cataract Surgery Female Surgical History: Reports: Hysterectomy Musculoskeletal Surgical History: Reports: Knee Replacement, ORIF, Shoulder Surgery Social & Family History - Family History Family Medical History: Noncontributory HEENT: Reports: Cataract Respiratory: Reports: COPD Musculoskeletal: Reports: Arthritis Psychiatric: Reports: Depression Endocrine/Metabolic: Reports: Diabetes, type II - Tobacco Use Smoking Status *Q: Never Smoker Second Hand Smoke Exposure: No - Caffeine Use Caffeine Use: Reports: Coffee, Soda, Tea - Recreational Drug Use Recreational Drug Use: No H&P Review of Systems - Review of Systems: Review Of Systems: Comprehensive ROS is negative, except as noted in HPI. Exam - Exam Exam: See Below - Vital Signs Vital Signs: Last Vital Signs Temp 97.7 F 07/16/19 04:00 Pulse 102 H 07/16/19 04:00 Resp 16 07/16/19 04:00 BP 105/45 L 07/16/19 04:00 Pulse Ox 97 07/16/19 04:00 Weight: 45.495 kg - Exam General: Alert, Oriented, Cooperative, Other (NAD) HEENT: Conjunctiva Clear, EOMI, Hearing Intact, Mucosa Moist & [place], Posterior Pharynx Clear Neck: Supple, Trachea Midline Lungs: Normal Respiratory Effort, Other (decreased breath sounds in LLL) Cardiovascular: Regular Rate, Regular Rhythm GI/Abdominal Exam: Soft, Non-Tender, No Distention, Other (Hypoactive bowel sounds, no CVA tenderness, no flank tenderness) Extremities: Other (Left foot 4th digit black discoloration. Foot dressings in place.) Skin: Warm, Dry, Intact Neurological: Cranial Nerves Intact, Strength Equal Bilateral, Normal Speech, Normal Tone Neuro Extensive - Mental Status: Alert, Oriented x3, Normal Mood/Affect - Patient Data Lab Results Last 24 hrs: Laboratory Results - last 24 hr 07/15/19 07/15/19 07/15/19 Range/Units 20:36 20:36 20:40 WBC 33.84 H (4.0-11.0) K/uL RBC 3.89 L (4.30-5.90) M/uL Hgb 11.8 L (12.0-16.0) g/dL Hct 35.5 L (36.0-46.0) % MCV 91.3 (80.0-98.0) fL MCH 30.3 (27.0-32.0) pg MCHC 33.2 (31.0-37.0) g/dL RDW Std Deviation 51.8 (28.0-62.0) fl RDW Coeff of Kari 15 (11.0-15.0) % Plt Count 375 (150-400) K/uL MPV 9.50 (7.40-12.00) fL Neut % (Auto) (48.0-80.0) % Lymph % (Auto) (16.0-40.0) % [place] % (Auto) (0.0-15.0) % Eos % (Auto) (0.0-7.0) % Baso % (Auto) (0.0-1.5) % Neut # (Auto) (1.4-5.7) K/uL Lymph # (Auto) (0.6-2.4) K/uL [place] # (Auto) (0.0-0.8) K/uL Eos # (Auto) (0.0-0.7) K/uL Baso # (Auto) (0.0-0.1) K/uL Add Manual Diff YES Neutrophils % (Manual) 87 H (48.0-80.0) % Band Neutrophils % 7 % Lymphocytes % (Manual) 3 L (16.0-40.0) % Monocytes % (Manual) 2 (0.0-15.0) % Metamyelocytes % 1 % Nucleated RBC % 0.0 /100WBC Absolute Seg Neuts 29.4 H (1.4-5.7) Band Neutrophils # 2.4 Lymphocytes # (Manual) 1.0 (0.6-2.4) Monocytes # (Manual) 0.7 (0.0-0.8) Absolute Metamyelocyte 0.3 Nucleated RBCs # 0 K/uL Lactate (0.20-2.00) mmol/L Sodium 137 (136-145) mmol/L Potassium 4.7 (3.5-5.1) mmol/L Chloride 100 (98-107) mmol/L Carbon Dioxide 20.1 L (21.0-32.0) mmol/L BUN 21 H (7.0-18.0) mg/dL Creatinine 1.0 (0.6-1.0) mg/dL Est Cr Clr Drug Dosing 31.74 mL/min Estimated GFR (MDRD) 53.0 ml/min Glucose 98 (74-106) mg/dL Calcium 9.6 (8.5-10.1) mg/dL Phosphorus (2.6-4.7) mg/dL Magnesium (1.8-2.4) mg/dL Total Bilirubin 0.6 (0.2-1.0) mg/dL AST 18 (15-37) IU/L ALT 13 L (14-63) IU/L Alkaline Phosphatase 113 (46-116) U/L Troponin I 0.131 H* (0.000-0.056) ng/mL Total Protein 6.4 (6.4-8.2) g/dL Albumin 2.8 L (3.4-5.0) g/dL Globulin 3.6 (2.6-4.0) g/dL Albumin/Globulin Ratio 0.8 L (0.9-1.6) Amylase 16 L (25-115) U/L Lipase 67 L (73-393) U/L Urine Color Urine Appearance Urine pH (5.0-8.0) Ur Specific [place] (1.001-1.035) Urine Protein (NEGATIVE) mg/dL Urine Glucose (UA) (NEGATIVE) mg/dL Urine Ketones (NEGATIVE) mg/dL Urine Occult Blood (NEGATIVE) Urine Nitrite (NEGATIVE) Urine Bilirubin (NEGATIVE) Urine Urobilinogen (<2.0) EU/dL Ur Leukocyte Esterase (NEGATIVE) Urine RBC (0-2/HPF) Urine WBC (0-5/HPF) Ur Epithelial Cells (NONE-FEW) Urine Bacteria (NEGATIVE) 07/15/19 07/15/19 07/15/19 Range/Units 21:38 23:13 23:13 WBC (4.0-11.0) K/uL RBC (4.30-5.90) M/uL Hgb (12.0-16.0) g/dL Hct (36.0-46.0) % MCV (80.0-98.0) fL MCH (27.0-32.0) pg MCHC (31.0-37.0) g/dL RDW Std Deviation (28.0-62.0) fl RDW Coeff of Kari (11.0-15.0) % Plt Count (150-400) K/uL MPV (7.40-12.00) fL Neut % (Auto) (48.0-80.0) % Lymph % (Auto) (16.0-40.0) % [place] % (Auto) (0.0-15.0) % Eos % (Auto) (0.0-7.0) % Baso % (Auto) (0.0-1.5) % Neut # (Auto) (1.4-5.7) K/uL Lymph # (Auto) (0.6-2.4) K/uL [place] # (Auto) (0.0-0.8) K/uL Eos # (Auto) (0.0-0.7) K/uL Baso # (Auto) (0.0-0.1) K/uL Add Manual Diff Neutrophils % (Manual) (48.0-80.0) % Band Neutrophils % % Lymphocytes % (Manual) (16.0-40.0) % Monocytes % (Manual) (0.0-15.0) % Metamyelocytes % % Nucleated RBC % /100WBC Absolute Seg Neuts (1.4-5.7) Band Neutrophils # Lymphocytes # (Manual) (0.6-2.4) Monocytes # (Manual) (0.0-0.8) Absolute Metamyelocyte Nucleated RBCs # K/uL Lactate 1.1 (0.20-2.00) mmol/L Sodium (136-145) mmol/L Potassium (3.5-5.1) mmol/L Chloride (98-107) mmol/L Carbon Dioxide (21.0-32.0) mmol/L BUN (7.0-18.0) mg/dL Creatinine (0.6-1.0) mg/dL Est Cr Clr Drug Dosing mL/min Estimated GFR (MDRD) ml/min Glucose (74-106) mg/dL Calcium (8.5-10.1) mg/dL Phosphorus (2.6-4.7) mg/dL Magnesium (1.8-2.4) mg/dL Total Bilirubin (0.2-1.0) mg/dL AST (15-37) IU/L ALT (14-63) IU/L Alkaline Phosphatase (46-116) U/L Troponin I 0.155 H* (0.000-0.056) ng/mL Total Protein (6.4-8.2) g/dL Albumin (3.4-5.0) g/dL Globulin (2.6-4.0) g/dL Albumin/Globulin Ratio (0.9-1.6) Amylase (25-115) U/L Lipase (73-393) U/L Urine Color YELLOW Urine Appearance SLT CLOUDY Urine pH 6.0 (5.0-8.0) Ur Specific [place] 1.015 (1.001-1.035) Urine Protein NEGATIVE (NEGATIVE) mg/dL Urine Glucose (UA) NEGATIVE (NEGATIVE) mg/dL Urine Ketones 15 H (NEGATIVE) mg/dL Urine Occult Blood SMALL H (NEGATIVE) Urine Nitrite POSITIVE H (NEGATIVE) Urine Bilirubin NEGATIVE (NEGATIVE) Urine Urobilinogen 0.2 (<2.0) EU/dL Ur Leukocyte Esterase MODERATE H (NEGATIVE) Urine RBC 2-4 (0-2/HPF) Urine WBC 45-53 (0-5/HPF) Ur Epithelial Cells RARE (NONE-FEW) Urine Bacteria 3+ H (NEGATIVE) 07/16/19 07/16/19 07/16/19 Range/Units 06:10 06:10 06:10 WBC 23.63 H (4.0-11.0) K/uL RBC 3.34 L (4.30-5.90) M/uL Hgb 10.0 L (12.0-16.0) g/dL Hct 31.0 L (36.0-46.0) % MCV 92.8 (80.0-98.0) fL MCH 29.9 (27.0-32.0) pg MCHC 32.3 (31.0-37.0) g/dL RDW Std Deviation 53.4 (28.0-62.0) fl RDW Coeff of Kari 16 H (11.0-15.0) % Plt Count 333 (150-400) K/uL MPV 9.80 (7.40-12.00) fL Neut % (Auto) 85.7 H (48.0-80.0) % Lymph % (Auto) 8.3 L (16.0-40.0) % [place] % (Auto) 4.4 (0.0-15.0) % Eos % (Auto) 1.3 (0.0-7.0) % Baso % (Auto) 0.3 (0.0-1.5) % Neut # (Auto) 20.3 H (1.4-5.7) K/uL Lymph # (Auto) 2.0 (0.6-2.4) K/uL [place] # (Auto) 1.0 H (0.0-0.8) K/uL Eos # (Auto) 0.3 (0.0-0.7) K/uL Baso # (Auto) 0.1 (0.0-0.1) K/uL Add Manual Diff Neutrophils % (Manual) (48.0-80.0) % Band Neutrophils % % Lymphocytes % (Manual) (16.0-40.0) % Monocytes % (Manual) (0.0-15.0) % Metamyelocytes % % Nucleated RBC % 0.0 /100WBC Absolute Seg Neuts (1.4-5.7) Band Neutrophils # Lymphocytes # (Manual) (0.6-2.4) Monocytes # (Manual) (0.0-0.8) Absolute Metamyelocyte Nucleated RBCs # 0 K/uL Lactate (0.20-2.00) mmol/L Sodium 139 (136-145) mmol/L Potassium 3.9 (3.5-5.1) mmol/L Chloride 105 (98-107) mmol/L Carbon Dioxide 23.7 (21.0-32.0) mmol/L BUN 18 (7.0-18.0) mg/dL Creatinine 0.9 (0.6-1.0) mg/dL Est Cr Clr Drug Dosing 34.02 mL/min Estimated GFR (MDRD) 59.8 ml/min Glucose 74 (74-106) mg/dL Calcium 8.3 L (8.5-10.1) mg/dL Phosphorus 2.7 (2.6-4.7) mg/dL Magnesium 1.2 L (1.8-2.4) mg/dL Total Bilirubin (0.2-1.0) mg/dL AST (15-37) IU/L ALT (14-63) IU/L Alkaline Phosphatase (46-116) U/L Troponin I 0.133 H* (0.000-0.056) ng/mL Total Protein (6.4-8.2) g/dL Albumin (3.4-5.0) g/dL Globulin (2.6-4.0) g/dL Albumin/Globulin Ratio (0.9-1.6) Amylase (25-115) U/L Lipase (73-393) U/L Urine Color Urine Appearance Urine pH (5.0-8.0) Ur Specific [place] (1.001-1.035) Urine Protein (NEGATIVE) mg/dL Urine Glucose (UA) (NEGATIVE) mg/dL Urine Ketones (NEGATIVE) mg/dL Urine Occult Blood (NEGATIVE) Urine Nitrite (NEGATIVE) Urine Bilirubin (NEGATIVE) Urine Urobilinogen (<2.0) EU/dL Ur Leukocyte Esterase (NEGATIVE) Urine RBC (0-2/HPF) Urine WBC (0-5/HPF) Ur Epithelial Cells (NONE-FEW) Urine Bacteria (NEGATIVE) Result Diagrams: 07/16/19 06:10 07/16/19 06:10 Chan Results Last 24 hrs: Microbiology 07/15/19 21:15 Anaerobic Blood Culture - Final Blood - Venous Sepsis Event Note - Evaluation Sepsis Screening Result: Sepsis Risk - Focused Exam Vital Signs: Vital Signs Temp Pulse Resp BP Pulse Ox Pulse Ox 07/16/19 04:00 97.7 F 102 H 16 105/45 L 97 07/16/19 01:00 98.5 F 109 H 16 121/56 L 94 L 94 L 07/16/19 00:37 97.8 F 109 H 18 115/39 L 93 L 07/15/19 23:23 97.5 F 102 H 20 116/43 L 97 07/15/19 22:16 97.9 F 109 H 20 106/46 L 94 L Date Exam was Performed: 07/16/19 Time Exam was Performed: 11:33 Problem List Initiated/Reviewed/Updated: Yes Orders Last 24hrs: Active Orders 24 hr Category Date Time Status Patient Status [ADT] Stat ADT 07/16/19 00:18 Active Blood Glucose Check, Bedside [RC] ONETIME Care 07/15/19 20:21 Active Oxygen Therapy [RC] PRN Care 07/16/19 08:20 Ordered Pulse Oximetry [RC] ASDIRECTED Care 07/15/19 20:21 Active VTE/DVT Education [RC] PER UNIT ROUTINE Care 07/16/19 08:20 Ordered Vital Signs [RC] Q4H Care 07/16/19 01:24 Active Vital Signs [RC] Q4H Care 07/16/19 08:20 Ordered Consult to Wound Care Services [CONS] Routine Cons 07/16/19 01:48 Active Clear Liquid Diet [DIET] Diet 07/16/19 Breakfast Active CBC WITH AUTO DIFF [HEME] AM Lab 07/17/19 05:11 Ordered COMPREHENSIVE METABOLIC PN,CMP [CHEM] AM Lab 07/17/19 05:11 Ordered CULTURE BLOOD [BC] Stat Lab 07/15/19 21:15 Results CULTURE BLOOD [BC] Stat Lab 07/15/19 21:30 Received CULTURE URINE [RM] Stat Lab 07/15/19 21:38 Received MAGNESIUM [CHEM] AM Lab 07/17/19 05:11 Ordered PHOSPHORUS [CHEM] AM Lab 07/17/19 05:11 Ordered VANCOMYCIN TROUGH [CHEM] Timed Lab 07/19/19 22:00 Ordered Acetaminophen [Tylenol] Med 07/16/19 01:47 Active 650 mg PO Q8H PRN Cetirizine [ZyrTEC] Med 07/16/19 21:00 Ordered 10 mg PO BEDTIME Docusate Sodium [Colace] Med 07/16/19 09:00 Active 100 mg PO DAILY Docusate Sodium [Colace] Med 07/16/19 08:30 Ordered 100 mg PO Q12H Heparin Sodium Med 07/16/19 08:30 Ordered 5,000 units SUBCUT Q8H Levothyroxine [Synthroid] Med 07/16/19 07:30 Active 88 mcg PO ACBREAKFAST Magnesium Sulfate/Water [Magnesium Sulfate in Water Med 07/16/19 07:32 Active Premix] 2 gm Premix Bag 1 bag IV ONETIME Meropenem Premix [Meropenem] 1 gm Med 07/16/19 09:00 Active Premix Bag 1 bag IV Q8H Omeprazole Med 07/16/19 07:30 Active 20 mg PO ACBREAKFAST Ondansetron [Zofran] Med 07/16/19 01:49 Active 4 mg IVPUSH Q4H PRN Oxybutynin Med 07/16/19 09:00 Active 5 mg PO BID Pedi Mv No.79/Ferrous Fumarate [Flintstones with Iron Med 07/16/19 09:00 Ordered Tab Chew] 1 tab PO DAILY Pharmacy to Dose - Vancomycin Med 07/16/19 01:45 Pending 1 dose .XX ASDIRECTED Sodium Chloride 0.9% [Normal Saline] 1,000 ml Med 07/16/19 01:30 Active IV ASDIRECTED Sodium Chloride 0.9% [Normal Saline] 500 ml Med 07/16/19 01:30 Active IV .BOLUS Sodium Chloride 0.9% [Saline Flush] Med 07/15/19 20:22 Active 10 ml FLUSH ASDIRECTED PRN Sodium Chloride 0.9% [Saline Flush] Med 07/15/19 20:22 Active 2.5 ml FLUSH ASDIRECTED PRN Vancomycin 0.75 gm Med 07/16/19 23:00 Active Sodium Chloride 0.9% [Normal Saline] 250 ml IV Q24H traMADol [Ultram] Med 07/16/19 06:03 Active 100 mg PO Q8H PRN Blood Culture x2 Reflex Set [OM.PC] Stat Oth 07/15/19 20:59 Ordered Saline Lock Insert [OM.PC] Stat Oth 07/15/19 20:21 Ordered Code Status [Resuscitation Status] Routine Resus Stat 07/16/19 08:19 Ordered Medication Orders Acetaminophen (Tylenol) 650 mg PO Q8H PRN PRN Reason: Pain Last Admin: 07/16/19 04:01 Dose: 650 mg Cetirizine HCl (Zyrtec) 10 mg PO BEDTIME ANNA Docusate Sodium (Colace) 100 mg PO DAILY ANNA Docusate Sodium (Colace) 100 mg PO Q12H ANNA Heparin Sodium (Porcine) (Heparin Sodium) 5,000 units SUBCUT Q8H [facility] Sodium Chloride (Normal Saline) 500 mls @ 999 mls/hr IV .BOLUS [facility] Last Admin: 07/16/19 01:34 Dose: 999 mls/hr Sodium Chloride (Normal Saline) 1,000 mls @ 100 mls/hr IV ASDIRECTED [facility] Last Admin: 07/16/19 02:37 Dose: 100 mls/hr Vancomycin HCl 0.75 gm/ Sodium (Chloride) 250 mls @ 166.667 mls/hr IV Q24H ANNA Meropenem/Sodium Chloride 1 gm (/ Premix) 50 mls @ 100 mls/hr IV Q8H ANNA Magnesium Sulfate 2 gm/ Premix 50 mls @ 25 mls/hr IV ONETIME ONE Stop: 07/16/19 09:31 Last Admin: 07/16/19 07:43 Dose: 25 mls/hr Levothyroxine Sodium (Synthroid) 88 mcg PO ACBREAKFAST [facility] Last Admin: 07/16/19 06:30 Dose: 88 mcg Non-Formulary Medication (Pedi Mv No.79/Ferrous Fumarate [Flintstones With Iron Tab Chew]) 1 tab PO DAILY [facility] Omeprazole (Omeprazole) 20 mg PO ACBREAKFAST [facility] Last Admin: 07/16/19 06:30 Dose: 20 mg Ondansetron HCl (Zofran) 4 mg IVPUSH Q4H PRN PRN Reason: Nausea Oxybutynin Chloride (Oxybutynin) 5 mg PO BID [facility] Sodium Chloride (Saline Flush) 10 ml FLUSH ASDIRECTED PRN PRN Reason: Keep Vein Open Sodium Chloride (Saline Flush) 2.5 ml FLUSH ASDIRECTED PRN PRN Reason: Keep Vein Open Tramadol HCl (Ultram) 100 mg PO Q8H PRN PRN Reason: Pain Last Admin: 07/16/19 06:25 Dose: 100 mg Vancomycin HCl (Pharmacy To Dose - Vancomycin) 1 dose .XX ASDIRECTED [facility] Assessment/Plan Comment:: Assessment and Plan: 1. Sepsis secondary to HCAP and UTI: Patient received IV NS bolus. Will continue IV NS maintenance at 100 cc/hr. Lactate level normal. Blood cultures and urine cultures pending. WBC count downtrending. Continue IV vancomycin and meropenem. Will add IV azithromycin. 2. Small bowel obstruction: CT showed SBO and colon is decompressed. IV NS 100 cc/hr. Patient has not vomited in 24 hours and last BM was yesterday. Will advance to soft GI diet today. 3. Chronic left foot ulcer: Wound care consulted. For pain, tramadol 100 mg q8h. Patient following generation technologist Dr. Smalls. Patient also has appointment with vascular surgeon in [place], [place] on Thursday. 4. Elevated troponin likely secondary to #1, downtrending. Patient is asymptomatic and denied any chest pain or SOB. 5. Hypomagnesemia: Replete with IV 2g magnesium sulfate. Will recheck with AM labs. 6. Past medical history of HTN, hypothyroidism and CREST syndrome. 7. VTE prophylaxis: heparin. <Waqas Child - Last Filed: 07/17/19 09:40> H&P History of Present Illness - General Admit Problem/Dx: Admission Diagnosis/Problem Admission Diagnosis/Problem Pneumonia Exam - Vital Signs Vital Signs: Last Vital Signs Temp 36.9 C 07/17/19 07:40 Pulse 89 07/17/19 07:40 Resp 17 07/17/19 07:40 BP 133/63 07/17/19 07:40 Pulse Ox 97 07/17/19 07:40 - Patient Data Lab Results Last 24 hrs: Laboratory Results - last 24 hr 07/17/19 07/17/19 Range/Units 06:08 06:08 WBC 14.44 H (4.0-11.0) K/uL RBC 3.10 L (4.30-5.90) M/uL Hgb 9.3 L (12.0-16.0) g/dL Hct 28.6 L (36.0-46.0) % MCV 92.3 (80.0-98.0) fL MCH 30.0 (27.0-32.0) pg MCHC 32.5 (31.0-37.0) g/dL RDW Std Deviation 54.0 (28.0-62.0) fl RDW Coeff of Kari 16 H (11.0-15.0) % Plt Count 341 (150-400) K/uL MPV 9.40 (7.40-12.00) fL Neut % (Auto) 80.4 H (48.0-80.0) % Lymph % (Auto) 9.9 L (16.0-40.0) % [place] % (Auto) 5.3 (0.0-15.0) % Eos % (Auto) 4.1 (0.0-7.0) % Baso % (Auto) 0.3 (0.0-1.5) % Neut # (Auto) 11.6 H (1.4-5.7) K/uL Lymph # (Auto) 1.4 (0.6-2.4) K/uL [place] # (Auto) 0.8 (0.0-0.8) K/uL Eos # (Auto) 0.6 (0.0-0.7) K/uL Baso # (Auto) 0.0 (0.0-0.1) K/uL Nucleated RBC % 0.0 /100WBC Nucleated RBCs # 0 K/uL Sodium 140 (136-145) mmol/L Potassium 3.6 (3.5-5.1) mmol/L Chloride 108 H (98-107) mmol/L Carbon Dioxide 17.4 L (21.0-32.0) mmol/L BUN 12 (7.0-18.0) mg/dL Creatinine 0.6 (0.6-1.0) mg/dL Est Cr Clr Drug Dosing 51.02 mL/min Estimated GFR (MDRD) > 60.0 ml/min Glucose 61 L (74-106) mg/dL Calcium 7.9 L (8.5-10.1) mg/dL Phosphorus 2.0 L (2.6-4.7) mg/dL Magnesium 1.7 L (1.8-2.4) mg/dL Total Bilirubin 0.4 (0.2-1.0) mg/dL AST 10 L (15-37) IU/L ALT 10 L (14-63) IU/L Alkaline Phosphatase 96 (46-116) U/L Total Protein 4.7 L (6.4-8.2) g/dL Albumin 2.0 L (3.4-5.0) g/dL Globulin 2.7 (2.6-4.0) g/dL Albumin/Globulin Ratio 0.7 L (0.9-1.6) Result Diagrams: 07/17/19 06:08 07/17/19 06:08 Chan Results Last 24 hrs: Microbiology 07/15/19 21:38 Urine Culture - Final Urine, Clean Catch Escherichia Coli 07/15/19 21:30 Aerobic Blood Culture - Preliminary Blood - Venous - Lab Draw NO GROWTH AFTER 1 DAY Anaerobic Blood Culture - Preliminary NO GROWTH AFTER 1 DAY 07/15/19 21:15 Aerobic Blood Culture - Preliminary Blood - Venous NO GROWTH AFTER 1 DAY Anaerobic Blood Culture - Final Sepsis Event Note - Focused Exam Vital Signs: Vital Signs Temp Pulse Resp BP Pulse Ox 07/17/19 07:40 36.9 C 89 17 133/63 97 07/17/19 04:40 37.3 C 102 H 22 H 124/52 L 90 L 07/16/19 23:15 36.5 C 95 18 112/57 L 96 Date Exam was Performed: 07/17/19 Time Exam was Performed: 09:40 Orders Last 24hrs: Active Orders 24 hr Category Date Time Status Clear Liquid Diet [DIET] Diet 07/16/19 Lunch Active VANCOMYCIN TROUGH [CHEM] Timed Lab 07/19/19 22:00 Ordered Azithromycin [Zithromax] 500 mg Med 07/16/19 10:30 Active Sodium Chloride 0.9% [Normal Saline (AdvBag)] 250 ml IV DAILY Cetirizine [ZyrTEC] Med 07/16/19 21:00 Active 10 mg PO BEDTIME Docusate Sodium [Colace] Med 07/16/19 09:00 Active 100 mg PO DAILY Meropenem Premix [Meropenem] 1 gm Med 07/16/19 09:00 Active Premix Bag 1 bag IV Q8H Multivitamins w-Iron/Ca/FA/Min [Thera M Plus] Med 07/16/19 09:00 Active 1 tab PO DAILY Oxybutynin Med 07/16/19 09:00 Active 5 mg PO BID Vancomycin 0.75 gm Med 07/16/19 23:00 Active Sodium Chloride 0.9% [Normal Saline] 250 ml IV Q24H Medication Orders Acetaminophen (Tylenol) 650 mg PO Q8H PRN PRN Reason: Pain Last Admin: 07/17/19 08:38 Dose: 650 mg Admin: 07/16/19 21:24 Dose: 650 mg Admin: 07/16/19 12:34 Dose: 650 mg Admin: 07/16/19 04:01 Dose: 650 mg Cetirizine HCl (Zyrtec) 10 mg PO BEDTIME [facility] Last Admin: 07/16/19 20:32 Dose: 10 mg Docusate Sodium (Colace) 100 mg PO DAILY [facility] Last Admin: 07/16/19 09:30 Dose: 100 mg Docusate Sodium (Colace) 100 mg PO Q12H [facility] Last Admin: 07/16/19 20:32 Dose: 100 mg Admin: 07/16/19 09:35 Dose: 100 mg Heparin Sodium (Porcine) (Heparin Sodium) 5,000 units SUBCUT Q8H [facility] Last Admin: 07/17/19 08:36 Dose: 5,000 units Admin: 07/17/19 00:59 Dose: 5,000 units Admin: 07/16/19 16:17 Dose: 5,000 units Admin: 07/16/19 09:31 Dose: 5,000 units Sodium Chloride (Normal Saline) 500 mls @ 999 mls/hr IV .BOLUS [facility] Last Admin: 07/16/19 01:34 Dose: 999 mls/hr Sodium Chloride (Normal Saline) 1,000 mls @ 100 mls/hr IV ASDIRECTED [facility] Last Admin: 07/16/19 16:21 Dose: 100 mls/hr Infusion: 07/16/19 12:37 Dose: 100 mls/hr Admin: 07/16/19 02:37 Dose: 100 mls/hr Vancomycin HCl 0.75 gm/ Sodium (Chloride) 250 mls @ 166.667 mls/hr IV Q24H [facility] Last Admin: 07/16/19 22:59 Dose: 166.667 mls/hr Meropenem/Sodium Chloride 1 gm (/ Premix) 50 mls @ 100 mls/hr IV Q8H [facility] Last Admin: 07/17/19 01:05 Dose: 100 mls/hr Infusion: 07/16/19 16:53 Dose: 100 mls/hr Admin: 07/16/19 16:23 Dose: 100 mls/hr Infusion: 07/16/19 10:28 Dose: 100 mls/hr Admin: 07/16/19 09:58 Dose: 100 mls/hr Azithromycin 500 mg/ Sodium (Chloride) 250 mls @ 250 mls/hr IV DAILY [facility] Last Admin: 07/17/19 08:37 Dose: 250 mls/hr Infusion: 07/16/19 12:16 Dose: 250 mls/hr Admin: 07/16/19 11:16 Dose: 250 mls/hr Levothyroxine Sodium (Synthroid) 88 mcg PO ACBREAKFAST [facility] Last Admin: 07/17/19 06:32 Dose: 88 mcg Admin: 07/16/19 06:30 Dose: 88 mcg Multivitamins/Minerals (Thera M Plus) 1 tab PO DAILY [facility] Last Admin: 07/17/19 08:36 Dose: 1 tab Admin: 07/16/19 09:30 Dose: 1 tab Omeprazole (Omeprazole) 20 mg PO ACBREAKFAST [facility] Last Admin: 07/17/19 06:32 Dose: 20 mg Admin: 07/16/19 06:30 Dose: 20 mg Ondansetron HCl (Zofran) 4 mg IVPUSH Q4H PRN PRN Reason: Nausea Last Admin: 07/16/19 10:41 Dose: 4 mg Oxybutynin Chloride (Oxybutynin) 5 mg PO BID [facility] Last Admin: 07/17/19 08:36 Dose: 5 mg Admin: 07/16/19 20:32 Dose: 5 mg Admin: 07/16/19 09:30 Dose: 5 mg Sodium Chloride (Saline Flush) 10 ml FLUSH ASDIRECTED PRN PRN Reason: Keep Vein Open Sodium Chloride (Saline Flush) 2.5 ml FLUSH ASDIRECTED PRN PRN Reason: Keep Vein Open Tramadol HCl (Ultram) 100 mg PO Q8H PRN PRN Reason: Pain Last Admin: 07/17/19 04:47 Dose: 100 mg Admin: 07/16/19 14:39 Dose: 100 mg Admin: 07/16/19 06:25 Dose: 100 mg Vancomycin HCl (Pharmacy To Dose - Vancomycin) 1 dose .XX ASDIRECTED [facility] Assessment/Plan Comment:: I have performed history and physical examination of the patient and have discussed management plan with the resident and agree with the assessment and plan above unless otherwise specified in my note.
[2019-07-16] MEDS ORDERED: Meropenem 1 GM in Premix Bag 1 BAG IV SCH (09:00)
[2019-07-16] MEDS ORDERED: amLODIPine 2.5 MG Tab PO SCH (09:00)
[2019-07-16] MEDS: Docusate Sodium 100 MG Cap PO SCH ×3 (09:30→20:32)
[2019-07-16] MEDS: Oxybutynin 5 MG Tab PO SCH ×2 (09:30→20:32)
[2019-07-16] MEDS: Multivitamins with Iron/Calcium/Folic Acid/Minerals Tab PO SCH (09:30)
[2019-07-16] MEDS: Heparin Sodium 5,000 Units/ML Vial SUBCUT SCH ×2 (09:31→16:17)
[2019-07-16] MEDS: Meropenem Premix 1 GM in Premix Bag 1 BAG IV SCH ×2 (09:58→16:23)
[2019-07-16] MEDS: Azithromycin 500 MG in Sodium Chloride 0.9% 250 ML IV SCH (11:16)
[2019-07-16] MEDS ORDERED: Promethazine 25 MG/ML SDV IM ONE (11:49)
[2019-07-16] MEDS: Cetirizine 10 MG Tab PO SCH (20:32)
[2019-07-17] MEDS: Heparin Sodium 5,000 Units/ML Vial SUBCUT SCH ×4 (00:59→23:41)
[2019-07-17] MEDS: Meropenem Premix 1 GM in Premix Bag 1 BAG IV SCH ×3 (01:05→16:13)
[2019-07-17] MEDS: traMADol 50 MG Tab PO PRN ×3 (04:47→21:12)
[2019-07-17] MEDS: Omeprazole 20 MG Cap.CR PO SCH (06:32)
[2019-07-17] MEDS: Levothyroxine 88 MCG Tab PO SCH (06:32)
[2019-07-17 06:52] LABS: BLOOD UREA NITROGEN,BUN 12 mg/dL (7.0-18.0); CARBON DIOXIDE,CO2 17.4 mmol/L (21.0-32.0); CHLORIDE,CL 108 mmol/L (98-107); GLUCOSE RANDOM 61 mg/dL (74-106); POTASSIUM,K 3.6 mmol/L (3.5-5.1); SODIUM,NA 140 mmol/L (136-145)
[2019-07-17] MEDS: Oxybutynin 5 MG Tab PO SCH ×2 (08:36→21:10)
[2019-07-17] MEDS: Multivitamins with Iron/Calcium/Folic Acid/Minerals Tab PO SCH (08:36)
[2019-07-17] MEDS: Azithromycin 500 MG in Sodium Chloride 0.9% 250 ML IV SCH (08:37)
[2019-07-17] MEDS: Acetaminophen 325 MG Tab PO PRN ×2 (08:38→17:32)
[2019-07-17] MEDS: Docusate Sodium 100 MG Cap PO SCH ×2 (09:55→09:56)
[2019-07-17] MEDS ORDERED: Potassium Chloride 10% 20 MEQ/15 ML Soln 30 ML UD Cup PO ONE (10:10)
[2019-07-17] MEDS ORDERED: Magnesium Oxide 400 MG Tab PO ONE (10:10)
--- NOTE | 2019-07-17 10:11 | PCM.PN ---
- General Info Date of Service: 07/17/19 Admission Dx/Problem (Free Text): c/o new onset diarrhea x 4 this AM which was dark in color, is on iron tablets, no fevers, chills. Feels comfortable, wants to have oat meal and milk - Review of Systems General: Denies: Fever, Weakness, Fatigue Pulmonary: Denies: Shortness of Breath, Pleuritic Chest Pain Cardiovascular: Denies: Chest Pain, Palpitations Gastrointestinal: Reports: Diarrhea. Denies: Abdominal Pain, Constipation, Melena, Nausea Genitourinary: Denies: Dysuria, Frequency, Burning Musculoskeletal: Denies: Neck Pain, Shoulder Pain Skin: Denies: Cyanosis, Mottled Neurological: Denies: Confusion, Dizziness, Headache Psychiatric: Denies: Confusion, Depression - Patient Data Vitals - Most Recent: Last Vital Signs Temp 36.9 C 07/17/19 07:40 Pulse 89 07/17/19 07:40 Resp 17 07/17/19 07:40 BP 133/63 07/17/19 07:40 Pulse Ox 97 07/17/19 07:40 Weight - Most Recent: 45.495 kg I&O - Last 24 Hours: Intake & Output 07/16/19 07/17/19 07/17/19 22:59 06:59 14:59 Intake Total 1400 1799 Output Total 250 526 Balance 1150 1273 Lab Results Last 24 Hours: Laboratory Results - last 24 hr 07/17/19 07/17/19 Range/Units 06:08 06:08 WBC 14.44 H (4.0-11.0) K/uL RBC 3.10 L (4.30-5.90) M/uL Hgb 9.3 L (12.0-16.0) g/dL Hct 28.6 L (36.0-46.0) % MCV 92.3 (80.0-98.0) fL MCH 30.0 (27.0-32.0) pg MCHC 32.5 (31.0-37.0) g/dL RDW Std Deviation 54.0 (28.0-62.0) fl RDW Coeff of Kari 16 H (11.0-15.0) % Plt Count 341 (150-400) K/uL MPV 9.40 (7.40-12.00) fL Neut % (Auto) 80.4 H (48.0-80.0) % Lymph % (Auto) 9.9 L (16.0-40.0) % Mcduffie % (Auto) 5.3 (0.0-15.0) % Eos % (Auto) 4.1 (0.0-7.0) % Baso % (Auto) 0.3 (0.0-1.5) % Neut # (Auto) 11.6 H (1.4-5.7) K/uL Lymph # (Auto) 1.4 (0.6-2.4) K/uL Mcduffie # (Auto) 0.8 (0.0-0.8) K/uL Eos # (Auto) 0.6 (0.0-0.7) K/uL Baso # (Auto) 0.0 (0.0-0.1) K/uL Nucleated RBC % 0.0 /100WBC Nucleated RBCs # 0 K/uL Sodium 140 (136-145) mmol/L Potassium 3.6 (3.5-5.1) mmol/L Chloride 108 H (98-107) mmol/L Carbon Dioxide 17.4 L (21.0-32.0) mmol/L BUN 12 (7.0-18.0) mg/dL Creatinine 0.6 (0.6-1.0) mg/dL Est Cr Clr Drug Dosing 51.02 mL/min Estimated GFR (MDRD) > 60.0 ml/min Glucose 61 L (74-106) mg/dL Calcium 7.9 L (8.5-10.1) mg/dL Phosphorus 2.0 L (2.6-4.7) mg/dL Magnesium 1.7 L (1.8-2.4) mg/dL Total Bilirubin 0.4 (0.2-1.0) mg/dL AST 10 L (15-37) IU/L ALT 10 L (14-63) IU/L Alkaline Phosphatase 96 (46-116) U/L Total Protein 4.7 L (6.4-8.2) g/dL Albumin 2.0 L (3.4-5.0) g/dL Globulin 2.7 (2.6-4.0) g/dL Albumin/Globulin Ratio 0.7 L (0.9-1.6) Chan Results Last 24 Hours: Microbiology 07/15/19 21:38 Urine Culture - Final Urine, Clean Catch Escherichia Coli 07/15/19 21:30 Aerobic Blood Culture - Preliminary Blood - Venous - Lab Draw NO GROWTH AFTER 1 DAY Anaerobic Blood Culture - Preliminary NO GROWTH AFTER 1 DAY 07/15/19 21:15 Aerobic Blood Culture - Preliminary Blood - Venous NO GROWTH AFTER 1 DAY Anaerobic Blood Culture - Final Med Orders - Current: Current Medications Acetaminophen (Tylenol) 650 mg PO Q8H PRN PRN Reason: Pain Last Admin: 07/17/19 08:38 Dose: 650 mg Cetirizine HCl (Zyrtec) 10 mg PO BEDTIME [facility] Last Admin: 07/16/19 20:32 Dose: 10 mg Docusate Sodium (Colace) 100 mg PO DAILY [facility] Last Admin: 07/17/19 09:56 Dose: Not Given Docusate Sodium (Colace) 100 mg PO Q12H [facility] Last Admin: 07/17/19 09:55 Dose: Not Given Heparin Sodium (Porcine) (Heparin Sodium) 5,000 units SUBCUT Q8H [facility] Last Admin: 07/17/19 08:36 Dose: 5,000 units Sodium Chloride (Normal Saline) 500 mls @ 999 mls/hr IV .BOLUS [facility] Last Admin: 07/16/19 01:34 Dose: 999 mls/hr Sodium Chloride (Normal Saline) 1,000 mls @ 100 mls/hr IV ASDIRECTED [facility] Last Admin: 07/16/19 16:21 Dose: 100 mls/hr Vancomycin HCl 0.75 gm/ Sodium (Chloride) 250 mls @ 166.667 mls/hr IV Q24H [facility] Last Admin: 07/16/19 22:59 Dose: 166.667 mls/hr Meropenem/Sodium Chloride 1 gm (/ Premix) 50 mls @ 100 mls/hr IV Q8H [facility] Last Admin: 07/17/19 10:04 Dose: 100 mls/hr Azithromycin 500 mg/ Sodium (Chloride) 250 mls @ 250 mls/hr IV DAILY [facility] Last Admin: 07/17/19 08:37 Dose: 250 mls/hr Levothyroxine Sodium (Synthroid) 88 mcg PO ACBREAKFAST [facility] Last Admin: 07/17/19 06:32 Dose: 88 mcg Magnesium Oxide (Magnesium Oxide) 800 mg PO ONETIME ONE Stop: 07/17/19 10:11 Multivitamins/Minerals (Thera M Plus) 1 tab PO DAILY [facility] Last Admin: 07/17/19 08:36 Dose: 1 tab Omeprazole (Omeprazole) 20 mg PO ACBREAKFAST [facility] Last Admin: 07/17/19 06:32 Dose: 20 mg Ondansetron HCl (Zofran) 4 mg IVPUSH Q4H PRN PRN Reason: Nausea Last Admin: 07/16/19 10:41 Dose: 4 mg Oxybutynin Chloride (Oxybutynin) 5 mg PO BID [facility] Last Admin: 07/17/19 08:36 Dose: 5 mg Potassium Chloride (Potassium Chloride) 40 meq PO ONETIME ONE Stop: 07/17/19 10:11 Sodium Chloride (Saline Flush) 10 ml FLUSH ASDIRECTED PRN PRN Reason: Keep Vein Open Sodium Chloride (Saline Flush) 2.5 ml FLUSH ASDIRECTED PRN PRN Reason: Keep Vein Open Tramadol HCl (Ultram) 100 mg PO Q8H PRN PRN Reason: Pain Last Admin: 07/17/19 04:47 Dose: 100 mg Vancomycin HCl (Pharmacy To Dose - Vancomycin) 1 dose .XX ASDIRECTED [facility] Discontinued Medications Amlodipine Besylate (Norvasc) 2.5 mg PO DAILY [facility] Hydromorphone HCl (Dilaudid) 0.5 mg IVPUSH ONETIME ONE Stop: 07/15/19 23:17 Last Admin: 07/15/19 23:22 Dose: 0.5 mg Pantoprazole Sodium 80 mg/ (Sodium Chloride) 20 mls @ 420 mls/hr IVPUSH ONETIME ONE Stop: 07/15/19 20:25 Last Admin: 07/15/19 20:50 Dose: Not Given Sodium Chloride (Normal Saline) 1,000 mls @ 83 mls/hr IV ASDIRECTED [facility] Last Admin: 07/15/19 20:39 Dose: 83 mls/hr Pantoprazole Sodium 80 mg/ (Sodium Chloride) 20 mls @ 420 mls/hr IVPUSH ONETIME ONE Stop: 07/15/19 20:49 Last Admin: 07/15/19 20:50 Dose: 420 mls/hr Meropenem 1 gm/ Sodium (Chloride) 100 mls @ 200 mls/hr IV ONETIME ONE Stop: 07/15/19 23:37 Last Admin: 07/16/19 01:32 Dose: Not Given Vancomycin HCl 1 gm/ Sodium (Chloride) 250 mls @ 166 mls/hr IV ONETIME ONE Stop: 07/16/19 00:39 Last Admin: 07/15/19 23:17 Dose: 166 mls/hr Meropenem/Sodium Chloride 1 gm (/ Premix) 50 mls @ 100 mls/hr IV NOW ONE Stop: 07/16/19 02:14 Last Admin: 07/16/19 01:34 Dose: 100 mls/hr Meropenem 1 gm/ Sodium (Chloride) 50 mls @ 100 mls/hr IV Q8H [facility] Magnesium Sulfate 2 gm/ Premix 50 mls @ 25 mls/hr IV ONETIME ONE Stop: 07/16/19 09:31 Last Admin: 07/16/19 07:43 Dose: 25 mls/hr Iopamidol (Isovue-370 (76%)) 100 ml IVPUSH ONETIME ONE Stop: 07/15/19 21:32 Last Admin: 07/15/19 22:05 Dose: 100 ml Ketorolac Tromethamine (Toradol) 15 mg IVPUSH ONETIME ONE Stop: 07/15/19 20:24 Last Admin: 07/15/19 20:44 Dose: 15 mg Ondansetron HCl (Zofran) 4 mg IVPUSH ONETIME ONE Stop: 07/15/19 20:24 Last Admin: 07/15/19 20:43 Dose: 4 mg Ondansetron HCl (Zofran) 4 mg IVPUSH ONETIME ONE Stop: 07/15/19 23:17 Last Admin: 07/15/19 23:22 Dose: 4 mg Promethazine HCl (Phenergan) 12.5 mg IM ONETIME ONE Stop: 07/16/19 11:50 Last Admin: 07/16/19 12:33 Dose: 12.5 mg Tramadol HCl (Ultram) 50 mg PO ONETIME ONE Stop: 07/15/19 21:46 Last Admin: 07/15/19 21:49 Dose: 50 mg - Exam Quality Assessment: No: Supplemental Oxygen General: Alert, Oriented, Cooperative Neck: Supple, Trachea Midline Lungs: Clear to Auscultation, Normal Respiratory Effort Cardiovascular: Regular Rate, Regular Rhythm GI/Abdominal Exam: Normal Bowel Sounds, Soft, Non-Tender, No Distention Extremities: Normal Inspection, Normal Range of Motion, Other (left foot pressure wound, dressing is clean and dry) Peripheral Pulses: 3+: Dorsalis Pedis (L), Dorsalis Pedis (R) Wound/Incisions: Dressing Dry and Intact Psy/Mental Status: Alert, Normal Affect Sepsis Event Note - Evaluation Sepsis Screening Result: No Definite Risk - Focused Exam Vital Signs: Vital Signs Temp Pulse Resp BP Pulse Ox Pulse Ox 07/17/19 07:40 36.9 C 89 17 133/63 97 97 07/17/19 04:40 37.3 C 102 H 22 H 124/52 L 90 L 07/16/19 23:15 36.5 C 95 18 112/57 L 96 Date Exam was Performed: 07/17/19 Time Exam was Performed: 10:59 - Problem List & Annotations (1) HCAP (healthcare-associated pneumonia) SNOMED Code(s): 648948264, 565583685 Code(s): J18.9 - PNEUMONIA, UNSPECIFIED ORGANISM Status: Acute Current Visit: Yes (2) Small bowel obstruction SNOMED Code(s): 126092498 Code(s): K56.609 - UNSP INTESTNL OBST, UNSP TO PARTIAL VERSUS COMPLETE OBST Status: Acute Current Visit: Yes (3) UTI (urinary tract infection) SNOMED Code(s): 08031879 Code(s): N39.0 - URINARY TRACT INFECTION, SITE NOT SPECIFIED Status: Acute Current Visit: Yes Qualifiers: Urinary tract infection type: site unspecified Hematuria presence: without hematuria Qualified Code(s): N39.0 - Urinary tract infection, site not specified (4) Decubitus ulcer of left foot, unstageable SNOMED Code(s): 41263180, 432901426, [id number] Code(s): L89.890 - PRESSURE ULCER OF OTHER SITE, UNSTAGEABLE Status: Acute Priority: High Current Visit: No - Problem List Review Problem List Initiated/Reviewed/Updated: Yes - My Orders Last 24 Hours: My Active Orders 07/16/19 23:00 Vancomycin 0.75 gm Sodium Chloride 0.9% [Normal Saline] 250 ml IV Q24H 07/17/19 10:10 Magnesium Oxide 800 mg PO ONETIME ONE Potassium Chloride 40 meq PO ONETIME ONE - Plan Plan:: 84 y/o F came admitted for HCAP and UTI, there was concern of bowel obstruction Was started on bowel regimen , now has loose stools, will send stool studies and check for c-diff since she is on IV antibiotics Check stool for occult blood, although dark stools could be sec. to iron tablets , Hb is relatively stable WBC count improving, Will cont IV antibiotics for HCAP and UTI, urine cultures noted cont. Wound care of left heel
[2019-07-17] MEDS ORDERED: Phosphorus #1 250 MG Tab PO ONE (11:33)
[2019-07-17] MEDS: Sodium Chloride 0.9% 1,000 ML IV SCH (17:34)
[2019-07-17] MEDS: Pantoprazole 40 MG in Sodium Chloride 0.9% 10 ML IV SCH (21:08)
[2019-07-17] MEDS: Cetirizine 10 MG Tab PO SCH (21:10)
[2019-07-18] MEDS: Meropenem Premix 1 GM in Premix Bag 1 BAG IV SCH (01:12)
[2019-07-18] MEDS: traMADol 50 MG Tab PO PRN (05:20)
[2019-07-18 06:29] LABS: BLOOD UREA NITROGEN,BUN 6 mg/dL (7.0-18.0); CARBON DIOXIDE,CO2 21.4 mmol/L (21.0-32.0); CHLORIDE,CL 105 mmol/L (98-107); GLUCOSE RANDOM 73 mg/dL (74-106); POTASSIUM,K 3.6 mmol/L (3.5-5.1); SODIUM,NA 137 mmol/L (136-145)
[2019-07-18] MEDS: Levothyroxine 88 MCG Tab PO SCH (06:55)
[2019-07-18] MEDS: Heparin Sodium 5,000 Units/ML Vial SUBCUT SCH (08:59)
[2019-07-18] MEDS: Oxybutynin 5 MG Tab PO SCH (09:01)
[2019-07-18] MEDS: Multivitamins with Iron/Calcium/Folic Acid/Minerals Tab PO SCH (09:01)
[2019-07-18] MEDS: Pantoprazole 40 MG in Sodium Chloride 0.9% 10 ML IV SCH (09:34)
[2019-07-18] MEDS: Azithromycin 500 MG in Sodium Chloride 0.9% 250 ML IV SCH (09:39)
[2019-07-18] MEDS ORDERED: Levofloxacin 250 MG Tab PO SCH (10:15)
[2019-07-18] MEDS: Acetaminophen 325 MG Tab PO PRN (11:05)
[2019-07-18 12:18] VITALS: BP 122/58; PULSE 90
--- NOTE | 2019-07-18 12:48 | PCM.DCSUM1 ---
<Sharmin Zamarripa - Last Filed: 07/18/19 12:59> Discharge Summary - Hospital Course Free Text/Narrative:: Discharge summary Admission date: July 16, 2019 Discharge date: 07/18/2019 Admission diagnoses: Intractable nausea vomiting; left foot ulceration [facility] Discharge diagnoses : Healthcare pneumonia 1. Consultations 2. Procedures Hospital course: 84-year-old female presented to ED on July 16 with complaints of nausea and vomiting for approximately 1 week states the nausea and vomiting began there after taking of [place] for her pain patient has not been able to keep solids and liquids down for a number of days emesis was nonbloody patient does have a past medical history of hypertension Sammy syndrome hypothyroidism and left foot ulceration with mummification of fourth digit We will white count was 33,000 with an elevated troponin; patient however did not endorse any chest pain or shortness of breath. Chest x-ray showed bilateral pneumonia. UA was positive for nitrates and esterase. Patient was initially started on vancomycin and meropenem; secondary to HCAP and UTI; and endorsed feeling better as far as nausea is concerned. For his left foot ulceration is concerned; patient would like to wait [facility]; understands Dr. Camejo of podiatry has been following her and has a follow-up appointment set up for her. On day of discharge: Patient endorsing feeling better and stronger; magnesium was repleted; stool studies were negative; UA :grew e. coli . Azithromycin was discontinued. Patient was sent home on levofloxacin every 48 hours and nitrofurantoin; secondary to sensitivities. Patient endorsed wanting to go back to [facility] today; follow-up appointments with of podiatry and primary care has been made. Patient throughout time deferred recommendations for changing wrapping of left foot ulcer. Discharge condition: stable Disposition: [facility] Discharge medications: see chart Discharge instructions: pt. advised to follow up with Dr Camejo of Podiatry and primary care Follow-up: PCP Podiatry Diagnosis: Stroke: No - Discharge Data Discharge Date: 07/18/19 Discharge Disposition: DC/[facility] to [facility] Condition: Stable - Referral to Home Health Primary Care Physician: Vesna Hernandez, DO - Discharge Diagnosis/Problem(s) (1) HCAP (healthcare-associated pneumonia) SNOMED Code(s): 904815725, [id number] ICD Code: J18.9 - PNEUMONIA, UNSPECIFIED ORGANISM Status: Acute Current Visit: Yes (2) UTI (urinary tract infection) SNOMED Code(s): 14066561 ICD Code: N39.0 - URINARY TRACT INFECTION, SITE NOT SPECIFIED Status: Acute Current Visit: Yes Qualifiers: Urinary tract infection type: site unspecified Hematuria presence: without hematuria Qualified Code(s): N39.0 - Urinary tract infection, site not specified (3) Decubitus ulcer of heel, left, unstageable SNOMED Code(s): 569877891 ICD Code: L89.620 - PRESSURE ULCER OF LEFT HEEL, UNSTAGEABLE Status: Acute Priority: High Current Visit: No - Patient Summary/Data Consults: Consultations 07/16/19 01:48 Consult to Wound Care Services [CONS] Routine - Patient Instructions Diet: Heart Healthy Diet Fluid Restriction: 2000 mL Activity: As Tolerated Driving: Do Not Drive Showering/Bathing: Shower in AM Wound/Incision Care: Keep Operative Site/Wound Site Clean and Dry Notify Provider of: Fever, Increased Pain, Swelling and Redness, Drainage, Nausea and/or Vomiting - Discharge Plan *PRESCRIPTION DRUG MONITORING PROGRAM REVIEWED*: No *COPY OF PRESCRIPTION DRUG MONITORING REPORT IN PATIENT GIRISH: No Prescriptions/Med Rec: levoFLOXacin [Levaquin] 750 mg PO Q48H 7 Days #7 tablet Nitrofurantoin [place]/Macrocryst [Nitrofurantoin [place]-MCR] 100 mg PO BID #7 cap Home Medications: Home Meds Omeprazole Magnesium [Prilosec Otc] 20 mg PO ACBRK 08/01/14 [History] Levothyroxine [Synthroid] 88 mcg PO ACBREAKFAST 02/28/16 [History] Bisacodyl 10 mg RC DAILY PRN 06/03/19 [History] Cetirizine HCl 10 mg PO BEDTIME 06/03/19 [History] Loperamide HCl [Imodium A-D] 4 mg PO Q6H PRN 06/03/19 [History] Oxybutynin Chloride 5 mg PO BID 06/03/19 [History] Pedi Mv No.79/Ferrous Fumarate [Flintstones with Iron Tab Chew] 1 tab PO DAILY 06/03/19 [History] amLODIPine Besylate [Norvasc] 2.5 mg PO DAILY 06/03/19 [History] Acetaminophen [Tylenol] 650 mg PO TID PRN 06/04/19 [History] Acetaminophen with Codeine [Tylenol with Codeine #3 Tablet] 1 tab PO Q8H PRN 09/21 [History] Docusate Sodium 100 mg PO Q12H 06/04/19 [History] Patient's Own Medication [Ptom] 1 each PO BID 06/04/19 [History] traMADol [Ultram] 100 mg PO Q8H PRN 06/04/19 [History] Calcium Carbonate 200 mg PO DAILY PRN 07/15/19 [History] Nabumetone [Relafen Ds] 500 mg PO BID 07/15/19 [History] Promethazine HCl 12.5 mg PO BID 07/15/19 [History] Acetaminophen [Tylenol] 650 mg PO Q8H PRN tablet 07/18/19 [Rx] Cetirizine [ZyrTEC] 10 mg PO BEDTIME tablet 07/18/19 [Rx] Nitrofurantoin [place]/Macrocryst [Nitrofurantoin [place]-MCR] 100 mg PO BID #7 cap [Rx] levoFLOXacin [Levaquin] 750 mg PO Q48H 7 Days #7 tablet 07/18/19 [Rx] Oxygen Therapy Mode: Room Air Patient Handouts: Urinary Tract Infection, Adult, [id number] Referrals: Scott Amador MD [Physician] - 07/25/19 (on Antonino Rounds) Eric Smalls DPM [Physician] - 07/22/19 1:30 pm - Discharge Summary/Plan Comment DC Time >30 min.: No - Patient Data Vitals - Most Recent: Last Vital Signs Temp 98.6 F 07/18/19 12:00 Pulse 90 07/18/19 12:00 Resp 16 07/18/19 12:00 BP 122/58 L 07/18/19 12:00 Pulse Ox 93 L 07/18/19 12:00 Weight - Most Recent: 45.495 kg I&O - Last 24 hours: Intake & Output 07/17/19 07/18/19 07/18/19 22:59 06:59 14:59 Intake Total 1610 1107 Output Total 300 405 Balance 1310 702 Lab Results - Last 24 hrs: Laboratory Results - last 24 hr 07/18/19 07/18/19 Range/Units 06:05 06:05 WBC 11.33 H (4.0-11.0) K/uL RBC 3.30 L (4.30-5.90) M/uL Hgb 9.8 L (12.0-16.0) g/dL Hct 30.4 L (36.0-46.0) % MCV 92.1 (80.0-98.0) fL MCH 29.7 (27.0-32.0) pg MCHC 32.2 (31.0-37.0) g/dL RDW Std Deviation 53.8 (28.0-62.0) fl RDW Coeff of Kari 16 H (11.0-15.0) % Plt Count 343 (150-400) K/uL MPV 9.60 (7.40-12.00) fL Neut % (Auto) 76.3 (48.0-80.0) % Lymph % (Auto) 13.4 L (16.0-40.0) % [place] % (Auto) 5.1 (0.0-15.0) % Eos % (Auto) 4.8 (0.0-7.0) % Baso % (Auto) 0.4 (0.0-1.5) % Neut # (Auto) 8.7 H (1.4-5.7) K/uL Lymph # (Auto) 1.5 (0.6-2.4) K/uL [place] # (Auto) 0.6 (0.0-0.8) K/uL Eos # (Auto) 0.5 (0.0-0.7) K/uL Baso # (Auto) 0.0 (0.0-0.1) K/uL Nucleated RBC % 0.0 /100WBC Nucleated RBCs # 0 K/uL Sodium 137 (136-145) mmol/L Potassium 3.6 (3.5-5.1) mmol/L Chloride 105 (98-107) mmol/L Carbon Dioxide 21.4 (21.0-32.0) mmol/L BUN 6 L (7.0-18.0) mg/dL Creatinine 0.7 (0.6-1.0) mg/dL Est Cr Clr Drug Dosing 43.74 mL/min Estimated GFR (MDRD) > 60.0 ml/min Glucose 73 L (74-106) mg/dL Calcium 7.8 L (8.5-10.1) mg/dL Phosphorus 1.5 L (2.6-4.7) mg/dL Magnesium 1.3 L (1.8-2.4) mg/dL MOY Results - Last 24 hrs: Microbiology 07/15/19 21:30 Aerobic Blood Culture - Preliminary Blood - Venous - Lab Draw NO GROWTH AFTER 2 DAYS Anaerobic Blood Culture - Preliminary NO GROWTH AFTER 2 DAYS 07/15/19 21:15 Aerobic Blood Culture - Preliminary Blood - Venous NO GROWTH AFTER 2 DAYS Anaerobic Blood Culture - Final 07/15/19 21:38 Urine Culture - Final Urine, Clean Catch Escherichia Coli Med Orders - Current: Current Medications Acetaminophen (Tylenol) 650 mg PO Q8H PRN PRN Reason: Pain Last Admin: 07/18/19 11:05 Dose: 650 mg Cetirizine HCl (Zyrtec) 10 mg PO BEDTIME [facility] Last Admin: 07/17/19 21:10 Dose: 10 mg Heparin Sodium (Porcine) (Heparin Sodium) 5,000 units SUBCUT Q8H [facility] Last Admin: 07/18/19 08:59 Dose: 5,000 units Sodium Chloride (Normal Saline) 500 mls @ 999 mls/hr IV .BOLUS [facility] Last Admin: 07/16/19 01:34 Dose: 999 mls/hr Vancomycin HCl 0.75 gm/ Sodium (Chloride) 250 mls @ 166.667 mls/hr IV Q24H [facility] Last Admin: 07/17/19 23:38 Dose: 166.667 mls/hr Pantoprazole Sodium 40 mg/ (Sodium Chloride) 10 mls @ 300 mls/hr IV BID [facility] Last Admin: 07/18/19 09:34 Dose: 300 mls/hr Meropenem/Sodium Chloride 1 gm (/ Premix) 50 mls @ 100 mls/hr IV Q12H [facility] Levofloxacin (Levaquin) 750 mg PO Q48H [facility] Last Admin: 07/18/19 11:05 Dose: 750 mg Levothyroxine Sodium (Synthroid) 88 mcg PO ACBREAKFAST [facility] Last Admin: 07/18/19 06:55 Dose: 88 mcg Multivitamins/Minerals (Thera M Plus) 1 tab PO DAILY [facility] Last Admin: 07/18/19 09:01 Dose: 1 tab Nitrofurantoin Macrocrystals (Macrobid) 100 mg PO BID [facility] Ondansetron HCl (Zofran) 4 mg IVPUSH Q4H PRN PRN Reason: Nausea Last Admin: 07/16/19 10:41 Dose: 4 mg Oxybutynin Chloride (Oxybutynin) 5 mg PO BID [facility] Last Admin: 07/18/19 09:01 Dose: 5 mg Sodium Chloride (Saline Flush) 10 ml FLUSH ASDIRECTED PRN PRN Reason: Keep Vein Open Sodium Chloride (Saline Flush) 2.5 ml FLUSH ASDIRECTED PRN PRN Reason: Keep Vein Open Tramadol HCl (Ultram) 100 mg PO Q8H PRN PRN Reason: Pain Last Admin: 07/18/19 05:20 Dose: 100 mg Vancomycin HCl (Pharmacy To Dose - Vancomycin) 1 dose .XX ASDIRECTED [facility] Discontinued Medications Amlodipine Besylate (Norvasc) 2.5 mg PO DAILY [facility] Docusate Sodium (Colace) 100 mg PO DAILY [facility] Last Admin: 07/17/19 09:56 Dose: Not Given Docusate Sodium (Colace) 100 mg PO Q12H [facility] Last Admin: 07/17/19 09:55 Dose: Not Given Hydromorphone HCl (Dilaudid) 0.5 mg IVPUSH ONETIME ONE Stop: 07/15/19 23:17 Last Admin: 07/15/19 23:22 Dose: 0.5 mg Pantoprazole Sodium 80 mg/ (Sodium Chloride) 20 mls @ 420 mls/hr IVPUSH ONETIME ONE Stop: 07/15/19 20:25 Last Admin: 07/15/19 20:50 Dose: Not Given Sodium Chloride (Normal Saline) 1,000 mls @ 83 mls/hr IV ASDIRECTED [facility] Last Admin: 07/15/19 20:39 Dose: 83 mls/hr Pantoprazole Sodium 80 mg/ (Sodium Chloride) 20 mls @ 420 mls/hr IVPUSH ONETIME ONE Stop: 07/15/19 20:49 Last Admin: 07/15/19 20:50 Dose: 420 mls/hr Meropenem 1 gm/ Sodium (Chloride) 100 mls @ 200 mls/hr IV ONETIME ONE Stop: 07/15/19 23:37 Last Admin: 07/16/19 01:32 Dose: Not Given Vancomycin HCl 1 gm/ Sodium (Chloride) 250 mls @ 166 mls/hr IV ONETIME ONE Stop: 07/16/19 00:39 Last Admin: 07/15/19 23:17 Dose: 166 mls/hr Sodium Chloride (Normal Saline) 1,000 mls @ 100 mls/hr IV ASDIRECTED [facility] Last Admin: 07/17/19 17:34 Dose: 100 mls/hr Meropenem/Sodium Chloride 1 gm (/ Premix) 50 mls @ 100 mls/hr IV NOW ONE Stop: 07/16/19 02:14 Last Admin: 07/16/19 01:34 Dose: 100 mls/hr Meropenem 1 gm/ Sodium (Chloride) 50 mls @ 100 mls/hr IV Q8H [facility] Meropenem/Sodium Chloride 1 gm (/ Premix) 50 mls @ 100 mls/hr IV Q8H [facility] Last Admin: 07/18/19 01:12 Dose: 100 mls/hr Magnesium Sulfate 2 gm/ Premix 50 mls @ 25 mls/hr IV ONETIME ONE Stop: 07/16/19 09:31 Last Admin: 07/16/19 07:43 Dose: 25 mls/hr Azithromycin 500 mg/ Sodium (Chloride) 250 mls @ 250 mls/hr IV DAILY [facility] Last Admin: 07/18/19 09:39 Dose: 250 mls/hr Iopamidol (Isovue-370 (76%)) 100 ml IVPUSH ONETIME ONE Stop: 07/15/19 21:32 Last Admin: 07/15/19 22:05 Dose: 100 ml Ketorolac Tromethamine (Toradol) 15 mg IVPUSH ONETIME ONE Stop: 07/15/19 20:24 Last Admin: 07/15/19 20:44 Dose: 15 mg Magnesium Oxide (Magnesium Oxide) 800 mg PO ONETIME ONE Stop: 07/17/19 10:11 Last Admin: 07/17/19 10:50 Dose: 800 mg Omeprazole (Omeprazole) 20 mg PO ACBREAKFAST [facility] Last Admin: 07/17/19 06:32 Dose: 20 mg Ondansetron HCl (Zofran) 4 mg IVPUSH ONETIME ONE Stop: 07/15/19 20:24 Last Admin: 07/15/19 20:43 Dose: 4 mg Ondansetron HCl (Zofran) 4 mg IVPUSH ONETIME ONE Stop: 07/15/19 23:17 Last Admin: 07/15/19 23:22 Dose: 4 mg Potassium Chloride (Potassium Chloride) 40 meq PO ONETIME ONE Stop: 07/17/19 10:11 Last Admin: 07/17/19 10:50 Dose: 40 meq Promethazine HCl (Phenergan) 12.5 mg IM ONETIME ONE Stop: 07/16/19 11:50 Last Admin: 07/16/19 12:33 Dose: 12.5 mg Sodium Phosphate (Neutra-Phos) 250 mg PO ONETIME ONE Stop: 07/17/19 11:34 Last Admin: 07/17/19 12:52 Dose: 250 mg Tramadol HCl (Ultram) 50 mg PO ONETIME ONE Stop: 07/15/19 21:46 Last Admin: 07/15/19 21:49 Dose: 50 mg <Waqas Child - Last Filed: 07/18/19 13:31> Discharge Summary - Hospital Course Free Text/Narrative:: CREST syndrome Left foot wound was dry and clean upon exam on day of d/c I have seen and evaluated the patient and agree with the residents note unless specified in my note - Referral to Home Health Primary Care Physician: Vesna Hernandez, - Discharge Diagnosis/Problem(s) (1) HCAP (healthcare-associated pneumonia) SNOMED Code(s): 330697567, 490014633 ICD Code: J18.9 - PNEUMONIA, UNSPECIFIED ORGANISM Status: Acute Current Visit: Yes (2) Small bowel obstruction SNOMED Code(s): 936769587 ICD Code: K56.609 - UNSP INTESTNL OBST, UNSP TO PARTIAL VERSUS COMPLETE OBST Status: Acute Current Visit: Yes (3) UTI (urinary tract infection) SNOMED Code(s): 35650308 ICD Code: N39.0 - URINARY TRACT INFECTION, SITE NOT SPECIFIED Status: Acute Current Visit: Yes Qualifiers: Urinary tract infection type: site unspecified Hematuria presence: without hematuria Qualified Code(s): N39.0 - Urinary tract infection, site not specified (4) Decubitus ulcer of left foot, unstageable SNOMED Code(s): 47932686, 453681327, [id number] ICD Code: L89.890 - PRESSURE ULCER OF OTHER SITE, UNSTAGEABLE Status: Acute Priority: High Current Visit: No - Patient Summary/Data Consults: Consultations 07/16/19 01:48 Consult to Wound Care Services [CONS] Routine - Patient Data Vitals - Most Recent: Last Vital Signs Temp 37.0 C 07/18/19 12:00 Pulse 90 07/18/19 12:00 Resp 16 07/18/19 12:00 BP 122/58 L 07/18/19 12:00 Pulse Ox 93 L 07/18/19 12:00 I&O - Last 24 hours: Intake & Output 07/17/19 07/18/19 07/18/19 22:59 06:59 14:59 Intake Total 1610 1107 Output Total 300 405 Balance 1310 702 Lab Results - Last 24 hrs: Laboratory Results - last 24 hr 07/18/19 07/18/19 Range/Units 06:05 06:05 WBC 11.33 H (4.0-11.0) K/uL RBC 3.30 L (4.30-5.90) M/uL Hgb 9.8 L (12.0-16.0) g/dL Hct 30.4 L (36.0-46.0) % MCV 92.1 (80.0-98.0) fL MCH 29.7 (27.0-32.0) pg MCHC 32.2 (31.0-37.0) g/dL RDW Std Deviation 53.8 (28.0-62.0) fl RDW Coeff of Kari 16 H (11.0-15.0) % Plt Count 343 (150-400) K/uL MPV 9.60 (7.40-12.00) fL Neut % (Auto) 76.3 (48.0-80.0) % Lymph % (Auto) 13.4 L (16.0-40.0) % [place] % (Auto) 5.1 (0.0-15.0) % Eos % (Auto) 4.8 (0.0-7.0) % Baso % (Auto) 0.4 (0.0-1.5) % Neut # (Auto) 8.7 H (1.4-5.7) K/uL Lymph # (Auto) 1.5 (0.6-2.4) K/uL [place] # (Auto) 0.6 (0.0-0.8) K/uL Eos # (Auto) 0.5 (0.0-0.7) K/uL Baso # (Auto) 0.0 (0.0-0.1) K/uL Nucleated RBC % 0.0 /100WBC Nucleated RBCs # 0 K/uL Sodium 137 (136-145) mmol/L Potassium 3.6 (3.5-5.1) mmol/L Chloride 105 (98-107) mmol/L Carbon Dioxide 21.4 (21.0-32.0) mmol/L BUN 6 L (7.0-18.0) mg/dL Creatinine 0.7 (0.6-1.0) mg/dL Est Cr Clr Drug Dosing 43.74 mL/min Estimated GFR (MDRD) > 60.0 ml/min Glucose 73 L (74-106) mg/dL Calcium 7.8 L (8.5-10.1) mg/dL Phosphorus 1.5 L (2.6-4.7) mg/dL Magnesium 1.3 L (1.8-2.4) mg/dL MOY Results - Last 24 hrs: Microbiology 07/15/19 21:30 Aerobic Blood Culture - Preliminary Blood - Venous - Lab Draw NO GROWTH AFTER 2 DAYS Anaerobic Blood Culture - Preliminary NO GROWTH AFTER 2 DAYS 07/15/19 21:15 Aerobic Blood Culture - Preliminary Blood - Venous NO GROWTH AFTER 2 DAYS Anaerobic Blood Culture - Final 07/15/19 21:38 Urine Culture - Final Urine, Clean Catch Escherichia Coli Med Orders - Current: Current Medications Acetaminophen (Tylenol) 650 mg PO Q8H PRN PRN Reason: Pain Last Admin: 07/18/19 11:05 Dose: 650 mg Cetirizine HCl (Zyrtec) 10 mg PO BEDTIME [facility] Last Admin: 07/17/19 21:10 Dose: 10 mg Heparin Sodium (Porcine) (Heparin Sodium) 5,000 units SUBCUT Q8H [facility] Last Admin: 07/18/19 08:59 Dose: 5,000 units Sodium Chloride (Normal Saline) 500 mls @ 999 mls/hr IV .BOLUS [facility] Last Admin: 07/16/19 01:34 Dose: 999 mls/hr Vancomycin HCl 0.75 gm/ Sodium (Chloride) 250 mls @ 166.667 mls/hr IV Q24H [facility] Last Admin: 07/17/19 23:38 Dose: 166.667 mls/hr Pantoprazole Sodium 40 mg/ (Sodium Chloride) 10 mls @ 300 mls/hr IV BID [facility] Last Admin: 07/18/19 09:34 Dose: 300 mls/hr Meropenem/Sodium Chloride 1 gm (/ Premix) 50 mls @ 100 mls/hr IV Q12H [facility] Levofloxacin (Levaquin) 750 mg PO Q48H [facility] Last Admin: 07/18/19 11:05 Dose: 750 mg Levothyroxine Sodium (Synthroid) 88 mcg PO ACBREAKFAST [facility] Last Admin: 07/18/19 06:55 Dose: 88 mcg Multivitamins/Minerals (Thera M Plus) 1 tab PO DAILY [facility] Last Admin: 07/18/19 09:01 Dose: 1 tab Nitrofurantoin Macrocrystals (Macrobid) 100 mg PO BID [facility] Ondansetron HCl (Zofran) 4 mg IVPUSH Q4H PRN PRN Reason: Nausea Last Admin: 07/16/19 10:41 Dose: 4 mg Oxybutynin Chloride (Oxybutynin) 5 mg PO BID [facility] Last Admin: 07/18/19 09:01 Dose: 5 mg Sodium Chloride (Saline Flush) 10 ml FLUSH ASDIRECTED PRN PRN Reason: Keep Vein Open Sodium Chloride (Saline Flush) 2.5 ml FLUSH ASDIRECTED PRN PRN Reason: Keep Vein Open Tramadol HCl (Ultram) 100 mg PO Q8H PRN PRN Reason: Pain Last Admin: 07/18/19 05:20 Dose: 100 mg Vancomycin HCl (Pharmacy To Dose - Vancomycin) 1 dose .XX ASDIRECTED [facility] Discontinued Medications Amlodipine Besylate (Norvasc) 2.5 mg PO DAILY [facility] Docusate Sodium (Colace) 100 mg PO DAILY [facility] Last Admin: 07/17/19 09:56 Dose: Not Given Docusate Sodium (Colace) 100 mg PO Q12H [facility] Last Admin: 07/17/19 09:55 Dose: Not Given Hydromorphone HCl (Dilaudid) 0.5 mg IVPUSH ONETIME ONE Stop: 07/15/19 23:17 Last Admin: 07/15/19 23:22 Dose: 0.5 mg Pantoprazole Sodium 80 mg/ (Sodium Chloride) 20 mls @ 420 mls/hr IVPUSH ONETIME ONE Stop: 07/15/19 20:25 Last Admin: 07/15/19 20:50 Dose: Not Given Sodium Chloride (Normal Saline) 1,000 mls @ 83 mls/hr IV ASDIRECTED [facility] Last Admin: 07/15/19 20:39 Dose: 83 mls/hr Pantoprazole Sodium 80 mg/ (Sodium Chloride) 20 mls @ 420 mls/hr IVPUSH ONETIME ONE Stop: 07/15/19 20:49 Last Admin: 07/15/19 20:50 Dose: 420 mls/hr Meropenem 1 gm/ Sodium (Chloride) 100 mls @ 200 mls/hr IV ONETIME ONE Stop: 07/15/19 23:37 Last Admin: 07/16/19 01:32 Dose: Not Given Vancomycin HCl 1 gm/ Sodium (Chloride) 250 mls @ 166 mls/hr IV ONETIME ONE Stop: 07/16/19 00:39 Last Admin: 07/15/19 23:17 Dose: 166 mls/hr Sodium Chloride (Normal Saline) 1,000 mls @ 100 mls/hr IV ASDIRECTED [facility] Last Admin: 07/17/19 17:34 Dose: 100 mls/hr Meropenem/Sodium Chloride 1 gm (/ Premix) 50 mls @ 100 mls/hr IV NOW ONE Stop: 07/16/19 02:14 Last Admin: 07/16/19 01:34 Dose: 100 mls/hr Meropenem 1 gm/ Sodium (Chloride) 50 mls @ 100 mls/hr IV Q8H [facility] Meropenem/Sodium Chloride 1 gm (/ Premix) 50 mls @ 100 mls/hr IV Q8H [facility] Last Admin: 07/18/19 01:12 Dose: 100 mls/hr Magnesium Sulfate 2 gm/ Premix 50 mls @ 25 mls/hr IV ONETIME ONE Stop: 07/16/19 09:31 Last Admin: 07/16/19 07:43 Dose: 25 mls/hr Azithromycin 500 mg/ Sodium (Chloride) 250 mls @ 250 mls/hr IV DAILY [facility] Last Admin: 07/18/19 09:39 Dose: 250 mls/hr Iopamidol (Isovue-370 (76%)) 100 ml IVPUSH ONETIME ONE Stop: 07/15/19 21:32 Last Admin: 07/15/19 22:05 Dose: 100 ml Ketorolac Tromethamine (Toradol) 15 mg IVPUSH ONETIME ONE Stop: 07/15/19 20:24 Last Admin: 07/15/19 20:44 Dose: 15 mg Magnesium Oxide (Magnesium Oxide) 800 mg PO ONETIME ONE Stop: 07/17/19 10:11 Last Admin: 07/17/19 10:50 Dose: 800 mg Omeprazole (Omeprazole) 20 mg PO ACBREAKFAST [facility] Last Admin: 07/17/19 06:32 Dose: 20 mg Ondansetron HCl (Zofran) 4 mg IVPUSH ONETIME ONE Stop: 07/15/19 20:24 Last Admin: 07/15/19 20:43 Dose: 4 mg Ondansetron HCl (Zofran) 4 mg IVPUSH ONETIME ONE Stop: 07/15/19 23:17 Last Admin: 07/15/19 23:22 Dose: 4 mg Potassium Chloride (Potassium Chloride) 40 meq PO ONETIME ONE Stop: 07/17/19 10:11 Last Admin: 07/17/19 10:50 Dose: 40 meq Promethazine HCl (Phenergan) 12.5 mg IM ONETIME ONE Stop: 07/16/19 11:50 Last Admin: 07/16/19 12:33 Dose: 12.5 mg Sodium Phosphate (Neutra-Phos) 250 mg PO ONETIME ONE Stop: 07/17/19 11:34 Last Admin: 07/17/19 12:52 Dose: 250 mg Tramadol HCl (Ultram) 50 mg PO ONETIME ONE Stop: 07/15/19 21:46 Last Admin: 07/15/19 21:49 Dose: 50 mg
[2019-07-18] MEDS ORDERED: Meropenem Premix 1 GM in Premix Bag 1 BAG IV SCH (13:00)
[2019-07-18] MEDS ORDERED: Phosphorus #1 250 MG Tab PO ONE (13:34)
[2019-07-18] MEDS ORDERED: Magnesium Sulfate/Water 2 GM in Premix Bag 1 BAG IV ONE (13:34)
[2019-07-18] MEDS ORDERED: Magnesium Oxide 400 MG Tab PO ONE (13:36)
[2019-07-18] MEDS ORDERED: Nitrofurantoin Monohydrate/Macrocrystalline 100 MG Cap PO SCH (21:00)
== END 2019-07-18 13:49 | DRG 871 ==
LOC: MW.ED 20:00 → MW.MS 07-16 00:18
PROVIDERS: ADMIT Student in an Organized Health Care Education/Training Program; ATTEND Student in an Organized Health Care Education/Training Program
DX: A41.9 Sepsis, unspecified organism (principal); K56.600 Partial intestinal obstruction, unspecified as to cause; J18.9 Pneumonia, unspecified organism; N39.0 Urinary tract infection, site not specified; K56.609 Unspecified intestinal obstruction, unspecified as to partial versus complete obstruction; L89.899 Pressure ulcer of other site, unspecified stage; R00.0 Tachycardia, unspecified; E86.0 Dehydration; L89.620 Pressure ulcer of left heel, unstageable; I77.1 Stricture of artery; G89.29 Other chronic pain; M34.1 CR(E)ST syndrome; K58.0 Irritable bowel syndrome with diarrhea; E03.9 Hypothyroidism, unspecified; I10 Essential (primary) hypertension; K21.9 Gastro-esophageal reflux disease without esophagitis; Z88.8 Allergy status to other drugs, medicaments and biological substances; Z88.6 Allergy status to analgesic agent; M19.90 Unspecified osteoarthritis, unspecified site; R79.89 Other specified abnormal findings of blood chemistry; Z87.440 Personal history of urinary (tract) infections; E83.42 Hypomagnesemia; Z96.659 Presence of unspecified artificial knee joint; N32.81 Overactive bladder; Z88.5 Allergy status to narcotic agent; I73.00 Raynaud's syndrome without gangrene; Z91.040 Latex allergy status; Z88.0 Allergy status to penicillin; Z88.2 Allergy status to sulfonamides; Z79.890 Hormone replacement therapy; Z79.899 Other long term (current) drug therapy; Z98.49 Cataract extraction status, unspecified eye; Z90.710 Acquired absence of both cervix and uterus
CPT/HCPCS: 36415; 71260; 74022; 74177; 80053; 81001; 82150; 82962; 83605; 83690; 84484 ×2; 85025; 87040 ×2; 87086; 87088; 87186; 93005; 96361; 96374 ×2; 96375; 99285; A9270; C9113; J1170; J1885; J2405 ×2; J3370; J7030; J7050; Q9967; 80048; 83735; 84100; J0456; J1644; J2185; J2550; J3475; J7040

== ENCOUNTER 2019-09-20 12:33 | Inpatient (IN) | payer MEDICARE, BC ==
[2019-09-20] MEDS ORDERED: Sodium Chloride 0.9% 10 ML Syringe FLUSH PRN (12:52)
[2019-09-20] MEDS ORDERED: Sodium Chloride 0.9% 2.5 ML Syringe FLUSH PRN (12:52)
[2019-09-20] MEDS ORDERED: Sodium Chloride 0.9% 1,000 ML IV ONE ×4 (13:18→19:24)
[2019-09-20 14:02] LABS: CARBON DIOXIDE,CO2 21.7 mmol/L (21.0-32.0); POTASSIUM,K 4.5 mmol/L (3.5-5.1)
--- NOTE | 2019-09-20 14:26 | EDM.PDOC ---
ED [facility] GENERAL MEDICAL PROBLEM - General Chief Complaint: General Stated Complaint: LOW B/P Time Seen by Provider: 09/20/19 13:15 Source of Information: Reports: Patient, EMS, Long Term Records History Limitations: Reports: No Limitations - History of Present Illness INITIAL COMMENTS - FREE TEXT/NARRATIVE: Patient is an 84-year-old female with a past medical history of hypertension and lower extremity cellulitis presenting with a chief complaint of low blood pressure. Patient is coming from longterm and was found to be hypotensive this afternoon. Patient states that she feels fatigued and is having pain in both of her legs. The pain is crampy in nature and has been a chronic issue for her for which she takes tramadol. Patient states that she had several episodes of large amounts of vomit yesterday evening. Patient denies any vomiting today. Patient denies any chest pain or shortness of breath. Patient states she was treated last month for an aspiration pneumonia after vomiting. Pmhx: Hypertension, GERD Family Hx: noncontributory Smoking history? no Etoh use? none Drug use? none In addition to that documented in the HPI above, the additional ROS was obtained : Constitutional: Denies fevers or chills Eyes: Denies vision changes ENMT: Denies sore throat CV: Denies chest pain Resp: Denies SOB GI: Per HPI : Denies painful urination MSK: Denies recent trauma Skin: Denies new rashes Neuro: Denies new numbness or tingling or weakness Endocrine: Denies unexpected weight loss Heme: Denies bleeding disorders I have reviewed the triage vital signs Const: Well nourished, well developed, appears stated age Eyes: Ecchymosis adjacent to the left eye without tenderness or swelling. No proptosis noted PERRL, no conjunctival injection HENT: Dry mucous membranes CV: RRR, cool extremities. RESP: CTAB, Unlabored respiratory effort GI: soft, non-tender, non-distended, no masses MSK: No gross deformities appreciated Skin: Warm, dry. No rashes. Neuro: Alert and oriented x3. Moving all 4 extremities equally Psych: Appropriate mood and affect Assessment and plan: Patient 84-year-old female presenting with hypotension from a nursing facility. Patient's blood pressure was initially hypotensive with a range in the 60s over 40s however patient maintained in normal mental status. Patient did not have any fever on rectal temperature but did have elevation of white blood cell count. Patient given bolus of IV fluids at 30 cc/kg with mild improvement in blood pressure. Patient chest x-ray demonstrates bibasilar pneumonia which may be a source of his hypotension as it may be secondary to sepsis and volume depletion secondary to vomiting. Patient was started on Levophed in the emergency department to help maintain adequate blood pressure. Other differential diagnosis considered were pulmonary embolism however in the setting of pneumonia seems less likely. In addition, the patient is not complaining of chest pain or shortness of breath. Patient did have slight elevation in troponin is likely secondary to demand ischemia as there are no EKG changes. I do not believe that the troponin elevation is secondary to an acute coronary syndrome. Of note, there was delay of fluid resuscitation secondary to difficult IV access. A central line was placed to help with IV fluids and medication administration. Critical Care Procedure Note Authorized and Performed by: Dr. Ramos Total critical care time: Approximately 75 minutes Due to a high probability of clinically significant, life threatening deterioration, the patient required my highest level of preparedness to intervene emergently and I personally spent this critical care time directly and personally managing the patient. This critical care time included obtaining a history; examining the patient; pulse oximetry; ordering and review of studies ; arranging urgent treatment with development of a management plan; evaluation of patient's response to treatment; frequent reassessment; and, discussions with other providers. This critical care time was performed to assess and manage the high probability of imminent, life-threatening deterioration that could result in multi-organ failure. It was exclusive of separately billable procedures and treating other patients and teaching time. Please see MDM section and the rest of the note for further information on patient assessment and treatment. Sepsis reassessment: Patient's initial lactate was 1.8 and after resuscitation was 1.1. Patient has no changes in mental status and feels that her symptoms are improving. Renal function is improving and there are no other signs of endorgan ischemia. Patient is doing well on levophed with blood pressures in the 90s over 50s. Treatments [employer]: Reports: IV/IO, Other (see below) Other Treatments [employer]: IVF, Dopamine started by EMS right leg Pain Score (Numeric/FACES): 8 - Related Data Allergies Allergy/AdvReac Type Severity Reaction Status Date / Time codeine Allergy Vomiting Verified 09/21/19 02:23 latex Allergy Rash Verified 09/21/19 02:23 morphine Allergy Difficulty Verified 09/21/19 02:23 Breathing oxycodone HCl [From Percocet] Allergy Vomiting Verified 09/21/19 02:23 Penicillins Allergy Anaphylactic Verified 09/21/19 02:23 Shock Sulfa (Sulfonamide Allergy Anaphylactic Verified 09/21/19 02:23 Antibiotics) Shock all pain meds Allergy Nausea Uncoded 09/20/19 12:49 Home Meds: Home Meds Omeprazole Magnesium [Prilosec Otc] 20 mg PO ACBRK 08/01/14 [History] Levothyroxine [Synthroid] 75 mcg PO ACBREAKFAST 02/28/16 [History] Cetirizine HCl 10 mg PO BEDTIME 06/03/19 [History] Loperamide HCl [Imodium A-D] 4 mg PO Q6H PRN 06/03/19 [History] Oxybutynin Chloride 5 mg PO BID 06/03/19 [History] bisacodyL [Bisacodyl] 10 mg RC DAILY PRN 06/03/19 [History] Acetaminophen [Tylenol] 650 mg PO TID PRN 06/04/19 [History] Docusate Sodium 100 mg PO Q12H 06/04/19 [History] Patient's Own Medication [Ptom] 1 each PO BID 06/04/19 [History] traMADol [Ultram] 100 mg PO Q8H PRN 06/04/19 [History] Calcium Carbonate 200 mg PO DAILY PRN 07/15/19 [History] Promethazine HCl 12.5 mg PO BID 07/15/19 [History] Acetaminophen [Tylenol] 650 mg PO Q8H PRN tablet 07/18/19 [Rx] Cetirizine [ZyrTEC] 10 mg PO BEDTIME tablet 07/18/19 [Rx] Hydrocodone/Acetaminophen [[place] 10-325 Tablet] 1 each PO ASDIRECTED 09/20/19 [ History] Rivaroxaban [Xarelto] 10 mg PO DAILY 09/20/19 [History] amLODIPine Besylate [Norvasc] 10 mg PO DAILY 09/20/19 [History] Past Medical History - Past Health History Medical/Surgical History: Denies Medical/Surgical History HEENT History: Reports: Cataract Other HEENT History: has upper denture and lower partial Cardiovascular History: Reports: None Respiratory History: Reports: None Gastrointestinal History: Reports: GERD, Irritable Bowel Syndrome, Other (See Below) Other Gastrointestinal History: IBS-Diarrhea Genitourinary History: Reports: Other (See Below) Other Genitourinary History: overactive bladder THERAPIST RESPIRATORY History: Reports: Musculoskeletal History: Reports: Arthritis Neurological History: Reports: Other (See Below) Other Neuro History: hx of motion sickness Psychiatric History: Reports: None Endocrine/Metabolic History: Reports: Hypothyroidism Hematologic History: Reports: None Immunologic History: Reports: Other (See Below) Other Immunologic History: CREST syndrome Oncologic (Cancer) History: Reports: None Dermatologic History: Reports: None, Other (See Below) Other Dermatologic History: Raynaud's Syndrome - Infectious Disease History Infectious Disease History: Reports: Chicken Pox, Measles, Mumps - Past Surgical History Head Surgeries/Procedures: Reports: None HEENT Surgical History: Reports: Cataract Surgery Female Surgical History: Reports: Hysterectomy Musculoskeletal Surgical History: Reports: Knee Replacement, ORIF, Shoulder Surgery Social & Family History - Family History Family Medical History: Noncontributory HEENT: Reports: Cataract Respiratory: Reports: COPD Musculoskeletal: Reports: Arthritis Psychiatric: Reports: Depression Endocrine/Metabolic: Reports: Diabetes, type II - Caffeine Use Caffeine Use: Reports: Coffee, Soda, Tea ED ROS GENERAL - Review of Systems Review Of Systems: See Below ED EXAM, GENERAL - Physical Exam Exam: See Below ED GENERAL MEDICAL PROCEDURES - Additional/Other Procedure(s) Other (Free Text) Procedure(s): Central Venous Catheter (CVC, Central Line) Placement Date: 09/20/19 Time: 1600 Indication: Requiring vasopressors. Intravenous access Attending: Richard Campa time-out was completed verifying correct patient, procedure, site, positioning , and special equipment if applicable. The patient was placed in a dependent position appropriate for central line placement based on the vein to be cannulated. The patients <right < neck was prepped and draped in sterile fashion. 1% Lidocaine was used to anesthetize the surrounding skin area. A triple lumen 9-Frenchcatheter was introduced into the the internal jugular vein using the Seldinger technique and under ultrasound guidance. The catheter was threaded smoothly over the guide wire and appropriate blood return was obtained. Each lumen of the catheter was evacuated of air and flushed with sterile saline. The catheter was then sutured in place to the skin and a sterile dressing applied. Perfusion to the extremity distal to the point of catheter insertion was checked and found to be adequate. Estimated Blood Loss: 5 mL The patient tolerated the procedure well and there were no complications. Course - Vital Signs Last Recorded V/S: Last Vital Signs Temp 36.8 C 09/21/19 04:00 Pulse 108 H 09/20/19 19:29 Resp 24 H 09/21/19 07:00 BP 123/58 L 09/21/19 07:00 Pulse Ox 94 L 09/21/19 07:00 - Orders/Labs/Meds Orders: Active Orders 24 hr Category Date Time Status EKG Documentation Completion [RC] STAT Care 09/20/19 15:04 Inactive CULTURE URINE [RM] Stat Lab 09/20/19 12:55 Received Norepinephrine Bit/0.9 % NaCl [Norepinephr-0.9% NaCl 4 Med 09/20/19 14:00 Active mg/250] 4 mg in 250 ml IV TITRATE Sodium Chloride 0.9% [Saline Flush] Med 09/20/19 12:52 Active 10 ml FLUSH ASDIRECTED PRN Sodium Chloride 0.9% [Saline Flush] Med 09/20/19 12:52 Active 2.5 ml FLUSH ASDIRECTED PRN Saline Lock Insert [OM.PC] Stat Oth 09/20/19 12:52 Ordered Medication Orders Acetaminophen (Tylenol) 650 mg PO Q4H PRN PRN Reason: Pain (Mild 1-3)/fever Last Admin: 09/21/19 05:37 Dose: 650 mg Admin: 09/20/19 20:38 Dose: 650 mg Docusate Sodium (Colace) 100 mg PO BID PRN PRN Reason: Constipation Hydrocortisone Sodium Succinate (Solu-Cortef) 100 mg IVPUSH Q8H ANNA Norepinephrine Bitartrate (Norepinephr-0.9% Nacl 4 Mg/250) 4 mg in 250 mls @ 7.5 mls/hr IV TITRATE ANNA; Protocol Last Titration: 09/21/19 06:52 Dose: 12 mcg/min, 45 mls/hr Titration: 09/21/19 06:12 Dose: 13 mcg/min, 48.75 mls/hr Titration: 09/21/19 05:55 Dose: 14 mcg/min, 52.5 mls/hr Titration: 09/21/19 04:45 Dose: 15 mcg/min, 56.25 mls/hr Admin: 09/21/19 04:09 Dose: 16 mcg/min, 60 mls/hr Titration: 09/21/19 04:06 Dose: 16 mcg/min, 60 mls/hr Titration: 09/21/19 03:01 Dose: 16 mcg/min, 60 mls/hr Titration: 09/21/19 02:44 Dose: 17 mcg/min, 63.75 mls/hr Titration: 09/21/19 02:05 Dose: 18 mcg/min, 67.5 mls/hr Titration: 09/21/19 00:49 Dose: 19 mcg/min, 71.25 mls/hr Admin: 09/21/19 00:18 Dose: 17 mcg/min, 63.75 mls/hr Titration: 09/21/19 00:13 Dose: 17 mcg/min, 63.75 mls/hr Titration: 09/20/19 23:35 Dose: 17 mcg/min, 63.75 mls/hr Titration: 09/20/19 20:33 Dose: 18 mcg/min, 67.5 mls/hr Admin: 09/20/19 20:28 Dose: 15 mcg/min, 56.25 mls/hr Titration: 09/20/19 20:02 Dose: 15 mcg/min, 56.25 mls/hr Titration: 09/20/19 19:20 Dose: 15 mcg/min, 56.25 mls/hr Titration: 09/20/19 15:05 Dose: 12 mcg/min, 45 mls/hr Titration: 09/20/19 14:30 Dose: 8 mcg/min, 30 mls/hr Admin: 09/20/19 14:06 Dose: 2 mcg/min, 7.5 mls/hr Sodium Chloride (Normal Saline) 1,000 mls @ 125 mls/hr IV CONTINUOUS ANNA Last Admin: 09/21/19 04:49 Dose: 125 mls/hr Infusion: 09/21/19 04:49 Dose: 125 mls/hr Admin: 09/20/19 20:57 Dose: 125 mls/hr Pantoprazole Sodium 40 mg/ (Sodium Chloride) 10 mls @ 300 mls/hr IV DAILY [facility] Last Admin: 09/20/19 20:12 Dose: 300 mls/hr Ertapenem 1 gm/ Sodium (Chloride) 50 mls @ 100 mls/hr IV Q24H [facility] Last Admin: 09/20/19 20:15 Dose: 100 mls/hr Vancomycin HCl 1 gm/ Sodium (Chloride) 250 mls @ 166 mls/hr IV Q24H [facility] Last Admin: 09/20/19 20:45 Dose: 166 mls/hr Vasopressin 100 units/ Sodium (Chloride) 100 mls @ 1.8 mls/hr IV CONTINUOUS [facility] Last Admin: 09/20/19 22:40 Dose: 0.03 units/min, 1.8 mls/hr Magnesium Sulfate 4 gm/ Premix 100 mls @ 50 mls/hr IV ONETIME ONE Stop: 09/21/19 08:37 Last Admin: 09/21/19 06:48 Dose: 50 mls/hr Levothyroxine Sodium (Levothyroxine) 75 mcg PO ACBREAKFAST [facility] Last Admin: 09/21/19 06:36 Dose: 75 mcg Ondansetron HCl (Zofran Odt) 4 mg PO Q4H PRN PRN Reason: nausea, able to take PO Ondansetron HCl (Zofran) 4 mg IVPUSH Q4H PRN PRN Reason: Nausea Polyethylene Glycol (Miralax) 17 gm PO DAILY PRN PRN Reason: Constipation Rivaroxaban (Xarelto) 10 mg PO DAILY [facility] Sodium Chloride (Saline Flush) 10 ml FLUSH ASDIRECTED PRN PRN Reason: Keep Vein Open Sodium Chloride (Saline Flush) 2.5 ml FLUSH ASDIRECTED PRN PRN Reason: Keep Vein Open Tramadol HCl (Ultram) 100 mg PO Q8H PRN PRN Reason: Pain Last Admin: 09/21/19 05:36 Dose: 100 mg Admin: 09/20/19 21:15 Dose: 100 mg Vancomycin HCl (Pharmacy To Dose - Vancomycin) 1 dose .XX ASDIRECTED [facility] Labs: Laboratory Tests 09/20/19 09/20/19 09/20/19 Range/Units 12:55 13:33 13:33 WBC 31.73 H (4.0-11.0) K/uL RBC 3.18 L (4.30-5.90) M/uL Hgb 9.6 L (12.0-16.0) g/dL Hct 29.7 L (36.0-46.0) % MCV 93.4 (80.0-98.0) fL MCH 30.2 (27.0-32.0) pg MCHC 32.3 (31.0-37.0) g/dL RDW Std Deviation 50.6 (28.0-62.0) fl RDW Coeff of Kari 15 (11.0-15.0) % Plt Count 271 (150-400) K/uL MPV 9.60 (7.40-12.00) fL Add Manual Diff YES Neutrophils % (Manual) 83 H (48.0-80.0) % Band Neutrophils % 10 % Lymphocytes % (Manual) 4 L (16.0-40.0) % Monocytes % (Manual) 3 (0.0-15.0) % Nucleated RBC % 0.0 /100WBC Absolute Seg Neuts 26.3 H (1.4-5.7) Band Neutrophils # 3.2 Lymphocytes # (Manual) 1.3 (0.6-2.4) Monocytes # (Manual) 1.0 H (0.0-0.8) Nucleated RBCs # 0 K/uL VBG pH (7.31-7.41) VBG pCO2 (35-45) mmHG VBG pO2 (30-40) mmHG VBG HCO3 (22-30) mEq/L VBG Total CO2 (41-51) mmol/L VBG Base Excess (-3.0-3.0) Lactate (0.20-2.00) mmol/L Sodium 139 (136-145) mmol/L Potassium 4.5 (3.5-5.1) mmol/L Chloride 106 (98-107) mmol/L Carbon Dioxide 21.7 (21.0-32.0) mmol/L BUN 35 H (7.0-18.0) mg/dL Creatinine 1.8 H (0.6-1.0) mg/dL Est Cr Clr Drug Dosing 16.69 mL/min Estimated GFR (MDRD) 26.9 ml/min Glucose 98 (74-106) mg/dL Calcium 8.7 (8.5-10.1) mg/dL Total Bilirubin 0.5 (0.2-1.0) mg/dL AST 22 (15-37) IU/L ALT 5 L (14-63) IU/L Alkaline Phosphatase 74 (46-116) U/L Troponin I 0.059 H* (0.000-0.056) ng/mL C-Reactive Protein (0.00-0.90) mg/dL B-Natriuretic Peptide (<100) PG/ML Total Protein 5.3 L (6.4-8.2) g/dL Albumin 2.1 L (3.4-5.0) g/dL Globulin 3.2 (2.6-4.0) g/dL Albumin/Globulin Ratio 0.7 L (0.9-1.6) TSH 3rd Generation (0.36-3.74) uIU/mL Urine Color YELLOW Urine Appearance SLT CLOUDY Urine pH 5.5 (5.0-8.0) Ur Specific [place] 1.025 (1.001-1.035) Urine Protein TRACE H (NEGATIVE) mg/dL Urine Glucose (UA) NEGATIVE (NEGATIVE) mg/dL Urine Ketones NEGATIVE (NEGATIVE) mg/dL Urine Occult Blood SMALL H (NEGATIVE) Urine Nitrite NEGATIVE (NEGATIVE) Urine Bilirubin NEGATIVE (NEGATIVE) Urine Urobilinogen 0.2 (<2.0) EU/dL Ur Leukocyte Esterase MODERATE H (NEGATIVE) Urine RBC 0-4 (0-2/HPF) Urine WBC 20-30 (0-5/HPF) Ur Epithelial Cells RARE (NONE-FEW) Urine Bacteria 3+ H (NEGATIVE) 09/20/19 09/20/19 09/20/19 Range/Units 13:33 13:33 13:33 WBC (4.0-11.0) K/uL RBC (4.30-5.90) M/uL Hgb (12.0-16.0) g/dL Hct (36.0-46.0) % MCV (80.0-98.0) fL MCH (27.0-32.0) pg MCHC (31.0-37.0) g/dL RDW Std Deviation (28.0-62.0) fl RDW Coeff of Kari (11.0-15.0) % Plt Count (150-400) K/uL MPV (7.40-12.00) fL Add Manual Diff Neutrophils % (Manual) (48.0-80.0) % Band Neutrophils % % Lymphocytes % (Manual) (16.0-40.0) % Monocytes % (Manual) (0.0-15.0) % Nucleated RBC % /100WBC Absolute Seg Neuts (1.4-5.7) Band Neutrophils # Lymphocytes # (Manual) (0.6-2.4) Monocytes # (Manual) (0.0-0.8) Nucleated RBCs # K/uL VBG pH (7.31-7.41) VBG pCO2 (35-45) mmHG VBG pO2 (30-40) mmHG VBG HCO3 (22-30) mEq/L VBG Total CO2 (41-51) mmol/L VBG Base Excess (-3.0-3.0) Lactate 1.8 (0.20-2.00) mmol/L Sodium (136-145) mmol/L Potassium (3.5-5.1) mmol/L Chloride (98-107) mmol/L Carbon Dioxide (21.0-32.0) mmol/L BUN (7.0-18.0) mg/dL Creatinine (0.6-1.0) mg/dL Est Cr Clr Drug Dosing mL/min Estimated GFR (MDRD) ml/min Glucose (74-106) mg/dL Calcium (8.5-10.1) mg/dL Total Bilirubin (0.2-1.0) mg/dL AST (15-37) IU/L ALT (14-63) IU/L Alkaline Phosphatase (46-116) U/L Troponin I (0.000-0.056) ng/mL C-Reactive Protein 14.30 H (0.00-0.90) mg/dL B-Natriuretic Peptide 474 H (<100) PG/ML Total Protein (6.4-8.2) g/dL Albumin (3.4-5.0) g/dL Globulin (2.6-4.0) g/dL Albumin/Globulin Ratio (0.9-1.6) TSH 3rd Generation (0.36-3.74) uIU/mL Urine Color Urine Appearance Urine pH (5.0-8.0) Ur Specific [place] (1.001-1.035) Urine Protein (NEGATIVE) mg/dL Urine Glucose (UA) (NEGATIVE) mg/dL Urine Ketones (NEGATIVE) mg/dL Urine Occult Blood (NEGATIVE) Urine Nitrite (NEGATIVE) Urine Bilirubin (NEGATIVE) Urine Urobilinogen (<2.0) EU/dL Ur Leukocyte Esterase (NEGATIVE) Urine RBC (0-2/HPF) Urine WBC (0-5/HPF) Ur Epithelial Cells (NONE-FEW) Urine Bacteria (NEGATIVE) 09/20/19 09/20/19 09/20/19 Range/Units 16:39 16:39 16:39 WBC (4.0-11.0) K/uL RBC (4.30-5.90) M/uL Hgb (12.0-16.0) g/dL Hct (36.0-46.0) % MCV (80.0-98.0) fL MCH (27.0-32.0) pg MCHC (31.0-37.0) g/dL RDW Std Deviation (28.0-62.0) fl RDW Coeff of Kari (11.0-15.0) % Plt Count (150-400) K/uL MPV (7.40-12.00) fL Add Manual Diff Neutrophils % (Manual) (48.0-80.0) % Band Neutrophils % % Lymphocytes % (Manual) (16.0-40.0) % Monocytes % (Manual) (0.0-15.0) % Nucleated RBC % /100WBC Absolute Seg Neuts (1.4-5.7) Band Neutrophils # Lymphocytes # (Manual) (0.6-2.4) Monocytes # (Manual) (0.0-0.8) Nucleated RBCs # K/uL VBG pH 7.36 (7.31-7.41) VBG pCO2 37 (35-45) mmHG VBG pO2 40 (30-40) mmHG VBG HCO3 21 L (22-30) mEq/L VBG Total CO2 20 L (41-51) mmol/L VBG Base Excess -4.4 L (-3.0-3.0) Lactate 1.1 (0.20-2.00) mmol/L Sodium 140 (136-145) mmol/L Potassium 4.2 (3.5-5.1) mmol/L Chloride 107 (98-107) mmol/L Carbon Dioxide 22.9 (21.0-32.0) mmol/L BUN 33 H (7.0-18.0) mg/dL Creatinine 1.4 H (0.6-1.0) mg/dL Est Cr Clr Drug Dosing 21.45 mL/min Estimated GFR (MDRD) 35.9 ml/min Glucose 100 (74-106) mg/dL Calcium 8.1 L (8.5-10.1) mg/dL Total Bilirubin (0.2-1.0) mg/dL AST (15-37) IU/L ALT (14-63) IU/L Alkaline Phosphatase (46-116) U/L Troponin I (0.000-0.056) ng/mL C-Reactive Protein (0.00-0.90) mg/dL B-Natriuretic Peptide (<100) PG/ML Total Protein (6.4-8.2) g/dL Albumin (3.4-5.0) g/dL Globulin (2.6-4.0) g/dL Albumin/Globulin Ratio (0.9-1.6) TSH 3rd Generation (0.36-3.74) uIU/mL Urine Color Urine Appearance Urine pH (5.0-8.0) Ur Specific [place] (1.001-1.035) Urine Protein (NEGATIVE) mg/dL Urine Glucose (UA) (NEGATIVE) mg/dL Urine Ketones (NEGATIVE) mg/dL Urine Occult Blood (NEGATIVE) Urine Nitrite (NEGATIVE) Urine Bilirubin (NEGATIVE) Urine Urobilinogen (<2.0) EU/dL Ur Leukocyte Esterase (NEGATIVE) Urine RBC (0-2/HPF) Urine WBC (0-5/HPF) Ur Epithelial Cells (NONE-FEW) Urine Bacteria (NEGATIVE) 09/20/19 09/20/19 Range/Units 16:39 16:39 WBC (4.0-11.0) K/uL RBC (4.30-5.90) M/uL Hgb (12.0-16.0) g/dL Hct (36.0-46.0) % MCV (80.0-98.0) fL MCH (27.0-32.0) pg MCHC (31.0-37.0) g/dL RDW Std Deviation (28.0-62.0) fl RDW Coeff of Kari (11.0-15.0) % Plt Count (150-400) K/uL MPV (7.40-12.00) fL Add Manual Diff Neutrophils % (Manual) (48.0-80.0) % Band Neutrophils % % Lymphocytes % (Manual) (16.0-40.0) % Monocytes % (Manual) (0.0-15.0) % Nucleated RBC % /100WBC Absolute Seg Neuts (1.4-5.7) Band Neutrophils # Lymphocytes # (Manual) (0.6-2.4) Monocytes # (Manual) (0.0-0.8) Nucleated RBCs # K/uL VBG pH (7.31-7.41) VBG pCO2 (35-45) mmHG VBG pO2 (30-40) mmHG VBG HCO3 (22-30) mEq/L VBG Total CO2 (41-51) mmol/L VBG Base Excess (-3.0-3.0) Lactate (0.20-2.00) mmol/L Sodium (136-145) mmol/L Potassium (3.5-5.1) mmol/L Chloride (98-107) mmol/L Carbon Dioxide (21.0-32.0) mmol/L BUN (7.0-18.0) mg/dL Creatinine (0.6-1.0) mg/dL Est Cr Clr Drug Dosing mL/min Estimated GFR (MDRD) ml/min Glucose (74-106) mg/dL Calcium (8.5-10.1) mg/dL Total Bilirubin (0.2-1.0) mg/dL AST (15-37) IU/L ALT (14-63) IU/L Alkaline Phosphatase (46-116) U/L Troponin I 0.085 H* (0.000-0.056) ng/mL C-Reactive Protein (0.00-0.90) mg/dL B-Natriuretic Peptide (<100) PG/ML Total Protein (6.4-8.2) g/dL Albumin (3.4-5.0) g/dL Globulin (2.6-4.0) g/dL Albumin/Globulin Ratio (0.9-1.6) TSH 3rd Generation 9.26 H (0.36-3.74) uIU/mL Urine Color Urine Appearance Urine pH (5.0-8.0) Ur Specific [place] (1.001-1.035) Urine Protein (NEGATIVE) mg/dL Urine Glucose (UA) (NEGATIVE) mg/dL Urine Ketones (NEGATIVE) mg/dL Urine Occult Blood (NEGATIVE) Urine Nitrite (NEGATIVE) Urine Bilirubin (NEGATIVE) Urine Urobilinogen (<2.0) EU/dL Ur Leukocyte Esterase (NEGATIVE) Urine RBC (0-2/HPF) Urine WBC (0-5/HPF) Ur Epithelial Cells (NONE-FEW) Urine Bacteria (NEGATIVE) Meds: Medications Generic Name Dose Route Start Last Admin Trade Name Freq PRN Reason Stop Dose Admin Acetaminophen 650 mg 09/20/19 17:46 09/21/19 05:37 Tylenol PO 650 mg Q4H PRN Administration Pain (Mild 1-3)/fever Docusate Sodium 100 mg 09/20/19 17:46 Colace PO BID PRN Constipation Hydrocortisone Sodium Succinate 100 mg 09/21/19 11:00 Solu-Cortef IVPUSH Q8H ANNA Norepinephrine Bitartrate 4 mg in 250 mls @ 7.5 mls/hr 09/20/19 14:00 06:52 Norepinephr-0.9% Nacl 4 Mg/250 IV 12 mcg/min TITRATE ANNA 45 mls/hr Titration Protocol 2 MCG/MIN Sodium Chloride 1,000 mls @ 125 mls/hr 09/20/19 18:45 09/21/19 04:49 Normal Saline IV 125 mls/hr CONTINUOUS ANNA Administration Pantoprazole Sodium 40 mg/ 10 mls @ 300 mls/hr 09/20/19 19:15 09/20/19 20:12 Sodium Chloride IV 300 mls/hr DAILY ANNA Administration Ertapenem 1 gm/ Sodium 50 mls @ 100 mls/hr 09/20/19 20:00 09/20/19 20:15 Chloride IV 100 mls/hr Q24H ANNA Administration Vancomycin HCl 1 gm/ Sodium 250 mls @ 166 mls/hr 09/20/19 21:00 09/20/19 20: 45 Chloride IV 166 mls/hr Q24H ANNA Administration Vasopressin 100 units/ Sodium 100 mls @ 1.8 mls/hr 09/20/19 22:15 09/20/19 22 :40 Chloride IV 0.03 units/min CONTINUOUS ANNA 1.8 mls/hr Administration 0.03 UNITS/MIN Magnesium Sulfate 4 gm/ Premix 100 mls @ 50 mls/hr 09/21/19 06:38 09/21/19 06 :48 IV 09/21/19 08:37 50 mls/hr ONETIME ONE Administration Levothyroxine Sodium 75 mcg 09/21/19 07:30 09/21/19 06:36 Levothyroxine PO 75 mcg ACBREAKFAST ANNA Administration Ondansetron HCl 4 mg 09/20/19 17:46 Zofran Odt PO Q4H PRN nausea, able to take PO Ondansetron HCl 4 mg 09/20/19 17:46 Zofran IVPUSH Q4H PRN Nausea Polyethylene Glycol 17 gm 09/20/19 17:46 Miralax PO DAILY PRN Constipation Rivaroxaban 10 mg 09/21/19 09:00 Xarelto PO DAILY ANNA Sodium Chloride 10 ml 09/20/19 12:52 Saline Flush FLUSH ASDIRECTED PRN Keep Vein Open Sodium Chloride 2.5 ml 09/20/19 12:52 Saline Flush FLUSH ASDIRECTED PRN Keep Vein Open Tramadol HCl 100 mg 09/20/19 20:56 09/21/19 05:36 Ultram PO 100 mg Q8H PRN Administration Pain Vancomycin HCl 1 dose 09/20/19 20:00 Pharmacy To Dose - Vancomycin .XX ASDIRECTED ANNA Discontinued Medications Generic Name Dose Route Start Last Admin Trade Name Freq PRN Reason Stop Dose Admin Aspirin 325 mg 09/20/19 17:22 09/20/19 17:45 Aspirin PO 09/20/19 17:23 325 mg ONETIME ONE Administration Enoxaparin Sodium 40 mg 09/20/19 18:00 09/20/19 21:02 Lovenox SUBCUT Not Given Q24H ANNA Fentanyl 25 mcg 09/20/19 22:22 09/21/19 03:30 Sublimaze IVPUSH 25 mcg Q4HR PRN Administration Severe pain Fentanyl 25 mcg 09/21/19 01:39 09/21/19 02:01 Fentanyl IVPUSH 09/21/19 01:40 Not Given ONETIME ONE Fentanyl 25 mcg 09/21/19 02:00 09/21/19 02:01 Sublimaze IVPUSH 09/21/19 02:01 25 mcg ONETIME ONE Administration Hydrocortisone Sodium Succinate 100 mg 09/21/19 03:30 09/21/19 03:23 Solu-Cortef IVPUSH 09/21/19 03:31 100 mg ONETIME ONE Administration Sodium Chloride 1,000 mls @ 999 mls/hr 09/20/19 13:18 09/20/19 14:06 Normal Saline IV 09/20/19 14:18 999 mls/hr .Bolus ONE Administration Sodium Chloride 1,000 mls @ 999 mls/hr 09/20/19 13:30 09/20/19 14:06 Normal Saline IV 09/20/19 14:30 999 mls/hr .Bolus ONE Administration Meropenem 1 gm/ Sodium 100 mls @ 200 mls/hr 09/20/19 15:10 09/20/19 17:30 Chloride IV 09/20/19 15:39 Not Given ONETIME ONE Sodium Chloride 1,000 mls @ 999 mls/hr 09/20/19 16:45 09/20/19 17:07 Normal Saline IV 09/20/19 17:45 999 mls/hr .Bolus ONE Administration Levofloxacin/Dextrose 750 mg/ 150 mls @ 100 mls/hr 09/20/19 17:07 09/20/19 17 :46 Premix IV 09/20/19 18:36 100 mls/hr ONETIME ONE Administration Piperacillin Sod/Tazobactam 50 mls @ 100 mls/hr 09/20/19 18:15 Sod 3.375 gm/ Sodium Chloride IV Q8H ANNA Sodium Chloride 1,000 mls @ 999 mls/hr 09/20/19 19:24 09/20/19 19:27 Normal Saline IV 09/20/19 20:24 999 mls/hr .Bolus ONE Administration Vasopressin 100 units/ Sodium 100 mls @ 1.8 mls/hr 09/20/19 21:45 Chloride IV TITRATE ANNA 0.03 UNITS/MIN Ibuprofen 800 mg 09/20/19 17:46 Motrin PO Q6H PRN Pain (mild 1-3) Ketorolac Tromethamine 15 mg 09/20/19 17:46 Toradol IV Q6H PRN Pain (moderate 4-6) Levothyroxine Sodium 75 mcg 09/21/19 07:30 Synthroid PO ACBREAKFAST ANNA Lidocaine HCl Confirm 09/20/19 21:43 09/20/19 22:15 Xylocaine 1% Administered 09/20/19 21:44 20 ml Dose Administration 20 ml .ROUTE .STK-MED ONE Departure - Departure Time of Disposition: 16:00 Disposition: Admitted As Inpatient 67 Clinical Impression: Pneumonia Qualifiers: Pneumonia type: due to unspecified organism Laterality: unspecified laterality Lung location: unspecified part of lung Qualified Code(s): J18.9 - Pneumonia, unspecified organism - Discharge Information Sepsis Event Note - Evaluation Sepsis Screening Result: No Definite Risk - Focused Exam Date Exam was Performed: 09/21/19 Time Exam was Performed: 07:18 - My Orders Last 24 Hours: My Active Orders 09/20/19 14:00 Norepinephrine Bit/0.9 % NaCl [Norepinephr-0.9% NaCl 4 mg/250] 4 mg in 250 ml IV TITRATE 09/20/19 15:04 EKG Documentation Completion [RC] STAT - Assessment/Plan Last 24 Hours: My Active Orders 09/20/19 14:00 Norepinephrine Bit/0.9 % NaCl [Norepinephr-0.9% NaCl 4 mg/250] 4 mg in 250 ml IV TITRATE 09/20/19 15:04 EKG Documentation Completion [RC] STAT
--- NOTE | 2019-09-20 14:29 | CR ---
Chest: Portable view of the chest was obtained. Comparison: Prior chest x-ray of 04/03/17. Increased density is identified within both lung bases. Upper lungs are clear. Heart size within normal limits for portable technique. Bony structures are osteopenic. Scoliosis is noted within the spine with mild degenerative change. Impression: 1. Increased density within both lung bases. Differential includes aspiration as well as bibasilar pneumonia. 2. Other findings which are believed to be incidental. Diagnostic code #3 Study was dictated in [place] Standard Time
[2019-09-20] MEDS ORDERED: Meropenem 1 GM in Sodium Chloride 0.9% 100 ML IV ONE (15:10)
--- NOTE | 2019-09-20 15:53 | CT ---
Head CT Technique: Multiple axial sections through the brain were obtained. Intravenous contrast was not utilized. Comparison: No prior intracranial imaging is available. Findings: Ventricles along with basal cisterns and sulci over the convexities are moderately prominent. Diminished density is noted within portions of the periventricular white matter compatible with small vessel ischemic demyelination change. No other abnormal parenchymal densities are seen. No evidence of intracranial hemorrhage. No midline shift or mass effect is seen. Bone window settings were reviewed. No acute calvarial abnormality is seen. Mild mucosal thickening is seen within the right maxillary sinus which is likely chronic. No acute change within the visualized mastoid sinuses. Impression: 1. Senescent change as noted above. 2. Minimal sinus finding which is believed to be chronic. 3. No acute intracranial abnormality is appreciated. Diagnostic code #2 Study was dictated in [place] Standard Time
--- NOTE | 2019-09-20 16:58 | CR ---
Chest: Portable view of the chest was obtained. Comparison: Prior chest x-ray of 09/20/19. Increasing consolidation within the left base is seen. Stable parenchymal density within the medial right lung base. Lung markings are increased which are also stable. Right-sided jugular line is seen with tip lying within the right atria. Heart size appears within normal limits for portable technique. Atherosclerotic calcification is noted within the aortic knob. Bony structures are grossly intact. Impression: 1. Increasing consolidation within the left lung base. Differential includes aspiration as well as worsening pneumonia. 2. Other findings within the chest remains stable from prior chest x-ray. 3. Right-sided jugular line which is an interval change with tip lying within the right atria. Diagnostic code #3 This report was dictated in [place] Standard Time
[2019-09-20 17:06] LABS: CARBON DIOXIDE,CO2 22.9 mmol/L (21.0-32.0); POTASSIUM,K 4.2 mmol/L (3.5-5.1)
[2019-09-20] MEDS ORDERED: Levofloxacin/Dextrose 5%-Water 750 MG in Premix Bag 1 BAG IV ONE (17:07)
[2019-09-20] MEDS ORDERED: Aspirin 325 MG Tab PO ONE (17:22)
[2019-09-20] MEDS ORDERED: Polyethylene Glycol 3350 Powder 17 GM Packet PO PRN (17:46)
[2019-09-20] MEDS ORDERED: Docusate Sodium 100 MG Cap PO PRN (17:46)
[2019-09-20] MEDS ORDERED: Ketorolac 30 MG/ML SDV IV PRN (17:46)
[2019-09-20] MEDS ORDERED: Ibuprofen 800 MG Tab PO PRN (17:46)
[2019-09-20] MEDS ORDERED: Ondansetron 4 MG Tab.DIS PO PRN (17:46)
[2019-09-20] MEDS ORDERED: Enoxaparin 40 MG/0.4 ML Syringe SUBCUT SCH (18:00)
--- NOTE | 2019-09-20 18:07 | PCM.HP.2 ---
H&P History of Present Illness - General Date of Service: 09/20/19 Admit Problem/Dx: Admission Diagnosis/Problem Admission Diagnosis/Problem Pneumonia - History of Present Illness Initial Comments - Free Text/Narative: 84 y/o female wit history of CREST Syndrome with Raynaud's who presented to the ER from [facility] after she was found to be hypotensive and lethargic. In the ER, the patient was found to have BP 70/30, WBC 31K and started on Norepinephrine for Septic shock. Now, BP 105/55 on Norepi. Patient states that she has not been feeling well for the past couple of days. Yesterday, she vomited couple of times after dinner. Denies any fevers, chest pain, dyspnea. She does endorse some abdominal pain, rectal pain and leg pains bilaterally. In the ER, she was started on Norepi, Levaquin and Vancomycin and aggressively hydrated with 3 L NS. Initial Lactate of 1.8. right leg Pain Score (Numeric/FACES): 8 - Related Data Allergies/Adverse Reactions: Allergies Allergy/AdvReac Type Severity Reaction Status Date / Time codeine Allergy Vomiting Verified 09/20/19 12:49 latex Allergy Rash Verified 09/20/19 12:49 morphine Allergy Difficulty Verified 09/20/19 12:49 Breathing oxycodone HCl [From Percocet] Allergy Vomiting Verified 09/20/19 12:49 Penicillins Allergy Anaphylactic Verified 09/20/19 12:49 Shock Sulfa (Sulfonamide Allergy Anaphylactic Verified 09/20/19 12:49 Antibiotics) Shock all pain meds Allergy Nausea Uncoded 09/20/19 12:49 Home Medications: Home Meds Omeprazole Magnesium [Prilosec Otc] 20 mg PO ACBRK 08/01/14 [History] Levothyroxine [Synthroid] 75 mcg PO ACBREAKFAST 02/28/16 [History] Cetirizine HCl 10 mg PO BEDTIME 06/03/19 [History] Loperamide HCl [Imodium A-D] 4 mg PO Q6H PRN 06/03/19 [History] Oxybutynin Chloride 5 mg PO BID 06/03/19 [History] bisacodyL [Bisacodyl] 10 mg RC DAILY PRN 06/03/19 [History] Acetaminophen [Tylenol] 650 mg PO TID PRN 06/04/19 [History] Docusate Sodium 100 mg PO Q12H 06/04/19 [History] Patient's Own Medication [Ptom] 1 each PO BID 06/04/19 [History] traMADol [Ultram] 100 mg PO Q8H PRN 06/04/19 [History] Calcium Carbonate 200 mg PO DAILY PRN 07/15/19 [History] Promethazine HCl 12.5 mg PO BID 07/15/19 [History] Acetaminophen [Tylenol] 650 mg PO Q8H PRN tablet 07/18/19 [Rx] Cetirizine [ZyrTEC] 10 mg PO BEDTIME tablet 07/18/19 [Rx] Hydrocodone/Acetaminophen [Baxter 10-325 Tablet] 1 each PO ASDIRECTED 09/20/19 [ History] Rivaroxaban [Xarelto] 10 mg PO DAILY 09/20/19 [History] amLODIPine Besylate [Norvasc] 10 mg PO DAILY 09/20/19 [History] Past Medical History - Past Health History Medical/Surgical History: Denies Medical/Surgical History HEENT History: Reports: Cataract Other HEENT History: has upper denture and lower partial Cardiovascular History: Reports: None, High Cholesterol Other Cardiovascular History: nonrheumatic mitral valve prolapse Respiratory History: Reports: COPD, Pneumonia, Recurrent Gastrointestinal History: Reports: GERD, Irritable Bowel Syndrome, Other (See Below) Other Gastrointestinal History: IBS-Diarrhea Genitourinary History: Reports: Other (See Below) Other Genitourinary History: overactive bladder. frequency YARN REWINDER History: Reports: Musculoskeletal History: Reports: Arthritis Neurological History: Reports: Other (See Below) Other Neuro History: hx of motion sickness Psychiatric History: Reports: None Endocrine/Metabolic History: Reports: Hypothyroidism Hematologic History: Reports: None Immunologic History: Reports: Other (See Below) Other Immunologic History: CREST syndrome Oncologic (Cancer) History: Reports: None Dermatologic History: Reports: None, Other (See Below) Other Dermatologic History: Raynaud's Syndrome - Infectious Disease History Infectious Disease History: Reports: Chicken Pox, Measles, Mumps - Past Surgical History Head Surgeries/Procedures: Reports: None HEENT Surgical History: Reports: Cataract Surgery Female Surgical History: Reports: Hysterectomy Musculoskeletal Surgical History: Reports: Knee Replacement, ORIF, Shoulder Surgery Other Musculoskeletal Surgeries/Procedures:: left small fifth toe amputation. difficulty walking. leg painright shoulder pain Social & Family History - Family History Family Medical History: Noncontributory HEENT: Reports: Cataract Respiratory: Reports: COPD Musculoskeletal: Reports: Arthritis Psychiatric: Reports: Depression Endocrine/Metabolic: Reports: Diabetes, type II - Tobacco Use Smoking Status *Q: Never Smoker - Caffeine Use Caffeine Use: Reports: Coffee, Soda, Tea - Recreational Drug Use Recreational Drug Use: No H&P Review of Systems - Review of Systems: Review Of Systems: Comprehensive ROS is negative, except as noted in HPI. Exam - Exam Exam: See Below - Vital Signs Vital Signs: Last Vital Signs Temp 36.4 C 09/20/19 16:45 Pulse 99 09/20/19 17:11 Resp 20 09/20/19 17:11 BP 99/51 L 09/20/19 17:11 Pulse Ox 96 09/20/19 16:45 Weight: 44.633 kg - Exam General: Alert, Oriented, Cooperative HEENT: Other (dry oral mucosa) Lungs: Other (lung sounds bilaterally. Rhonchus on left side. No wheezing.) Cardiovascular: Regular Rhythm, Tachycardia GI/Abdominal Exam: Other (Tender abdomen all throgh out. No distention.) Extremities: Normal Inspection, No Pedal Edema Skin: Other (Left plantar ulcer s/p 4th toe amputation.) Neuro Extensive - Mental Status: Alert, Oriented x3 - Patient Data Lab Results Last 24 hrs: Laboratory Results - last 24 hr 09/20/19 09/20/19 09/20/19 Range/Units 12:55 13:33 13:33 WBC 31.73 H (4.0-11.0) K/uL RBC 3.18 L (4.30-5.90) M/uL Hgb 9.6 L (12.0-16.0) g/dL Hct 29.7 L (36.0-46.0) % MCV 93.4 (80.0-98.0) fL MCH 30.2 (27.0-32.0) pg MCHC 32.3 (31.0-37.0) g/dL RDW Std Deviation 50.6 (28.0-62.0) fl RDW Coeff of Kari 15 (11.0-15.0) % Plt Count 271 (150-400) K/uL MPV 9.60 (7.40-12.00) fL Add Manual Diff YES Neutrophils % (Manual) 83 H (48.0-80.0) % Band Neutrophils % 10 % Lymphocytes % (Manual) 4 L (16.0-40.0) % Monocytes % (Manual) 3 (0.0-15.0) % Nucleated RBC % 0.0 /100WBC Absolute Seg Neuts 26.3 H (1.4-5.7) Band Neutrophils # 3.2 Lymphocytes # (Manual) 1.3 (0.6-2.4) Monocytes # (Manual) 1.0 H (0.0-0.8) Nucleated RBCs # 0 K/uL VBG pH (7.31-7.41) VBG pCO2 (35-45) mmHG VBG pO2 (30-40) mmHG VBG HCO3 (22-30) mEq/L VBG Total CO2 (41-51) mmol/L VBG Base Excess (-3.0-3.0) Lactate (0.20-2.00) mmol/L Sodium 139 (136-145) mmol/L Potassium 4.5 (3.5-5.1) mmol/L Chloride 106 (98-107) mmol/L Carbon Dioxide 21.7 (21.0-32.0) mmol/L BUN 35 H (7.0-18.0) mg/dL Creatinine 1.8 H (0.6-1.0) mg/dL Est Cr Clr Drug Dosing 16.69 mL/min Estimated GFR (MDRD) 26.9 ml/min Glucose 98 (74-106) mg/dL Calcium 8.7 (8.5-10.1) mg/dL Total Bilirubin 0.5 (0.2-1.0) mg/dL AST 22 (15-37) IU/L ALT 5 L (14-63) IU/L Alkaline Phosphatase 74 (46-116) U/L Troponin I 0.059 H* (0.000-0.056) ng/mL B-Natriuretic Peptide (<100) PG/ML Total Protein 5.3 L (6.4-8.2) g/dL Albumin 2.1 L (3.4-5.0) g/dL Globulin 3.2 (2.6-4.0) g/dL Albumin/Globulin Ratio 0.7 L (0.9-1.6) Urine Color YELLOW Urine Appearance SLT CLOUDY Urine pH 5.5 (5.0-8.0) Ur Specific [place] 1.025 (1.001-1.035) Urine Protein TRACE H (NEGATIVE) mg/dL Urine Glucose (UA) NEGATIVE (NEGATIVE) mg/dL Urine Ketones NEGATIVE (NEGATIVE) mg/dL Urine Occult Blood SMALL H (NEGATIVE) Urine Nitrite NEGATIVE (NEGATIVE) Urine Bilirubin NEGATIVE (NEGATIVE) Urine Urobilinogen 0.2 (<2.0) EU/dL Ur Leukocyte Esterase MODERATE H (NEGATIVE) Urine RBC 0-4 (0-2/HPF) Urine WBC 20-30 (0-5/HPF) Ur Epithelial Cells RARE (NONE-FEW) Urine Bacteria 3+ H (NEGATIVE) 09/20/19 09/20/19 09/20/19 Range/Units 13:33 13:33 16:39 WBC (4.0-11.0) K/uL RBC (4.30-5.90) M/uL Hgb (12.0-16.0) g/dL Hct (36.0-46.0) % MCV (80.0-98.0) fL MCH (27.0-32.0) pg MCHC (31.0-37.0) g/dL RDW Std Deviation (28.0-62.0) fl RDW Coeff of Kari (11.0-15.0) % Plt Count (150-400) K/uL MPV (7.40-12.00) fL Add Manual Diff Neutrophils % (Manual) (48.0-80.0) % Band Neutrophils % % Lymphocytes % (Manual) (16.0-40.0) % Monocytes % (Manual) (0.0-15.0) % Nucleated RBC % /100WBC Absolute Seg Neuts (1.4-5.7) Band Neutrophils # Lymphocytes # (Manual) (0.6-2.4) Monocytes # (Manual) (0.0-0.8) Nucleated RBCs # K/uL VBG pH 7.36 (7.31-7.41) VBG pCO2 37 (35-45) mmHG VBG pO2 40 (30-40) mmHG VBG HCO3 21 L (22-30) mEq/L VBG Total CO2 20 L (41-51) mmol/L VBG Base Excess -4.4 L (-3.0-3.0) Lactate 1.8 (0.20-2.00) mmol/L Sodium (136-145) mmol/L Potassium (3.5-5.1) mmol/L Chloride (98-107) mmol/L Carbon Dioxide (21.0-32.0) mmol/L BUN (7.0-18.0) mg/dL Creatinine (0.6-1.0) mg/dL Est Cr Clr Drug Dosing mL/min Estimated GFR (MDRD) ml/min Glucose (74-106) mg/dL Calcium (8.5-10.1) mg/dL Total Bilirubin (0.2-1.0) mg/dL AST (15-37) IU/L ALT (14-63) IU/L Alkaline Phosphatase (46-116) U/L Troponin I (0.000-0.056) ng/mL B-Natriuretic Peptide 474 H (<100) PG/ML Total Protein (6.4-8.2) g/dL Albumin (3.4-5.0) g/dL Globulin (2.6-4.0) g/dL Albumin/Globulin Ratio (0.9-1.6) Urine Color Urine Appearance Urine pH (5.0-8.0) Ur Specific [place] (1.001-1.035) Urine Protein (NEGATIVE) mg/dL Urine Glucose (UA) (NEGATIVE) mg/dL Urine Ketones (NEGATIVE) mg/dL Urine Occult Blood (NEGATIVE) Urine Nitrite (NEGATIVE) Urine Bilirubin (NEGATIVE) Urine Urobilinogen (<2.0) EU/dL Ur Leukocyte Esterase (NEGATIVE) Urine RBC (0-2/HPF) Urine WBC (0-5/HPF) Ur Epithelial Cells (NONE-FEW) Urine Bacteria (NEGATIVE) 09/20/19 09/20/19 09/20/19 Range/Units 16:39 16:39 16:39 WBC (4.0-11.0) K/uL RBC (4.30-5.90) M/uL Hgb (12.0-16.0) g/dL Hct (36.0-46.0) % MCV (80.0-98.0) fL MCH (27.0-32.0) pg MCHC (31.0-37.0) g/dL RDW Std Deviation (28.0-62.0) fl RDW Coeff of Kari (11.0-15.0) % Plt Count (150-400) K/uL MPV (7.40-12.00) fL Add Manual Diff Neutrophils % (Manual) (48.0-80.0) % Band Neutrophils % % Lymphocytes % (Manual) (16.0-40.0) % Monocytes % (Manual) (0.0-15.0) % Nucleated RBC % /100WBC Absolute Seg Neuts (1.4-5.7) Band Neutrophils # Lymphocytes # (Manual) (0.6-2.4) Monocytes # (Manual) (0.0-0.8) Nucleated RBCs # K/uL VBG pH (7.31-7.41) VBG pCO2 (35-45) mmHG VBG pO2 (30-40) mmHG VBG HCO3 (22-30) mEq/L VBG Total CO2 (41-51) mmol/L VBG Base Excess (-3.0-3.0) Lactate 1.1 (0.20-2.00) mmol/L Sodium 140 (136-145) mmol/L Potassium 4.2 (3.5-5.1) mmol/L Chloride 107 (98-107) mmol/L Carbon Dioxide 22.9 (21.0-32.0) mmol/L BUN 33 H (7.0-18.0) mg/dL Creatinine 1.4 H (0.6-1.0) mg/dL Est Cr Clr Drug Dosing 21.45 mL/min Estimated GFR (MDRD) 35.9 ml/min Glucose 100 (74-106) mg/dL Calcium 8.1 L (8.5-10.1) mg/dL Total Bilirubin (0.2-1.0) mg/dL AST (15-37) IU/L ALT (14-63) IU/L Alkaline Phosphatase (46-116) U/L Troponin I 0.085 H* (0.000-0.056) ng/mL B-Natriuretic Peptide (<100) PG/ML Total Protein (6.4-8.2) g/dL Albumin (3.4-5.0) g/dL Globulin (2.6-4.0) g/dL Albumin/Globulin Ratio (0.9-1.6) Urine Color Urine Appearance Urine pH (5.0-8.0) Ur Specific [place] (1.001-1.035) Urine Protein (NEGATIVE) mg/dL Urine Glucose (UA) (NEGATIVE) mg/dL Urine Ketones (NEGATIVE) mg/dL Urine Occult Blood (NEGATIVE) Urine Nitrite (NEGATIVE) Urine Bilirubin (NEGATIVE) Urine Urobilinogen (<2.0) EU/dL Ur Leukocyte Esterase (NEGATIVE) Urine RBC (0-2/HPF) Urine WBC (0-5/HPF) Ur Epithelial Cells (NONE-FEW) Urine Bacteria (NEGATIVE) Result Diagrams: 09/20/19 13:33 09/20/19 16:39 Sepsis Event Note - Evaluation Sepsis Screening Result: No Definite Risk - Focused Exam Vital Signs: Vital Signs Temp Pulse Resp BP Pulse Ox 09/20/19 17:11 99 20 99/51 L 09/20/19 16:45 36.4 C 99 20 74/38 L 96 09/20/19 14:30 92 72/37 L 97 09/20/19 14:23 91 80/41 L 100 09/20/19 13:16 99 20 76/46 L 97 09/20/19 13:14 99 76/46 L 97 09/20/19 13:03 100 78/45 L 09/20/19 12:41 36.5 C 112 H 20 97/45 L 92 L 09/20/19 12:35 35 L 74/36 L 83 L Date Exam was Performed: 09/20/19 Time Exam was Performed: 19:05 Problem List Initiated/Reviewed/Updated: Yes Orders Last 24hrs: Active Orders 24 hr Category Date Time Status Admission Status [Patient Status] [ADT] Stat ADT 09/20/19 17:24 Active Bedrest Bedside Commode [RC] ASDIRECTED Care 09/20/19 17:46 Active EKG 12 Lead [EKG Documentation Completion] [RC] ROUTINE Care 09/20/19 12:48 Active EKG 12 Lead [EKG Documentation Completion] [RC] STAT Care 09/20/19 15:05 Active EKG Documentation Completion [RC] STAT Care 09/20/19 15:04 Inactive Oxygen Therapy [RC] PRN Care 09/20/19 17:46 Active Telemetry Monitoring [Cardiac Monitoring] [RC] . Care 09/20/19 17:56 Active DIRECTED VTE/DVT Education [RC] PER UNIT ROUTINE Care 09/20/19 17:46 Active Vital Signs [RC] Q4H Care 09/20/19 17:46 Active Regular Diet [DIET] Diet 09/20/19 Dinner Active Abdomen Pelvis wo Cont [CT] Stat Exams 09/20/19 17:57 Ordered CTA Chest W WO Contrast [Ang Chest] [CT] Stat Exams 09/20/19 16:30 Ordered C-REACTIVE PROTEIN [CHEM] Stat Lab 09/20/19 18:06 Ordered CULTURE BLOOD [BC] Stat Lab 09/20/19 18:05 Ordered CULTURE BLOOD [BC] Stat Lab 09/20/19 18:05 Ordered CULTURE URINE [RM] Stat Lab 09/20/19 12:55 Received SEDIMENTATION RATE AUTO [HEME] Stat Lab 09/20/19 18:06 Ordered Acetaminophen [Tylenol] Med 09/20/19 17:46 Active 650 mg PO Q4H PRN Docusate Sodium [Colace] Med 09/20/19 17:46 Active 100 mg PO BID PRN Enoxaparin [Lovenox] Med 09/20/19 18:00 Active 40 mg SUBCUT Q24H Ertapenem [INVanz] 1 gm Med 09/20/19 18:15 Active Sodium Chloride 0.9% [Normal Saline] 50 ml IV Q24H Ketorolac [Toradol] Med 09/20/19 17:46 Active 15 mg IV Q6H PRN Levothyroxine [Synthroid] Med 09/21/19 07:30 Active 75 mcg PO ACBREAKFAST Norepinephrine Bit/0.9 % NaCl [Norepinephr-0.9% NaCl 4 Med 09/20/19 14:00 Active mg/250] 4 mg in 250 ml IV TITRATE Ondansetron [Zofran ODT] Med 09/20/19 17:46 Active 4 mg PO Q4H PRN Ondansetron [Zofran] Med 09/20/19 17:46 Active 4 mg IVPUSH Q4H PRN Rivaroxaban [Xarelto] Med 09/21/19 09:00 Active 10 mg PO DAILY Sodium Chloride 0.9% [Saline Flush] Med 09/20/19 12:52 Active 10 ml FLUSH ASDIRECTED PRN Sodium Chloride 0.9% [Saline Flush] Med 09/20/19 12:52 Active 2.5 ml FLUSH ASDIRECTED PRN Vancomycin 0.75 gm Med 09/20/19 17:09 Active Sodium Chloride 0.9% [Normal Saline] 250 ml IV ONETIME polyethylene glycoL 3350 [MiraLAX] Med 09/20/19 17:46 Active 17 gm PO DAILY PRN Blood Culture x2 Reflex Set [OM.PC] Stat Oth 09/20/19 18:05 Ordered Saline Lock Insert [OM.PC] Stat Oth 09/20/19 12:52 Ordered Resuscitation Status Routine Resus Stat 09/20/19 17:46 Ordered Medication Orders Acetaminophen (Tylenol) 650 mg PO Q4H PRN PRN Reason: Pain (Mild 1-3)/fever Docusate Sodium (Colace) 100 mg PO BID PRN PRN Reason: Constipation Enoxaparin Sodium (Lovenox) 40 mg SUBCUT Q24H [facility] Norepinephrine Bitartrate (Norepinephr-0.9% Nacl 4 Mg/250) 4 mg in 250 mls @ 7.5 mls/hr IV TITRATE ANNA; Protocol Last Titration: 09/20/19 15:05 Dose: 12 mcg/min, 45 mls/hr Titration: 09/20/19 14:30 Dose: 8 mcg/min, 30 mls/hr Admin: 09/20/19 14:06 Dose: 2 mcg/min, 7.5 mls/hr Vancomycin HCl 0.75 gm/ Sodium (Chloride) 250 mls @ 166 mls/hr IV ONETIME ONE Stop: 09/20/19 18:39 Ertapenem 1 gm/ Sodium (Chloride) 50 mls @ 100 mls/hr IV Q24H [facility] Ketorolac Tromethamine (Toradol) 15 mg IV Q6H PRN PRN Reason: Pain (moderate 4-6) Levothyroxine Sodium (Synthroid) 75 mcg PO ACBREAKFAST [facility] Ondansetron HCl (Zofran Odt) 4 mg PO Q4H PRN PRN Reason: nausea, able to take PO Ondansetron HCl (Zofran) 4 mg IVPUSH Q4H PRN PRN Reason: Nausea Polyethylene Glycol (Miralax) 17 gm PO DAILY PRN PRN Reason: Constipation Rivaroxaban (Xarelto) 10 mg PO DAILY ANNA Sodium Chloride (Saline Flush) 10 ml FLUSH ASDIRECTED PRN PRN Reason: Keep Vein Open Sodium Chloride (Saline Flush) 2.5 ml FLUSH ASDIRECTED PRN PRN Reason: Keep Vein Open Assessment/Plan Comment:: A: 1. Septic shock on Norepinephrine 2. Community acquired pneumonia 3. Urinary tract infection 4. Acute kidney injury 5. Elevated troponin 6. PMH CREST Syndrome, chronic pain, AFib P: 1. Septic shock- will continue with Norepinephrine drip. Continue fluids at 125 ml/hr NS. Vancomycin and Ertapenem for now since multiple sources of infection. Ordered blood cultures. Will get CT abdomen/pelvis to rule out any GI pathology. trend troponins x2. Likely secondary to acute infection and WAQAR. dispo: 2-3 days
[2019-09-20] MEDS ORDERED: Piperacillin/Tazobactam 3.375 GM in Sodium Chloride 0.9% 50 ML IV SCH (18:15)
[2019-09-20] MEDS ORDERED: Ertapenem 1 GM in Sodium Chloride 0.9% 50 ML IV SCH (18:15)
[2019-09-20] MEDS: Pantoprazole 40 MG in Sodium Chloride 0.9% 10 ML IV SCH (20:12)
[2019-09-20] MEDS: Ertapenem 1 GM in Sodium Chloride 0.9% 50 ML IV SCH (20:15)
[2019-09-20] MEDS: Acetaminophen 325 MG Tab PO PRN (20:38)
[2019-09-20] MEDS: Sodium Chloride 0.9% 1,000 ML IV SCH (20:57)
[2019-09-20] MEDS: traMADol 50 MG Tab PO PRN (21:15)
[2019-09-20] MEDS ORDERED: Lidocaine 1% 20 ML MDV ONE (21:43)
--- NOTE | 2019-09-20 22:06 | PCM.SN ---
- Free Text/Narrative Note: Called to ICU by Cristo CASTRO for arterial line insertion. Patient is currently on Levophed and vasopressin drips. Procedure, risks, and benefits were explained to the patient including but not limited to: bleeding, infection, nerve damage, vascular damage. The patient agrees and wishes to proceed at this time. It is noted that the patient did receive Xarleto as recently as this morning. Rt radial pulse was palpated as very strong; adequate collateral blood flow was noted. Rt wrist was prepped (betadine) and draped in sterile fashion. 1% Lidocaine 0.5mL was infiltrated near the anticipated insertion site. Rt radial pulse was palpated, 20g Arrow catheter was then introduced into the radial artery. Guidewire advanced with ease, catheter advanced over the wire with ease. Pulsatile blood return was noted, good arterial waveform is noted on the monitor. Catheter was secured with tape, tegaderm, and armboard. Patient tolerated procedure well, no complications are noted. Anesthesia Time [id number]
--- NOTE | 2019-09-20 22:57 | CT ---
INDICATION: Abdominal pain and sepsis. COMPARISON: 07/15/2019 TECHNIQUE: CT examination of the abdomen and pelvis was performed without contrast enhancement using 3 mm thick axial sections from the lung bases through the pubic symphysis. Oral contrast was not administered. Please note that all CT scans at this facility use dose modulation, iterative reconstruction, and/or weight-based dosing when appropriate to reduce radiation dose to as low as reasonably achievable. FINDINGS: In the abdomen, the unenhanced liver, spleen, pancreas, and adrenals are normal in appearance. Again seen is the 2.5 centimeter cyst in the upper pole of the right kidney the unenhanced kidneys are otherwise normal in appearance. The gallbladder is normal in appearance. The abdominal aorta is normal in caliber with no sign of dilatation. There is no sign of retroperitoneal mass or adenopathy. The stomach, loops of small bowel, and colon in the abdomen are normal in appearance. In the pelvis, the appendix is nonvisualized, but there is no sign of an inflammatory process in the area of the appendix The loops of small bowel and colon in the pelvis are normal in appearance. The previously seen dilatation of distal small bowel is no longer evident. The uterus is absent and the adnexal regions are normal in appearance. The urinary bladder is normal in appearance. There is no sign of pelvic or inguinal mass or adenopathy. There is no sign of any free fluid or free air in the abdomen or pelvis. Again seen is prominent consolidation of the anterior aspect of the right middle lobe at the lung base and prominent consolidation of the lateral and posterior basilar segments of the left lower lobe. These are similar in appearance to the previous study. There is new moderate consolidation of the medial basilar segment of the right lower lobe, representing additional pneumonia. There is no change in the large central superior L4 endplate compression. This is associated with mild loss of vertebral body height posteriorly. No change in moderate L4-5 disc degenerative disease. IMPRESSION: Resolution of previously seen partial small-bowel obstruction. Moderate infiltrates in the right middle lobe anteriorly and the posterior and lateral basilar segments of left lower lobe similar in appearance to the previous study, consistent with multifocal pneumonia. New mild consolidation of the medial basilar segment of the right lower lobe consistent with additional ammonia. CT of the abdomen shows no change in the simple cyst in the upper pole of the right kidney of no clinical concern. CT of the pelvis again shows changes of hysterectomy. Please note that all CT scans at this facility use dose modulation, iterative reconstruction, and/or weight-based dosing when appropriate to reduce radiation dose to as low as reasonably achievable. Dictated by Ermias Browne MD @ Sep 20 2019 10:35PM Signed by Dr. Ermias Browne @ Sep 20 2019 10:56PM
[2019-09-20] MEDS: fentaNYL 100 MCG/2 ML SDV IVPUSH PRN (23:00)
[2019-09-21] MEDS ORDERED: fentaNYL 50 MCG/ML SDV IVPUSH ONE (01:39)
[2019-09-21] MEDS ORDERED: fentaNYL 100 MCG/2 ML SDV IVPUSH ONE (02:00)
[2019-09-21] MEDS: fentaNYL 100 MCG/2 ML SDV IVPUSH PRN (03:30)
[2019-09-21] MEDS ORDERED: Hydrocortisone Sodium Succinate 100 MG/2 ML SDV IVPUSH ONE (03:30)
[2019-09-21] MEDS: Sodium Chloride 0.9% 1,000 ML IV SCH ×4 (04:49→20:56)
[2019-09-21] MEDS: traMADol 50 MG Tab PO PRN ×3 (05:36→22:22)
[2019-09-21] MEDS: Acetaminophen 325 MG Tab PO PRN ×2 (05:37→14:20)
[2019-09-21 06:24] LABS: POTASSIUM,K 3.9 mmol/L (3.5-5.1)
[2019-09-21] MEDS: Levothyroxine 75 MCG Tab PO SCH (06:36)
[2019-09-21] MEDS ORDERED: Magnesium Sulfate/Water 4 GM in Premix Bag 1 BAG IV ONE (06:38)
[2019-09-21] MEDS ORDERED: Levothyroxine 88 MCG Tab PO SCH (07:30)
[2019-09-21] MEDS: Rivaroxaban 10 MG Tab PO SCH (08:17)
[2019-09-21] MEDS: Pantoprazole 40 MG in Sodium Chloride 0.9% 10 ML IV SCH (08:21)
[2019-09-21] MEDS: Acetaminophen/HYDROcodone 325-5 MG Tab PO PRN ×2 (09:10→19:05)
[2019-09-21] MEDS: Sodium Chloride 0.65% Nasal Spray 45 ML Bottle NAS PRN ×2 (09:14→16:00)
--- NOTE | 2019-09-21 10:11 | PCM.PN ---
- General Info Date of Service: 09/21/19 Subjective Update: Patient started on vasopressin overnight. MAP>65. Complaining of lower extremity pain. Given Fentanyl overnight which helped. Overall, states she feels better. No chest pain. - Patient Data Vitals - Most Recent: Last Vital Signs Temp 36.2 C 09/21/19 08:00 Pulse 108 H 09/20/19 19:29 Resp 24 H 09/21/19 09:00 BP 106/58 L 09/21/19 09:00 Pulse Ox 95 09/21/19 09:00 Weight - Most Recent: 48.897 kg I&O - Last 24 Hours: Intake & Output 09/20/19 09/21/19 09/21/19 22:59 06:59 14:59 Intake Total 310 2875 Balance 310 2875 Lab Results Last 24 Hours: Laboratory Results - last 24 hr 09/20/19 09/20/19 09/20/19 Range/Units 12:55 13:33 13:33 WBC 31.73 H (4.0-11.0) K/uL RBC 3.18 L (4.30-5.90) M/uL Hgb 9.6 L (12.0-16.0) g/dL Hct 29.7 L (36.0-46.0) % MCV 93.4 (80.0-98.0) fL MCH 30.2 (27.0-32.0) pg MCHC 32.3 (31.0-37.0) g/dL RDW Std Deviation 50.6 (28.0-62.0) fl RDW Coeff of Kari 15 (11.0-15.0) % Plt Count 271 (150-400) K/uL MPV 9.60 (7.40-12.00) fL Add Manual Diff YES Neutrophils % (Manual) 83 H (48.0-80.0) % Band Neutrophils % 10 % Lymphocytes % (Manual) 4 L (16.0-40.0) % Monocytes % (Manual) 3 (0.0-15.0) % Basophils % (Manual) (0.0-1.5) % Nucleated RBC % 0.0 /100WBC Absolute Seg Neuts 26.3 H (1.4-5.7) Band Neutrophils # 3.2 Lymphocytes # (Manual) 1.3 (0.6-2.4) Monocytes # (Manual) 1.0 H (0.0-0.8) Basophils # (Manual) (0.0-0.1) Nucleated RBCs # 0 K/uL ESR (0-29) mm/hr ABG pH (7.35-7.45) ABG pCO2 (35-45) mmHG ABG pO2 (75-100) mmHG ABG HCO3 ABG Total CO2 ABG Base Excess (-2.0-2.0) VBG pH (7.31-7.41) VBG pCO2 (35-45) mmHG VBG pO2 (30-40) mmHG VBG HCO3 (22-30) mEq/L VBG Total CO2 (41-51) mmol/L VBG Base Excess (-3.0-3.0) Lactate (0.20-2.00) mmol/L Sodium 139 (136-145) mmol/L Potassium 4.5 (3.5-5.1) mmol/L Chloride 106 (98-107) mmol/L Carbon Dioxide 21.7 (21.0-32.0) mmol/L BUN 35 H (7.0-18.0) mg/dL Creatinine 1.8 H (0.6-1.0) mg/dL Est Cr Clr Drug Dosing 16.69 mL/min Estimated GFR (MDRD) 26.9 ml/min Glucose 98 (74-106) mg/dL Calcium 8.7 (8.5-10.1) mg/dL Magnesium (1.8-2.4) mg/dL Total Bilirubin 0.5 (0.2-1.0) mg/dL AST 22 (15-37) IU/L ALT 5 L (14-63) IU/L Alkaline Phosphatase 74 (46-116) U/L Troponin I 0.059 H* (0.000-0.056) ng/mL C-Reactive Protein (0.00-0.90) mg/dL B-Natriuretic Peptide (<100) PG/ML Total Protein 5.3 L (6.4-8.2) g/dL Albumin 2.1 L (3.4-5.0) g/dL Globulin 3.2 (2.6-4.0) g/dL Albumin/Globulin Ratio 0.7 L (0.9-1.6) TSH 3rd Generation (0.36-3.74) uIU/mL Urine Color YELLOW Urine Appearance SLT CLOUDY Urine pH 5.5 (5.0-8.0) Ur Specific [place] 1.025 (1.001-1.035) Urine Protein TRACE H (NEGATIVE) mg/dL Urine Glucose (UA) NEGATIVE (NEGATIVE) mg/dL Urine Ketones NEGATIVE (NEGATIVE) mg/dL Urine Occult Blood SMALL H (NEGATIVE) Urine Nitrite NEGATIVE (NEGATIVE) Urine Bilirubin NEGATIVE (NEGATIVE) Urine Urobilinogen 0.2 (<2.0) EU/dL Ur Leukocyte Esterase MODERATE H (NEGATIVE) Urine RBC 0-4 (0-2/HPF) Urine WBC 20-30 (0-5/HPF) Ur Epithelial Cells RARE (NONE-FEW) Urine Bacteria 3+ H (NEGATIVE) 09/20/19 09/20/19 09/20/19 Range/Units 13:33 13:33 13:33 WBC (4.0-11.0) K/uL RBC (4.30-5.90) M/uL Hgb (12.0-16.0) g/dL Hct (36.0-46.0) % MCV (80.0-98.0) fL MCH (27.0-32.0) pg MCHC (31.0-37.0) g/dL RDW Std Deviation (28.0-62.0) fl RDW Coeff of Kari (11.0-15.0) % Plt Count (150-400) K/uL MPV (7.40-12.00) fL Add Manual Diff Neutrophils % (Manual) (48.0-80.0) % Band Neutrophils % % Lymphocytes % (Manual) (16.0-40.0) % Monocytes % (Manual) (0.0-15.0) % Basophils % (Manual) (0.0-1.5) % Nucleated RBC % /100WBC Absolute Seg Neuts (1.4-5.7) Band Neutrophils # Lymphocytes # (Manual) (0.6-2.4) Monocytes # (Manual) (0.0-0.8) Basophils # (Manual) (0.0-0.1) Nucleated RBCs # K/uL ESR (0-29) mm/hr ABG pH (7.35-7.45) ABG pCO2 (35-45) mmHG ABG pO2 (75-100) mmHG ABG HCO3 ABG Total CO2 ABG Base Excess (-2.0-2.0) VBG pH (7.31-7.41) VBG pCO2 (35-45) mmHG VBG pO2 (30-40) mmHG VBG HCO3 (22-30) mEq/L VBG Total CO2 (41-51) mmol/L VBG Base Excess (-3.0-3.0) Lactate 1.8 (0.20-2.00) mmol/L Sodium (136-145) mmol/L Potassium (3.5-5.1) mmol/L Chloride (98-107) mmol/L Carbon Dioxide (21.0-32.0) mmol/L BUN (7.0-18.0) mg/dL Creatinine (0.6-1.0) mg/dL Est Cr Clr Drug Dosing mL/min Estimated GFR (MDRD) ml/min Glucose (74-106) mg/dL Calcium (8.5-10.1) mg/dL Magnesium (1.8-2.4) mg/dL Total Bilirubin (0.2-1.0) mg/dL AST (15-37) IU/L ALT (14-63) IU/L Alkaline Phosphatase (46-116) U/L Troponin I (0.000-0.056) ng/mL C-Reactive Protein 14.30 H (0.00-0.90) mg/dL B-Natriuretic Peptide 474 H (<100) PG/ML Total Protein (6.4-8.2) g/dL Albumin (3.4-5.0) g/dL Globulin (2.6-4.0) g/dL Albumin/Globulin Ratio (0.9-1.6) TSH 3rd Generation (0.36-3.74) uIU/mL Urine Color Urine Appearance Urine pH (5.0-8.0) Ur Specific [place] (1.001-1.035) Urine Protein (NEGATIVE) mg/dL Urine Glucose (UA) (NEGATIVE) mg/dL Urine Ketones (NEGATIVE) mg/dL Urine Occult Blood (NEGATIVE) Urine Nitrite (NEGATIVE) Urine Bilirubin (NEGATIVE) Urine Urobilinogen (<2.0) EU/dL Ur Leukocyte Esterase (NEGATIVE) Urine RBC (0-2/HPF) Urine WBC (0-5/HPF) Ur Epithelial Cells (NONE-FEW) Urine Bacteria (NEGATIVE) 09/20/19 09/20/19 09/20/19 Range/Units 16:39 16:39 16:39 WBC (4.0-11.0) K/uL RBC (4.30-5.90) M/uL Hgb (12.0-16.0) g/dL Hct (36.0-46.0) % MCV (80.0-98.0) fL MCH (27.0-32.0) pg MCHC (31.0-37.0) g/dL RDW Std Deviation (28.0-62.0) fl RDW Coeff of Kari (11.0-15.0) % Plt Count (150-400) K/uL MPV (7.40-12.00) fL Add Manual Diff Neutrophils % (Manual) (48.0-80.0) % Band Neutrophils % % Lymphocytes % (Manual) (16.0-40.0) % Monocytes % (Manual) (0.0-15.0) % Basophils % (Manual) (0.0-1.5) % Nucleated RBC % /100WBC Absolute Seg Neuts (1.4-5.7) Band Neutrophils # Lymphocytes # (Manual) (0.6-2.4) Monocytes # (Manual) (0.0-0.8) Basophils # (Manual) (0.0-0.1) Nucleated RBCs # K/uL ESR (0-29) mm/hr ABG pH (7.35-7.45) ABG pCO2 (35-45) mmHG ABG pO2 (75-100) mmHG ABG HCO3 ABG Total CO2 ABG Base Excess (-2.0-2.0) VBG pH 7.36 (7.31-7.41) VBG pCO2 37 (35-45) mmHG VBG pO2 40 (30-40) mmHG VBG HCO3 21 L (22-30) mEq/L VBG Total CO2 20 L (41-51) mmol/L VBG Base Excess -4.4 L (-3.0-3.0) Lactate 1.1 (0.20-2.00) mmol/L Sodium 140 (136-145) mmol/L Potassium 4.2 (3.5-5.1) mmol/L Chloride 107 (98-107) mmol/L Carbon Dioxide 22.9 (21.0-32.0) mmol/L BUN 33 H (7.0-18.0) mg/dL Creatinine 1.4 H (0.6-1.0) mg/dL Est Cr Clr Drug Dosing 21.45 mL/min Estimated GFR (MDRD) 35.9 ml/min Glucose 100 (74-106) mg/dL Calcium 8.1 L (8.5-10.1) mg/dL Magnesium (1.8-2.4) mg/dL Total Bilirubin (0.2-1.0) mg/dL AST (15-37) IU/L ALT (14-63) IU/L Alkaline Phosphatase (46-116) U/L Troponin I (0.000-0.056) ng/mL C-Reactive Protein (0.00-0.90) mg/dL B-Natriuretic Peptide (<100) PG/ML Total Protein (6.4-8.2) g/dL Albumin (3.4-5.0) g/dL Globulin (2.6-4.0) g/dL Albumin/Globulin Ratio (0.9-1.6) TSH 3rd Generation (0.36-3.74) uIU/mL Urine Color Urine Appearance Urine pH (5.0-8.0) Ur Specific [place] (1.001-1.035) Urine Protein (NEGATIVE) mg/dL Urine Glucose (UA) (NEGATIVE) mg/dL Urine Ketones (NEGATIVE) mg/dL Urine Occult Blood (NEGATIVE) Urine Nitrite (NEGATIVE) Urine Bilirubin (NEGATIVE) Urine Urobilinogen (<2.0) EU/dL Ur Leukocyte Esterase (NEGATIVE) Urine RBC (0-2/HPF) Urine WBC (0-5/HPF) Ur Epithelial Cells (NONE-FEW) Urine Bacteria (NEGATIVE) 09/20/19 09/20/19 09/20/19 Range/Units 16:39 16:39 18:17 WBC (4.0-11.0) K/uL RBC (4.30-5.90) M/uL Hgb (12.0-16.0) g/dL Hct (36.0-46.0) % MCV (80.0-98.0) fL MCH (27.0-32.0) pg MCHC (31.0-37.0) g/dL RDW Std Deviation (28.0-62.0) fl RDW Coeff of Kari (11.0-15.0) % Plt Count (150-400) K/uL MPV (7.40-12.00) fL Add Manual Diff Neutrophils % (Manual) (48.0-80.0) % Band Neutrophils % % Lymphocytes % (Manual) (16.0-40.0) % Monocytes % (Manual) (0.0-15.0) % Basophils % (Manual) (0.0-1.5) % Nucleated RBC % /100WBC Absolute Seg Neuts (1.4-5.7) Band Neutrophils # Lymphocytes # (Manual) (0.6-2.4) Monocytes # (Manual) (0.0-0.8) Basophils # (Manual) (0.0-0.1) Nucleated RBCs # K/uL ESR 37 H (0-29) mm/hr ABG pH (7.35-7.45) ABG pCO2 (35-45) mmHG ABG pO2 (75-100) mmHG ABG HCO3 ABG Total CO2 ABG Base Excess (-2.0-2.0) VBG pH (7.31-7.41) VBG pCO2 (35-45) mmHG VBG pO2 (30-40) mmHG VBG HCO3 (22-30) mEq/L VBG Total CO2 (41-51) mmol/L VBG Base Excess (-3.0-3.0) Lactate (0.20-2.00) mmol/L Sodium (136-145) mmol/L Potassium (3.5-5.1) mmol/L Chloride (98-107) mmol/L Carbon Dioxide (21.0-32.0) mmol/L BUN (7.0-18.0) mg/dL Creatinine (0.6-1.0) mg/dL Est Cr Clr Drug Dosing mL/min Estimated GFR (MDRD) ml/min Glucose (74-106) mg/dL Calcium (8.5-10.1) mg/dL Magnesium (1.8-2.4) mg/dL Total Bilirubin (0.2-1.0) mg/dL AST (15-37) IU/L ALT (14-63) IU/L Alkaline Phosphatase (46-116) U/L Troponin I 0.085 H* (0.000-0.056) ng/mL C-Reactive Protein (0.00-0.90) mg/dL B-Natriuretic Peptide (<100) PG/ML Total Protein (6.4-8.2) g/dL Albumin (3.4-5.0) g/dL Globulin (2.6-4.0) g/dL Albumin/Globulin Ratio (0.9-1.6) TSH 3rd Generation 9.26 H (0.36-3.74) uIU/mL Urine Color Urine Appearance Urine pH (5.0-8.0) Ur Specific [place] (1.001-1.035) Urine Protein (NEGATIVE) mg/dL Urine Glucose (UA) (NEGATIVE) mg/dL Urine Ketones (NEGATIVE) mg/dL Urine Occult Blood (NEGATIVE) Urine Nitrite (NEGATIVE) Urine Bilirubin (NEGATIVE) Urine Urobilinogen (<2.0) EU/dL Ur Leukocyte Esterase (NEGATIVE) Urine RBC (0-2/HPF) Urine WBC (0-5/HPF) Ur Epithelial Cells (NONE-FEW) Urine Bacteria (NEGATIVE) 09/20/19 09/20/19 09/20/19 Range/Units 22:53 22:53 22:53 WBC 43.50 H (4.0-11.0) K/uL RBC 2.99 L (4.30-5.90) M/uL Hgb 9.0 L (12.0-16.0) g/dL Hct 27.6 L (36.0-46.0) % MCV 92.3 (80.0-98.0) fL MCH 30.1 (27.0-32.0) pg MCHC 32.6 (31.0-37.0) g/dL RDW Std Deviation 50.5 (28.0-62.0) fl RDW Coeff of Kari 15 (11.0-15.0) % Plt Count 336 (150-400) K/uL MPV 9.70 (7.40-12.00) fL Add Manual Diff YES Neutrophils % (Manual) 21 L (48.0-80.0) % Band Neutrophils % 10 % Lymphocytes % (Manual) 6 L (16.0-40.0) % Monocytes % (Manual) 3 (0.0-15.0) % Basophils % (Manual) (0.0-1.5) % Nucleated RBC % 0.0 /100WBC Absolute Seg Neuts 9.1 H (1.4-5.7) Band Neutrophils # 4.4 Lymphocytes # (Manual) 2.6 H (0.6-2.4) Monocytes # (Manual) 1.3 H (0.0-0.8) Basophils # (Manual) (0.0-0.1) Nucleated RBCs # 0 K/uL ESR (0-29) mm/hr ABG pH 7.312 L (7.35-7.45) ABG pCO2 32 L (35-45) mmHG ABG pO2 89 (75-100) mmHG ABG HCO3 16.4 ABG Total CO2 17 ABG Base Excess -9 L (-2.0-2.0) VBG pH (7.31-7.41) VBG pCO2 (35-45) mmHG VBG pO2 (30-40) mmHG VBG HCO3 (22-30) mEq/L VBG Total CO2 (41-51) mmol/L VBG Base Excess (-3.0-3.0) Lactate (0.20-2.00) mmol/L Sodium (136-145) mmol/L Potassium (3.5-5.1) mmol/L Chloride (98-107) mmol/L Carbon Dioxide (21.0-32.0) mmol/L BUN (7.0-18.0) mg/dL Creatinine (0.6-1.0) mg/dL Est Cr Clr Drug Dosing mL/min Estimated GFR (MDRD) ml/min Glucose (74-106) mg/dL Calcium (8.5-10.1) mg/dL Magnesium (1.8-2.4) mg/dL Total Bilirubin (0.2-1.0) mg/dL AST (15-37) IU/L ALT (14-63) IU/L Alkaline Phosphatase (46-116) U/L Troponin I 0.076 H* (0.000-0.056) ng/mL C-Reactive Protein (0.00-0.90) mg/dL B-Natriuretic Peptide (<100) PG/ML Total Protein (6.4-8.2) g/dL Albumin (3.4-5.0) g/dL Globulin (2.6-4.0) g/dL Albumin/Globulin Ratio (0.9-1.6) TSH 3rd Generation (0.36-3.74) uIU/mL Urine Color Urine Appearance Urine pH (5.0-8.0) Ur Specific [place] (1.001-1.035) Urine Protein (NEGATIVE) mg/dL Urine Glucose (UA) (NEGATIVE) mg/dL Urine Ketones (NEGATIVE) mg/dL Urine Occult Blood (NEGATIVE) Urine Nitrite (NEGATIVE) Urine Bilirubin (NEGATIVE) Urine Urobilinogen (<2.0) EU/dL Ur Leukocyte Esterase (NEGATIVE) Urine RBC (0-2/HPF) Urine WBC (0-5/HPF) Ur Epithelial Cells (NONE-FEW) Urine Bacteria (NEGATIVE) 09/21/19 09/21/19 09/21/19 Range/Units 05:17 05:17 05:17 WBC 40.32 H (4.0-11.0) K/uL RBC 2.97 L (4.30-5.90) M/uL Hgb 8.9 L (12.0-16.0) g/dL Hct 27.5 L (36.0-46.0) % MCV 92.6 (80.0-98.0) fL MCH 30.0 (27.0-32.0) pg MCHC 32.4 (31.0-37.0) g/dL RDW Std Deviation 51.1 (28.0-62.0) fl RDW Coeff of Kari 15 (11.0-15.0) % Plt Count 328 (150-400) K/uL MPV 10.00 (7.40-12.00) fL Add Manual Diff YES Neutrophils % (Manual) 62 (48.0-80.0) % Band Neutrophils % 35 % Lymphocytes % (Manual) 2 L (16.0-40.0) % Monocytes % (Manual) (0.0-15.0) % Basophils % (Manual) 1 (0.0-1.5) % Nucleated RBC % 0.0 /100WBC Absolute Seg Neuts 25.0 H (1.4-5.7) Band Neutrophils # 14.1 Lymphocytes # (Manual) 0.8 (0.6-2.4) Monocytes # (Manual) (0.0-0.8) Basophils # (Manual) 0.4 H (0.0-0.1) Nucleated RBCs # 0 K/uL ESR (0-29) mm/hr ABG pH (7.35-7.45) ABG pCO2 (35-45) mmHG ABG pO2 (75-100) mmHG ABG HCO3 ABG Total CO2 ABG Base Excess (-2.0-2.0) VBG pH (7.31-7.41) VBG pCO2 (35-45) mmHG VBG pO2 (30-40) mmHG VBG HCO3 (22-30) mEq/L VBG Total CO2 (41-51) mmol/L VBG Base Excess (-3.0-3.0) Lactate (0.20-2.00) mmol/L Sodium 143 (136-145) mmol/L Potassium 3.9 (3.5-5.1) mmol/L Chloride 109 H (98-107) mmol/L Carbon Dioxide 17.0 L (21.0-32.0) mmol/L BUN 28 H (7.0-18.0) mg/dL Creatinine 1.1 H (0.6-1.0) mg/dL Est Cr Clr Drug Dosing 29.24 mL/min Estimated GFR (MDRD) 47.4 ml/min Glucose 89 (74-106) mg/dL Calcium 7.7 L (8.5-10.1) mg/dL Magnesium 1.3 L (1.8-2.4) mg/dL Total Bilirubin 0.4 (0.2-1.0) mg/dL AST 31 (15-37) IU/L ALT 16 (14-63) IU/L Alkaline Phosphatase 85 (46-116) U/L Troponin I 0.090 H* (0.000-0.056) ng/mL C-Reactive Protein (0.00-0.90) mg/dL B-Natriuretic Peptide (<100) PG/ML Total Protein 5.2 L (6.4-8.2) g/dL Albumin 2.0 L (3.4-5.0) g/dL Globulin 3.2 (2.6-4.0) g/dL Albumin/Globulin Ratio 0.6 L (0.9-1.6) TSH 3rd Generation (0.36-3.74) uIU/mL Urine Color Urine Appearance Urine pH (5.0-8.0) Ur Specific [place] (1.001-1.035) Urine Protein (NEGATIVE) mg/dL Urine Glucose (UA) (NEGATIVE) mg/dL Urine Ketones (NEGATIVE) mg/dL Urine Occult Blood (NEGATIVE) Urine Nitrite (NEGATIVE) Urine Bilirubin (NEGATIVE) Urine Urobilinogen (<2.0) EU/dL Ur Leukocyte Esterase (NEGATIVE) Urine RBC (0-2/HPF) Urine WBC (0-5/HPF) Ur Epithelial Cells (NONE-FEW) Urine Bacteria (NEGATIVE) Chan Results Last 24 Hours: Microbiology 09/20/19 13:33 Anaerobic Blood Culture - Final Blood - Venous - Lab Draw Med Orders - Current: Current Medications Acetaminophen (Tylenol) 650 mg PO Q4H PRN PRN Reason: Pain (Mild 1-3)/fever Last Admin: 09/21/19 05:37 Dose: 650 mg Hydrocodone Bitart/Acetaminophen ([place] 325-5 Mg) 1 tab PO Q6H PRN PRN Reason: Pain Last Admin: 09/21/19 09:10 Dose: 1 tab Docusate Sodium (Colace) 100 mg PO BID PRN PRN Reason: Constipation Hydrocortisone Sodium Succinate (Solu-Cortef) 100 mg IVPUSH Q8H ANNA Norepinephrine Bitartrate (Norepinephr-0.9% Nacl 4 Mg/250) 4 mg in 250 mls @ 7.5 mls/hr IV TITRATE ANNA; Protocol Last Titration: 09/21/19 09:49 Dose: Infused Pantoprazole Sodium 40 mg/ (Sodium Chloride) 10 mls @ 300 mls/hr IV DAILY ANNA Last Admin: 09/21/19 08:21 Dose: 300 mls/hr Ertapenem 1 gm/ Sodium (Chloride) 50 mls @ 100 mls/hr IV Q24H ANNA Last Admin: 09/20/19 20:15 Dose: 100 mls/hr Vancomycin HCl 1 gm/ Sodium (Chloride) 250 mls @ 166 mls/hr IV Q24H ANNA Last Admin: 09/20/19 20:45 Dose: 166 mls/hr Levofloxacin/Dextrose 750 mg/ (Premix) 150 mls @ 100 mls/hr IV Q48H ANNA Sodium Chloride (Normal Saline) 1,000 mls @ 100 mls/hr IV Q10H [facility] Levothyroxine Sodium (Levothyroxine) 75 mcg PO ACBREAKFAST [facility] Last Admin: 09/21/19 06:36 Dose: 75 mcg Ondansetron HCl (Zofran Odt) 4 mg PO Q4H PRN PRN Reason: nausea, able to take PO Ondansetron HCl (Zofran) 4 mg IVPUSH Q4H PRN PRN Reason: Nausea Polyethylene Glycol (Miralax) 17 gm PO DAILY PRN PRN Reason: Constipation Rivaroxaban (Xarelto) 10 mg PO DAILY [facility] Last Admin: 09/21/19 08:17 Dose: 10 mg Sodium Chloride (Saline Flush) 10 ml FLUSH ASDIRECTED PRN PRN Reason: Keep Vein Open Sodium Chloride (Saline Flush) 2.5 ml FLUSH ASDIRECTED PRN PRN Reason: Keep Vein Open Sodium Chloride ([place] Nasal [place]) 5 ml FAHAD Q4H PRN PRN Reason: Congestion Last Admin: 09/21/19 09:14 Dose: 5 ml Tramadol HCl (Ultram) 100 mg PO Q8H PRN PRN Reason: Pain Last Admin: 09/21/19 05:36 Dose: 100 mg Vancomycin HCl (Pharmacy To Dose - Vancomycin) 1 dose .XX ASDIRECTED [facility] Discontinued Medications Aspirin (Aspirin) 325 mg PO ONETIME ONE Stop: 09/20/19 17:23 Last Admin: 09/20/19 17:45 Dose: 325 mg Enoxaparin Sodium (Lovenox) 40 mg SUBCUT Q24H [facility] Last Admin: 09/20/19 21:02 Dose: Not Given Fentanyl (Sublimaze) 25 mcg IVPUSH Q4HR PRN PRN Reason: Severe pain Last Admin: 09/21/19 03:30 Dose: 25 mcg Fentanyl (Fentanyl) 25 mcg IVPUSH ONETIME ONE Stop: 09/21/19 01:40 Last Admin: 09/21/19 02:01 Dose: Not Given Fentanyl (Sublimaze) 25 mcg IVPUSH ONETIME ONE Stop: 09/21/19 02:01 Last Admin: 09/21/19 02:01 Dose: 25 mcg Hydrocortisone Sodium Succinate (Solu-Cortef) 100 mg IVPUSH ONETIME ONE Stop: 09/21/19 03:31 Last Admin: 09/21/19 03:23 Dose: 100 mg Sodium Chloride (Normal Saline) 1,000 mls @ 999 mls/hr IV .Bolus ONE Stop: 09/20/19 14:18 Last Admin: 09/20/19 14:06 Dose: 999 mls/hr Sodium Chloride (Normal Saline) 1,000 mls @ 999 mls/hr IV .Bolus ONE Stop: 09/20/19 14:30 Last Admin: 09/20/19 14:06 Dose: 999 mls/hr Meropenem 1 gm/ Sodium (Chloride) 100 mls @ 200 mls/hr IV ONETIME ONE Stop: 09/20/19 15:39 Last Admin: 09/20/19 17:30 Dose: Not Given Sodium Chloride (Normal Saline) 1,000 mls @ 999 mls/hr IV .Bolus ONE Stop: 09/20/19 17:45 Last Admin: 09/20/19 17:07 Dose: 999 mls/hr Levofloxacin/Dextrose 750 mg/ (Premix) 150 mls @ 100 mls/hr IV ONETIME ONE Stop: 09/20/19 18:36 Last Admin: 09/20/19 17:46 Dose: 100 mls/hr Piperacillin Sod/Tazobactam (Sod 3.375 gm/ Sodium Chloride) 50 mls @ 100 mls/ hr IV Q8H ANNA Sodium Chloride (Normal Saline) 1,000 mls @ 125 mls/hr IV CONTINUOUS ANNA Last Infusion: 09/21/19 09:15 Dose: 100 mls/hr Sodium Chloride (Normal Saline) 1,000 mls @ 999 mls/hr IV .Bolus ONE Stop: 09/20/19 20:24 Last Admin: 09/20/19 19:27 Dose: 999 mls/hr Vasopressin 100 units/ Sodium (Chloride) 100 mls @ 1.8 mls/hr IV TITRATE ANNA Vasopressin 100 units/ Sodium (Chloride) 100 mls @ 1.8 mls/hr IV CONTINUOUS ANNA Last Admin: 09/20/19 22:40 Dose: 0.03 units/min, 1.8 mls/hr Magnesium Sulfate 4 gm/ Premix 100 mls @ 50 mls/hr IV ONETIME ONE Stop: 09/21/19 08:37 Last Admin: 09/21/19 06:48 Dose: 50 mls/hr Ibuprofen (Motrin) 800 mg PO Q6H PRN PRN Reason: Pain (mild 1-3) Ketorolac Tromethamine (Toradol) 15 mg IV Q6H PRN PRN Reason: Pain (moderate 4-6) Levothyroxine Sodium (Synthroid) 75 mcg PO ACBREAKFAST ANNA Lidocaine HCl (Xylocaine 1%) Confirm Administered Dose 20 ml .ROUTE .500ShopsK-MED ONE Stop: 09/20/19 21:44 Last Admin: 09/20/19 22:15 Dose: 20 ml - Exam Quality Assessment: Supplemental Oxygen, Central Line/PICC General: Alert, Oriented, Cooperative, No Acute Distress Lungs: Other (Good lung sound upper lung clemente bilaterally. More rhonchus on left lower lung field. no wheezing.) Cardiovascular: Regular Rate, Regular Rhythm GI/Abdominal Exam: Normal Bowel Sounds, Soft, Non-Tender, No Distention Extremities: Other (bilateral lower extremity, mostly on her feet pain.) Skin: Cool Psy/Mental Status: Alert, Normal Affect Sepsis Event Note - Evaluation Sepsis Screening Result: No Definite Risk - Focused Exam Vital Signs: Vital Signs Temp Resp BP BP BP Pulse Ox 09/21/19 09:00 24 H 108/50 L 106/58 L 95 09/21/19 08:00 36.2 C 22 H 122/60 116/50 L 97 09/21/19 07:00 24 H 123/58 L 94 L 09/21/19 06:00 27 H 123/55 L 93 L 09/21/19 05:00 21 H 110/46 L 96 09/21/19 04:00 37.1 C 20 118/59 L 109/44 L 95 09/21/19 03:00 26 H 113/51 L 113/52 L 95 09/21/19 02:00 26 H 120/51 L 112/51 L 93 L 09/21/19 01:00 37.1 C 28 H 120/93 H 110/50 L 95 09/21/19 00:00 25 H 105/46 L 90 L 09/20/19 23:00 27 H 110/51 L 99/42 L 95 Date Exam was Performed: 09/21/19 Time Exam was Performed: 10:32 - Problem List Review Problem List Initiated/Reviewed/Updated: Yes - My Orders Last 24 Hours: My Active Orders 09/20/19 13:00 CULTURE BLOOD [BC] Stat 09/20/19 13:33 CULTURE BLOOD [BC] Stat 09/20/19 17:46 Bedrest Bedside Commode [RC] ASDIRECTED Oxygen Therapy [RC] PRN VTE/DVT Education [RC] DAILY Vital Signs [RC] Q1H Acetaminophen [Tylenol] 650 mg PO Q4H PRN Docusate Sodium [Colace] 100 mg PO BID PRN Ondansetron [Zofran ODT] 4 mg PO Q4H PRN Ondansetron [Zofran] 4 mg IVPUSH Q4H PRN polyethylene glycoL 3350 [MiraLAX] 17 gm PO DAILY PRN Resuscitation Status Routine 09/20/19 17:56 Telemetry Monitoring [Cardiac Monitoring] [RC] Q8H 09/20/19 18:05 Blood Culture x2 Reflex Set [OM.PC] Stat 09/20/19 19:15 Pantoprazole [ProTONIX IV] 40 mg Sodium Chloride 0.9% [Normal Saline] 10 ml IV DAILY 09/20/19 20:00 Ertapenem [INVanz] 1 gm Sodium Chloride 0.9% [Normal Saline] 50 ml IV Q24H Pharmacy to Dose - Vancomycin 1 dose .XX ASDIRECTED 09/20/19 21:00 Vancomycin [Vancocin] 1 gm Sodium Chloride 0.9% [Normal Saline (AdvBag)] 250 ml IV Q24H 09/20/19 Dinner Regular Diet [DIET] 09/21/19 07:30 Levothyroxine 75 mcg PO ACBREAKFAST 09/21/19 08:15 Sodium Chloride 0.65% [Caroline Nasal Lenore] 5 ml FAHAD Q4H PRN 09/21/19 08:35 Acetaminophen/HYDROcodone [[place] 325-5 MG] 1 tab PO Q6H PRN 09/21/19 09:00 Rivaroxaban [Xarelto] 10 mg PO DAILY 09/22/19 05:11 CBC WITH AUTO DIFF [HEME] AM COMPREHENSIVE METABOLIC PN,CMP [CHEM] AM MAGNESIUM [CHEM] AM 09/23/19 05:11 CBC WITH AUTO DIFF [HEME] AM COMPREHENSIVE METABOLIC PN,CMP [CHEM] AM - Plan Plan:: A: 1. Septic shock on Norepinephrine, vasopressin 2. Multi focal pneumonia 3. Urinary tract infection 4. Elevated troponin 5. Hypomagnesemia 6. Acute kidney injury, resolved 7. PMH CREST Syndrome, chronic pain, AFib P: Septic shock- DC vasopressin. Wean off Norepinephrine with goal MAP>65. Decreased maintenance fluids to 100 ml/hr NS. continue hydrocortisone and pantoprazole. Will add levaquin to cover for Pseudomonas. Elevated troponin likely 2/2 to acute infection. Will continue to monitor for now. Added [place] for pain control. Holding Norvasc due to septic shock. Will resume once off vasopressors. dispo: 2-3 days
[2019-09-21] MEDS: Hydrocortisone Sodium Succinate 100 MG/2 ML SDV IVPUSH SCH ×2 (11:19→18:03)
[2019-09-21] MEDS: Midodrine 5 MG Tab PO SCH (18:00)
--- NOTE | 2019-09-21 18:06 | PN ---
THC Physician - Brief Progress [id number]/19/2020 17:47[facility] Wil[place], [place] - [place] (APRYL) [facility].Date of Service 09/21/2019 17:47HPI/Events of Note EICU note:D/W bedside RNPatient remained on 4Mcg levophed at time of our conversation, off vaso pressin.I started the patinet on po midodrine.She looks very debilitated on camera, with ng tube in p lace.Magnesium replaced this am.Patient needs to increase activity in the am if at all possible.Patie nt has history of E.coli multidrug resistent. Now on Merrem and Vanco.Patient appears very fragile.W ould consider adding palliative care for symptom management from [place].Awaiting urine culture.Not jayda e we need Vancomycin, will await de-escalation.Continue fluids, and pain controlCautious use of ultra m as it can alter sensorium.Will monitor, and discuss in am.Please call as neededInterventions Major- Sepsis - evaluation and managementMinor-Communication with other healthcare providers and/or family, Routine modifications to care plan (e.g. PRN medications for pain, fever)
[2019-09-21] MEDS ORDERED: Sodium Chloride 0.9% 1,000 ML IV SCH (19:45)
[2019-09-21] MEDS: Ertapenem 1 GM in Sodium Chloride 0.9% 50 ML IV SCH (19:47)
--- NOTE | 2019-09-22 00:55 | PN ---
THC Physician - Brief Progress [id number]/20/2020 00:53[facility] hari Wilmar, COURTNEY - DESI (APRYL) - PADMA TORRESDate of Service 09/22/2019 00:53HPI/Events of Note RN just called to let us know that patient dropped her SBP to 80Levophed was at 5 alex/min at th e start of RN's shiftThis was weaned off but just 20-25 min back, BP droppedOn camera she is comforta bleNo tachycardia, frail appearing and map is currently 70 on 2 alex of levophedContinue to maintain m ap > 65 or SBP > 90Interventions Major-Shock - evaluation and management
[2019-09-22] MEDS: Acetaminophen/HYDROcodone 325-5 MG Tab PO PRN ×3 (01:06→23:41)
[2019-09-22] MEDS: Hydrocortisone Sodium Succinate 100 MG/2 ML SDV IVPUSH SCH ×2 (02:46→11:45)
[2019-09-22 06:02] LABS: CARBON DIOXIDE,CO2 15.1 mmol/L (21.0-32.0); POTASSIUM,K 3.8 mmol/L (3.5-5.1)
[2019-09-22] MEDS: Midodrine 5 MG Tab PO SCH ×3 (06:50→17:41)
[2019-09-22] MEDS: Levothyroxine 75 MCG Tab PO SCH (06:50)
[2019-09-22] MEDS: Rivaroxaban 10 MG Tab PO SCH (08:56)
[2019-09-22] MEDS: Pantoprazole 40 MG in Sodium Chloride 0.9% 10 ML IV SCH (08:56)
[2019-09-22] MEDS ORDERED: Lidocaine 2% 5 ML SDV ONE (09:42)
--- NOTE | 2019-09-22 10:39 | PCM.PN ---
- General Info Date of Service: 09/22/19 Subjective Update: No acute events overnight. Off Norepi this morning. BP and MAp stable. Feels better. No chest pain, dyspnea, abdominal pain. Has been eating. - Patient Data Vitals - Most Recent: Last Vital Signs Temp 36.2 C 09/22/19 08:00 Pulse 108 H 09/20/19 19:29 Resp 24 H 09/22/19 10:00 BP 104/54 L 09/22/19 10:00 Pulse Ox 95 09/22/19 10:00 Weight - Most Recent: 48.761 kg I&O - Last 24 Hours: Intake & Output 09/21/19 09/22/19 09/22/19 22:59 06:59 14:59 Intake Total 2350 1708 Output Total 0 Balance 2350 1708 Lab Results Last 24 Hours: Laboratory Results - last 24 hr 09/21/19 09/22/19 09/22/19 Range/Units 10:25 05:10 05:10 WBC 30.93 H (4.0-11.0) K/uL RBC 2.95 L (4.30-5.90) M/uL Hgb 8.9 L (12.0-16.0) g/dL Hct 27.8 L (36.0-46.0) % MCV 94.2 (80.0-98.0) fL MCH 30.2 (27.0-32.0) pg MCHC 32.0 (31.0-37.0) g/dL RDW Std Deviation 52.9 (28.0-62.0) fl RDW Coeff of Kari 15 (11.0-15.0) % Plt Count 255 (150-400) K/uL MPV 10.00 (7.40-12.00) fL Neut % (Auto) 95.0 H (48.0-80.0) % Lymph % (Auto) 2.8 L (16.0-40.0) % [place] % (Auto) 2.1 (0.0-15.0) % Eos % (Auto) 0.0 (0.0-7.0) % Baso % (Auto) 0.1 (0.0-1.5) % Neut # (Auto) 29.4 H (1.4-5.7) K/uL Lymph # (Auto) 0.9 (0.6-2.4) K/uL [place] # (Auto) 0.7 (0.0-0.8) K/uL Eos # (Auto) 0.0 (0.0-0.7) K/uL Baso # (Auto) 0.0 (0.0-0.1) K/uL Nucleated RBC % 0.0 /100WBC Nucleated RBCs # 0 K/uL Sodium 143 (136-145) mmol/L Potassium 3.8 (3.5-5.1) mmol/L Chloride 112 H (98-107) mmol/L Carbon Dioxide 15.1 L (21.0-32.0) mmol/L BUN 25 H (7.0-18.0) mg/dL Creatinine 0.9 (0.6-1.0) mg/dL Est Cr Clr Drug Dosing 35.74 mL/min Estimated GFR (MDRD) 59.8 ml/min Glucose 81 (74-106) mg/dL Calcium 7.6 L (8.5-10.1) mg/dL Magnesium 2.4 (1.8-2.4) mg/dL Total Bilirubin 0.3 (0.2-1.0) mg/dL AST 23 (15-37) IU/L ALT 20 (14-63) IU/L Alkaline Phosphatase 99 (46-116) U/L Total Protein 5.0 L (6.4-8.2) g/dL Albumin 1.8 L (3.4-5.0) g/dL Globulin 3.2 (2.6-4.0) g/dL Albumin/Globulin Ratio 0.6 L (0.9-1.6) Adenovirus (PCR) Not Detected (Not Detected) B. pertussis DNA (PCR) Not Detected (Not Detected) B.parapertussis DNA PCR Not Detected (Not Detected) C. pneumoniae DNA (PCR) Not Detected (Not Detected) Coronavirus (PCR) Not Detected (Not Detected) Human Metapneumovir PCR Not Detected (Not Detected) Influenza A (RT-PCR) Not Detected (Not Detected) Influenza B (RT-PCR) Not Detected (Not Detected) M. pneumoniae (PCR) Not Detected (Not Detected) Parainfluen 1,2,3,4 PCR Not Detected (Not Detected) RSV (PCR) Not Detected (Not Detected) Entero/Rhino (PCR) Not Detected (Not Detected) Chan Results Last 24 Hours: Microbiology 09/20/19 12:55 Streptococcus pneumoniae Antigen (M - Final Urine 09/20/19 12:55 Legionella Urinary Antigen - Final Urine 09/20/19 12:55 Urine Culture - Final Urine, Clean Catch Escherichia Coli 09/20/19 13:33 Aerobic Blood Culture - Preliminary Blood - Venous - Lab Draw NO GROWTH AFTER 1 DAY Anaerobic Blood Culture - Final 09/20/19 13:00 Aerobic Blood Culture - Preliminary Blood - Venous NO GROWTH AFTER 1 DAY Anaerobic Blood Culture - Preliminary NO GROWTH AFTER 1 DAY 09/21/19 10:25 Influenza Type A Antigen Screen - Final Nasopharyngeal Swab NEGATIVE INFLUENZA A VIRUS AG REFERENCE RANGE: NEGATIVE Influenza Type B Antigen Screen - Final NEGATIVE INFLUENZA B VIRUS AG REFERENCE RANGE: NEGATIVE Med Orders - Current: Current Medications Acetaminophen (Tylenol) 650 mg PO Q4H PRN PRN Reason: Pain (Mild 1-3)/fever Last Admin: 09/21/19 14:20 Dose: 650 mg Hydrocodone Bitart/Acetaminophen (Aline 325-5 Mg) 1 tab PO Q6H PRN PRN Reason: Pain Last Admin: 09/22/19 08:59 Dose: 1 tab Docusate Sodium (Colace) 100 mg PO BID PRN PRN Reason: Constipation Hydrocortisone Sodium Succinate (Solu-Cortef) 100 mg IVPUSH Q8H [facility] Last Admin: 09/22/19 02:46 Dose: 100 mg Norepinephrine Bitartrate (Norepinephr-0.9% Nacl 4 Mg/250) 4 mg in 250 mls @ 7.5 mls/hr IV TITRATE ANNA; Protocol Last Titration: 09/22/19 07:45 Dose: 0 mcg/min, 0 mls/hr Pantoprazole Sodium 40 mg/ (Sodium Chloride) 10 mls @ 300 mls/hr IV DAILY ANNA Last Admin: 09/22/19 08:56 Dose: 300 mls/hr Ertapenem 1 gm/ Sodium (Chloride) 50 mls @ 100 mls/hr IV Q24H ANNA Last Admin: 09/21/19 19:47 Dose: 100 mls/hr Vancomycin HCl 1 gm/ Sodium (Chloride) 250 mls @ 166 mls/hr IV Q24H ANNA Last Admin: 02/19/20 20:49 Dose: 166 mls/hr Levofloxacin/Dextrose 750 mg/ (Premix) 150 mls @ 100 mls/hr IV Q48H [facility] Sodium Chloride (Normal Saline) 1,000 mls @ 100 mls/hr IV ASDIRECTED [facility] Last Admin: 09/22/19 02:18 Dose: 100 mls/hr Levothyroxine Sodium (Levothyroxine) 75 mcg PO ACBREAKFAST [facility] Last Admin: 09/22/19 06:50 Dose: 75 mcg Midodrine (Midodrine) 10 mg PO TIDAC [facility] Last Admin: 09/22/19 06:50 Dose: 10 mg Ondansetron HCl (Zofran Odt) 4 mg PO Q4H PRN PRN Reason: nausea, able to take PO Ondansetron HCl (Zofran) 4 mg IVPUSH Q4H PRN PRN Reason: Nausea Polyethylene Glycol (Miralax) 17 gm PO DAILY PRN PRN Reason: Constipation Rivaroxaban (Xarelto) 10 mg PO DAILY [facility] Last Admin: 09/22/19 08:56 Dose: 10 mg Sodium Chloride (Saline Flush) 10 ml FLUSH ASDIRECTED PRN PRN Reason: Keep Vein Open Sodium Chloride (Saline Flush) 2.5 ml FLUSH ASDIRECTED PRN PRN Reason: Keep Vein Open Sodium Chloride (Zephyr Nasal [place]) 5 ml FAHAD Q4H PRN PRN Reason: Congestion Last Admin: 09/21/19 16:00 Dose: 5 ml Tramadol HCl (Ultram) 100 mg PO Q8H PRN PRN Reason: Pain Last Admin: 09/21/19 22:22 Dose: 100 mg Vancomycin HCl (Pharmacy To Dose - Vancomycin) 1 dose .XX ASDIRECTED [facility] Discontinued Medications Aspirin (Aspirin) 325 mg PO ONETIME ONE Stop: 09/20/19 17:23 Last Admin: 09/20/19 17:45 Dose: 325 mg Enoxaparin Sodium (Lovenox) 40 mg SUBCUT Q24H [facility] Last Admin: 09/20/19 21:02 Dose: Not Given Fentanyl (Sublimaze) 25 mcg IVPUSH Q4HR PRN PRN Reason: Severe pain Last Admin: 09/21/19 03:30 Dose: 25 mcg Fentanyl (Fentanyl) 25 mcg IVPUSH ONETIME ONE Stop: 02/19/20 01:40 Last Admin: 09/21/19 02:01 Dose: Not Given Fentanyl (Sublimaze) 25 mcg IVPUSH ONETIME ONE Stop: 09/21/19 02:01 Last Admin: 09/21/19 02:01 Dose: 25 mcg Hydrocortisone Sodium Succinate (Solu-Cortef) 100 mg IVPUSH ONETIME ONE Stop: 09/21/19 03:31 Last Admin: 09/21/19 03:23 Dose: 100 mg Sodium Chloride (Normal Saline) 1,000 mls @ 999 mls/hr IV .Bolus ONE Stop: 09/20/19 14:18 Last Admin: 09/20/19 14:06 Dose: 999 mls/hr Sodium Chloride (Normal Saline) 1,000 mls @ 999 mls/hr IV .Bolus ONE Stop: 09/20/19 14:30 Last Admin: 09/20/19 14:06 Dose: 999 mls/hr Meropenem 1 gm/ Sodium (Chloride) 100 mls @ 200 mls/hr IV ONETIME ONE Stop: 09/20/19 15:39 Last Admin: 09/20/19 17:30 Dose: Not Given Sodium Chloride (Normal Saline) 1,000 mls @ 999 mls/hr IV .Bolus ONE Stop: 09/20/19 17:45 Last Admin: 09/20/19 17:07 Dose: 999 mls/hr Levofloxacin/Dextrose 750 mg/ (Premix) 150 mls @ 100 mls/hr IV ONETIME ONE Stop: 09/20/19 18:36 Last Admin: 09/20/19 17:46 Dose: 100 mls/hr Piperacillin Sod/Tazobactam (Sod 3.375 gm/ Sodium Chloride) 50 mls @ 100 mls/ hr IV Q8H ANNA Sodium Chloride (Normal Saline) 1,000 mls @ 125 mls/hr IV CONTINUOUS ANNA Last Infusion: 09/21/19 09:15 Dose: 100 mls/hr Sodium Chloride (Normal Saline) 1,000 mls @ 999 mls/hr IV .Bolus ONE Stop: 09/20/19 20:24 Last Admin: 09/20/19 19:27 Dose: 999 mls/hr Vasopressin 100 units/ Sodium (Chloride) 100 mls @ 1.8 mls/hr IV TITRATE ANNA Vasopressin 100 units/ Sodium (Chloride) 100 mls @ 1.8 mls/hr IV CONTINUOUS [facility] Last Admin: 09/20/19 22:40 Dose: 0.03 units/min, 1.8 mls/hr Magnesium Sulfate 4 gm/ Premix 100 mls @ 50 mls/hr IV ONETIME ONE Stop: 09/21/19 08:37 Last Admin: 09/21/19 06:48 Dose: 50 mls/hr Sodium Chloride (Normal Saline) 1,000 mls @ 100 mls/hr IV Q10H [facility] Last Admin: 09/21/19 20:56 Dose: Not Given Ibuprofen (Motrin) 800 mg PO Q6H PRN PRN Reason: Pain (mild 1-3) Ketorolac Tromethamine (Toradol) 15 mg IV Q6H PRN PRN Reason: Pain (moderate 4-6) Levothyroxine Sodium (Synthroid) 75 mcg PO ACBREAKFAST [facility] Lidocaine (Xylocaine-Mpf 2%) Confirm Administered Dose 5 ml .ROUTE .STK-MED ONE Stop: 09/22/19 09:43 Last Admin: 09/22/19 10:35 Dose: Not Given Lidocaine HCl (Xylocaine 1%) Confirm Administered Dose 20 ml .ROUTE .STK-MED ONE Stop: 09/20/19 21:44 Last Admin: 09/20/19 22:15 Dose: 20 ml - Exam General: Alert, Oriented, Cooperative Lungs: Normal Respiratory Effort, Decreased Breath Sounds, Rhonchi. No: Wheezing Cardiovascular: Regular Rate, Regular Rhythm GI/Abdominal Exam: Normal Bowel Sounds, Soft, Non-Tender, No Distention Extremities: Normal Inspection, No Pedal Edema Skin: Cool Sepsis Event Note - Evaluation Sepsis Screening Result: Sepsis Risk - Focused Exam Vital Signs: Vital Signs Temp Resp BP BP Pulse Ox 09/22/19 10:00 24 H 101/53 L 104/54 L 95 09/22/19 09:00 10 L 93/52 L 97/47 L 93 L 09/22/19 08:00 36.2 C 22 H 81/41 L 87/47 L 92 L 09/22/19 07:00 17 98/52 L 96/54 L 95 09/22/19 06:00 16 105/55 L 96/58 L 94 L 09/22/19 05:00 16 95/65 104/54 L 94 L 09/22/19 04:00 36.8 C 16 98/51 L 99/51 L 96 09/22/19 03:00 16 90/53 L 101/51 L 93 L 09/22/19 02:00 16 98/55 L 99/48 L 93 L 09/22/19 01:00 16 98/51 L 107/52 L 94 L 09/22/19 00:00 36.9 C 16 99/42 L 98/57 L 96 09/21/19 23:00 17 93/49 L 104/48 L 98 Date Exam was Performed: 09/22/19 Time Exam was Performed: 10:39 - Problem List Review Problem List Initiated/Reviewed/Updated: Yes - My Orders Last 24 Hours: My Active Orders 09/21/19 19:45 Sodium Chloride 0.9% [Normal Saline] 1,000 ml IV ASDIRECTED 09/23/19 05:11 CBC WITH AUTO DIFF [HEME] AM COMPREHENSIVE METABOLIC PN,CMP [CHEM] AM - Plan Plan:: A: 1. Sepsis 2/2 multifocal pneumonia and UTI 2. Leukocytosis due to above 3. PMH CREST Syndrome, chronic pain, Afib on xarelto P: Overall, improving. Will monitor today off IV pressor. Continue Midodrine for now. DC IV fluids. Encourage PO intake. Continue Ertapenem, Vancomycin and Levaquin for now. Will transfer to floor later today if maintaining adequate BP , MAP. Will wean off steroids. Dispo: 2-3 days.
[2019-09-22] MEDS ORDERED: Azithromycin 500 MG Vial IV SCH (11:45)
[2019-09-22] MEDS ORDERED: Azithromycin 250 MG in Sodium Chloride 0.9% 250 ML IV SCH (12:00)
[2019-09-22] MEDS: Ondansetron 4 MG/2 ML SDV IVPUSH PRN (12:22)
[2019-09-22] MEDS ORDERED: cefTRIAXone 1 GM in Premix Bag 1 BAG IV SCH (13:00)
[2019-09-22] MEDS: traMADol 50 MG Tab PO PRN (13:31)
[2019-09-22] MEDS ORDERED: Levofloxacin/Dextrose 5%-Water 750 MG in Premix Bag 1 BAG IV SCH (17:00)
[2019-09-22] MEDS: Lactated Ringers 1,000 ML IV SCH (17:42)
[2019-09-22] MEDS: Promethazine 25 MG Tab PO PRN (17:42)
[2019-09-22] MEDS: Promethazine 25 MG/ML SDV IM PRN (18:38)
[2019-09-22] MEDS: Famotidine 20 MG Tab PO SCH (23:40)
[2019-09-23] MEDS: traMADol 50 MG Tab PO PRN (03:26)
[2019-09-23] MEDS: Lactated Ringers 1,000 ML IV SCH (06:05)
[2019-09-23] MEDS: Acetaminophen/HYDROcodone 325-5 MG Tab PO PRN (06:10)
[2019-09-23 06:51] LABS: CARBON DIOXIDE,CO2 18.1 mmol/L (21.0-32.0); POTASSIUM,K 3.7 mmol/L (3.5-5.1)
[2019-09-23] MEDS: Levothyroxine 75 MCG Tab PO SCH (08:09)
[2019-09-23] MEDS: Rivaroxaban 10 MG Tab PO SCH (08:09)
[2019-09-23] MEDS: Midodrine 5 MG Tab PO SCH ×3 (08:09→18:00)
[2019-09-23] MEDS: Famotidine 20 MG Tab PO SCH ×2 (08:09→20:02)
[2019-09-23] MEDS: Hydrocortisone Sodium Succinate 100 MG/2 ML SDV IVPUSH SCH ×2 (08:17→19:55)
[2019-09-23] MEDS: Sodium Chloride 0.9% 1,000 ML IV SCH ×2 (08:26→10:54)
[2019-09-23] MEDS ORDERED: Sodium Chloride 0.9% 1,000 ML IV ONE (09:14)
--- NOTE | 2019-09-23 09:41 | CR ---
Chest: Portable view of the chest is obtained. Comparison: Prior chest x-ray of 09/20/19. Increasing density is seen within both lung bases from prior study. Right sided jugular line is noted with tip lying within the right atria. Heart size appears within normal limits for portable technique. Slight tortuosity of the thoracic aorta is noted. Degenerative change is noted within the right shoulder. Scoliosis and mild degenerative change is scattered within the spine. Impression: 1. Increasing parenchymal change within both lung bases. Findings may represent worsening pneumonia as well as worsening changes of aspiration. Please correlate. 2. Right jugular line with tip lying in the area of the right atria. 3. Other findings believed to be incidental. Diagnostic code #3 This report was dictated in [place] Standard Time
--- NOTE | 2019-09-23 09:57 | PN ---
THC Physician - Brief Progress [id number]/20/2020 11:41[facility] [place]iega, [place] - MWN (SAIMAN) - [facility]PADMA IGNACIOArmandDate of Service 09/22/2019 11:41HPI/Events of Note eICU Progress NotePatient is a 84-year-old female being managed for septic shock secondary to U TI and Pneumonia, pressors have been weaned since 7:45 AM per nurseOn camera, patient is asleep in be d, appears to be comfortable and in no distressVitals, on the monitor blood pressure is 101/51, heart rate is 88 appears to be normal sinus rhythm, saturating 97% on nasal cannulaReviewedEMR notesLabs, improved leukocytosis, worsening hyperchloremic metabolic acidosisMicro, urine culture with E. coli s usceptible to cephalosporinsImagingxreviewedMedications reviewedeICU impressionsStatus post resolutio n of septic shock secondary to suspected UTI and CAPUTI, urine culture with E. coli susceptible to ce phalosporinsPneumonia, risk factor for OrganismsHyperchloremic metabolic acidosisVTE and GI prophylax isGlycemic controleICU recommendationsDe-escalate antibiotics to ceftriaxone and azithromycinDisconti nue stress dose steroids given rapid resolution of shock and pressor requirementAvoid normal saline g iven hyperchloremiaIf bicarb continues to decline, will consider initiation of a bicarb dripVTE proph ylaxis noted, currently on systemic anticoagulation with XareltoGI prophylaxis noted, currently on IV Protonix, will change to p.o. Pepcid twice dailyGlycemic control per protocol, blood sugar target be tween 140-180Discussed care with bedside RN and bedside clinicianThank you for allowing us to partici pham in the care of your patient. Critical care; 35 minutes total evaluation time Interventions Major -Acid-Base disturbance - evaluation and management, Infection - evaluation and management, Shock - ev aluation and management
[2019-09-23] MEDS ORDERED: Levofloxacin/Dextrose 5%-Water 750 MG in Premix Bag 1 BAG IV SCH (10:00)
[2019-09-23] MEDS: Meropenem Premix 1 GM in Premix Bag 1 BAG IV SCH ×2 (10:44→22:41)
[2019-09-23] MEDS: Promethazine 25 MG/ML SDV IM PRN ×2 (11:24→19:57)
[2019-09-23] MEDS: Sodium Chloride 0.65% Nasal Spray 45 ML Bottle NAS PRN (11:42)
[2019-09-23] MEDS ORDERED: Albuterol/Ipratropium 3.0-0.5 MG/3 ML Neb Soln NEB ONE (11:51)
--- NOTE | 2019-09-23 13:26 | PN ---
THC Physician - Brief Progress [id number]/21/2020 12:46[facility] Wilmar noriega, COURTNEY - DESI (APRYL) - PADMA TORRESDate of Service 09/23/2019 12:46HPI/Events of Note EICU progress note:84 year old , frail, woman with CREST syndrome presenting with e.coli septic shock, now with worsening chest xray.Would continue current antibiotics, but concern for fluid overl oad vs aspirationPatient does have NG tube, but posterior oropharynx secretions and nasal secretions could track down in to lungs.Would have patient do formal swallow with crest syndrome, esophageal dys motility is a possiblity.Patient may also have a component of chf, and may require diuresis.Consider BNP and Procal.Pulmonary toileting with flutter/incentive spirometry may be helpful.Patient appears t o be weakened, would readdress code status with family as well.Patient continues to have a metabolic acidosisWith hyperchloremia and now hypernatremiaConsider starting tube feeds with free water.Please call if neededWBC count remains elevated, would monitor closely.Interventions Minor-Communication wit h other healthcare providers and/or family, Routine modifications to care plan (e.g. PRN medications for pain, fever)
--- NOTE | 2019-09-23 15:10 | PCM.PN ---
<Ernie Avitia - Last Filed: 09/23/19 20:17> - General Info Date of Service: 09/23/19 Subjective Update: No acute events overnight. Denies chest pain, no abdominal pain. Poor appetite. - Patient Data Vitals - Most Recent: Last Vital Signs Temp 36.2 C 09/23/19 12:00 Pulse 108 H 09/20/19 19:29 Resp 29 H 09/23/19 14:00 BP 122/63 09/23/19 14:00 Pulse Ox 93 L 09/23/19 14:00 Weight - Most Recent: 48.807 kg I&O - Last 24 Hours: Intake & Output 09/23/19 09/23/19 09/23/19 06:59 14:59 22:59 Intake Total 1169 168 Output Total 0 Balance 1169 168 Lab Results Last 24 Hours: Laboratory Results - last 24 hr 09/23/19 09/23/19 Range/Units 05:58 05:58 WBC 30.25 H (4.0-11.0) K/uL RBC 3.04 L (4.30-5.90) M/uL Hgb 9.2 L (12.0-16.0) g/dL Hct 28.8 L (36.0-46.0) % MCV 94.7 (80.0-98.0) fL MCH 30.3 (27.0-32.0) pg MCHC 31.9 (31.0-37.0) g/dL RDW Std Deviation 53.3 (28.0-62.0) fl RDW Coeff of Kari 15 (11.0-15.0) % Plt Count 245 (150-400) K/uL MPV 10.00 (7.40-12.00) fL Add Manual Diff YES Neutrophils % (Manual) 93 H (48.0-80.0) % Lymphocytes % (Manual) 5 L (16.0-40.0) % Monocytes % (Manual) 2 (0.0-15.0) % Nucleated RBC % 0.0 /100WBC Absolute Seg Neuts 28.1 H (1.4-5.7) Lymphocytes # (Manual) 1.5 (0.6-2.4) Monocytes # (Manual) 0.6 (0.0-0.8) Nucleated RBCs # 0 K/uL Sodium 146 H (136-145) mmol/L Potassium 3.7 (3.5-5.1) mmol/L Chloride 114 H (98-107) mmol/L Carbon Dioxide 18.1 L (21.0-32.0) mmol/L BUN 30 H (7.0-18.0) mg/dL Creatinine 0.9 (0.6-1.0) mg/dL Est Cr Clr Drug Dosing 35.74 mL/min Estimated GFR (MDRD) 59.8 ml/min Glucose 71 L (74-106) mg/dL Calcium 8.1 L (8.5-10.1) mg/dL Total Bilirubin 0.3 (0.2-1.0) mg/dL AST 15 (15-37) IU/L ALT 18 (14-63) IU/L Alkaline Phosphatase 90 (46-116) U/L Total Protein 4.9 L (6.4-8.2) g/dL Albumin 1.7 L (3.4-5.0) g/dL Globulin 3.2 (2.6-4.0) g/dL Albumin/Globulin Ratio 0.5 L (0.9-1.6) Chan Results Last 24 Hours: Microbiology 09/20/19 13:33 Aerobic Blood Culture - Preliminary Blood - Venous - Lab Draw NO GROWTH AFTER 2 DAYS Anaerobic Blood Culture - Final 09/20/19 13:00 Aerobic Blood Culture - Preliminary Blood - Venous NO GROWTH AFTER 2 DAYS Anaerobic Blood Culture - Preliminary NO GROWTH AFTER 2 DAYS Med Orders - Current: Current Medications Acetaminophen (Tylenol) 650 mg PO Q4H PRN PRN Reason: Pain (Mild 1-3)/fever Last Admin: 09/21/19 14:20 Dose: 650 mg Hydrocodone Bitart/Acetaminophen ([place] 325-5 Mg) 1 tab PO Q6H PRN PRN Reason: Pain Last Admin: 09/23/19 06:10 Dose: 1 tab Albuterol/Ipratropium (Duoneb 3.0-0.5 Mg/3 Ml) 3 ml NEB Q4HRRT PRN PRN Reason: Shortness of Breath Docusate Sodium (Colace) 100 mg PO BID PRN PRN Reason: Constipation Famotidine (Pepcid) 20 mg PO BID ANNA Last Admin: 02/21/20 08:09 Dose: 20 mg Hydrocortisone Sodium Succinate (Solu-Cortef) 100 mg IVPUSH Q12H [facility] Last Admin: 09/23/19 08:17 Dose: 100 mg Norepinephrine Bitartrate (Norepinephr-0.9% Nacl 4 Mg/250) 4 mg in 250 mls @ 7.5 mls/hr IV TITRATE [facility]; Protocol Last Titration: 09/22/19 07:45 Dose: 0 mcg/min, 0 mls/hr Sodium Chloride (Normal Saline) 1,000 mls @ 75 mls/hr IV ASDIRECTED [facility] Last Admin: 09/23/19 10:54 Dose: 75 mls/hr Levofloxacin/Dextrose 750 mg/ (Premix) 150 mls @ 100 mls/hr IV Q48H [facility] Last Admin: 09/23/19 11:44 Dose: 100 mls/hr Meropenem/Sodium Chloride 1 gm (/ Premix) 50 mls @ 100 mls/hr IV Q12H [facility] Last Admin: 09/23/19 10:44 Dose: 100 mls/hr Vancomycin HCl 0.75 gm/ Sodium (Chloride) 250 mls @ 250 mls/hr IV Q24H [facility] Last Admin: 09/23/19 13:47 Dose: 250 mls/hr Levothyroxine Sodium (Levothyroxine) 75 mcg PO ACBREAKFAST [facility] Last Admin: 09/23/19 08:09 Dose: 75 mcg Midodrine (Midodrine) 10 mg PO TIDAC [facility] Last Admin: 09/23/19 10:44 Dose: 10 mg Ondansetron HCl (Zofran Odt) 4 mg PO Q4H PRN PRN Reason: nausea, able to take PO Ondansetron HCl (Zofran) 4 mg IVPUSH Q4H PRN PRN Reason: Nausea Last Admin: 09/22/19 12:22 Dose: 4 mg Polyethylene Glycol (Miralax) 17 gm PO DAILY PRN PRN Reason: Constipation Promethazine HCl (Phenergan) 25 mg PO Q8H PRN PRN Reason: Nausea/Vomiting Last Admin: 09/22/19 17:42 Dose: 25 mg Promethazine HCl (Phenergan) 12.5 mg IM Q6H PRN PRN Reason: Nausea Last Admin: 09/23/19 11:24 Dose: 12.5 mg Rivaroxaban (Xarelto) 10 mg PO DAILY [facility] Last Admin: 09/23/19 08:09 Dose: 10 mg Sodium Chloride (Saline Flush) 10 ml FLUSH ASDIRECTED PRN PRN Reason: Keep Vein Open Sodium Chloride (Saline Flush) 2.5 ml FLUSH ASDIRECTED PRN PRN Reason: Keep Vein Open Sodium Chloride ([place] Nasal [place]) 5 ml FAHAD Q4H PRN PRN Reason: Congestion Last Admin: 09/23/19 11:42 Dose: 5 ml Tramadol HCl (Ultram) 100 mg PO Q8H PRN PRN Reason: Pain Last Admin: 09/23/19 03:26 Dose: 100 mg Discontinued Medications Albuterol/Ipratropium (Duoneb 3.0-0.5 Mg/3 Ml) 3 ml NEB ONETIME ONE Stop: 09/23/19 11:52 Last Admin: 09/23/19 12:20 Dose: 3 ml Aspirin (Aspirin) 325 mg PO ONETIME ONE Stop: 09/20/19 17:23 Last Admin: 09/20/19 17:45 Dose: 325 mg Enoxaparin Sodium (Lovenox) 40 mg SUBCUT Q24H [facility] Last Admin: 09/20/19 21:02 Dose: Not Given Fentanyl (Sublimaze) 25 mcg IVPUSH Q4HR PRN PRN Reason: Severe pain Last Admin: 09/21/19 03:30 Dose: 25 mcg Fentanyl (Fentanyl) 25 mcg IVPUSH ONETIME ONE Stop: 09/21/19 01:40 Last Admin: 09/21/19 02:01 Dose: Not Given Fentanyl (Sublimaze) 25 mcg IVPUSH ONETIME ONE Stop: 09/21/19 02:01 Last Admin: 09/21/19 02:01 Dose: 25 mcg Hydrocortisone Sodium Succinate (Solu-Cortef) 100 mg IVPUSH Q8H AN[facility] Last Admin: 09/22/19 11:45 Dose: Not Given Hydrocortisone Sodium Succinate (Solu-Cortef) 100 mg IVPUSH ONETIME ONE Stop: 09/21/19 03:31 Last Admin: 09/21/19 03:23 Dose: 100 mg Sodium Chloride (Normal Saline) 1,000 mls @ 999 mls/hr IV .Bolus ONE Stop: 09/20/19 14:18 Last Admin: 09/20/19 14:06 Dose: 999 mls/hr Sodium Chloride (Normal Saline) 1,000 mls @ 999 mls/hr IV .Bolus ONE Stop: 09/20/19 14:30 Last Admin: 09/20/19 14:06 Dose: 999 mls/hr Meropenem 1 gm/ Sodium (Chloride) 100 mls @ 200 mls/hr IV ONETIME ONE Stop: 09/20/19 15:39 Last Admin: 09/20/19 17:30 Dose: Not Given Sodium Chloride (Normal Saline) 1,000 mls @ 999 mls/hr IV .Bolus ONE Stop: 09/20/19 17:45 Last Admin: 09/20/19 17:07 Dose: 999 mls/hr Levofloxacin/Dextrose 750 mg/ (Premix) 150 mls @ 100 mls/hr IV ONETIME ONE Stop: 09/20/19 18:36 Last Admin: 09/20/19 17:46 Dose: 100 mls/hr Piperacillin Sod/Tazobactam (Sod 3.375 gm/ Sodium Chloride) 50 mls @ 100 mls/ hr IV Q8H [facility] Sodium Chloride (Normal Saline) 1,000 mls @ 125 mls/hr IV CONTINUOUS ANNA Last Infusion: 09/21/19 09:15 Dose: 100 mls/hr Pantoprazole Sodium 40 mg/ (Sodium Chloride) 10 mls @ 300 mls/hr IV DAILY ANNA Last Admin: 09/22/19 08:56 Dose: 300 mls/hr Sodium Chloride (Normal Saline) 1,000 mls @ 999 mls/hr IV .Bolus ONE Stop: 09/20/19 20:24 Last Admin: 09/20/19 19:27 Dose: 999 mls/hr Ertapenem 1 gm/ Sodium (Chloride) 50 mls @ 100 mls/hr IV Q24H [facility] Last Admin: 09/21/19 19:47 Dose: 100 mls/hr Vancomycin HCl 1 gm/ Sodium (Chloride) 250 mls @ 166 mls/hr IV Q24H [facility] Last Admin: 09/21/19 20:49 Dose: 166 mls/hr Vasopressin 100 units/ Sodium (Chloride) 100 mls @ 1.8 mls/hr IV TITRATE ANNA Vasopressin 100 units/ Sodium (Chloride) 100 mls @ 1.8 mls/hr IV CONTINUOUS ANNA Last Admin: 09/20/19 22:40 Dose: 0.03 units/min, 1.8 mls/hr Magnesium Sulfate 4 gm/ Premix 100 mls @ 50 mls/hr IV ONETIME ONE Stop: 09/21/19 08:37 Last Admin: 09/21/19 06:48 Dose: 50 mls/hr Levofloxacin/Dextrose 750 mg/ (Premix) 150 mls @ 100 mls/hr IV Q48H [facility] Sodium Chloride (Normal Saline) 1,000 mls @ 100 mls/hr IV Q10H [facility] Last Admin: 09/21/19 20:56 Dose: Not Given Sodium Chloride (Normal Saline) 1,000 mls @ 100 mls/hr IV ASDIRECTED [facility] Last Admin: 09/22/19 02:18 Dose: 100 mls/hr Ceftriaxone Sodium/Dextrose 1 (gm/ Premix) 50 mls @ 100 mls/hr IV Q24H [facility] Last Admin: 09/22/19 13:25 Dose: 100 mls/hr Azithromycin 250 mg/ Sodium (Chloride) 250 mls @ 250 mls/hr IV Q24H [facility] Last Admin: 09/22/19 12:00 Dose: 250 mls/hr Lactated Ringer's (Ringers, Lactated) 1,000 mls @ 75 mls/hr IV ASDIRECTED [facility] Last Admin: 09/23/19 06:05 Dose: 75 mls/hr Sodium Chloride (Normal Saline) 1,000 mls @ 999 mls/hr IV STAT ONE Stop: 09/23/19 10:14 Last Admin: 09/23/19 10:14 Dose: 999 mls/hr Meropenem 1 gm/ Sodium (Chloride) 50 mls @ 100 mls/hr IV Q12H [facility] Last Admin: 09/23/19 10:52 Dose: Not Given Ibuprofen (Motrin) 800 mg PO Q6H PRN PRN Reason: Pain (mild 1-3) Ketorolac Tromethamine (Toradol) 15 mg IV Q6H PRN PRN Reason: Pain (moderate 4-6) Levothyroxine Sodium (Synthroid) 75 mcg PO ACBREAKFAST [facility] Lidocaine (Xylocaine-Mpf 2%) Confirm Administered Dose 5 ml .ROUTE .STK-MED ONE Stop: 09/22/19 09:43 Last Admin: 09/22/19 10:35 Dose: Not Given Lidocaine HCl (Xylocaine 1%) Confirm Administered Dose 20 ml .ROUTE .STK-MED ONE Stop: 09/20/19 21:44 Last Admin: 09/20/19 22:15 Dose: 20 ml Vancomycin HCl (Pharmacy To Dose - Vancomycin) 1 dose .XX ASDIRECTED [facility] Vancomycin HCl (Pharmacy To Dose - Vancomycin) 1 dose .XX ASDIRECTED ANNA - Exam Quality Assessment: Supplemental Oxygen General: Alert, Oriented, Cooperative, No Acute Distress Lungs: Crackles, Rhonchi Cardiovascular: Regular Rate, Irregular Rhythm GI/Abdominal Exam: Normal Bowel Sounds, Soft, Non-Tender Extremities: Normal Inspection, No Pedal Edema Skin: Warm, Dry Sepsis Event Note - Evaluation Sepsis Screening Result: Sepsis Risk - Focused Exam Vital Signs: Vital Signs Temp Resp BP BP Pulse Ox 09/23/19 14:00 29 H 105/54 L 122/63 93 L 09/23/19 13:00 24 H 95/67 100/52 L 94 L 09/23/19 12:00 36.2 C 29 H 85/61 L 92/52 L 87 L 09/23/19 11:00 26 H 112/67 91 L 09/23/19 10:00 26 H 103/53 L 84 L 09/23/19 09:00 23 H 86/43 L 85/46 L 89 L 09/23/19 08:00 36.2 C 25 H 80/46 L 86/48 L 90 L Date Exam was Performed: 09/23/19 Time Exam was Performed: 20:17 - Problem List Review Problem List Initiated/Reviewed/Updated: Yes - My Orders Last 24 Hours: My Active Orders 09/22/19 17:33 Promethazine [Phenergan] 25 mg PO Q8H PRN 09/22/19 17:37 Dietary Supplements [RC] TIDMEALS 09/22/19 18:23 Promethazine [Phenergan] 12.5 mg IM Q6H PRN 09/23/19 07:45 Sodium Chloride 0.9% [Normal Saline] 1,000 ml IV ASDIRECTED 09/23/19 08:09 Transfer Patient (Change bed) [ADT] Routine 09/23/19 08:15 Hydrocortisone Sod Succinate [Solu-CORTEF] 100 mg IVPUSH Q12H 09/23/19 11:51 RT Aerosol Therapy [RC] ASDIRECTED RT Aerosol Therapy [RC] ASDIRECTED Albuterol/Ipratropium [DuoNeb 3.0-0.5 MG/3 ML] 3 ml NEB Q4HRRT PRN 09/23/19 12:15 Consult to Hospice [CONS] Routine 09/24/19 05:11 CBC WITH AUTO DIFF [HEME] AM COMPREHENSIVE METABOLIC PN,CMP [CHEM] AM 09/25/19 05:11 CBC WITH AUTO DIFF [HEME] AM COMPREHENSIVE METABOLIC PN,CMP [CHEM] AM 09/26/19 05:11 CBC WITH AUTO DIFF [HEME] AM COMPREHENSIVE METABOLIC PN,CMP [CHEM] AM - Plan Plan:: A: 1. Sepsis 2/2 multifocal pneumonia and UTI 2. Leukocytosis due to above 3. PMH CREST Syndrome, chronic pain, Afib on xarelto P: Will escalate to broad spectrum antibiotics since chest xray shows worsening pneumonia. Will continue with maintenance fluids for now and monitor her BP. Titrate O2 as tolerated. Will plan to downgrade tomorrow if maintaining BP and oxygenation. Dispo: 2-3 days. <Waqas Child - Last Filed: 10/04/19 11:44> - Patient Data Vitals - Most Recent: Last Vital Signs Temp 36.4 C 09/24/19 14:00 Pulse 105 H 09/24/19 14:00 Resp 40 H 09/24/19 14:00 BP 139/79 09/24/19 14:00 Pulse Ox 92 L 09/24/19 14:00 Med Orders - Current: Current Medications Discontinued Medications Acetaminophen (Tylenol) 650 mg PO Q4H PRN PRN Reason: Pain (Mild 1-3)/fever Last Admin: 09/21/19 14:20 Dose: 650 mg Hydrocodone Bitart/Acetaminophen ([place] 325-5 Mg) 1 tab PO Q6H PRN PRN Reason: Pain Last Admin: 09/23/19 06:10 Dose: 1 tab Albuterol/Ipratropium (Duoneb 3.0-0.5 Mg/3 Ml) 3 ml NEB ONETIME ONE Stop: 09/23/19 11:52 Last Admin: 09/23/19 12:20 Dose: 3 ml Albuterol/Ipratropium (Duoneb 3.0-0.5 Mg/3 Ml) 3 ml NEB Q4HRRT PRN PRN Reason: Shortness of Breath Last Admin: 09/24/19 14:20 Dose: 3 ml Aspirin (Aspirin) 325 mg PO ONETIME ONE Stop: 09/20/19 17:23 Last Admin: 09/20/19 17:45 Dose: 325 mg Atropine Sulfate (Atropine 1% Ophth Soln) 0 ml SL Q1H PRN PRN Reason: Other Dextrose/Water (Dextrose 50% In Water) 50 ml IVPUSH ONETIME STA Stop: 09/23/19 22:03 Last Admin: 09/23/19 22:08 Dose: 50 ml Docusate Sodium (Colace) 100 mg PO BID PRN PRN Reason: Constipation Enoxaparin Sodium (Lovenox) 40 mg SUBCUT Q24H [facility] Last Admin: 09/20/19 21:02 Dose: Not Given Famotidine (Pepcid) 20 mg PO BID [facility] Last Admin: 09/26/19 11:05 Dose: Not Given Fentanyl (Sublimaze) 25 mcg IVPUSH Q4HR PRN PRN Reason: Severe pain Last Admin: 09/21/19 03:30 Dose: 25 mcg Fentanyl (Fentanyl) 25 mcg IVPUSH ONETIME ONE Stop: 09/21/19 01:40 Last Admin: 09/21/19 02:01 Dose: Not Given Fentanyl (Sublimaze) 25 mcg IVPUSH ONETIME ONE Stop: 09/21/19 02:01 Last Admin: 09/21/19 02:01 Dose: 25 mcg Hydrocortisone Sodium Succinate (Solu-Cortef) 100 mg IVPUSH Q8H [facility] Last Admin: 09/22/19 11:45 Dose: Not Given Hydrocortisone Sodium Succinate (Solu-Cortef) 100 mg IVPUSH ONETIME ONE Stop: 09/21/19 03:31 Last Admin: 09/21/19 03:23 Dose: 100 mg Hydrocortisone Sodium Succinate (Solu-Cortef) 100 mg IVPUSH Q12H [facility] Last Admin: 09/24/19 08:11 Dose: 100 mg Sodium Chloride (Normal Saline) 1,000 mls @ 999 mls/hr IV .Bolus ONE Stop: 09/20/19 14:18 Last Admin: 09/20/19 14:06 Dose: 999 mls/hr Sodium Chloride (Normal Saline) 1,000 mls @ 999 mls/hr IV .Bolus ONE Stop: 09/20/19 14:30 Last Admin: 09/20/19 14:06 Dose: 999 mls/hr Norepinephrine Bitartrate (Norepinephr-0.9% Nacl 4 Mg/250) 4 mg in 250 mls @ 7.5 mls/hr IV TITRATE ANNA; Protocol Last Titration: 09/22/19 07:45 Dose: 0 mcg/min, 0 mls/hr Meropenem 1 gm/ Sodium (Chloride) 100 mls @ 200 mls/hr IV ONETIME ONE Stop: 09/20/19 15:39 Last Admin: 09/20/19 17:30 Dose: Not Given Sodium Chloride (Normal Saline) 1,000 mls @ 999 mls/hr IV .Bolus ONE Stop: 09/20/19 17:45 Last Admin: 09/20/19 17:07 Dose: 999 mls/hr Levofloxacin/Dextrose 750 mg/ (Premix) 150 mls @ 100 mls/hr IV ONETIME ONE Stop: 09/20/19 18:36 Last Admin: 09/20/19 17:46 Dose: 100 mls/hr Piperacillin Sod/Tazobactam (Sod 3.375 gm/ Sodium Chloride) 50 mls @ 100 mls/ hr IV Q8H [facility] Sodium Chloride (Normal Saline) 1,000 mls @ 125 mls/hr IV CONTINUOUS ANNA Last Infusion: 09/21/19 09:15 Dose: 100 mls/hr Pantoprazole Sodium 40 mg/ (Sodium Chloride) 10 mls @ 300 mls/hr IV DAILY ANNA Last Admin: 09/22/19 08:56 Dose: 300 mls/hr Sodium Chloride (Normal Saline) 1,000 mls @ 999 mls/hr IV .Bolus ONE Stop: 09/20/19 20:24 Last Admin: 09/20/19 19:27 Dose: 999 mls/hr Ertapenem 1 gm/ Sodium (Chloride) 50 mls @ 100 mls/hr IV Q24H [facility] Last Admin: 09/21/19 19:47 Dose: 100 mls/hr Vancomycin HCl 1 gm/ Sodium (Chloride) 250 mls @ 166 mls/hr IV Q24H [facility] Last Admin: 09/21/19 20:49 Dose: 166 mls/hr Vasopressin 100 units/ Sodium (Chloride) 100 mls @ 1.8 mls/hr IV TITRATE ANNA Vasopressin 100 units/ Sodium (Chloride) 100 mls @ 1.8 mls/hr IV CONTINUOUS ANNA Last Admin: 09/20/19 22:40 Dose: 0.03 units/min, 1.8 mls/hr Magnesium Sulfate 4 gm/ Premix 100 mls @ 50 mls/hr IV ONETIME ONE Stop: 09/21/19 08:37 Last Admin: 09/21/19 06:48 Dose: 50 mls/hr Levofloxacin/Dextrose 750 mg/ (Premix) 150 mls @ 100 mls/hr IV Q48H [facility] Sodium Chloride (Normal Saline) 1,000 mls @ 100 mls/hr IV Q10H [facility] Last Admin: 09/21/19 20:56 Dose: Not Given Sodium Chloride (Normal Saline) 1,000 mls @ 100 mls/hr IV ASDIRECTED [facility] Last Admin: 09/22/19 02:18 Dose: 100 mls/hr Ceftriaxone Sodium/Dextrose 1 (gm/ Premix) 50 mls @ 100 mls/hr IV Q24H [facility] Last Admin: 09/22/19 13:25 Dose: 100 mls/hr Azithromycin 250 mg/ Sodium (Chloride) 250 mls @ 250 mls/hr IV Q24H [facility] Last Admin: 09/22/19 12:00 Dose: 250 mls/hr Lactated Ringer's (Ringers, Lactated) 1,000 mls @ 75 mls/hr IV ASDIRECTED [facility] Last Admin: 09/23/19 06:05 Dose: 75 mls/hr Sodium Chloride (Normal Saline) 1,000 mls @ 75 mls/hr IV ASDIRECTED [facility] Last Admin: 09/23/19 10:54 Dose: 75 mls/hr Sodium Chloride (Normal Saline) 1,000 mls @ 999 mls/hr IV STAT ONE Stop: 09/23/19 10:14 Last Admin: 09/23/19 10:14 Dose: 999 mls/hr Meropenem 1 gm/ Sodium (Chloride) 50 mls @ 100 mls/hr IV Q12H [facility] Last Admin: 09/23/19 10:52 Dose: Not Given Levofloxacin/Dextrose 750 mg/ (Premix) 150 mls @ 100 mls/hr IV Q48H [facility] Last Admin: 09/23/19 11:44 Dose: 100 mls/hr Meropenem/Sodium Chloride 1 gm (/ Premix) 50 mls @ 100 mls/hr IV Q12H [facility] Last Admin: 09/24/19 10:33 Dose: 100 mls/hr Vancomycin HCl 0.75 gm/ Sodium (Chloride) 250 mls @ 250 mls/hr IV Q24H [facility] Last Admin: 09/24/19 11:56 Dose: 250 mls/hr Dextrose/Sodium Chloride (Dextrose 5%-1/2 Ns) 1,000 mls @ 75 mls/hr IV ASDIRECTED [facility] Last Admin: 09/24/19 13:18 Dose: 75 mls/hr Sodium Chloride (Normal Saline) 500 mls @ 999 mls/hr IV .BOLUS ONE Stop: 09/24/19 04:04 Last Admin: 09/24/19 03:43 Dose: 999 mls/hr Ibuprofen (Motrin) 800 mg PO Q6H PRN PRN Reason: Pain (mild 1-3) Ketorolac Tromethamine (Toradol) 15 mg IV Q6H PRN PRN Reason: Pain (moderate 4-6) Levothyroxine Sodium (Synthroid) 75 mcg PO ACBREAKFAST [facility] Levothyroxine Sodium (Levothyroxine) 75 mcg PO ACBREAKFAST [facility] Last Admin: 09/24/19 06:34 Dose: 75 mcg Lidocaine (Xylocaine-Mpf 2%) Confirm Administered Dose 5 ml .ROUTE .STK-MED ONE Stop: 09/22/19 09:43 Last Admin: 09/22/19 10:35 Dose: Not Given Lidocaine HCl (Xylocaine 1%) Confirm Administered Dose 20 ml .ROUTE .STK-MED ONE Stop: 09/20/19 21:44 Last Admin: 09/20/19 22:15 Dose: 20 ml Lorazepam (Ativan) 1 mg IVPUSH Q4H PRN PRN Reason: Anxiety Last Admin: 09/25/19 13:09 Dose: 1 mg Lorazepam (Ativan) 1 mg IVPUSH Q1H PRN PRN Reason: Agitation Last Admin: 09/26/19 06:16 Dose: 1 mg Megestrol Acetate (Megace) 40 mg PO DAILY [facility] Last Admin: 09/24/19 10:33 Dose: 40 mg Metoprolol Tartrate (Lopressor) 2.5 mg IVPUSH ONETIME ONE Stop: 09/24/19 03:13 Last Admin: 09/24/19 03:23 Dose: 2.5 mg Midodrine (Midodrine) 10 mg PO TIDAC [facility] Last Admin: 09/24/19 10:58 Dose: 10 mg Morphine Sulfate (Morphine) 2 mg IVPUSH Q30M PRN PRN Reason: Pain Last Admin: 09/26/19 06:16 Dose: 2 mg Ondansetron HCl (Zofran Odt) 4 mg PO Q4H PRN PRN Reason: nausea, able to take PO Ondansetron HCl (Zofran) 4 mg IVPUSH Q4H PRN PRN Reason: Nausea Last Admin: 09/25/19 13:09 Dose: 4 mg Polyethylene Glycol (Miralax) 17 gm PO DAILY PRN PRN Reason: Constipation Promethazine HCl (Phenergan) 25 mg PO Q8H PRN PRN Reason: Nausea/Vomiting Last Admin: 09/24/19 11:00 Dose: 25 mg Promethazine HCl (Phenergan) 12.5 mg IM Q6H PRN PRN Reason: Nausea Last Admin: 09/23/19 19:57 Dose: 12.5 mg Rivaroxaban (Xarelto) 10 mg PO DAILY [facility] Last Admin: 09/24/19 08:11 Dose: 10 mg Sodium Chloride (Saline Flush) 10 ml FLUSH ASDIRECTED PRN PRN Reason: Keep Vein Open Sodium Chloride (Saline Flush) 2.5 ml FLUSH ASDIRECTED PRN PRN Reason: Keep Vein Open Sodium Chloride ([place] Nasal [place]) 5 ml FAHAD Q4H PRN PRN Reason: Congestion Last Admin: 09/24/19 02:50 Dose: 5 ml Tramadol HCl (Ultram) 100 mg PO Q8H PRN PRN Reason: Pain Last Admin: 09/24/19 13:42 Dose: 100 mg Vancomycin HCl (Pharmacy To Dose - Vancomycin) 1 dose .XX ASDIRECTED [facility] Vancomycin HCl (Pharmacy To Dose - Vancomycin) 1 dose .XX ASDIRECTED [facility] - Problem List & Annotations (1) Acute respiratory failure with hypoxia SNOMED Code(s): 01970739, 540004759 Code(s): J96.01 - ACUTE RESPIRATORY FAILURE WITH HYPOXIA Status: Acute (2) Pneumonia SNOMED Code(s): 879708262 Code(s): J18.9 - PNEUMONIA, UNSPECIFIED ORGANISM Status: Acute Qualifiers: Pneumonia type: due to unspecified organism Laterality: unspecified laterality Lung location: unspecified part of lung Qualified Code(s): J18.9 - Pneumonia, unspecified organism (3) Septic shock SNOMED Code(s): 91326705 Code(s): A41.9 - SEPSIS, UNSPECIFIED ORGANISM; R65.21 - SEVERE SEPSIS WITH SEPTIC SHOCK Status: Acute - Plan Plan:: I have seen and examined the patient with the resident. I have discussed the findings and treatment plan with the resident. I agree with the assessment and plan as outlined in the following note.
[2019-09-23] MEDS: Albuterol/Ipratropium 3.0-0.5 MG/3 ML Neb Soln NEB PRN (19:49)
[2019-09-23] MEDS ORDERED: 50% Dextrose in Water 50 ML Syringe IVPUSH STA (22:02)
--- NOTE | 2019-09-23 22:08 | PN ---
THC Physician - Brief Progress [id number]/21/2020 22:04[facility] Wilmar Ibarra, COURTNEY - DESI (APRYL) - DESI DOMINGUEZPADMA IGNACIOArmandDate of Service 09/23/2019 22:04HPI/Events of Note Camera assessment for heart rate jumping to 1 45-1 63. Discussed with the bedside RN over the phone. Blood pressure is stable. No complaints. Urine output positive. Sinus tachycardia.Labs rev iewed. Sodium 147. Creatinine normal.Assessment and plan1. Severe sepsis off of Levophed from pneu monia and UTI. On antibiotic. Sinus tachycardia. Stat a blood sugar checked showing 20. Hypoglyce karen.Hyponatremia.-Start dextrose 50% push. Follow blood sugar.-DC normal saline and change changed t o D5 half-normal at 75 mils per hour-Get BMP and magnesium and EKG stat.-Aspiration precautionsInterv entions Major-Arrhythmia - evaluation and management, Other: Hypoglycemia
[2019-09-23 22:31] LABS: CARBON DIOXIDE,CO2 14.3 mmol/L (21.0-32.0)
[2019-09-23] MEDS: Dextrose 5%-0.45% NaCl 1,000 ML IV SCH (22:37)
[2019-09-24] MEDS: Albuterol/Ipratropium 3.0-0.5 MG/3 ML Neb Soln NEB PRN ×2 (02:34→14:20)
[2019-09-24] MEDS: Sodium Chloride 0.65% Nasal Spray 45 ML Bottle NAS PRN (02:50)
[2019-09-24] MEDS ORDERED: Metoprolol Tartrate 5 MG/5 ML SDV IVPUSH ONE (03:12)
--- NOTE | 2019-09-24 03:16 | PN ---
THC Physician - Brief Progress [id number]/22/2020 03:13[facility] hariWilmar, COURTNEY - DESI ([facility]ITALJean Pierre) - PADMA TORRESDate of Service 09/24/2019 03:13HPI/Events of Note Camera:Sinus tach 130 to 150's.MAP 65.restingBG now fine on dextrose.off of levo for PNA/sepsos .Lopressor 2.5 mg IV once. watch for worsening hypotension. has CREST syndrome. K/Mag fine. earlier E KG no acute changes, sinus tach.Interventions Intermediate-Arrhythmia - evaluation and managementElec tronically Signed by: ADÁN NOVOA) on 09/24/2019 03:15
[2019-09-24] MEDS ORDERED: Sodium Chloride 0.9% 500 ML IV ONE (03:34)
--- NOTE | 2019-09-24 03:40 | PN ---
THC Physician - Brief Progress WhreERYOTDENC05/22/2020 03:36[facility] hari Staples, COURTNEY - DESI (APRYL) - PADMA TORRESDate of Service 09/24/2019 03:36HPI/Events of Note NS 500 ml bolus once. watch for fluid overload. received lopressor just now.Interventions Inter mediate-Hypotension - evaluation and managementElectronically Signed by: ADÁN NOVOA) on 2019 03:40
[2019-09-24] MEDS: Midodrine 5 MG Tab PO SCH ×2 (06:34→10:58)
[2019-09-24] MEDS: Levothyroxine 75 MCG Tab PO SCH (06:34)
[2019-09-24 06:41] LABS: CARBON DIOXIDE,CO2 14.7 mmol/L (21.0-32.0); POTASSIUM,K 3.9 mmol/L (3.5-5.1)
[2019-09-24] MEDS: Famotidine 20 MG Tab PO SCH ×2 (08:11→20:17)
[2019-09-24] MEDS: Rivaroxaban 10 MG Tab PO SCH (08:11)
[2019-09-24] MEDS: Hydrocortisone Sodium Succinate 100 MG/2 ML SDV IVPUSH SCH (08:11)
--- NOTE | 2019-09-24 08:34 | PN ---
THC Physician - Brief Progress [id number]/22/2020 08:15[facility] Wilmar Ibarra, [place] - ANSLEYN (APRYL) - DESI DOMINGUEZPADMA IGNACIOArmandDate of Service 09/24/2019 08:15HPI/Events of Note EICU progress note:84 year old , frail, woman with CREST syndrome presenting with e.coli septic shock. Overnight patient was found to be tachycardic and given IVF along with 2.5mg IV lopressor.Pat ient seen on camera, looks slighty tachypnic on nasal canula, drinking water with assistance with bed site team. Vitals reviewedLabs/EMR/Imaging reviewedSeptic shock- E Coli as likely source from complic ated UTI. Recommend to D/C levaquin as Mycoplasma/legionella are both negative. Recommend D/C vancomy hiwot given negative cultures x 3 days (can consider doing MRSA nares as well). - Will recommend to di scuss with ID regarding continuation of meropenem, as there are other susceptibilities with higher NE C's. Since treating for sepsis 2/2 to UTI will need 10-14 days total. - Also recommend to pull back t he central line atleast 3cm given its location in R atrium. Hypernatremia- Will recommend free water flushes to prevent further increase. DVT prophy- anticoagulatedGI prophy- pepcidInterventions Major-E lectrolyte abnormality - evaluation and management, Sepsis - evaluation and management
[2019-09-24] MEDS ORDERED: Megestrol 40 MG Tab PO SCH (10:15)
[2019-09-24] MEDS: Meropenem Premix 1 GM in Premix Bag 1 BAG IV SCH (10:33)
[2019-09-24] MEDS: Promethazine 25 MG Tab PO PRN (11:00)
[2019-09-24] MEDS: Dextrose 5%-0.45% NaCl 1,000 ML IV SCH (13:18)
[2019-09-24] MEDS: traMADol 50 MG Tab PO PRN (13:42)
[2019-09-24 14:38] VITALS: BP 139/79; PULSE 105
[2019-09-24] MEDS ORDERED: Atropine 1% Ophth Soln 5 ML BOTTLE SL PRN (14:57)
[2019-09-24] MEDS: Morphine 2 MG/ML Syringe IVPUSH PRN ×5 (16:01→23:54)
--- NOTE | 2019-09-24 16:44 | PCM.PN ---
<Ernie Avitia - Last Filed: 09/24/19 16:38> - General Info Date of Service: 09/24/19 Subjective Update: No acute events overnight. This morning I had a conversation with the patient and her son and daughter at bedside in regards to her goals of care. We discussed patient's current medical situation and her declining health over time. She had decided to proceed with palliative measures only. Will discontinue telemetry, IV lines, arterial line, central line. No more labs. Will dc antibiotics. Will focus on pain and comfort. - Patient Data Vitals - Most Recent: Last Vital Signs Temp 36.4 C 09/24/19 14:00 Pulse 105 H 09/24/19 14:00 Resp 40 H 09/24/19 14:00 BP 139/79 09/24/19 14:00 Pulse Ox 92 L 09/24/19 14:00 Weight - Most Recent: 48.852 kg I&O - Last 24 Hours: Intake & Output 09/24/19 09/24/19 09/24/19 06:59 14:59 22:59 Intake Total 1317 470 Output Total 200 Balance 1117 470 Lab Results Last 24 Hours: Laboratory Results - last 24 hr 09/23/19 09/23/19 09/23/19 Range/Units 22:04 22:10 22:17 WBC (4.0-11.0) K/uL RBC (4.30-5.90) M/uL Hgb (12.0-16.0) g/dL Hct (36.0-46.0) % MCV (80.0-98.0) fL MCH (27.0-32.0) pg MCHC (31.0-37.0) g/dL RDW Std Deviation (28.0-62.0) fl RDW Coeff of Kari (11.0-15.0) % Plt Count (150-400) K/uL MPV (7.40-12.00) fL Add Manual Diff Neutrophils % (Manual) (48.0-80.0) % Band Neutrophils % % Lymphocytes % (Manual) (16.0-40.0) % Monocytes % (Manual) (0.0-15.0) % Myelocytes % % Nucleated RBC % /100WBC Absolute Seg Neuts (1.4-5.7) Band Neutrophils # Lymphocytes # (Manual) (0.6-2.4) Monocytes # (Manual) (0.0-0.8) Absolute Myelocytes Nucleated RBCs # K/uL Sodium 143 (136-145) mmol/L Potassium 4.0 (3.5-5.1) mmol/L Chloride 112 H (98-107) mmol/L Carbon Dioxide 14.3 L (21.0-32.0) mmol/L BUN 35 H (7.0-18.0) mg/dL Creatinine 1.0 (0.6-1.0) mg/dL Est Cr Clr Drug Dosing 32.16 mL/min Estimated GFR (MDRD) 53.0 ml/min Glucose 107 H (74-106) mg/dL POC Glucose 20 L 121 H (60-110) mg/dL Calcium 8.9 (8.5-10.1) mg/dL Magnesium 2.3 (1.8-2.4) mg/dL Total Bilirubin (0.2-1.0) mg/dL AST (15-37) IU/L ALT (14-63) IU/L Alkaline Phosphatase (46-116) U/L Total Protein (6.4-8.2) g/dL Albumin (3.4-5.0) g/dL Globulin (2.6-4.0) g/dL Albumin/Globulin Ratio (0.9-1.6) 09/24/19 09/24/19 09/24/19 Range/Units 03:01 06:10 06:10 WBC 19.68 H (4.0-11.0) K/uL RBC 3.23 L (4.30-5.90) M/uL Hgb 9.5 L (12.0-16.0) g/dL Hct 29.2 L (36.0-46.0) % MCV 90.4 (80.0-98.0) fL MCH 29.4 (27.0-32.0) pg MCHC 32.5 (31.0-37.0) g/dL RDW Std Deviation 49.9 (28.0-62.0) fl RDW Coeff of Kari 15 (11.0-15.0) % Plt Count 261 (150-400) K/uL MPV 9.70 (7.40-12.00) fL Add Manual Diff YES Neutrophils % (Manual) 94 H (48.0-80.0) % Band Neutrophils % 1 % Lymphocytes % (Manual) 3 L (16.0-40.0) % Monocytes % (Manual) 1 (0.0-15.0) % Myelocytes % 1 % Nucleated RBC % 0.3 /100WBC Absolute Seg Neuts 18.5 H (1.4-5.7) Band Neutrophils # 0.2 Lymphocytes # (Manual) 0.6 (0.6-2.4) Monocytes # (Manual) 0.2 (0.0-0.8) Absolute Myelocytes 0.2 Nucleated RBCs # 0 K/uL Sodium 146 H (136-145) mmol/L Potassium 3.9 (3.5-5.1) mmol/L Chloride 115 H (98-107) mmol/L Carbon Dioxide 14.7 L (21.0-32.0) mmol/L BUN 30 H (7.0-18.0) mg/dL Creatinine 0.9 (0.6-1.0) mg/dL Est Cr Clr Drug Dosing 35.74 mL/min Estimated GFR (MDRD) 59.8 ml/min Glucose 154 H (74-106) mg/dL POC Glucose 147 H (60-110) mg/dL Calcium 8.3 L (8.5-10.1) mg/dL Magnesium (1.8-2.4) mg/dL Total Bilirubin 0.2 (0.2-1.0) mg/dL AST 18 (15-37) IU/L ALT 19 (14-63) IU/L Alkaline Phosphatase 95 (46-116) U/L Total Protein 4.7 L (6.4-8.2) g/dL Albumin 1.7 L (3.4-5.0) g/dL Globulin 3.0 (2.6-4.0) g/dL Albumin/Globulin Ratio 0.6 L (0.9-1.6) Chan Results Last 24 Hours: Microbiology 09/20/19 13:33 Aerobic Blood Culture - Preliminary Blood - Venous - Lab Draw NO GROWTH AFTER 3 DAYS Anaerobic Blood Culture - Final 09/20/19 13:00 Aerobic Blood Culture - Preliminary Blood - Venous NO GROWTH AFTER 3 DAYS Anaerobic Blood Culture - Preliminary NO GROWTH AFTER 3 DAYS Med Orders - Current: Current Medications Acetaminophen (Tylenol) 650 mg PO Q4H PRN PRN Reason: Pain (Mild 1-3)/fever Last Admin: 09/21/19 14:20 Dose: 650 mg Atropine Sulfate (Atropine 1% Ophth Soln) 0 ml SL Q1H PRN PRN Reason: Other Docusate Sodium (Colace) 100 mg PO BID PRN PRN Reason: Constipation Famotidine (Pepcid) 20 mg PO BID ANNA Last Admin: 09/24/19 08:11 Dose: 20 mg Morphine Sulfate (Morphine) 2 mg IVPUSH Q30M PRN PRN Reason: Pain Last Admin: 09/24/19 16:01 Dose: 2 mg Ondansetron HCl (Zofran Odt) 4 mg PO Q4H PRN PRN Reason: nausea, able to take PO Ondansetron HCl (Zofran) 4 mg IVPUSH Q4H PRN PRN Reason: Nausea Last Admin: 09/22/19 12:22 Dose: 4 mg Polyethylene Glycol (Miralax) 17 gm PO DAILY PRN PRN Reason: Constipation Promethazine HCl (Phenergan) 25 mg PO Q8H PRN PRN Reason: Nausea/Vomiting Last Admin: 09/24/19 11:00 Dose: 25 mg Promethazine HCl (Phenergan) 12.5 mg IM Q6H PRN PRN Reason: Nausea Last Admin: 09/23/19 19:57 Dose: 12.5 mg Sodium Chloride (Saline Flush) 10 ml FLUSH ASDIRECTED PRN PRN Reason: Keep Vein Open Sodium Chloride (Saline Flush) 2.5 ml FLUSH ASDIRECTED PRN PRN Reason: Keep Vein Open Sodium Chloride ([place] Nasal [place]) 5 ml FAHAD Q4H PRN PRN Reason: Congestion Last Admin: 09/24/19 02:50 Dose: 5 ml Discontinued Medications Hydrocodone Bitart/Acetaminophen ([place]ard[place] 325-5 Mg) 1 tab PO Q6H PRN PRN Reason: Pain Last Admin: 09/23/19 06:10 Dose: 1 tab Albuterol/Ipratropium (Duoneb 3.0-0.5 Mg/3 Ml) 3 ml NEB ONETIME ONE Stop: 09/23/19 11:52 Last Admin: 09/23/19 12:20 Dose: 3 ml Albuterol/Ipratropium (Duoneb 3.0-0.5 Mg/3 Ml) 3 ml NEB Q4HRRT PRN PRN Reason: Shortness of Breath Last Admin: 09/24/19 14:20 Dose: 3 ml Aspirin (Aspirin) 325 mg PO ONETIME ONE Stop: 09/20/19 17:23 Last Admin: 09/20/19 17:45 Dose: 325 mg Dextrose/Water (Dextrose 50% In Water) 50 ml IVPUSH ONETIME STA Stop: 09/23/19 22:03 Last Admin: 09/23/19 22:08 Dose: 50 ml Enoxaparin Sodium (Lovenox) 40 mg SUBCUT Q24H [facility] Last Admin: 09/20/19 21:02 Dose: Not Given Fentanyl (Sublimaze) 25 mcg IVPUSH Q4HR PRN PRN Reason: Severe pain Last Admin: 09/21/19 03:30 Dose: 25 mcg Fentanyl (Fentanyl) 25 mcg IVPUSH ONETIME ONE Stop: 09/21/19 01:40 Last Admin: 09/21/19 02:01 Dose: Not Given Fentanyl (Sublimaze) 25 mcg IVPUSH ONETIME ONE Stop: 09/21/19 02:01 Last Admin: 09/21/19 02:01 Dose: 25 mcg Hydrocortisone Sodium Succinate (Solu-Cortef) 100 mg IVPUSH Q8H [facility] Last Admin: 09/22/19 11:45 Dose: Not Given Hydrocortisone Sodium Succinate (Solu-Cortef) 100 mg IVPUSH ONETIME ONE Stop: 09/21/19 03:31 Last Admin: 09/21/19 03:23 Dose: 100 mg Hydrocortisone Sodium Succinate (Solu-Cortef) 100 mg IVPUSH Q12H [facility] Last Admin: 09/24/19 08:11 Dose: 100 mg Sodium Chloride (Normal Saline) 1,000 mls @ 999 mls/hr IV .Bolus ONE Stop: 09/20/19 14:18 Last Admin: 09/20/19 14:06 Dose: 999 mls/hr Sodium Chloride (Normal Saline) 1,000 mls @ 999 mls/hr IV .Bolus ONE Stop: 09/20/19 14:30 Last Admin: 09/20/19 14:06 Dose: 999 mls/hr Norepinephrine Bitartrate (Norepinephr-0.9% Nacl 4 Mg/250) 4 mg in 250 mls @ 7.5 mls/hr IV TITRATE ANNA; Protocol Last Titration: 09/22/19 07:45 Dose: 0 mcg/min, 0 mls/hr Meropenem 1 gm/ Sodium (Chloride) 100 mls @ 200 mls/hr IV ONETIME ONE Stop: 09/20/19 15:39 Last Admin: 09/20/19 17:30 Dose: Not Given Sodium Chloride (Normal Saline) 1,000 mls @ 999 mls/hr IV .Bolus ONE Stop: 09/20/19 17:45 Last Admin: 09/20/19 17:07 Dose: 999 mls/hr Levofloxacin/Dextrose 750 mg/ (Premix) 150 mls @ 100 mls/hr IV ONETIME ONE Stop: 09/20/19 18:36 Last Admin: 09/20/19 17:46 Dose: 100 mls/hr Piperacillin Sod/Tazobactam (Sod 3.375 gm/ Sodium Chloride) 50 mls @ 100 mls/ hr IV Q8H ANNA Sodium Chloride (Normal Saline) 1,000 mls @ 125 mls/hr IV CONTINUOUS ANNA Last Infusion: 09/21/19 09:15 Dose: 100 mls/hr Pantoprazole Sodium 40 mg/ (Sodium Chloride) 10 mls @ 300 mls/hr IV DAILY ANNA Last Admin: 09/22/19 08:56 Dose: 300 mls/hr Sodium Chloride (Normal Saline) 1,000 mls @ 999 mls/hr IV .Bolus ONE Stop: 09/20/19 20:24 Last Admin: 09/20/19 19:27 Dose: 999 mls/hr Ertapenem 1 gm/ Sodium (Chloride) 50 mls @ 100 mls/hr IV Q24H [facility] Last Admin: 09/21/19 19:47 Dose: 100 mls/hr Vancomycin HCl 1 gm/ Sodium (Chloride) 250 mls @ 166 mls/hr IV Q24H [facility] Last Admin: 09/21/19 20:49 Dose: 166 mls/hr Vasopressin 100 units/ Sodium (Chloride) 100 mls @ 1.8 mls/hr IV TITRATE ANNA Vasopressin 100 units/ Sodium (Chloride) 100 mls @ 1.8 mls/hr IV CONTINUOUS ANNA Last Admin: 09/20/19 22:40 Dose: 0.03 units/min, 1.8 mls/hr Magnesium Sulfate 4 gm/ Premix 100 mls @ 50 mls/hr IV ONETIME ONE Stop: 09/21/19 08:37 Last Admin: 09/21/19 06:48 Dose: 50 mls/hr Levofloxacin/Dextrose 750 mg/ (Premix) 150 mls @ 100 mls/hr IV Q48H [facility] Sodium Chloride (Normal Saline) 1,000 mls @ 100 mls/hr IV Q10H [facility] Last Admin: 09/21/19 20:56 Dose: Not Given Sodium Chloride (Normal Saline) 1,000 mls @ 100 mls/hr IV ASDIRECTED [facility] Last Admin: 09/22/19 02:18 Dose: 100 mls/hr Ceftriaxone Sodium/Dextrose 1 (gm/ Premix) 50 mls @ 100 mls/hr IV Q24H [facility] Last Admin: 09/22/19 13:25 Dose: 100 mls/hr Azithromycin 250 mg/ Sodium (Chloride) 250 mls @ 250 mls/hr IV Q24H [facility] Last Admin: 09/22/19 12:00 Dose: 250 mls/hr Lactated Ringer's (Ringers, Lactated) 1,000 mls @ 75 mls/hr IV ASDIRECTED [facility] Last Admin: 09/23/19 06:05 Dose: 75 mls/hr Sodium Chloride (Normal Saline) 1,000 mls @ 75 mls/hr IV ASDIRECTED [facility] Last Admin: 09/23/19 10:54 Dose: 75 mls/hr Sodium Chloride (Normal Saline) 1,000 mls @ 999 mls/hr IV STAT ONE Stop: 09/23/19 10:14 Last Admin: 09/23/19 10:14 Dose: 999 mls/hr Meropenem 1 gm/ Sodium (Chloride) 50 mls @ 100 mls/hr IV Q12H [facility] Last Admin: 09/23/19 10:52 Dose: Not Given Levofloxacin/Dextrose 750 mg/ (Premix) 150 mls @ 100 mls/hr IV Q48H [facility] Last Admin: 09/23/19 11:44 Dose: 100 mls/hr Meropenem/Sodium Chloride 1 gm (/ Premix) 50 mls @ 100 mls/hr IV Q12H [facility] Last Admin: 09/24/19 10:33 Dose: 100 mls/hr Vancomycin HCl 0.75 gm/ Sodium (Chloride) 250 mls @ 250 mls/hr IV Q24H [facility] Last Admin: 09/24/19 11:56 Dose: 250 mls/hr Dextrose/Sodium Chloride (Dextrose 5%-1/2 Ns) 1,000 mls @ 75 mls/hr IV ASDIRECTED [facility] Last Admin: 09/24/19 13:18 Dose: 75 mls/hr Sodium Chloride (Normal Saline) 500 mls @ 999 mls/hr IV .BOLUS ONE Stop: 09/24/19 04:04 Last Admin: 09/24/19 03:43 Dose: 999 mls/hr Ibuprofen (Motrin) 800 mg PO Q6H PRN PRN Reason: Pain (mild 1-3) Ketorolac Tromethamine (Toradol) 15 mg IV Q6H PRN PRN Reason: Pain (moderate 4-6) Levothyroxine Sodium (Synthroid) 75 mcg PO ACBREAKFAST [facility] Levothyroxine Sodium (Levothyroxine) 75 mcg PO ACBREAKFAST [facility] Last Admin: 09/24/19 06:34 Dose: 75 mcg Lidocaine (Xylocaine-Mpf 2%) Confirm Administered Dose 5 ml .ROUTE .STK-MED ONE Stop: 09/22/19 09:43 Last Admin: 09/22/19 10:35 Dose: Not Given Lidocaine HCl (Xylocaine 1%) Confirm Administered Dose 20 ml .ROUTE .STK-MED ONE Stop: 09/20/19 21:44 Last Admin: 09/20/19 22:15 Dose: 20 ml Megestrol Acetate (Megace) 40 mg PO DAILY [facility] Last Admin: 09/24/19 10:33 Dose: 40 mg Metoprolol Tartrate (Lopressor) 2.5 mg IVPUSH ONETIME ONE Stop: 09/24/19 03:13 Last Admin: 09/24/19 03:23 Dose: 2.5 mg Midodrine (Midodrine) 10 mg PO TIDAC [facility] Last Admin: 09/24/19 10:58 Dose: 10 mg Rivaroxaban (Xarelto) 10 mg PO DAILY [facility] Last Admin: 09/24/19 08:11 Dose: 10 mg Tramadol HCl (Ultram) 100 mg PO Q8H PRN PRN Reason: Pain Last Admin: 09/24/19 13:42 Dose: 100 mg Vancomycin HCl (Pharmacy To Dose - Vancomycin) 1 dose .XX ASDIRECTED [facility] Vancomycin HCl (Pharmacy To Dose - Vancomycin) 1 dose .XX ASDIRECTED ANNA - Exam General: Alert, Oriented, Cooperative, No Acute Distress Lungs: Decreased Breath Sounds, Crackles, Rhonchi Cardiovascular: Irregular Rhythm, Tachycardia GI/Abdominal Exam: Normal Bowel Sounds, Soft, Non-Tender, No Distention Extremities: No Pedal Edema Skin: Warm, Dry Sepsis Event Note - Evaluation Sepsis Screening Result: Severe Sepsis Risk - Focused Exam Vital Signs: Vital Signs Temp Pulse Resp BP BP Pulse Ox Pulse Ox 09/24/19 14:00 36.4 C 105 H 40 H 117/75 139/79 92 L 09/24/19 13:00 36.4 C 103 H 32 H 138/77 157/84 H 93 L 09/24/19 12:00 36.4 C 99 30 H 127/67 143/75 H 92 L 09/24/19 11:00 36.4 C 101 H 26 H 123/74 136/72 94 L 09/24/19 10:11 36.3 C 105 H 16 108/83 147/83 H 92 L 09/24/19 09:00 36.6 C 108 H 20 108/64 94 L 09/24/19 08:10 36.6 C 110 H 23 H 124/73 140/74 93 L 09/24/19 06:58 25 H 103/57 L 100/57 L 95 09/24/19 06:00 26 H 93/53 L 102/55 L 94 L 94 L 09/24/19 05:33 95/50 L 90/47 L 09/24/19 05:10 26 H 82/58 L 96/54 L 95 09/24/19 04:43 36 H 94 L Date Exam was Performed: 09/24/19 Time Exam was Performed: 16:38 - Problem List Review Problem List Initiated/Reviewed/Updated: Yes - My Orders Last 24 Hours: My Active Orders 09/24/19 12:35 Transfer Patient (Change bed) [ADT] Routine 09/24/19 14:50 Code Status [Resuscitation Status] Routine 09/24/19 14:56 Morphine 2 mg IVPUSH Q30M PRN 09/24/19 14:57 Atropine 1% [Atropine 1% Ophth Soln] 0 ml SL Q1H PRN 09/26/19 10:46 Consult to Physical Therapy [PT Evaluation and Treatment] [CONS] Routine - Plan Plan:: A/P Will proceed with palliative measures since we had a long discussion with patient and family regarding her health and prognosis. She would like to focus on pain control and comfort. Will discontinue telemetry, IV lines, arterial line , central line. No labs. No antibiotics. <Waqas Child - Last Filed: 10/04/19 11:44> - Patient Data Vitals - Most Recent: Last Vital Signs Temp 36.4 C 09/24/19 14:00 Pulse 105 H 09/24/19 14:00 Resp 40 H 09/24/19 14:00 BP 139/79 09/24/19 14:00 Pulse Ox 92 L 09/24/19 14:00 Med Orders - Current: Current Medications Discontinued Medications Acetaminophen (Tylenol) 650 mg PO Q4H PRN PRN Reason: Pain (Mild 1-3)/fever Last Admin: 09/21/19 14:20 Dose: 650 mg Hydrocodone Bitart/Acetaminophen ([place] 325-5 Mg) 1 tab PO Q6H PRN PRN Reason: Pain Last Admin: 09/23/19 06:10 Dose: 1 tab Albuterol/Ipratropium (Duoneb 3.0-0.5 Mg/3 Ml) 3 ml NEB ONETIME ONE Stop: 09/23/19 11:52 Last Admin: 09/23/19 12:20 Dose: 3 ml Albuterol/Ipratropium (Duoneb 3.0-0.5 Mg/3 Ml) 3 ml NEB Q4HRRT PRN PRN Reason: Shortness of Breath Last Admin: 09/24/19 14:20 Dose: 3 ml Aspirin (Aspirin) 325 mg PO ONETIME ONE Stop: 09/20/19 17:23 Last Admin: 09/20/19 17:45 Dose: 325 mg Atropine Sulfate (Atropine 1% Ophth Soln) 0 ml SL Q1H PRN PRN Reason: Other Dextrose/Water (Dextrose 50% In Water) 50 ml IVPUSH ONETIME STA Stop: 09/23/19 22:03 Last Admin: 09/23/19 22:08 Dose: 50 ml Docusate Sodium (Colace) 100 mg PO BID PRN PRN Reason: Constipation Enoxaparin Sodium (Lovenox) 40 mg SUBCUT Q24H [facility] Last Admin: 09/20/19 21:02 Dose: Not Given Famotidine (Pepcid) 20 mg PO BID [facility] Last Admin: 09/26/19 11:05 Dose: Not Given Fentanyl (Sublimaze) 25 mcg IVPUSH Q4HR PRN PRN Reason: Severe pain Last Admin: 09/21/19 03:30 Dose: 25 mcg Fentanyl (Fentanyl) 25 mcg IVPUSH ONETIME ONE Stop: 09/21/19 01:40 Last Admin: 09/21/19 02:01 Dose: Not Given Fentanyl (Sublimaze) 25 mcg IVPUSH ONETIME ONE Stop: 09/21/19 02:01 Last Admin: 09/21/19 02:01 Dose: 25 mcg Hydrocortisone Sodium Succinate (Solu-Cortef) 100 mg IVPUSH Q8H [facility] Last Admin: 09/22/19 11:45 Dose: Not Given Hydrocortisone Sodium Succinate (Solu-Cortef) 100 mg IVPUSH ONETIME ONE Stop: 09/21/19 03:31 Last Admin: 09/21/19 03:23 Dose: 100 mg Hydrocortisone Sodium Succinate (Solu-Cortef) 100 mg IVPUSH Q12H [facility] Last Admin: 09/24/19 08:11 Dose: 100 mg Sodium Chloride (Normal Saline) 1,000 mls @ 999 mls/hr IV .Bolus ONE Stop: 09/20/19 14:18 Last Admin: 09/20/19 14:06 Dose: 999 mls/hr Sodium Chloride (Normal Saline) 1,000 mls @ 999 mls/hr IV .Bolus ONE Stop: 09/20/19 14:30 Last Admin: 09/20/19 14:06 Dose: 999 mls/hr Norepinephrine Bitartrate (Norepinephr-0.9% Nacl 4 Mg/250) 4 mg in 250 mls @ 7.5 mls/hr IV TITRATE ANNA; Protocol Last Titration: 09/22/19 07:45 Dose: 0 mcg/min, 0 mls/hr Meropenem 1 gm/ Sodium (Chloride) 100 mls @ 200 mls/hr IV ONETIME ONE Stop: 09/20/19 15:39 Last Admin: 09/20/19 17:30 Dose: Not Given Sodium Chloride (Normal Saline) 1,000 mls @ 999 mls/hr IV .Bolus ONE Stop: 09/20/19 17:45 Last Admin: 09/20/19 17:07 Dose: 999 mls/hr Levofloxacin/Dextrose 750 mg/ (Premix) 150 mls @ 100 mls/hr IV ONETIME ONE Stop: 09/20/19 18:36 Last Admin: 09/20/19 17:46 Dose: 100 mls/hr Piperacillin Sod/Tazobactam (Sod 3.375 gm/ Sodium Chloride) 50 mls @ 100 mls/ hr IV Q8H [facility] Sodium Chloride (Normal Saline) 1,000 mls @ 125 mls/hr IV CONTINUOUS ANNA Last Infusion: 09/21/19 09:15 Dose: 100 mls/hr Pantoprazole Sodium 40 mg/ (Sodium Chloride) 10 mls @ 300 mls/hr IV DAILY [facility] Last Admin: 09/22/19 08:56 Dose: 300 mls/hr Sodium Chloride (Normal Saline) 1,000 mls @ 999 mls/hr IV .Bolus ONE Stop: 09/20/19 20:24 Last Admin: 09/20/19 19:27 Dose: 999 mls/hr Ertapenem 1 gm/ Sodium (Chloride) 50 mls @ 100 mls/hr IV Q24H [facility] Last Admin: 09/21/19 19:47 Dose: 100 mls/hr Vancomycin HCl 1 gm/ Sodium (Chloride) 250 mls @ 166 mls/hr IV Q24H [facility] Last Admin: 09/21/19 20:49 Dose: 166 mls/hr Vasopressin 100 units/ Sodium (Chloride) 100 mls @ 1.8 mls/hr IV TITRATE ANNA Vasopressin 100 units/ Sodium (Chloride) 100 mls @ 1.8 mls/hr IV CONTINUOUS ANNA Last Admin: 09/20/19 22:40 Dose: 0.03 units/min, 1.8 mls/hr Magnesium Sulfate 4 gm/ Premix 100 mls @ 50 mls/hr IV ONETIME ONE Stop: 09/21/19 08:37 Last Admin: 09/21/19 06:48 Dose: 50 mls/hr Levofloxacin/Dextrose 750 mg/ (Premix) 150 mls @ 100 mls/hr IV Q48H [facility] Sodium Chloride (Normal Saline) 1,000 mls @ 100 mls/hr IV Q10H [facility] Last Admin: 09/21/19 20:56 Dose: Not Given Sodium Chloride (Normal Saline) 1,000 mls @ 100 mls/hr IV ASDIRECTED [facility] Last Admin: 09/22/19 02:18 Dose: 100 mls/hr Ceftriaxone Sodium/Dextrose 1 (gm/ Premix) 50 mls @ 100 mls/hr IV Q24H [facility] Last Admin: 09/22/19 13:25 Dose: 100 mls/hr Azithromycin 250 mg/ Sodium (Chloride) 250 mls @ 250 mls/hr IV Q24H [facility] Last Admin: 09/22/19 12:00 Dose: 250 mls/hr Lactated Ringer's (Ringers, Lactated) 1,000 mls @ 75 mls/hr IV ASDIRECTED [facility] Last Admin: 09/23/19 06:05 Dose: 75 mls/hr Sodium Chloride (Normal Saline) 1,000 mls @ 75 mls/hr IV ASDIRECTED [facility] Last Admin: 09/23/19 10:54 Dose: 75 mls/hr Sodium Chloride (Normal Saline) 1,000 mls @ 999 mls/hr IV STAT ONE Stop: 09/23/19 10:14 Last Admin: 09/23/19 10:14 Dose: 999 mls/hr Meropenem 1 gm/ Sodium (Chloride) 50 mls @ 100 mls/hr IV Q12H [facility] Last Admin: 09/23/19 10:52 Dose: Not Given Levofloxacin/Dextrose 750 mg/ (Premix) 150 mls @ 100 mls/hr IV Q48H [facility] Last Admin: 09/23/19 11:44 Dose: 100 mls/hr Meropenem/Sodium Chloride 1 gm (/ Premix) 50 mls @ 100 mls/hr IV Q12H [facility] Last Admin: 09/24/19 10:33 Dose: 100 mls/hr Vancomycin HCl 0.75 gm/ Sodium (Chloride) 250 mls @ 250 mls/hr IV Q24H [facility] Last Admin: 09/24/19 11:56 Dose: 250 mls/hr Dextrose/Sodium Chloride (Dextrose 5%-1/2 Ns) 1,000 mls @ 75 mls/hr IV ASDIRECTED [facility] Last Admin: 09/24/19 13:18 Dose: 75 mls/hr Sodium Chloride (Normal Saline) 500 mls @ 999 mls/hr IV .BOLUS ONE Stop: 09/24/19 04:04 Last Admin: 09/24/19 03:43 Dose: 999 mls/hr Ibuprofen (Motrin) 800 mg PO Q6H PRN PRN Reason: Pain (mild 1-3) Ketorolac Tromethamine (Toradol) 15 mg IV Q6H PRN PRN Reason: Pain (moderate 4-6) Levothyroxine Sodium (Synthroid) 75 mcg PO ACBREAKFAST ANNA Levothyroxine Sodium (Levothyroxine) 75 mcg PO ACBREAKFAST ANNA Last Admin: 09/24/19 06:34 Dose: 75 mcg Lidocaine (Xylocaine-Mpf 2%) Confirm Administered Dose 5 ml .ROUTE .STK-MED ONE Stop: 09/22/19 09:43 Last Admin: 09/22/19 10:35 Dose: Not Given Lidocaine HCl (Xylocaine 1%) Confirm Administered Dose 20 ml .ROUTE .STK-MED ONE Stop: 09/20/19 21:44 Last Admin: 09/20/19 22:15 Dose: 20 ml Lorazepam (Ativan) 1 mg IVPUSH Q4H PRN PRN Reason: Anxiety Last Admin: 09/25/19 13:09 Dose: 1 mg Lorazepam (Ativan) 1 mg IVPUSH Q1H PRN PRN Reason: Agitation Last Admin: 09/26/19 06:16 Dose: 1 mg Megestrol Acetate (Megace) 40 mg PO DAILY [facility] Last Admin: 09/24/19 10:33 Dose: 40 mg Metoprolol Tartrate (Lopressor) 2.5 mg IVPUSH ONETIME ONE Stop: 09/24/19 03:13 Last Admin: 09/24/19 03:23 Dose: 2.5 mg Midodrine (Midodrine) 10 mg PO TIDAC [facility] Last Admin: 09/24/19 10:58 Dose: 10 mg Morphine Sulfate (Morphine) 2 mg IVPUSH Q30M PRN PRN Reason: Pain Last Admin: 09/26/19 06:16 Dose: 2 mg Ondansetron HCl (Zofran Odt) 4 mg PO Q4H PRN PRN Reason: nausea, able to take PO Ondansetron HCl (Zofran) 4 mg IVPUSH Q4H PRN PRN Reason: Nausea Last Admin: 09/25/19 13:09 Dose: 4 mg Polyethylene Glycol (Miralax) 17 gm PO DAILY PRN PRN Reason: Constipation Promethazine HCl (Phenergan) 25 mg PO Q8H PRN PRN Reason: Nausea/Vomiting Last Admin: 09/24/19 11:00 Dose: 25 mg Promethazine HCl (Phenergan) 12.5 mg IM Q6H PRN PRN Reason: Nausea Last Admin: 09/23/19 19:57 Dose: 12.5 mg Rivaroxaban (Xarelto) 10 mg PO DAILY ANNA Last Admin: 09/24/19 08:11 Dose: 10 mg Sodium Chloride (Saline Flush) 10 ml FLUSH ASDIRECTED PRN PRN Reason: Keep Vein Open Sodium Chloride (Saline Flush) 2.5 ml FLUSH ASDIRECTED PRN PRN Reason: Keep Vein Open Sodium Chloride ([place] Nasal [place]) 5 ml FAHAD Q4H PRN PRN Reason: Congestion Last Admin: 09/24/19 02:50 Dose: 5 ml Tramadol HCl (Ultram) 100 mg PO Q8H PRN PRN Reason: Pain Last Admin: 09/24/19 13:42 Dose: 100 mg Vancomycin HCl (Pharmacy To Dose - Vancomycin) 1 dose .XX ASDIRECTED [facility] Vancomycin HCl (Pharmacy To Dose - Vancomycin) 1 dose .XX ASDIRECTED [facility] - Problem List & Annotations (1) Acute respiratory failure with hypoxia SNOMED Code(s): 74569601, 583955923 Code(s): J96.01 - ACUTE RESPIRATORY FAILURE WITH HYPOXIA Status: Acute (2) Pneumonia SNOMED Code(s): 004497502 Code(s): J18.9 - PNEUMONIA, UNSPECIFIED ORGANISM Status: Acute Qualifiers: Pneumonia type: due to unspecified organism Laterality: unspecified laterality Lung location: unspecified part of lung Qualified Code(s): J18.9 - Pneumonia, unspecified organism (3) Septic shock SNOMED Code(s): 13707465 Code(s): A41.9 - SEPSIS, UNSPECIFIED ORGANISM; R65.21 - SEVERE SEPSIS WITH SEPTIC SHOCK Status: Acute - Plan Plan:: I have seen and examined the patient with the resident. I have discussed the findings and treatment plan with the resident. I agree with the assessment and plan as outlined in the following note.
[2019-09-24] MEDS: LORazepam 2 MG/ML SDV IVPUSH PRN (20:55)
[2019-09-25] MEDS: Morphine 2 MG/ML Syringe IVPUSH PRN ×14 (02:40→20:57)
[2019-09-25] MEDS: LORazepam 2 MG/ML SDV IVPUSH PRN ×7 (08:52→19:06)
[2019-09-25] MEDS: Ondansetron 4 MG/2 ML SDV IVPUSH PRN ×2 (08:52→13:09)
[2019-09-25] MEDS: Famotidine 20 MG Tab PO SCH ×2 (09:42→22:29)
--- NOTE | 2019-09-25 14:31 | PCM.PN ---
- General Info Date of Service: 09/25/19 Admission Dx/Problem (Free Text): Admission Diagnosis/Problem Admission Diagnosis/Problem Pneumonia Subjective Update: Has been comfortable overnight. Currently on palliative care per patients wishes , family at bedside. - Review of Systems Systems Review Comment:: unable to obtain - Patient Data Vitals - Most Recent: Last Vital Signs Temp 36.4 C 09/24/19 14:00 Pulse 105 H 09/24/19 14:00 Resp 40 H 09/24/19 14:00 BP 139/79 09/24/19 14:00 Pulse Ox 92 L 09/24/19 14:00 Weight - Most Recent: 48.852 kg I&O - Last 24 Hours: Intake & Output 09/24/19 09/25/19 09/25/19 22:59 06:59 14:59 Intake Total 1019 Output Total 280 Balance 739 Chan Results Last 24 Hours: Microbiology 09/20/19 13:33 Aerobic Blood Culture - Preliminary Blood - Venous - Lab Draw NO GROWTH AFTER 4 DAYS Anaerobic Blood Culture - Final 09/20/19 13:00 Aerobic Blood Culture - Preliminary Blood - Venous NO GROWTH AFTER 4 DAYS Anaerobic Blood Culture - Preliminary NO GROWTH AFTER 4 DAYS Med Orders - Current: Current Medications Acetaminophen (Tylenol) 650 mg PO Q4H PRN PRN Reason: Pain (Mild 1-3)/fever Last Admin: 09/21/19 14:20 Dose: 650 mg Atropine Sulfate (Atropine 1% Ophth Soln) 0 ml SL Q1H PRN PRN Reason: Other Docusate Sodium (Colace) 100 mg PO BID PRN PRN Reason: Constipation Famotidine (Pepcid) 20 mg PO BID ANNA Last Admin: 09/25/19 09:42 Dose: Not Given Lorazepam (Ativan) 1 mg IVPUSH Q4H PRN PRN Reason: Anxiety Last Admin: 09/25/19 13:09 Dose: 1 mg Morphine Sulfate (Morphine) 2 mg IVPUSH Q30M PRN PRN Reason: Pain Last Admin: 09/25/19 14:14 Dose: 2 mg Ondansetron HCl (Zofran Odt) 4 mg PO Q4H PRN PRN Reason: nausea, able to take PO Ondansetron HCl (Zofran) 4 mg IVPUSH Q4H PRN PRN Reason: Nausea Last Admin: 09/25/19 13:09 Dose: 4 mg Polyethylene Glycol (Miralax) 17 gm PO DAILY PRN PRN Reason: Constipation Promethazine HCl (Phenergan) 25 mg PO Q8H PRN PRN Reason: Nausea/Vomiting Last Admin: 09/24/19 11:00 Dose: 25 mg Promethazine HCl (Phenergan) 12.5 mg IM Q6H PRN PRN Reason: Nausea Last Admin: 09/23/19 19:57 Dose: 12.5 mg Sodium Chloride (Saline Flush) 10 ml FLUSH ASDIRECTED PRN PRN Reason: Keep Vein Open Sodium Chloride (Saline Flush) 2.5 ml FLUSH ASDIRECTED PRN PRN Reason: Keep Vein Open Sodium Chloride ([place] Nasal [place]) 5 ml FAHAD Q4H PRN PRN Reason: Congestion Last Admin: 09/24/19 02:50 Dose: 5 ml Discontinued Medications Hydrocodone Bitart/Acetaminophen ([place] 325-5 Mg) 1 tab PO Q6H PRN PRN Reason: Pain Last Admin: 09/23/19 06:10 Dose: 1 tab Albuterol/Ipratropium (Duoneb 3.0-0.5 Mg/3 Ml) 3 ml NEB ONETIME ONE Stop: 09/23/19 11:52 Last Admin: 09/23/19 12:20 Dose: 3 ml Albuterol/Ipratropium (Duoneb 3.0-0.5 Mg/3 Ml) 3 ml NEB Q4HRRT PRN PRN Reason: Shortness of Breath Last Admin: 09/24/19 14:20 Dose: 3 ml Aspirin (Aspirin) 325 mg PO ONETIME ONE Stop: 09/20/19 17:23 Last Admin: 09/20/19 17:45 Dose: 325 mg Dextrose/Water (Dextrose 50% In Water) 50 ml IVPUSH ONETIME STA Stop: 09/23/19 22:03 Last Admin: 09/23/19 22:08 Dose: 50 ml Enoxaparin Sodium (Lovenox) 40 mg SUBCUT Q24H ANNA Last Admin: 09/20/19 21:02 Dose: Not Given Fentanyl (Sublimaze) 25 mcg IVPUSH Q4HR PRN PRN Reason: Severe pain Last Admin: 09/21/19 03:30 Dose: 25 mcg Fentanyl (Fentanyl) 25 mcg IVPUSH ONETIME ONE Stop: 09/21/19 01:40 Last Admin: 09/21/19 02:01 Dose: Not Given Fentanyl (Sublimaze) 25 mcg IVPUSH ONETIME ONE Stop: 09/21/19 02:01 Last Admin: 09/21/19 02:01 Dose: 25 mcg Hydrocortisone Sodium Succinate (Solu-Cortef) 100 mg IVPUSH Q8H ANNA Last Admin: 09/22/19 11:45 Dose: Not Given Hydrocortisone Sodium Succinate (Solu-Cortef) 100 mg IVPUSH ONETIME ONE Stop: 09/21/19 03:31 Last Admin: 09/21/19 03:23 Dose: 100 mg Hydrocortisone Sodium Succinate (Solu-Cortef) 100 mg IVPUSH Q12H ANNA Last Admin: 09/24/19 08:11 Dose: 100 mg Sodium Chloride (Normal Saline) 1,000 mls @ 999 mls/hr IV .Bolus ONE Stop: 09/20/19 14:18 Last Admin: 09/20/19 14:06 Dose: 999 mls/hr Sodium Chloride (Normal Saline) 1,000 mls @ 999 mls/hr IV .Bolus ONE Stop: 09/20/19 14:30 Last Admin: 09/20/19 14:06 Dose: 999 mls/hr Norepinephrine Bitartrate (Norepinephr-0.9% Nacl 4 Mg/250) 4 mg in 250 mls @ 7.5 mls/hr IV TITRATE ANNA; Protocol Last Titration: 09/22/19 07:45 Dose: 0 mcg/min, 0 mls/hr Meropenem 1 gm/ Sodium (Chloride) 100 mls @ 200 mls/hr IV ONETIME ONE Stop: 09/20/19 15:39 Last Admin: 09/20/19 17:30 Dose: Not Given Sodium Chloride (Normal Saline) 1,000 mls @ 999 mls/hr IV .Bolus ONE Stop: 09/20/19 17:45 Last Admin: 09/20/19 17:07 Dose: 999 mls/hr Levofloxacin/Dextrose 750 mg/ (Premix) 150 mls @ 100 mls/hr IV ONETIME ONE Stop: 09/20/19 18:36 Last Admin: 09/20/19 17:46 Dose: 100 mls/hr Piperacillin Sod/Tazobactam (Sod 3.375 gm/ Sodium Chloride) 50 mls @ 100 mls/ hr IV Q8H ANNA Sodium Chloride (Normal Saline) 1,000 mls @ 125 mls/hr IV CONTINUOUS [facility] Last Infusion: 09/21/19 09:15 Dose: 100 mls/hr Pantoprazole Sodium 40 mg/ (Sodium Chloride) 10 mls @ 300 mls/hr IV DAILY ANNA Last Admin: 09/22/19 08:56 Dose: 300 mls/hr Sodium Chloride (Normal Saline) 1,000 mls @ 999 mls/hr IV .Bolus ONE Stop: 09/20/19 20:24 Last Admin: 09/20/19 19:27 Dose: 999 mls/hr Ertapenem 1 gm/ Sodium (Chloride) 50 mls @ 100 mls/hr IV Q24H [facility] Last Admin: 09/21/19 19:47 Dose: 100 mls/hr Vancomycin HCl 1 gm/ Sodium (Chloride) 250 mls @ 166 mls/hr IV Q24H [facility] Last Admin: 09/21/19 20:49 Dose: 166 mls/hr Vasopressin 100 units/ Sodium (Chloride) 100 mls @ 1.8 mls/hr IV TITRATE ANNA Vasopressin 100 units/ Sodium (Chloride) 100 mls @ 1.8 mls/hr IV CONTINUOUS [facility] Last Admin: 09/20/19 22:40 Dose: 0.03 units/min, 1.8 mls/hr Magnesium Sulfate 4 gm/ Premix 100 mls @ 50 mls/hr IV ONETIME ONE Stop: 09/21/19 08:37 Last Admin: 09/21/19 06:48 Dose: 50 mls/hr Levofloxacin/Dextrose 750 mg/ (Premix) 150 mls @ 100 mls/hr IV Q48H [facility] Sodium Chloride (Normal Saline) 1,000 mls @ 100 mls/hr IV Q10H [facility] Last Admin: 09/21/19 20:56 Dose: Not Given Sodium Chloride (Normal Saline) 1,000 mls @ 100 mls/hr IV ASDIRECTED [facility] Last Admin: 09/22/19 02:18 Dose: 100 mls/hr Ceftriaxone Sodium/Dextrose 1 (gm/ Premix) 50 mls @ 100 mls/hr IV Q24H [facility] Last Admin: 09/22/19 13:25 Dose: 100 mls/hr Azithromycin 250 mg/ Sodium (Chloride) 250 mls @ 250 mls/hr IV Q24H [facility] Last Admin: 09/22/19 12:00 Dose: 250 mls/hr Lactated Ringer's (Ringers, Lactated) 1,000 mls @ 75 mls/hr IV ASDIRECTED [facility] Last Admin: 09/23/19 06:05 Dose: 75 mls/hr Sodium Chloride (Normal Saline) 1,000 mls @ 75 mls/hr IV ASDIRECTED [facility] Last Admin: 09/23/19 10:54 Dose: 75 mls/hr Sodium Chloride (Normal Saline) 1,000 mls @ 999 mls/hr IV STAT ONE Stop: 09/23/19 10:14 Last Admin: 09/23/19 10:14 Dose: 999 mls/hr Meropenem 1 gm/ Sodium (Chloride) 50 mls @ 100 mls/hr IV Q12H [facility] Last Admin: 09/23/19 10:52 Dose: Not Given Levofloxacin/Dextrose 750 mg/ (Premix) 150 mls @ 100 mls/hr IV Q48H [facility] Last Admin: 09/23/19 11:44 Dose: 100 mls/hr Meropenem/Sodium Chloride 1 gm (/ Premix) 50 mls @ 100 mls/hr IV Q12H [facility] Last Admin: 09/24/19 10:33 Dose: 100 mls/hr Vancomycin HCl 0.75 gm/ Sodium (Chloride) 250 mls @ 250 mls/hr IV Q24H [facility] Last Admin: 09/24/19 11:56 Dose: 250 mls/hr Dextrose/Sodium Chloride (Dextrose 5%-1/2 Ns) 1,000 mls @ 75 mls/hr IV ASDIRECTED [facility] Last Admin: 09/24/19 13:18 Dose: 75 mls/hr Sodium Chloride (Normal Saline) 500 mls @ 999 mls/hr IV .BOLUS ONE Stop: 09/24/19 04:04 Last Admin: 09/24/19 03:43 Dose: 999 mls/hr Ibuprofen (Motrin) 800 mg PO Q6H PRN PRN Reason: Pain (mild 1-3) Ketorolac Tromethamine (Toradol) 15 mg IV Q6H PRN PRN Reason: Pain (moderate 4-6) Levothyroxine Sodium (Synthroid) 75 mcg PO ACBREAKFAST [facility] Levothyroxine Sodium (Levothyroxine) 75 mcg PO ACBREAKFAST [facility] Last Admin: 09/24/19 06:34 Dose: 75 mcg Lidocaine (Xylocaine-Mpf 2%) Confirm Administered Dose 5 ml .ROUTE .STK-MED ONE Stop: 09/22/19 09:43 Last Admin: 09/22/19 10:35 Dose: Not Given Lidocaine HCl (Xylocaine 1%) Confirm Administered Dose 20 ml .ROUTE .STK-MED ONE Stop: 09/20/19 21:44 Last Admin: 09/20/19 22:15 Dose: 20 ml Megestrol Acetate (Megace) 40 mg PO DAILY [facility] Last Admin: 09/24/19 10:33 Dose: 40 mg Metoprolol Tartrate (Lopressor) 2.5 mg IVPUSH ONETIME ONE Stop: 09/24/19 03:13 Last Admin: 09/24/19 03:23 Dose: 2.5 mg Midodrine (Midodrine) 10 mg PO TIDAC [facility] Last Admin: 09/24/19 10:58 Dose: 10 mg Rivaroxaban (Xarelto) 10 mg PO DAILY [facility] Last Admin: 09/24/19 08:11 Dose: 10 mg Tramadol HCl (Ultram) 100 mg PO Q8H PRN PRN Reason: Pain Last Admin: 09/24/19 13:42 Dose: 100 mg Vancomycin HCl (Pharmacy To Dose - Vancomycin) 1 dose .XX ASDIRECTED [facility] Vancomycin HCl (Pharmacy To Dose - Vancomycin) 1 dose .XX ASDIRECTED [facility] - Exam Quality Assessment: Supplemental Oxygen General: Sedated Neck: Supple, Trachea Midline Lungs: Decreased Breath Sounds, Rales Cardiovascular: Regular Rate, Regular Rhythm GI/Abdominal Exam: Normal Bowel Sounds, Soft Skin: Warm Sepsis Event Note - Evaluation Sepsis Screening Result: Sepsis Risk - Problem List & Annotations (1) Acute respiratory failure with hypoxia SNOMED Code(s): 44205140, 429156898 Code(s): J96.01 - ACUTE RESPIRATORY FAILURE WITH HYPOXIA Status: Acute Current Visit: Yes (2) Pneumonia SNOMED Code(s): 970230722 Code(s): J18.9 - PNEUMONIA, UNSPECIFIED ORGANISM Status: Acute Current Visit: Yes Qualifiers: Pneumonia type: due to unspecified organism Laterality: unspecified laterality Lung location: unspecified part of lung Qualified Code(s): J18.9 - Pneumonia, unspecified organism (3) Septic shock SNOMED Code(s): 68403415 Code(s): A41.9 - SEPSIS, UNSPECIFIED ORGANISM; R65.21 - SEVERE SEPSIS WITH SEPTIC SHOCK Status: Acute Current Visit: Yes - Problem List Review Problem List Initiated/Reviewed/Updated: Yes - Plan Plan:: A/P: Patients family at bedside, patient has declined IV antibiotics, family wants patient to be purely comfort care/palliative measures as per patients wishes no aggressive tenement including IV antibiotics or IV fluids, she wanted comfort care measures. Will cont palliative measures with Ativan and morphine.
[2019-09-26] MEDS: Morphine 2 MG/ML Syringe IVPUSH PRN ×4 (00:09→06:16)
[2019-09-26] MEDS: LORazepam 2 MG/ML SDV IVPUSH PRN ×2 (02:12→06:16)
--- NOTE | 2019-09-26 09:13 | PCM.DCSUM1 ---
<Ernie Avitia - Last Filed: 09/26/19 14:06> Discharge Summary - Hospital Course Free Text/Narrative:: 84 y/o female presenting to the ER with worsening shortness of breath, weakness. Admitted for septic shock secondary multifocal pneumonia and UTI. Started on Norepinephrine and started on broad spectrum antibiotics which included Vancomycin, Levaquin and Ertapenem. She was able to be weaned off pressors, however, her BP remained labile needing on and off pressors. She was started on Midodrine and maintenance fluids. She required between 4-6 L O2 NC. Her poor medical prognosis was discussed with her and her family. The patient and family decided to transition to palliative, comfort care measures due to worsening medical condition. She on 09/26/2019 at 7:30 am. - Discharge Data Discharge Date: 09/26/19 Discharge Disposition: 20 Condition: Critical - Referral to Home Health Primary Care Physician: PCP None - Patient Summary/Data Consults: Consultations 09/23/19 12:15 Consult to Hospice [CONS] Routine - Discharge Plan Home Medications: Home Meds Omeprazole Magnesium [Prilosec Otc] 20 mg PO ACBRK 08/01/14 [History] Levothyroxine [Synthroid] 75 mcg PO ACBREAKFAST 02/28/16 [History] Cetirizine HCl 10 mg PO BEDTIME 06/03/19 [History] Loperamide HCl [Imodium A-D] 4 mg PO Q6H PRN 06/03/19 [History] Oxybutynin Chloride 5 mg PO BID 06/03/19 [History] bisacodyL [Bisacodyl] 10 mg RC DAILY PRN 06/03/19 [History] Acetaminophen [Tylenol] 650 mg PO TID PRN 06/04/19 [History] Docusate Sodium 100 mg PO Q12H 06/04/19 [History] traMADol [Ultram] 100 mg PO Q8H PRN 06/04/19 [History] Calcium Carbonate 200 mg PO DAILY PRN 07/15/19 [History] Promethazine HCl 12.5 mg PO BID 07/15/19 [History] Acetaminophen [Tylenol] 650 mg PO Q8H PRN tablet 07/18/19 [Rx] Cetirizine [ZyrTEC] 10 mg PO BEDTIME tablet 07/18/19 [Rx] Hydrocodone/Acetaminophen [[facility] 10-325 Tablet] 1 each PO ASDIRECTED 09/20/19 [ History] Rivaroxaban [Xarelto] 10 mg PO DAILY 09/20/19 [History] amLODIPine Besylate [Norvasc] 10 mg PO DAILY 09/20/19 [History] Nabumetone [Relafen Ds] 500 mg PO BID 09/21/19 [History] - Discharge Summary/Plan Comment DC Time >30 min.: No - Patient Data Vitals - Most Recent: Last Vital Signs Temp 36.4 C 09/24/19 14:00 Pulse 105 H 09/24/19 14:00 Resp 40 H 09/24/19 14:00 BP 139/79 09/24/19 14:00 Pulse Ox 92 L 09/24/19 14:00 Weight - Most Recent: 48.852 kg I&O - Last 24 hours: Intake & Output 09/25/19 09/26/19 09/26/19 22:59 06:59 14:59 Intake Total 0 Balance 0 MOY Results - Last 24 hrs: Microbiology 09/20/19 13:33 Aerobic Blood Culture - Final Blood - Venous - Lab Draw NO GROWTH AFTER 5 DAYS Anaerobic Blood Culture - Final 09/20/19 13:00 Aerobic Blood Culture - Final Blood - Venous NO GROWTH AFTER 5 DAYS Anaerobic Blood Culture - Final NO GROWTH AFTER 5 DAYS Med Orders - Current: Current Medications Acetaminophen (Tylenol) 650 mg PO Q4H PRN PRN Reason: Pain (Mild 1-3)/fever Last Admin: 09/21/19 14:20 Dose: 650 mg Atropine Sulfate (Atropine 1% Oph Soln) 0 ml SL Q1H PRN PRN Reason: Other Docusate Sodium (Colace) 100 mg PO BID PRN PRN Reason: Constipation Famotidine (Pepcid) 20 mg PO BID ANNA Last Admin: 09/25/19 22:29 Dose: Not Given Lorazepam (Ativan) 1 mg IVPUSH Q1H PRN PRN Reason: Agitation Last Admin: 09/26/19 06:16 Dose: 1 mg Morphine Sulfate (Morphine) 2 mg IVPUSH Q30M PRN PRN Reason: Pain Last Admin: 09/26/19 06:16 Dose: 2 mg Ondansetron HCl (Zofran Odt) 4 mg PO Q4H PRN PRN Reason: nausea, able to take PO Ondansetron HCl (Zofran) 4 mg IVPUSH Q4H PRN PRN Reason: Nausea Last Admin: 09/25/19 13:09 Dose: 4 mg Polyethylene Glycol (Miralax) 17 gm PO DAILY PRN PRN Reason: Constipation Promethazine HCl (Phenergan) 25 mg PO Q8H PRN PRN Reason: Nausea/Vomiting Last Admin: 09/24/19 11:00 Dose: 25 mg Promethazine HCl (Phenergan) 12.5 mg IM Q6H PRN PRN Reason: Nausea Last Admin: 09/23/19 19:57 Dose: 12.5 mg Sodium Chloride (Saline Flush) 10 ml FLUSH ASDIRECTED PRN PRN Reason: Keep Vein Open Sodium Chloride (Saline Flush) 2.5 ml FLUSH ASDIRECTED PRN PRN Reason: Keep Vein Open Sodium Chloride (Crook Nasal [place]) 5 ml FAHAD Q4H PRN PRN Reason: Congestion Last Admin: 09/24/19 02:50 Dose: 5 ml Discontinued Medications Hydrocodone Bitart/Acetaminophen ([facility] 325-5 Mg) 1 tab PO Q6H PRN PRN Reason: Pain Last Admin: 09/23/19 06:10 Dose: 1 tab Albuterol/Ipratropium (Duoneb 3.0-0.5 Mg/3 Ml) 3 ml NEB ONETIME ONE Stop: 09/23/19 11:52 Last Admin: 09/23/19 12:20 Dose: 3 ml Albuterol/Ipratropium (Duoneb 3.0-0.5 Mg/3 Ml) 3 ml NEB Q4HRRT PRN PRN Reason: Shortness of Breath Last Admin: 09/24/19 14:20 Dose: 3 ml Aspirin (Aspirin) 325 mg PO ONETIME ONE Stop: 09/20/19 17:23 Last Admin: 09/20/19 17:45 Dose: 325 mg Dextrose/Water (Dextrose 50% In Water) 50 ml IVPUSH ONETIME STA Stop: 09/23/19 22:03 Last Admin: 09/23/19 22:08 Dose: 50 ml Enoxaparin Sodium (Lovenox) 40 mg SUBCUT Q24H [facility] Last Admin: 09/20/19 21:02 Dose: Not Given Fentanyl (Sublimaze) 25 mcg IVPUSH Q4HR PRN PRN Reason: Severe pain Last Admin: 09/21/19 03:30 Dose: 25 mcg Fentanyl (Fentanyl) 25 mcg IVPUSH ONETIME ONE Stop: 09/21/19 01:40 Last Admin: 09/21/19 02:01 Dose: Not Given Fentanyl (Sublimaze) 25 mcg IVPUSH ONETIME ONE Stop: 09/21/19 02:01 Last Admin: 09/21/19 02:01 Dose: 25 mcg Hydrocortisone Sodium Succinate (Solu-Cortef) 100 mg IVPUSH Q8H ANNA Last Admin: 09/22/19 11:45 Dose: Not Given Hydrocortisone Sodium Succinate (Solu-Cortef) 100 mg IVPUSH ONETIME ONE Stop: 09/21/19 03:31 Last Admin: 09/21/19 03:23 Dose: 100 mg Hydrocortisone Sodium Succinate (Solu-Cortef) 100 mg IVPUSH Q12H ANNA Last Admin: 09/24/19 08:11 Dose: 100 mg Sodium Chloride (Normal Saline) 1,000 mls @ 999 mls/hr IV .Bolus ONE Stop: 09/20/19 14:18 Last Admin: 09/20/19 14:06 Dose: 999 mls/hr Sodium Chloride (Normal Saline) 1,000 mls @ 999 mls/hr IV .Bolus ONE Stop: 09/20/19 14:30 Last Admin: 09/20/19 14:06 Dose: 999 mls/hr Norepinephrine Bitartrate (Norepinephr-0.9% Nacl 4 Mg/250) 4 mg in 250 mls @ 7.5 mls/hr IV TITRATE ANNA; Protocol Last Titration: 09/22/19 07:45 Dose: 0 mcg/min, 0 mls/hr Meropenem 1 gm/ Sodium (Chloride) 100 mls @ 200 mls/hr IV ONETIME ONE Stop: 09/20/19 15:39 Last Admin: 09/20/19 17:30 Dose: Not Given Sodium Chloride (Normal Saline) 1,000 mls @ 999 mls/hr IV .Bolus ONE Stop: 09/20/19 17:45 Last Admin: 09/20/19 17:07 Dose: 999 mls/hr Levofloxacin/Dextrose 750 mg/ (Premix) 150 mls @ 100 mls/hr IV ONETIME ONE Stop: 09/20/19 18:36 Last Admin: 09/20/19 17:46 Dose: 100 mls/hr Piperacillin Sod/Tazobactam (Sod 3.375 gm/ Sodium Chloride) 50 mls @ 100 mls/ hr IV Q8H ANNA Sodium Chloride (Normal Saline) 1,000 mls @ 125 mls/hr IV CONTINUOUS ANNA Last Infusion: 09/21/19 09:15 Dose: 100 mls/hr Pantoprazole Sodium 40 mg/ (Sodium Chloride) 10 mls @ 300 mls/hr IV DAILY ANNA Last Admin: 09/22/19 08:56 Dose: 300 mls/hr Sodium Chloride (Normal Saline) 1,000 mls @ 999 mls/hr IV .Bolus ONE Stop: 09/20/19 20:24 Last Admin: 09/20/19 19:27 Dose: 999 mls/hr Ertapenem 1 gm/ Sodium (Chloride) 50 mls @ 100 mls/hr IV Q24H [facility] Last Admin: 09/21/19 19:47 Dose: 100 mls/hr Vancomycin HCl 1 gm/ Sodium (Chloride) 250 mls @ 166 mls/hr IV Q24H [facility] Last Admin: 09/21/19 20:49 Dose: 166 mls/hr Vasopressin 100 units/ Sodium (Chloride) 100 mls @ 1.8 mls/hr IV TITRATE ANNA Vasopressin 100 units/ Sodium (Chloride) 100 mls @ 1.8 mls/hr IV CONTINUOUS [facility] Last Admin: 09/20/19 22:40 Dose: 0.03 units/min, 1.8 mls/hr Magnesium Sulfate 4 gm/ Premix 100 mls @ 50 mls/hr IV ONETIME ONE Stop: 09/21/19 08:37 Last Admin: 09/21/19 06:48 Dose: 50 mls/hr Levofloxacin/Dextrose 750 mg/ (Premix) 150 mls @ 100 mls/hr IV Q48H ANNA Sodium Chloride (Normal Saline) 1,000 mls @ 100 mls/hr IV Q10H [facility] Last Admin: 09/21/19 20:56 Dose: Not Given Sodium Chloride (Normal Saline) 1,000 mls @ 100 mls/hr IV ASDIRECTED [facility] Last Admin: 02/20/20 02:18 Dose: 100 mls/hr Ceftriaxone Sodium/Dextrose 1 (gm/ Premix) 50 mls @ 100 mls/hr IV Q24H [facility] Last Admin: 09/22/19 13:25 Dose: 100 mls/hr Azithromycin 250 mg/ Sodium (Chloride) 250 mls @ 250 mls/hr IV Q24H [facility] Last Admin: 09/22/19 12:00 Dose: 250 mls/hr Lactated Ringer's (Ringers, Lactated) 1,000 mls @ 75 mls/hr IV ASDIRECTED [facility] Last Admin: 09/23/19 06:05 Dose: 75 mls/hr Sodium Chloride (Normal Saline) 1,000 mls @ 75 mls/hr IV ASDIRECTED [facility] Last Admin: 09/23/19 10:54 Dose: 75 mls/hr Sodium Chloride (Normal Saline) 1,000 mls @ 999 mls/hr IV STAT ONE Stop: 09/23/19 10:14 Last Admin: 09/23/19 10:14 Dose: 999 mls/hr Meropenem 1 gm/ Sodium (Chloride) 50 mls @ 100 mls/hr IV Q12H [facility] Last Admin: 09/23/19 10:52 Dose: Not Given Levofloxacin/Dextrose 750 mg/ (Premix) 150 mls @ 100 mls/hr IV Q48H [facility] Last Admin: 09/23/19 11:44 Dose: 100 mls/hr Meropenem/Sodium Chloride 1 gm (/ Premix) 50 mls @ 100 mls/hr IV Q12H [facility] Last Admin: 09/24/19 10:33 Dose: 100 mls/hr Vancomycin HCl 0.75 gm/ Sodium (Chloride) 250 mls @ 250 mls/hr IV Q24H [facility] Last Admin: 09/24/19 11:56 Dose: 250 mls/hr Dextrose/Sodium Chloride (Dextrose 5%-1/2 Ns) 1,000 mls @ 75 mls/hr IV ASDIRECTED [facility] Last Admin: 09/24/19 13:18 Dose: 75 mls/hr Sodium Chloride (Normal Saline) 500 mls @ 999 mls/hr IV .BOLUS ONE Stop: 09/24/19 04:04 Last Admin: 09/24/19 03:43 Dose: 999 mls/hr Ibuprofen (Motrin) 800 mg PO Q6H PRN PRN Reason: Pain (mild 1-3) Ketorolac Tromethamine (Toradol) 15 mg IV Q6H PRN PRN Reason: Pain (moderate 4-6) Levothyroxine Sodium (Synthroid) 75 mcg PO ACBREAKFAST [facility] Levothyroxine Sodium (Levothyroxine) 75 mcg PO ACBREAKFAST [facility] Last Admin: 09/24/19 06:34 Dose: 75 mcg Lidocaine (Xylocaine-Mpf 2%) Confirm Administered Dose 5 ml .ROUTE .STK-MED ONE Stop: 09/22/19 09:43 Last Admin: 09/22/19 10:35 Dose: Not Given Lidocaine HCl (Xylocaine 1%) Confirm Administered Dose 20 ml .ROUTE .STK-MED ONE Stop: 09/20/19 21:44 Last Admin: 09/20/19 22:15 Dose: 20 ml Lorazepam (Ativan) 1 mg IVPUSH Q4H PRN PRN Reason: Anxiety Last Admin: 09/25/19 13:09 Dose: 1 mg Megestrol Acetate (Megace) 40 mg PO DAILY [facility] Last Admin: 09/24/19 10:33 Dose: 40 mg Metoprolol Tartrate (Lopressor) 2.5 mg IVPUSH ONETIME ONE Stop: 09/24/19 03:13 Last Admin: 09/24/19 03:23 Dose: 2.5 mg Midodrine (Midodrine) 10 mg PO TIDAC [facility] Last Admin: 09/24/19 10:58 Dose: 10 mg Rivaroxaban (Xarelto) 10 mg PO DAILY [facility] Last Admin: 09/24/19 08:11 Dose: 10 mg Tramadol HCl (Ultram) 100 mg PO Q8H PRN PRN Reason: Pain Last Admin: 09/24/19 13:42 Dose: 100 mg Vancomycin HCl (Pharmacy To Dose - Vancomycin) 1 dose .XX ASDIRECTED [facility] Vancomycin HCl (Pharmacy To Dose - Vancomycin) 1 dose .XX ASDIRECTED [facility] <Waqas Child - Last Filed: 10/04/19 11:44> Discharge Summary - Hospital Course Free Text/Narrative:: I have seen and examined the patient with the resident. I have discussed the findings and treatment plan with the resident. I agree with the assessment and plan as outlined in the following note. - Referral to Home Health Primary Care Physician: PCP None - Discharge Diagnosis/Problem(s) (1) Acute respiratory failure with hypoxia SNOMED Code(s): 52558109, 385580589 ICD Code: J96.01 - ACUTE RESPIRATORY FAILURE WITH HYPOXIA Status: Acute (2) Pneumonia SNOMED Code(s): 962685126 ICD Code: J18.9 - PNEUMONIA, UNSPECIFIED ORGANISM Status: Acute Qualifiers: Pneumonia type: due to unspecified organism Laterality: unspecified laterality Lung location: unspecified part of lung Qualified Code(s): J18.9 - Pneumonia, unspecified organism (3) Septic shock SNOMED Code(s): 32673623 ICD Code: A41.9 - SEPSIS, UNSPECIFIED ORGANISM; R65.21 - SEVERE SEPSIS WITH SEPTIC SHOCK Status: Acute - Patient Summary/Data Consults: Consultations 09/23/19 12:15 Consult to Hospice [CONS] Routine - Patient Data Vitals - Most Recent: Last Vital Signs Temp 36.4 C 09/24/19 14:00 Pulse 105 H 09/24/19 14:00 Resp 40 H 09/24/19 14:00 BP 139/79 09/24/19 14:00 Pulse Ox 92 L 09/24/19 14:00 Med Orders - Current: Current Medications Discontinued Medications Acetaminophen (Tylenol) 650 mg PO Q4H PRN PRN Reason: Pain (Mild 1-3)/fever Last Admin: 09/21/19 14:20 Dose: 650 mg Hydrocodone Bitart/Acetaminophen ([facility] 325-5 Mg) 1 tab PO Q6H PRN PRN Reason: Pain Last Admin: 09/23/19 06:10 Dose: 1 tab Albuterol/Ipratropium (Duoneb 3.0-0.5 Mg/3 Ml) 3 ml NEB ONETIME ONE Stop: 09/23/19 11:52 Last Admin: 09/23/19 12:20 Dose: 3 ml Albuterol/Ipratropium (Duoneb 3.0-0.5 Mg/3 Ml) 3 ml NEB Q4HRRT PRN PRN Reason: Shortness of Breath Last Admin: 09/24/19 14:20 Dose: 3 ml Aspirin (Aspirin) 325 mg PO ONETIME ONE Stop: 09/20/19 17:23 Last Admin: 09/20/19 17:45 Dose: 325 mg Atropine Sulfate (Atropine 1% Ophth Soln) 0 ml SL Q1H PRN PRN Reason: Other Dextrose/Water (Dextrose 50% In Water) 50 ml IVPUSH ONETIME STA Stop: 09/23/19 22:03 Last Admin: 09/23/19 22:08 Dose: 50 ml Docusate Sodium (Colace) 100 mg PO BID PRN PRN Reason: Constipation Enoxaparin Sodium (Lovenox) 40 mg SUBCUT Q24H [facility] Last Admin: 09/20/19 21:02 Dose: Not Given Famotidine (Pepcid) 20 mg PO BID [facility] Last Admin: 09/26/19 11:05 Dose: Not Given Fentanyl (Sublimaze) 25 mcg IVPUSH Q4HR PRN PRN Reason: Severe pain Last Admin: 09/21/19 03:30 Dose: 25 mcg Fentanyl (Fentanyl) 25 mcg IVPUSH ONETIME ONE Stop: 09/21/19 01:40 Last Admin: 09/21/19 02:01 Dose: Not Given Fentanyl (Sublimaze) 25 mcg IVPUSH ONETIME ONE Stop: 09/21/19 02:01 Last Admin: 09/21/19 02:01 Dose: 25 mcg Hydrocortisone Sodium Succinate (Solu-Cortef) 100 mg IVPUSH Q8H [facility] Last Admin: 09/22/19 11:45 Dose: Not Given Hydrocortisone Sodium Succinate (Solu-Cortef) 100 mg IVPUSH ONETIME ONE Stop: 09/21/19 03:31 Last Admin: 09/21/19 03:23 Dose: 100 mg Hydrocortisone Sodium Succinate (Solu-Cortef) 100 mg IVPUSH Q12H [facility] Last Admin: 09/24/19 08:11 Dose: 100 mg Sodium Chloride (Normal Saline) 1,000 mls @ 999 mls/hr IV .Bolus ONE Stop: 09/20/19 14:18 Last Admin: 09/20/19 14:06 Dose: 999 mls/hr Sodium Chloride (Normal Saline) 1,000 mls @ 999 mls/hr IV .Bolus ONE Stop: 09/20/19 14:30 Last Admin: 09/20/19 14:06 Dose: 999 mls/hr Norepinephrine Bitartrate (Norepinephr-0.9% Nacl 4 Mg/250) 4 mg in 250 mls @ 7.5 mls/hr IV TITRATE ANNA; Protocol Last Titration: 09/22/19 07:45 Dose: 0 mcg/min, 0 mls/hr Meropenem 1 gm/ Sodium (Chloride) 100 mls @ 200 mls/hr IV ONETIME ONE Stop: 09/20/19 15:39 Last Admin: 09/20/19 17:30 Dose: Not Given Sodium Chloride (Normal Saline) 1,000 mls @ 999 mls/hr IV .Bolus ONE Stop: 09/20/19 17:45 Last Admin: 09/20/19 17:07 Dose: 999 mls/hr Levofloxacin/Dextrose 750 mg/ (Premix) 150 mls @ 100 mls/hr IV ONETIME ONE Stop: 09/20/19 18:36 Last Admin: 09/20/19 17:46 Dose: 100 mls/hr Piperacillin Sod/Tazobactam (Sod 3.375 gm/ Sodium Chloride) 50 mls @ 100 mls/ hr IV Q8H ANNA Sodium Chloride (Normal Saline) 1,000 mls @ 125 mls/hr IV CONTINUOUS ANNA Last Infusion: 09/21/19 09:15 Dose: 100 mls/hr Pantoprazole Sodium 40 mg/ (Sodium Chloride) 10 mls @ 300 mls/hr IV DAILY ANNA Last Admin: 09/22/19 08:56 Dose: 300 mls/hr Sodium Chloride (Normal Saline) 1,000 mls @ 999 mls/hr IV .Bolus ONE Stop: 09/20/19 20:24 Last Admin: 09/20/19 19:27 Dose: 999 mls/hr Ertapenem 1 gm/ Sodium (Chloride) 50 mls @ 100 mls/hr IV Q24H ANNA Last Admin: 09/21/19 19:47 Dose: 100 mls/hr Vancomycin HCl 1 gm/ Sodium (Chloride) 250 mls @ 166 mls/hr IV Q24H ANNA Last Admin: 09/21/19 20:49 Dose: 166 mls/hr Vasopressin 100 units/ Sodium (Chloride) 100 mls @ 1.8 mls/hr IV TITRATE ANNA Vasopressin 100 units/ Sodium (Chloride) 100 mls @ 1.8 mls/hr IV CONTINUOUS ANNA Last Admin: 09/20/19 22:40 Dose: 0.03 units/min, 1.8 mls/hr Magnesium Sulfate 4 gm/ Premix 100 mls @ 50 mls/hr IV ONETIME ONE Stop: 09/21/19 08:37 Last Admin: 09/21/19 06:48 Dose: 50 mls/hr Levofloxacin/Dextrose 750 mg/ (Premix) 150 mls @ 100 mls/hr IV Q48H [facility] Sodium Chloride (Normal Saline) 1,000 mls @ 100 mls/hr IV Q10H [facility] Last Admin: 09/21/19 20:56 Dose: Not Given Sodium Chloride (Normal Saline) 1,000 mls @ 100 mls/hr IV ASDIRECTED [facility] Last Admin: 09/22/19 02:18 Dose: 100 mls/hr Ceftriaxone Sodium/Dextrose 1 (gm/ Premix) 50 mls @ 100 mls/hr IV Q24H [facility] Last Admin: 09/22/19 13:25 Dose: 100 mls/hr Azithromycin 250 mg/ Sodium (Chloride) 250 mls @ 250 mls/hr IV Q24H [facility] Last Admin: 09/22/19 12:00 Dose: 250 mls/hr Lactated Ringer's (Ringers, Lactated) 1,000 mls @ 75 mls/hr IV ASDIRECTED [facility] Last Admin: 09/23/19 06:05 Dose: 75 mls/hr Sodium Chloride (Normal Saline) 1,000 mls @ 75 mls/hr IV ASDIRECTED [facility] Last Admin: 09/23/19 10:54 Dose: 75 mls/hr Sodium Chloride (Normal Saline) 1,000 mls @ 999 mls/hr IV STAT ONE Stop: 09/23/19 10:14 Last Admin: 09/23/19 10:14 Dose: 999 mls/hr Meropenem 1 gm/ Sodium (Chloride) 50 mls @ 100 mls/hr IV Q12H [facility] Last Admin: 09/23/19 10:52 Dose: Not Given Levofloxacin/Dextrose 750 mg/ (Premix) 150 mls @ 100 mls/hr IV Q48H [facility] Last Admin: 09/23/19 11:44 Dose: 100 mls/hr Meropenem/Sodium Chloride 1 gm (/ Premix) 50 mls @ 100 mls/hr IV Q12H [facility] Last Admin: 09/24/19 10:33 Dose: 100 mls/hr Vancomycin HCl 0.75 gm/ Sodium (Chloride) 250 mls @ 250 mls/hr IV Q24H [facility] Last Admin: 09/24/19 11:56 Dose: 250 mls/hr Dextrose/Sodium Chloride (Dextrose 5%-1/2 Ns) 1,000 mls @ 75 mls/hr IV ASDIRECTED [facility] Last Admin: 09/24/19 13:18 Dose: 75 mls/hr Sodium Chloride (Normal Saline) 500 mls @ 999 mls/hr IV .BOLUS ONE Stop: 09/24/19 04:04 Last Admin: 09/24/19 03:43 Dose: 999 mls/hr Ibuprofen (Motrin) 800 mg PO Q6H PRN PRN Reason: Pain (mild 1-3) Ketorolac Tromethamine (Toradol) 15 mg IV Q6H PRN PRN Reason: Pain (moderate 4-6) Levothyroxine Sodium (Synthroid) 75 mcg PO ACBREAKFAST [facility] Levothyroxine Sodium (Levothyroxine) 75 mcg PO ACBREAKFAST [facility] Last Admin: 09/24/19 06:34 Dose: 75 mcg Lidocaine (Xylocaine-Mpf 2%) Confirm Administered Dose 5 ml .ROUTE .STK-MED ONE Stop: 09/22/19 09:43 Last Admin: 09/22/19 10:35 Dose: Not Given Lidocaine HCl (Xylocaine 1%) Confirm Administered Dose 20 ml .ROUTE .STK-MED ONE Stop: 09/20/19 21:44 Last Admin: 09/20/19 22:15 Dose: 20 ml Lorazepam (Ativan) 1 mg IVPUSH Q4H PRN PRN Reason: Anxiety Last Admin: 09/25/19 13:09 Dose: 1 mg Lorazepam (Ativan) 1 mg IVPUSH Q1H PRN PRN Reason: Agitation Last Admin: 09/26/19 06:16 Dose: 1 mg Megestrol Acetate (Megace) 40 mg PO DAILY [facility] Last Admin: 09/24/19 10:33 Dose: 40 mg Metoprolol Tartrate (Lopressor) 2.5 mg IVPUSH ONETIME ONE Stop: 09/24/19 03:13 Last Admin: 09/24/19 03:23 Dose: 2.5 mg Midodrine (Midodrine) 10 mg PO TIDAC [facility] Last Admin: 09/24/19 10:58 Dose: 10 mg Morphine Sulfate (Morphine) 2 mg IVPUSH Q30M PRN PRN Reason: Pain Last Admin: 09/26/19 06:16 Dose: 2 mg Ondansetron HCl (Zofran Odt) 4 mg PO Q4H PRN PRN Reason: nausea, able to take PO Ondansetron HCl (Zofran) 4 mg IVPUSH Q4H PRN PRN Reason: Nausea Last Admin: 09/25/19 13:09 Dose: 4 mg Polyethylene Glycol (Miralax) 17 gm PO DAILY PRN PRN Reason: Constipation Promethazine HCl (Phenergan) 25 mg PO Q8H PRN PRN Reason: Nausea/Vomiting Last Admin: 09/24/19 11:00 Dose: 25 mg Promethazine HCl (Phenergan) 12.5 mg IM Q6H PRN PRN Reason: Nausea Last Admin: 09/23/19 19:57 Dose: 12.5 mg Rivaroxaban (Xarelto) 10 mg PO DAILY [facility] Last Admin: 09/24/19 08:11 Dose: 10 mg Sodium Chloride (Saline Flush) 10 ml FLUSH ASDIRECTED PRN PRN Reason: Keep Vein Open Sodium Chloride (Saline Flush) 2.5 ml FLUSH ASDIRECTED PRN PRN Reason: Keep Vein Open Sodium Chloride (Crook Nasal [place]) 5 ml FAHAD Q4H PRN PRN Reason: Congestion Last Admin: 09/24/19 02:50 Dose: 5 ml Tramadol HCl (Ultram) 100 mg PO Q8H PRN PRN Reason: Pain Last Admin: 09/24/19 13:42 Dose: 100 mg Vancomycin HCl (Pharmacy To Dose - Vancomycin) 1 dose .XX ASDIRECTED [facility] Vancomycin HCl (Pharmacy To Dose - Vancomycin) 1 dose .XX ASDIRECTED [facility]
[2019-09-26] MEDS: Famotidine 20 MG Tab PO SCH (11:05)
== END 2019-09-26 12:00 | disposition expired | DRG 871 ==
LOC: MW.ED 12:33 → MW.ICU 17:24 → MW.MS 09-24 18:50
PROVIDERS: ADMIT Internal Medicine; ATTEND Internal Medicine
PROC: 3E033XZ Introduction of Vasopressor into Peripheral Vein, Percutaneous Approach (ICD-10-PCS; principal; 2019-09-20)
PROC: 02H633Z Insertion of Infusion Device into Right Atrium, Percutaneous Approach (ICD-10-PCS; 2019-09-20)
PROC: B543ZZA Ultrasonography of Right Jugular Veins, Guidance (ICD-10-PCS; 2019-09-20)
PROC: 03HY32Z Insertion of Monitoring Device into Upper Artery, Percutaneous Approach (ICD-10-PCS; 2019-09-20)
DX: A41.51 Sepsis due to Escherichia coli [E. coli] (principal); I95.9 Hypotension, unspecified; R65.21 Severe sepsis with septic shock; K58.9 Irritable bowel syndrome, unspecified; J18.9 Pneumonia, unspecified organism; J96.01 Acute respiratory failure with hypoxia; J44.0 Chronic obstructive pulmonary disease with (acute) lower respiratory infection; Z51.5 Encounter for palliative care; N17.9 Acute kidney failure, unspecified; N39.0 Urinary tract infection, site not specified; E87.0 Hyperosmolality and hypernatremia; E87.1 Hypo-osmolality and hyponatremia; E87.2 Acidosis; E78.00 Pure hypercholesterolemia, unspecified; Z88.6 Allergy status to analgesic agent; K21.9 Gastro-esophageal reflux disease without esophagitis; E83.42 Hypomagnesemia; Z79.890 Hormone replacement therapy; M34.1 CR(E)ST syndrome; M19.90 Unspecified osteoarthritis, unspecified site; M79.605 Pain in left leg; M79.604 Pain in right leg; N32.81 Overactive bladder; I73.00 Raynaud's syndrome without gangrene; R79.89 Other specified abnormal findings of blood chemistry; E03.9 Hypothyroidism, unspecified; I48.91 Unspecified atrial fibrillation; G89.29 Other chronic pain; I10 Essential (primary) hypertension; Z96.659 Presence of unspecified artificial knee joint; Z99.81 Dependence on supplemental oxygen; Z90.710 Acquired absence of both cervix and uterus; Z98.49 Cataract extraction status, unspecified eye; Z88.5 Allergy status to narcotic agent; Z91.040 Latex allergy status; Z88.0 Allergy status to penicillin; Z88.2 Allergy status to sulfonamides; Z88.8 Allergy status to other drugs, medicaments and biological substances; Z79.01 Long term (current) use of anticoagulants; Z79.899 Other long term (current) drug therapy; Z89.422 Acquired absence of other left toe(s); Z83.3 Family history of diabetes mellitus
CPT/HCPCS: 36415; 36556; 70450; 71045 ×2; 80048; 80053; 81001; 82803; 83605 ×2; 83880; 84443; 84484 ×2; 85025; 86140; 87040 ×2; 87086; 87088; 87186; 87899 ×2; 93005; 96360; 99291; 99292; J7030 ×3; 36600; 36620; 74176; 74176-26; 82962; 83735; 85652; 87486; 87581; 87632; 87798; 87804; 94640; 99284; A9270-GY; C9113; J0456; J0696; J1335; J1720; J1956; J2001; J2060; J2185; J2270; J2405; J2550; J3010; J3370; J3475; J3490; J7042; J7050; J7120; J7620-GY